=== PATIENT | male | born 1965 | race Caucasian/White ===

== ENCOUNTER → 2020-03-29 09:23 | Outpatient (BNVA) | payer OTHER, SELFPAY | PROVIDERS: PCP Internal Medicine; Visit Provider Physician Assistant | DX: Z76.89 Persons encountering health services in other specified circumstances (principal) ==

== ENCOUNTER 2020-04-27 08:12 | Outpatient (REF) | payer OTHER, SELFPAY ==
--- NOTE | 2020-04-27 10:29 | XR_ITS ---
EXAMINATION: XR ANKLE, LEFT CLINICAL INFORMATION: Fracture COMPARISON: None TECHNIQUE: AP, lateral, and mortise views of the left ankle. FINDINGS: There is an oblique fracture of the distal shaft of the fibula. There is a 2 mm lateral displacement of the lateral malleolus with respect to the more proximal shaft. There is soft tissue calcification in the region of the interosseous membrane. No other fracture is seen. Ankle mortise is normal. XR/XR ankle LT min 3V IMPRESSION: Oblique minimally displaced fracture of the distal shaft of the left fibula.
== END 2020-04-27 08:13 | disposition home or self-care (01) ==
LOC: HO.HOSX 08:12
PROVIDERS: Visit Provider Physician Assistant
DX: S82.402D Unspecified fracture of shaft of left fibula, subsequent encounter for closed fracture with routine healing (principal)
CPT/HCPCS: 73610

== ENCOUNTER → 2020-08-26 13:16 | Outpatient (BNVA) | payer OTHER, SELFPAY | PROVIDERS: PCP Internal Medicine; Referring Provider Internal Medicine; Visit Provider Nurse Practitioner ==

== ENCOUNTER 2020-09-22 09:22 | Day surgery (SDC) | payer OTHER, SELFPAY ==
[2020-09-16 14:49] VITALS: BMI 34.4
--- NOTE | 2020-09-20 13:10 | P.CONAN_ITS ---
Documented by User: Maegan Batesney 09/20/20 13:11 HPI - Anesthesia Eval Consult details Narrative: 55yo M for Colonoscopy PMFSH Active Problems Active Problems: All Active Problems (Updated 08/26/20 @ 14:00 by SHYANNE Livingston) Colon cancer screening (Acute) Skin tag (Acute) Guaiac + stool (Acute) Annual physical exam (Acute) Obesity (BMI 30-39.9) (Acute) Mendez's esophagus (Acute) Hypercholesterolemia (Acute) HTN (hypertension) (Acute) Type 2 diabetes mellitus with hyperglycemia (Acute) Left fibular fracture (Acute) Somatic dysfunction of left sacroiliac joint (Acute) Past Medical History Medical History Mendez's esophagus Crohn's colitis HTN (hypertension) Hypercholesterolemia Obesity (BMI 30-39.9) Type 2 diabetes mellitus with hyperglycemia Vitamin D deficiency Family History Family History Father CVD (cardiovascular disease) Diabetes Hypertension Myocardial infarction Mother Myocardial infarction Hypertension CVD (cardiovascular disease) Maternal Grandmother Gastric cancer Paternal Grandmother Myocardial infarction Maternal Aunt Gastric cancer Breast cancer Sister In good health Surgical History Surgical History History of umbilical hernia repair Social History Social History Alcohol intake: never Patient Tobacco Use Status: Never used Tobacco Use of substances other than those prescribed or required for medical reasons: No Have you been hit, kicked, punched, or otherwise hurt by someone within the past year? If so, by whom?: No Are you DNR?: No Advance Directives: No Advance Directives Information Provided: Yes Nutrition Risks: No Nutritional Risk Current occupational status: employed Current occupation: [employer] Allergies Allergy/AdvReac Type Severity Reaction Status Date / Time Penicillins [PENICILLINS] Allergy Intermediate HIVES Verified 08/26/20 13:27 lisinopril [LISINOPRIL] Allergy Unknown COUGH Verified 08/26/20 13:27 penicillin V Allergy Unknown rash Verified 08/26/20 13:27 Home Medications Medication Instructions Recorded Confirmed Last Taken Type amlodipine 5 mg tablet 5 mg PO DAILY 02/22/20 06/17/20 09/22/20 06:00 History empagliflozin 25 mg tablet 25 mg PO QAM 02/22/20 06/17/20 Unknown History dulaglutide 0.75 mg/0.5 mL 1.5 mg SUBCUT QWEEK ml 06/17/20 06/17/20 Unknown History subcutaneous pen injector omeprazole 20 mg capsule,delayed 20 mg PO DAILY 06/17/20 06/17/20 09/22/20 06:00 History release Exam Exam Date and Time: September 20, 2020 1310 Height,Weight and Vital Signs: Height 5 ft 5 in Weight 93.894 kg Assessment and Plan Assessment Anesthesia Assessment: Chart Reviewed Documented by User: Seamus Malave MD 09/22/20 09:56 [facility] Past Medical History Medical History Mendez's esophagus Crohn's colitis HTN (hypertension) Hypercholesterolemia Obesity (BMI 30-39.9) Type 2 diabetes mellitus with hyperglycemia Vitamin D deficiency Family History Family History Father CVD (cardiovascular disease) Diabetes Hypertension Myocardial infarction Mother Myocardial infarction Hypertension CVD (cardiovascular disease) Maternal Grandmother Gastric cancer Paternal Grandmother Myocardial infarction Maternal Aunt Gastric cancer Breast cancer Sister In good health Surgical History Surgical History History of umbilical hernia repair Social History Social History Alcohol intake: never Patient Tobacco Use Status: Never used Tobacco Use of substances other than those prescribed or required for medical reasons: No Have you been hit, kicked, punched, or otherwise hurt by someone within the past year? If so, by whom?: No Are you DNR?: No Advance Directives: No Advance Directives Information Provided: Yes Nutrition Risks: No Nutritional Risk Current occupational status: employed Current occupation: [employer] Allergies Allergy/AdvReac Type Severity Reaction Status Date / Time Penicillins [PENICILLINS] Allergy Intermediate HIVES Verified 08/26/20 13:27 lisinopril [LISINOPRIL] Allergy Unknown COUGH Verified 08/26/20 13:27 penicillin V Allergy Unknown rash Verified 08/26/20 13:27 Home Medications Medication Instructions Recorded Confirmed Last Taken Type amlodipine 5 mg tablet 5 mg PO DAILY 02/22/20 06/17/20 09/22/20 06:00 History empagliflozin 25 mg tablet 25 mg PO QAM 02/22/20 06/17/20 Unknown History dulaglutide 0.75 mg/0.5 mL 1.5 mg SUBCUT QWEEK ml 06/17/20 06/17/20 Unknown History subcutaneous pen injector omeprazole 20 mg capsule,delayed 20 mg PO DAILY 06/17/20 06/17/20 09/22/20 06:00 History release Exam Airway Mallampati Class: II TM Dist: >3cm Neck ROM: Full Loose/Missing/Broken Teeth: No Heart: RRR, hypertensive. c/w baseline , worsened by anxiety Assessment and Plan Assessment Anesthesia Assessment: Anesthesia Plan Discussed and Chart Reviewed Final Anesthetic Review NPO: Yes ASA Class: III Final Preanesthetic Review: No Changes in Pt Med Stat, Meds/Allgs Chart Reviewed, Consent Obtained/Reviewed and Anes Risks/Benef Reviewed Patient Risk: Intermediate Procedure Risk: Low Anesthetic Plan Anesthetic Plan: MAC: Disposition: Standard PACU
[2020-09-22 09:35] VITALS: BP 182/100; PULSE 95; RESP 18; TEMP 36.9; O2SAT 98
[2020-09-22 09:37] LABS: Glucose, Whole Blood 234 mg/dL (60-115)
--- NOTE | 2020-09-22 09:39 | MHC.SHP ---
Pre-Procedural Eval Section B Chief Complaint: Screening Details of Present Illness: hx of barretts and carcinoid, crohns Relevant Family History (Specify if Yes): No Relevant Social History: None Present Medications: see Short Stay Collaborative assessment Medical History: Significant History (Mendez's esophagus Crohn's colitis HTN (hypertension) Hypercholesterolemia Obesity (BMI 30-39.9) Type 2 diabetes mellitus with hyperglycemia Vitamin D deficiency) History of Previous Operations: Relevant previous surgery/procedure and date(s) (umbilical hernia repair) Allergies: Allergies Allergy/AdvReac Type Severity Reaction Status Date / Time Penicillins [PENICILLINS] Allergy Intermediate HIVES Verified 08/26/20 13:27 lisinopril [LISINOPRIL] Allergy Unknown COUGH Verified 08/26/20 13:27 penicillin V Allergy Unknown rash Verified 08/26/20 13:27 Review of Systems Sugical H&P ROS: Negative: Constitution, Cardiovascular, Respiratory, Neurological, Psychiatric, Hem-Onc, Allergic/Immunologic, Gastrointestinal, Genitourinary, Musculoskeletal, Integumentary, Endocrine and Eyes/Ears/Nose/Throat Exam Surgical H&P Exam: Normal: HEENT, Normal: Heart, Normal: Lungs, Normal: Extremities, Normal: Abdomen, Normal: Skin and Normal: Neurological Plan Diagnosis/Plan: Unchanged I have reviewed the history and physical and performed a pertinent physical examination on my patient. No changes have occurred unless specified.
[2020-09-22] MEDS: Lactated Ringers 1,000 ML 100 ML IVCONT (09:46)
--- NOTE | 2020-09-22 09:51 | PC.NURSE ---
anesthesia aware of vitals b/p and bs
--- NOTE | 2020-09-22 09:55 | PM.OP ---
Brief Operative Note Date of Service: 09/22/20 Pre-op diagnosis: hx of barretts, crohns, carcinoid Post-op diagnosis: same Procedure: see op note Surgeon: Bryn Lizarraga MD Anesthesia: MAC Was an Crm Consultant used for this Procedure?: No Estimated blood loss (mL): 0 Condition: stable Disposition: PACU
--- NOTE | 2020-09-22 09:55 | W.PM.OPN ---
Operative Note Operative Note Date of Service: 09/22/20 Narrative: Operative Information Procedure Description: EGD, Colonoscopy FLEXIBLE TRANSORAL UPPER GASTROINTESTINAL ENDOSCOPY AND COLONOSCOPY PROCEDURE NOTE UPPER ENDOSCOPY Consent: Indications for the procedure and potential complications of bleeding, perforation, reaction to medications and missed diagnosis were discussed with the patient and informed consent was obtained. Instrument: Olympus GIF H 190 J mid size upper endoscope Monitoring: Vital signs and clinical assessment, continuous EKG monitoring, Pulse oximetry, Carbon Dioxide monitoring and blood pressure monitoring were done throughout the procedure. Procedure: The patient was placed in the left lateral decubitis position and pre-procedure medications were administered and a bite block was placed. The endoscope was inserted into the mouth and advanced under direct vision to the third part of duodenum. A careful inspection was made as the upper endoscope was withdrawn including a retroflexed examination of the proximal stomach; Findings and interventions are described below. Findings: Larynx:normal Esophagus: GE junction at 37 cm, diaphragm hiatus at 41 cm, consistent with 4 cm sliding hiatal hernia, long segment of salmon pink tissue consistent with barretts esophagus C5M8 by Rochelle criteria. Using high def light and blue light no focal nodularity noted. Biospies taken per Hendrix protocol at 37, 35, 33, 29 cm from incisors. WATS 3d brushings also taken. Stomach: Patchy erythema in stomach, prominent fold at pylorus. Biopsies were obtained. Grade 3 flap valve on retroflexed examination of the cardia, ie v lax LES Duodenum: bulbar duodenitis with swelling and erythema, bx taken, no ulcers seen Intervention: Biopsies as noted above, brushings for WATS3D COLONOSCOPY Instrument: Olympus variable stiffness pediatric scope 190L Colonoscopy Monitoring: Vital signs and clinical assessment, continuous EKG monitoring, Pulse oximetry, Carbon Dioxide monitoring and blood pressure monitoring were done throughout the procedure. Colon withdrawal time was 32 minutes. Procedure: The patient was placed in the left lateral decubitis position and pre-procedure medications were administered. After a digital rectal examination of the ano-rectum, the video colonoscope was inserted into the rectum and advanced through the colon to the cecum/TI. The colonoscope was slowly withdrawn in a retrograde panoramic fashion and the colon mucosa was carefully examined including a retroflexed view of the rectum. Findings and interventions are described below. Procedure Difficulty:easy Findings: colon bx taken from right, and left/transverse and rectum in separate jars Terminal Ileum-normal, bx taken Cecum:normal, bx taken Ascending Colon: normal, bx taken Transverse Colon -normal, bx taken Descending Colon:normal, bx taken Sigmoid Colon: moderate severe diverticulosis noted, bx taken Rectum: Retroflexion with moderate sized internal hemorrhoids, grade I proximal rectum 10 mm sessile polyp noted and removed with cold snare mid rectum, 8-10 mm sessile polyp removed with cold snare distal rectum x 2 sessile polyps 10 mm removed with cold snare On retroflexion x2 pedunculated polpyoid lesions which looked like papillomas were removed with cold snare. Anorectum - normal Colon preparation: [place] Bowel Preparation Scale Right colon; 3 Transverse colon: 3 Left colon; 2 (0 = Unprepared colon segment with mucosa not seen due to solid stool that cannot be cleared. 1 = Portion of mucosa of the colon segment seen, but other areas of the colon segment not well seen due to staining, residual stool and/or opaque liquid. 2 = Minor amount of residual staining, small fragments of stool and/or opaque liquid, but mucosa of colon segment seen well. 3 = Entire mucosa of colon segment seen well with no residual staining, small fragments of stool or opaque liquid) Impression and Post Procedure Diagnosis: Endoscopy Findings: barretts esophagus hiatal hernia gastritis duodenitis Colonoscopy Findings: polyps internal hemorrhoids diverticular disease possible papillomas Plan: Await Pathology results Repeat Colonoscopy in 3 years or earlier if clinically indicated Repeat EGD 1 yr or earlier if any dysplasia, confirm he is taking PPI High fiber diet leaflet avoid straining at stool, epsom salts and sitz bath, anusol supps or cream may need colorectal assessment and further testing if papillomas confirmed Above findings were reviewed with the patient and relevant handouts were provided if indicated.
[2020-09-22 11:15] VITALS: BP 102/63; PULSE 79; RESP 14; TEMP 36.2; O2SAT 97
[2020-09-22 11:30] VITALS: BP 125/78; PULSE 82; RESP 16; TEMP 36.2; O2SAT 98
== END 2020-09-22 12:04 | disposition home or self-care (01) ==
PROVIDERS: PCP Internal Medicine; Visit Provider Internal Medicine Gastroenterology
PROC: 0DJD8ZZ Inspection of Lower Intestinal Tract, Via Natural or Artificial Opening Endoscopic (ICD-10-PCS; CPT 45378; principal; 2020-09-22 11:20)
DX: Z12.11 Encounter for screening for malignant neoplasm of colon (principal); K63.5 Polyp of colon; K62.1 Rectal polyp; K57.30 Diverticulosis of large intestine without perforation or abscess without bleeding; K64.0 First degree hemorrhoids; K50.10 Crohn's disease of large intestine without complications; K22.70 Barrett's esophagus without dysplasia; K21.9 Gastro-esophageal reflux disease without esophagitis; K29.80 Duodenitis without bleeding; K44.9 Diaphragmatic hernia without obstruction or gangrene; I10 Essential (primary) hypertension; E11.65 Type 2 diabetes mellitus with hyperglycemia; E55.9 Vitamin D deficiency, unspecified; Z88.0 Allergy status to penicillin; Z88.8 Allergy status to other drugs, medicaments and biological substances; Z79.899 Other long term (current) drug therapy
CPT/HCPCS: 45385; 45380; 43239; 82947; 88305; 88341; 88342; 88360; J2250; J3010

== ENCOUNTER 2020-10-03 09:02 | Outpatient (REF) | payer OTHER, SELFPAY ==
[2020-10-03 09:38] LABS: MANUAL DIFF FLAG NO
[2020-10-03 09:41] LABS: Basophils Percent Auto 0.5 % (0-2); Eosinophils Absolute Auto 0.1 X10*3/uL (0.0-0.4); Eosinophils Percent Auto 1.6 % (0-4); Hematocrit 42.2 % (42-52); Hemoglobin 14.2 g/dl (14.0-18.0); Imm Gran Abs Auto 0.06 X10*3/uL (0.00-0.03); Imm Gran Pct Auto 0.8 % (0.0-0.4); Lymphocytes Absolute Auto 1.7 X10*3/uL (1.2-4.9); Lymphocytes Percent Auto 22.8 % (20-40); Mean Corpuscular HGB Conc 33.6 g/dl (31.0-36.0); Mean Corpuscular Hemoglobin 26.5 pg (27.0-33.0); Mean Corpuscular Volume 78.9 fL (80-98); Mean Platelet Volume 10.8 fL (9.4-12.4); Monocytes Absolute Auto 0.4 X10*3/uL (0.1-1.2); Monocytes Percent Auto 5.4 % (2-11); Neutrophils Absolute Auto 5.1 X10*3/uL (2.0-8.3); Neutrophils Percent Auto 68.9 % (45-73); Platelet Count 241 X10*3/uL (160-400); Red Blood Count 5.35 X10*6/uL (4.60-5.80); Red Cell Distribution Width 13.6 % (11.0-16.0); White Blood Count 7.5 X10*3/uL (4.8-10.8)
[2020-10-03 10:01] LABS: Creatinine Urine 31.61 mg/dL; Microalbum/Creatinine Ratio Ur 60.1 ug/mg cr
[2020-10-03 10:10] LABS: Alanine Aminotransferase 21 U/L (0-40); Albumin Level 4.5 g/dL (3.5-5.0); Alkaline Phosphatase 77 U/L (39-117); Anion Gap 12 (12-20); Aspartate Amino Transferase 10 U/L (5-37); Bilirubin Total 0.8 mg/dL (0.0-1.0); Blood Urea Nitrogen 15 mg/dL (9-16); Calcium 9.6 mg/dL (8.4-10.2); Carbon Dioxide 30 mmol/L (22-29); Chloride 97 mmol/L (96-108); Estimated Glomerular Filt Rate > 60; Glucose Random 296 mg/dL (60-115); Potassium 4.5 mmol/L (3.3-5.1); Sodium 134 mmol/L (135-145); Total Protein 7.4 g/dL (6.5-8.0)
[2020-10-03 10:22] LABS: Alanine Aminotransferase 20 U/L (0-40); Albumin Level 4.5 g/dL (3.5-5.0); Alkaline Phosphatase 77 U/L (39-117); Anion Gap 12 (12-20); Aspartate Amino Transferase 11 U/L (5-37); Bilirubin Total 0.8 mg/dL (0.0-1.0); Blood Urea Nitrogen 15 mg/dL (9-16); Calcium 9.6 mg/dL (8.4-10.2); Carbon Dioxide 30 mmol/L (22-29); Chloride 97 mmol/L (96-108); Cholesterol 288 mg/dL; Estimated Glomerular Filt Rate > 60; Glucose Random 299 mg/dL (60-115); HDL Cholesterol 32 mg/dL; Potassium 4.5 mmol/L (3.3-5.1); Sodium 134 mmol/L (135-145); Total Protein 7.5 g/dL (6.5-8.0)
[2020-10-03 10:27] LABS: Free T4 (Free Thyroxine) 0.87 ng/dL (0.71-1.85); Thyroid Stimulating Hormone 1.21 uIU/mL (0.32-4.0)
[2020-10-03 10:52] LABS: Folate 12.1 ng/mL (> or = 4.0); Vitamin B12 569 pg/mL (200-900)
[2020-10-03 11:15] LABS: Triglycerides 1307 mg/dL
[2020-10-03 12:33] LABS: Prostate Specific Antigen Scr 0.62 ng/mL (<0.05-4.0)
[2020-10-12 16:12] LABS: Chromogranin A 385 ng/mL (ADULTS: <311)
== END 2020-10-03 09:03 | disposition home or self-care (01) ==
LOC: HO.LAB 09:02
PROVIDERS: Internal Medicine Gastroenterology; PCP Internal Medicine; Visit Provider Internal Medicine
DX: Z12.5 Encounter for screening for malignant neoplasm of prostate (principal); D3A.00 Benign carcinoid tumor of unspecified site; K75.81 Nonalcoholic steatohepatitis (NASH); E78.00 Pure hypercholesterolemia, unspecified; I10 Essential (primary) hypertension; E11.65 Type 2 diabetes mellitus with hyperglycemia; K22.710 Barrett's esophagus with low grade dysplasia; Z79.4 Long term (current) use of insulin
CPT/HCPCS: 36415; 80053; 80061; 82043; 82607; 82746; 84153; 84439; 84443; 85025; 86316

== ENCOUNTER → 2020-10-06 09:24 | Outpatient (BNVA) | payer OTHER, SELFPAY | PROVIDERS: Visit Provider Nurse Practitioner ==

== ENCOUNTER → 2020-10-13 15:52 | Outpatient (BNVA) | payer OTHER, SELFPAY | PROVIDERS: PCP Internal Medicine; Referring Provider Internal Medicine; Visit Provider Surgery ==

== ENCOUNTER 2020-10-19 08:15 | Outpatient (REF) | payer OTHER, SELFPAY ==
--- NOTE | ~2020-10-19 | CT_ITS ---
EXAMINATION: CT CHEST WITH CONTRAST CLINICAL INFORMATION: Benign carcinoid tumor. COMPARISON: Chest radiograph dated 12/24/2013. TECHNIQUE: Multidetector volumetric CT imaging of the chest was obtained after the administration of 85 mL of Omnipaque 350 intravenous contrast without immediate adverse reactions. Axial MIP volume rendering provided. Sagittal and coronal reformatted images were obtained. This CT examination was performed using dose optimization techniques as appropriate, variously including the following: *Automated exposure control *Adjustment of mA and/or kV according to patient size (this includes techniques or standardized protocols for targeted exams where dose is matched to indication/reason for exam; i.e. extremities or head) *Use of iterative reconstruction technique DLP: 193.1 mGy-cm. FINDINGS: GOOD HUMOR VENDOR: Unremarkable. LUNGS: Anterior right upper lobe 0.2 cm noncalcified nodule (axial image 162/532). Subpleural nodule along the right major fissure measuring up to 0.7 cm, which may represent a subpleural lymph node. Right middle lobe 0.4 cm nodule (axial image 278/532). More anterior right middle lobe nodule measuring 0.3 cm (axial image 290/532). Left lower lobe 0.2 cm noncalcified nodule (axial image 232/532). Left lower lobe 0.7 cm noncalcified nodule (axial image 300/532). Multiple additional left-sided calcified and noncalcified nodules measuring up to 0.3 cm. No large pulmonary mass or confluent airspace consolidation. The central airways are patent. MEDIASTINUM: No cardiomegaly. No pericardial effusion. No thoracic aortic dilatation or dissection. No significant superior mediastinal or hilar lymphadenopathy. Unremarkable thyroid. PLEURA: There is no pleural effusion. No pleural mass or thickening. AXILLA: No lymphadenopathy. UPPER ABDOMEN: Cholelithiasis. Otherwise, the visualized upper abdominal structures are unremarkable. OSSEOUS STRUCTURES: Unremarkable. CT/CT chest w con IMPRESSION: 1. Multiple bilateral calcified and noncalcified pulmonary nodules. The largest noncalcified nodules measure up to 0.7 cm. Given the patient's history of carcinoid, continued attention on follow-up is recommended. 2. No large pulmonary mass or confluent airspace consolidation. 3. No lymphadenopathy.
--- NOTE | ~2020-10-19 | CT_ITS ---
EXAMINATION: CT ABDOMEN AND PELVIS WITH CONTRAST CLINICAL INFORMATION: Benign carcinoid tumor of unspecified site COMPARISON: None TECHNIQUE: Multidetector volumetric images were obtained from the superior aspect of the liver through the pubic symphysis following administration 85 mL of Omnipaque 350 intravenous contrast. Sagittal and coronal reformatted images were obtained on the technologist's workstation. Oral contrast: No This CT examination was performed using dose optimization techniques as appropriate, variously including the following: *Automated exposure control *Adjustment of mA and/or kV according to patient size (this includes techniques or standardized protocols for targeted exams where dose is matched to indication/reason for exam; i.e. extremities or head) *Use of iterative reconstruction technique DLP: 193.10 mGy-cm FINDINGS: LUNG BASES: The lung bases are clear. The heart size is normal. There is a 5 mm nodule left lung base image 3/3. LIVER, GALLBLADDER, AND BILIARY TREE: The liver is normal in size, shape, and attenuation. No focal hepatic lesion or biliary ductal dilatation is present. There is a 1.3 cm radiopaque gallstone dependent segment. No wall thickening or pericholecystic fluid collections. PANCREAS: Unremarkable. SPLEEN: Unremarkable. ADRENAL GLANDS: Unremarkable. KIDNEYS AND URETERS: The kidneys are normal in size, shape, and attenuation. No hydronephrosis, hydroureter, or calculi seen. No perinephric stranding. BLADDER: Unremarkable. GASTROINTESTINAL TRACT: There is scattered stool, diverticuli and gas seen in the colon without distention. Oral opacified small bowel loops are normal caliber. There is mild mural thickening involving a proximal jejunal loop likely secondary to peristalsis on axial image 33 through 42/3. Appendix is normal caliber. No visible soft tissue mass seen intraperitoneally. No free air or free fluid. There is diffuse sigmoid diverticulosis. ABDOMINAL WALL: No significant hernia is appreciated. LYMPH NODES: There are small shotty lymph nodes in the retroperitoneum none of which more than 5 mm. VASCULAR: Unremarkable. PELVIC VISCERA: Unremarkable. OSSEOUS STRUCTURES: No acute lytic or sclerotic process seen. There are degenerative disc changes with vacuum disc phenomena at L2-L3 disc level with mild ventral and posterior spondylosis. CT/CT abdomen pelvis w con IMPRESSION: Colonic diverticulosis most prominent in the sigmoid colon. No evidence of diverticulitis. No obstruction. There is no suspicious intraperitoneal lesion seen. There is mild mural thickening involving proximal jejunal loop likely related to peristalsis.
[2020-10-19] MEDS: Barium Sulfate Oral (Vanilla) 450 ML ORAL.SUSP 900 ML PO (11:00)
[2020-10-19] MEDS: iohexoL 350 MG/ML 100 ML INFUS..BTL 85 ML IV (11:00)
== END 2020-10-19 08:16 | disposition home or self-care (01) ==
LOC: HO.CT 08:15
PROVIDERS: Visit Provider Internal Medicine Gastroenterology
DX: D3A.00 Benign carcinoid tumor of unspecified site (principal)
CPT/HCPCS: 71260; 74177; Q9967

== ENCOUNTER 2020-11-10 07:13 | Day surgery (SDC) | payer OTHER, SELFPAY ==
[2020-11-04 11:34] VITALS: BMI 34.4
--- NOTE | 2020-11-09 08:47 | HO.ANESPROP2 ---
Documented by User: Maegan Batesney 11/09/20 08:48 HPI - Anesthesia Eval Consult details Narrative: 55yo M for Colonoscopy with Chromoendoscopy s/p colo with TIVA 09/[facility] Active Problems Active Problems: All Active Problems (Updated 11/04/20 @ 11:38 by Lis Marvin) Somatic dysfunction of left sacroiliac joint (Acute) Left fibular fracture (Acute) Annual physical exam (Acute) Guaiac + stool (Acute) Skin tag (Acute) Carcinoid tumor (Acute) Rectal carcinoid tumor (Acute) Obesity (BMI 30-39.9) (Acute) Mendez's esophagus (Acute) Hypercholesterolemia (Acute) HTN (hypertension) (Acute) Type 2 diabetes mellitus with hyperglycemia (Acute) Past Medical History Medical History 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 Crohn's colitis HTN (hypertension) Hypercholesterolemia Obesity (BMI 30-39.9) Rectal carcinoid tumor Type 2 diabetes mellitus with hyperglycemia Vitamin D deficiency Family History Family History Father Diabetes CVD (cardiovascular disease) Myocardial infarction Hypertension Mother CVD (cardiovascular disease) Myocardial infarction Hypertension Throat cancer Maternal Grandmother Gastric cancer Paternal Grandmother Myocardial infarction Maternal Aunt Gastric cancer Breast cancer Sister In good health Other Substance abuse Surgical History Surgical History H/O colonoscopy History of esophagogastroduodenoscopy (EGD) History of umbilical hernia repair Social History Social History Housing: House Alcohol intake: never Patient Tobacco Use Status: Never used Tobacco e-Cigarette/Vaping Use: Never Used Second Hand Smoke Exposure: Yes Advance Directives Information Provided: No service: Yes ([employer]) Current occupational status: employed Current occupation: [employer] Allergies Allergy/AdvReac Type Severity Reaction Status Date / Time lisinopril [LISINOPRIL] Allergy Intermediate COUGH Verified 11/04/20 11:30 Penicillins [PENICILLINS] Allergy Intermediate HIVES Verified 10/13/20 16:04 Home Medications Medication Instructions Recorded Confirmed Last Taken Type empagliflozin 25 mg tablet 25 mg PO QAM 02/22/20 11/04/20 Unknown History dulaglutide 0.75 mg/0.5 mL 1.5 mg SUBCUT QWEEK ml 06/17/20 11/04/20 Unknown History subcutaneous pen injector ([facility]) omeprazole 20 mg capsule,delayed 20 mg PO DAILY 06/17/20 11/04/20 09/22/20 06:00 History release peg-electrolyte solution 420 gram 4,000 ml PO DIRECTED 10/06/20 10/20/20 Unknown History oral solution Exam Exam Date and Time: November 09, 2020 0847 Height,Weight and Vital Signs: Height 5 ft 5 in Weight 93.894 kg Assessment and Plan Assessment Anesthesia Assessment: Chart Reviewed Documented by User: Christy Justice MD 11/10/20 08:11 [facility] Past Medical History Medical History 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 Crohn's colitis HTN (hypertension) Hypercholesterolemia Obesity (BMI 30-39.9) Rectal carcinoid tumor Type 2 diabetes mellitus with hyperglycemia Vitamin D deficiency Family History Family History Father Diabetes CVD (cardiovascular disease) Myocardial infarction Hypertension Mother CVD (cardiovascular disease) Myocardial infarction Hypertension Throat cancer Maternal Grandmother Gastric cancer Paternal Grandmother Myocardial infarction Maternal Aunt Gastric cancer Breast cancer Sister In good health Other Substance abuse Surgical History Surgical History H/O colonoscopy History of esophagogastroduodenoscopy (EGD) History of umbilical hernia repair History of Problems with Anesthesia: No Social History Social History Housing: House Alcohol intake: never Patient Tobacco Use Status: Never used Tobacco e-Cigarette/Vaping Use: Never Used Second Hand Smoke Exposure: Yes Advance Directives Information Provided: No service: Yes ([employer]) Current occupational status: employed Current occupation: [employer] Allergies Allergy/AdvReac Type Severity Reaction Status Date / Time lisinopril [LISINOPRIL] Allergy Intermediate COUGH Verified 11/04/20 11:30 Penicillins [PENICILLINS] Allergy Intermediate HIVES Verified 10/13/20 16:04 Home Medications Medication Instructions Recorded Confirmed Last Taken Type empagliflozin 25 mg tablet 25 mg PO QAM 02/22/20 11/04/20 Unknown History dulaglutide 0.75 mg/0.5 mL 1.5 mg SUBCUT QWEEK ml 06/17/20 11/04/20 Unknown History subcutaneous pen injector ([employer]) omeprazole 20 mg capsule,delayed 20 mg PO DAILY 06/17/20 11/04/20 09/22/20 06:00 History release peg-electrolyte solution 420 gram 4,000 ml PO DIRECTED 10/06/20 10/20/20 Unknown History oral solution Exam Airway Mallampati Class: II TM Dist: >3cm Neck ROM: Full Heart: RRR Lungs: CTA Assessment and Plan Assessment Anesthesia Assessment: Anesthesia Plan Discussed and Chart Reviewed Final Anesthetic Review History of Problems with Anesthesia: No NPO: Yes ASA Class: III Final Preanesthetic Review: Meds/Allgs Chart Reviewed, Consent Obtained/Reviewed and Anes Risks/Benef Reviewed Patient Risk: Intermediate Procedure Risk: Low Anesthetic Plan Anesthetic Plan: MAC: Disposition: Standard PACU
[2020-11-10 07:18] VITALS: BP 182/97; PULSE 73; RESP 16; TEMP 36.2; O2SAT 98
[2020-11-10 07:26] LABS: Glucose, Whole Blood 299 mg/dL (60-115)
[2020-11-10 07:29] VITALS: BP 176/89; PULSE 76
[2020-11-10] MEDS: Lactated Ringers 1,000 ML 100 ML IVCONT (07:35)
[2020-11-10] MEDS: Insulin Regular, Human 100 UNIT/ML 3 ML VIAL 10 UNIT IVPUSH (08:10)
--- NOTE | 2020-11-10 08:28 | P.HPSUR_ITS ---
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 Crohn's colitis HTN (hypertension) Hypercholesterolemia Obesity (BMI 30-39.9) Rectal carcinoid tumor Type 2 diabetes mellitus with hyperglycemia Vitamin D deficiency) History of Previous Operations: Relevant previous surgery/procedure and date(s) (H/O colonoscopy History of esophagogastroduodenoscopy (EGD) History of umbilical hernia repair) Allergies: Allergies Allergy/AdvReac Type Severity Reaction Status Date / Time lisinopril [LISINOPRIL] Allergy Intermediate COUGH Verified 11/04/20 11:30 Penicillins [PENICILLINS] Allergy Intermediate HIVES Verified 10/13/20 16:04 Review of Systems Sugical H&P ROS: Negative: Constitution, Cardiovascular, Respiratory, Neurological, Psychiatric, Hem-Onc, Allergic/Immunologic, Gastrointestinal, Genitourinary, Musculoskeletal, Integumentary, Endocrine and Eyes/Ears/Nos e/Throat Exam Surgical H&P Exam: Normal: HEENT, Normal: Heart, Normal: Lungs, Normal: Extremities, Normal: Abdomen, Normal: Skin and Normal: Neurological Plan Diagnosis/Plan: Unchanged I have reviewed the history and physical and performed a pertinent physical examination on my patient. No changes have occurred unless specified.
--- NOTE | 2020-11-10 08:30 | P.BOP_ITS ---
Brief Operative Note Date of Service: 11/10/20 Pre-op diagnosis: colon f/u for rectal carcinoid and low grade dysplasia of polyp Post-op diagnosis: same Procedure: see op note Surgeon: Bryn Lizarraga MD Anesthesia: MAC Was an Retail Service Specialist used for this Procedure?: No Estimated blood loss (mL): 0 Condition: stable Disposition: PACU
--- NOTE | 2020-11-10 08:39 | W.PM.OPN ---
Operative Note Operative Note Date of Service: 11/10/20 Narrative: Operative Information Procedure Description: Colonoscopy COLONOSCOPY Instrument: Olympus variable stiffness pediatric scope 190L Colonoscopy Monitoring: Vital signs and clinical assessment, continuous EKG monitoring, Pulse oximetry, Carbon Dioxide monitoring and blood pressure monitoring were done throughout the procedure. Colon withdrawal time was 20 minutes. Procedure: The patient was placed in the left lateral decubitis position and pre-procedure medications were administered. After a digital rectal examination of the ano-rectum, the video colonoscope was inserted into the rectum and advanced through the colon to the cecum/TI. The colonoscope was slowly withdrawn in a retrograde panoramic fashion and the colon mucosa was carefully examined including a retroflexed view of the rectum. Findings and interventions are described below. Procedure Difficulty: easy Findings: After colon was cleaned the colon was sprayed with methylene blue 1% in 240 cc of saline Terminal Ileum-normal Cecum:normal Ascending Colon: 10-12 mm sessile polyp removed with cold snare Transverse Colon -normal Descending Colon:normal Sigmoid Colon: moderate severe diverticulosis noted Rectum: Retroflexion with large internal hemorrhoids, grade II, x 1 sessile polyp 6-7 mm removed with forceps and 1 10 mm sessile polyp removed wtith cold snare Anorectum - normal Colon preparation: [place] Bowel Preparation Scale Right colon; 2 Transverse colon: 3 Left colon; 3 (0 = Unprepared colon segment with mucosa not seen due to solid stool that cannot be cleared. 1 = Portion of mucosa of the colon segment seen, but other areas of the colon segment not well seen due to staining, residual stool and/or opaque liquid. 2 = Minor amount of residual staining, small fragments of stool and/or opaque liquid, but mucosa of colon segment seen well. 3 = Entire mucosa of colon segment seen well with no residual staining, small fragments of stool or opaque liquid) Impression and Post Procedure Diagnosis: polyps internal hemorrhoids diverticular disease Plan: High fiber diet leaflet Avoid straining at stool, epsom salts and sitz bath, anusol supps or cream Repeat Colonoscopy in 1 year or earlier if clinically indicated Above findings were reviewed with the patient and relevant handouts were provided if indicated.
[2020-11-10 09:20] VITALS: BP 97/62; PULSE 66; RESP 18; TEMP 36.3; O2SAT 97
[2020-11-10 09:25] LABS: Glucose, Whole Blood 286 mg/dL (60-115)
[2020-11-10 09:35] VITALS: BP 126/75; PULSE 67; RESP 18; TEMP 36.3; O2SAT 96
== END 2020-11-10 10:17 | disposition home or self-care (01) ==
PROVIDERS: PCP Internal Medicine; Visit Provider Internal Medicine Gastroenterology
PROC: 0DJD8ZZ Inspection of Lower Intestinal Tract, Via Natural or Artificial Opening Endoscopic (ICD-10-PCS; CPT 45378; principal; 2020-11-10 08:30)
DX: D3A.026 Benign carcinoid tumor of the rectum (principal); D12.2 Benign neoplasm of ascending colon; K62.1 Rectal polyp; K57.30 Diverticulosis of large intestine without perforation or abscess without bleeding; K64.0 First degree hemorrhoids; K22.70 Barrett's esophagus without dysplasia; I10 Essential (primary) hypertension; E11.65 Type 2 diabetes mellitus with hyperglycemia; Z79.4 Long term (current) use of insulin; Z79.899 Other long term (current) drug therapy; Z88.0 Allergy status to penicillin; Z88.8 Allergy status to other drugs, medicaments and biological substances
CPT/HCPCS: 45385; 45380; 82947; 88305; Q9968

== ENCOUNTER → 2020-11-22 14:42 | Outpatient (BNVA) | payer OTHER, SELFPAY | PROVIDERS: Visit Provider Nurse Practitioner ==

== ENCOUNTER 2020-11-25 07:20 | Day surgery (SDC) | payer OTHER, SELFPAY ==
[2020-11-17 14:31] VITALS: BMI 32.5
--- NOTE | 2020-11-24 08:28 | P.CONAN_ITS ---
Documented by User: Maegan Hampton NP 11/24/20 08:28 HPI - Anesthesia Eval Consult details Narrative: 55yo M for Exam Under Anesthesia, Poss Transanal Excision of Rectal Polyp s/p colo with TIVA 11/10/20 [facility] Active Problems Active Problems: All Active Problems (Updated 11/22/20 @ 15:06 by SHYANNE Livingston) Sessile colonic polyp (Acute) Adenomatous polyp of ascending colon (Acute) Somatic dysfunction of left sacroiliac joint (Acute) Left fibular fracture (Acute) Annual physical exam (Acute) Guaiac + stool (Acute) Skin tag (Acute) Carcinoid tumor (Acute) Rectal carcinoid tumor (Acute) Obesity (BMI 30-39.9) (Acute) Mendez's esophagus (Acute) Hypercholesterolemia (Acute) HTN (hypertension) (Acute) Type 2 diabetes mellitus with hyperglycemia (Acute) Past Medical History Medical History 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 Crohn's colitis HTN (hypertension) Hypercholesterolemia Obesity (BMI 30-39.9) Rectal carcinoid tumor Type 2 diabetes mellitus with hyperglycemia Vitamin D deficiency Family History Family History Father Diabetes CVD (cardiovascular disease) Myocardial infarction Hypertension Mother CVD (cardiovascular disease) Myocardial infarction Hypertension Throat cancer Maternal Grandmother Gastric cancer Paternal Grandmother Myocardial infarction Maternal Aunt Gastric cancer Breast cancer Sister In good health Other Substance abuse Surgical History Surgical History H/O colonoscopy History of esophagogastroduodenoscopy (EGD) History of umbilical hernia repair History of Problems with Anesthesia: No Social History Social History Housing: House Are you a primary school child care attendant to a significant other at home: No Do you presently have visiting nurse or other home services: No Alcohol intake: never Patient Tobacco Use Status: Never used Tobacco e-Cigarette/Vaping Use: Never Used Second Hand Smoke Exposure: Yes Use of substances other than those prescribed or required for medical reasons: No Are you DNR?: No Advance Directives: No Advance Directives Information Provided: No Advance Directives on File: No service: Yes ([place]) Current occupational status: employed Current occupation: [employer] Allergies Allergy/AdvReac Type Severity Reaction Status Date / Time lisinopril [LISINOPRIL] Allergy Intermediate COUGH Verified 11/22/20 14:43 Penicillins [PENICILLINS] Allergy Intermediate HIVES Verified 11/22/20 14:43 Home Medications Medication Instructions Recorded Confirmed Last Taken Type empagliflozin 25 mg tablet 25 mg PO QAM 02/22/20 11/17/20 Unknown History dulaglutide 0.75 mg/0.5 mL 1.5 mg SUBCUT QWEEK ml 06/17/20 11/17/20 Unknown [facility] Exam Exam Date and Time: November 24, 2020 0828 Height,Weight and Vital Signs: Height 5 ft 6 in Weight 91.626 kg Assessment and Plan Assessment Anesthesia Assessment: Chart Reviewed Final Anesthetic Review History of Problems with Anesthesia: No Documented by User: Jackeline Chow MD 11/25/20 08:14 [facility] Past Medical History Medical History 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 Crohn's colitis HTN (hypertension) Hypercholesterolemia Obesity (BMI 30-39.9) Rectal carcinoid tumor Type 2 diabetes mellitus with hyperglycemia Vitamin D deficiency Family History Family History Father Diabetes CVD (cardiovascular disease) Myocardial infarction Hypertension Mother CVD (cardiovascular disease) Myocardial infarction Hypertension Throat cancer Maternal Grandmother Gastric cancer Paternal Grandmother Myocardial infarction Maternal Aunt Gastric cancer Breast cancer Sister In good health Other Substance abuse Family history of problems with anesthesia: No Surgical History Surgical History H/O colonoscopy History of esophagogastroduodenoscopy (EGD) History of umbilical hernia repair Social History Social History Housing: House Are you a primary school child care attendant to a significant other at home: No Do you presently have visiting nurse or other home services: No Alcohol intake: never Patient Tobacco Use Status: Never used Tobacco e-Cigarette/Vaping Use: Never Used Second Hand Smoke Exposure: Yes Use of substances other than those prescribed or required for medical reasons: No Are you DNR?: No Advance Directives: No Advance Directives Information Provided: No Advance Directives on File: No service: Yes ([employer]) Current occupational status: employed Current occupation: [employer] Allergies Allergy/AdvReac Type Severity Reaction Status Date / Time lisinopril [LISINOPRIL] Allergy Intermediate COUGH Verified 11/22/20 14:43 Penicillins [PENICILLINS] Allergy Intermediate HIVES Verified 11/22/20 14:43 Home Medications Medication Instructions Recorded Confirmed Last Taken Type empagliflozin 25 mg tablet 25 mg PO QAM 02/22/20 11/17/20 Unknown History dulaglutide 0.75 mg/0.5 mL 1.5 mg SUBCUT QWEEK ml 06/17/20 11/17/20 Unknown History subcutaneous pen injector ([employer]) Exam Airway Mallampati Class: III TM Dist: >3cm Neck ROM: Full Assessment and Plan Assessment Anesthesia Assessment: Anesthesia Plan Discussed Final Anesthetic Review Family History of Problems with Anesthesia: No NPO: Yes ASA Class: III Final Preanesthetic Review: No Changes in Pt Med Stat, Meds/Allgs Chart Reviewed, Consent Obtained/Reviewed and Anes Risks/Benef Reviewed Patient Risk: Intermediate Procedure Risk: Low Assessment/Block/Sedation in SS: Assess/Block/Sedation-SS Anesthetic Plan Anesthetic Plan: MAC: Disposition: Standard PACU
[2020-11-25 07:31] VITALS: BP 178/92; PULSE 78; RESP 18; TEMP 36.6; O2SAT 98
[2020-11-25 07:41] LABS: Glucose, Whole Blood 324 mg/dL (60-115)
--- NOTE | 2020-11-25 08:02 | PC.NURSE ---
bs 325 anesthesiaaware insulin given sq
[2020-11-25] MEDS: Insulin Lispro 100 UNIT/ML 3 ML VIAL SUBCUT (08:05)
[2020-11-25 08:06] VITALS: BP 163/87; PULSE 74; RESP 18; TEMP 36.6; O2SAT 97
[2020-11-25] MEDS: Lactated Ringers 1,000 ML 100 ML IVCONT (08:07)
--- NOTE | 2020-11-25 08:34 | P.HPSUR_ITS ---
Pre-Procedural Eval Section A Date of Service: 11/25/20 Section B Chief Complaint: carcinoid tumor of rectum Details of Present Illness: had a rectal polyp removed endoscopically - turned out to be welldifferentiated carcinoid; no GI complaints Relevant Family History (Specify if Yes): No Relevant Social History: None Present Medications: see Short Stay Collaborative assessment Medical History: Significant History (DM, obesity, hyperlipidemia, HTN) History of Previous Operations: No relevant previous surgery Allergies: Allergies Allergy/AdvReac Type Severity Reaction Status Date / Time lisinopril [LISINOPRIL] Allergy Intermediate COUGH Verified 11/22/20 14:43 Penicillins [PENICILLINS] Allergy Intermediate HIVES Verified 11/22/20 14:43 Review of Systems Sugical H&P ROS: Negative: Constitution, Cardiovascular, Respiratory, Ne urological, Psychiatric, Hem-Onc, Allergic/Immunologic, Gastrointestinal, Genitourinary, Musculoskeletal, Integumentary, Endocrine and Eyes/Ears/Nose/Throat Exam Surgical H&P Exam: Normal: HEENT, Normal: Heart, Normal: Lungs, Normal: Extremities, Normal: Abdomen, Normal: Skin and Normal: Neurological Plan Diagnosis/Plan: Unchanged I have reviewed the history and physical and performed a pertinent physical examination on my patient. No changes have occurred unless specified.
--- NOTE | 2020-11-25 09:20 | W.PM.OPN ---
Operative Note Operative Note Date of Service: 11/25/20 Narrative: Preop diagnosis: History of rectal carcinoid Postop diagnosis: History of rectal carcinoid, with note of a low rectal polyp/hemorrhoid? Procedure: Exam under anesthesia, excision of and a rectal polyp/hemorrhoid? Surgeon: Narendra Macedo MD The patient is a 55-year-old male who had undergone recent colonoscopy with Dr. Lizarraga and was noted to have a low rectal polyp which was removed endoscopically. This turned out to be a rectal carcinoid, well-differentiated. He was therefore referred to me. I explained to him that we had planned on doing an exam under anesthesia to check for any residual lesion. I explained him the technique of this procedure. I reviewed the risks, benefits, and alternatives. He had given consent He was brought to the operating room and placed in prone melo-knife position. He was placed under monitored anesthesia care.. White tape was placed on the buttocks toretract these laterally. Surgical time-out was done. The patient received Cefotan 2 g IV preoperatively. I infiltrated the perianal area with lidocaine 1% generously. I inserted the Adeline- Ardon retractor and examined the anal canal circumferentially. The patient did have external and internal hemorrhoidal columns. I carefully examined the distal rectum. There was note of what appeared to be a small soft polyp about 4 mm in diameter versus an internal hemorrhoid. I applied a [id number] chromic 3-0 stitch proximal to this. I then excise this small polyp with Metzenbaum scissors. I closed this incision with a running chromic 3-0 stitch. I added hemostatic [id number] sutures. Once hemostasis was confirmed, I withdrew the Adeline-Ardon retractor. I infiltrated the perianal area with Marcaine 0.5% for postop analgesia. The procedure was then completed The patient tolerated procedure well. There were no complication noted. Initial and final counts of sponges and instruments were correct. Estimated blood loss was about 5 cc The patient was then transferred to the recovery room with stable vital signs.
[2020-11-25 09:25] VITALS: BP 119/72; PULSE 73; RESP 16; TEMP 36.3; O2SAT 98
--- NOTE | 2020-11-25 09:26 | PM.OP ---
Brief Operative Note Date of Service: 11/25/20 Pre-op diagnosis: History of rectal carcinoid Post-op diagnosis: same Procedure: Exam under anesthesia, excision of rectal polyp Surgeon: Narendra Macedo MD Anesthesia: MAC Was an Radio Engineering Teacher used for this Procedure?: No Estimated blood loss (mL): 5 Pathology: other (Polyp versus internal hemorrhoid) Condition: stable Disposition: PACU
[2020-11-25 09:40] VITALS: BP 139/76; PULSE 73; RESP 16; O2SAT 95
[2020-11-25 09:55] VITALS: BP 131/73; PULSE 70; RESP 16; TEMP 36.3; O2SAT 96
== END 2020-11-25 10:16 | disposition home or self-care (01) ==
PROVIDERS: PCP Internal Medicine; Visit Provider Surgery
PROC: (CPT 45171; principal; 2020-11-25 09:00)
DX: D3A.026 Benign carcinoid tumor of the rectum (principal); Z85.040 Personal history of malignant carcinoid tumor of rectum; K64.8 Other hemorrhoids; K64.4 Residual hemorrhoidal skin tags; Z88.0 Allergy status to penicillin; Z88.8 Allergy status to other drugs, medicaments and biological substances
CPT/HCPCS: 45171; 82947; 88304; 88305; J2250; J3010

== ENCOUNTER → 2020-12-08 09:25 | Outpatient (BNVA) | payer OTHER, SELFPAY | PROVIDERS: PCP Internal Medicine; Referring Provider Internal Medicine; Visit Provider Surgery ==

== ENCOUNTER 2021-08-23 07:51 | Outpatient (REF) | payer OTHER, SELFPAY ==
[2021-08-23 08:13] LABS: MANUAL DIFF FLAG NO
[2021-08-23 08:29] LABS: Basophils Percent Auto 0.5 % (0-2); Eosinophils Absolute Auto 0.1 X10*3/uL (0.0-0.4); Eosinophils Percent Auto 1.7 % (0-4); Hematocrit 41.6 % (42.0-52.0); Hemoglobin 13.9 g/dl (14.0-18.0); Imm Gran Abs Auto 0.02 X10*3/uL (0.00-0.03); Imm Gran Pct Auto 0.3 % (0.0-0.4); Lymphocytes Absolute Auto 1.3 X10*3/uL (1.2-4.9); Lymphocytes Percent Auto 17.6 % (20-40); Mean Corpuscular HGB Conc 33.4 g/dl (31.0-36.0); Mean Corpuscular Hemoglobin 26.5 pg (27.0-33.0); Mean Corpuscular Volume 79.2 fL (80.0-98.0); Monocytes Absolute Auto 0.5 X10*3/uL (0.1-1.2); Monocytes Percent Auto 6.6 % (2-11); Neutrophils Absolute Auto 5.4 x10*3/uL (2.0-8.3); Neutrophils Percent Auto 73.3 % (45-73); Platelet Count 315 X10*3/uL (160-400); Red Blood Count 5.25 X10*6/uL (4.60-5.80); Red Cell Distribution Width 12.8 % (11.0-16.0); White Blood Count 7.4 X10*3/uL (4.8-10.8)
[2021-08-23 08:53] LABS: Alanine Aminotransferase 14 U/L (0-40); Albumin Level 4.5 g/dL (3.5-5.0); Alkaline Phosphatase 83 U/L (39-117); Anion Gap 13 (12-20); Aspartate Amino Transferase 9 U/L (5-37); Bilirubin Total 0.6 mg/dL (0.0-1.0); Blood Urea Nitrogen 20 mg/dL (9-16); Calcium 10.2 mg/dL (8.4-10.2); Carbon Dioxide 25 mmol/L (22-29); Chloride 101 mmol/L (96-108); Cholesterol 225 mg/dL; Estimated Glomerular Filt Rate > 60; Glucose Random 255 mg/dL (60-115); HDL Cholesterol 25 mg/dL; Potassium 4.6 mmol/L (3.3-5.1); Sodium 134 mmol/L (135-145); Total Protein 7.6 g/dL (6.5-8.0); Triglycerides 781 mg/dL
[2021-08-23 09:17] LABS: Free T4 (Free Thyroxine) 0.96 ng/dL (0.71-1.85); Thyroid Stimulating Hormone 1.33 uIU/mL (0.32-4.0)
[2021-08-23 09:22] LABS: Estimated Average Glucose 258 mg/dL; Hemoglobin A1c % 10.6 %
[2021-08-23 10:48] LABS: Creatinine Urine 41.86 mg/dL; Microalbum/Creatinine Ratio Ur 33.4 ug/mg cr
[2021-08-23 13:17] LABS: Folate 10.4 ng/mL (> or = 4.0); Vitamin B12 483 pg/mL (200-900)
== END 2021-08-23 07:52 | disposition home or self-care (01) ==
LOC: HO.LAB 07:51
PROVIDERS: PCP Internal Medicine; Visit Provider Internal Medicine
DX: E11.65 Type 2 diabetes mellitus with hyperglycemia (principal); I10 Essential (primary) hypertension; E78.00 Pure hypercholesterolemia, unspecified; Z79.4 Long term (current) use of insulin
CPT/HCPCS: 36415; 80053; 80061; 82043; 82607; 82746; 83036; 84439; 84443; 85025

== ENCOUNTER → 2021-09-11 07:15 | Outpatient (REF) | payer OTHER, SELFPAY ==
--- NOTE | 2021-09-11 07:18 | CA_ITS ---
Transthoracic Echocardiogram Patient (Last, First, Middle): Rehan Gramajo E Gender: Male Date of : 1965 Age: 56 Procedure Date: 09/11/2021 Procedure Type: Transthoracic Echocardiogram Location: OP Height: 160.02 cm Weight: 85.28 kg BSA: 1.88 m2 Heart Rate: bpm BP: 145 / 80 mmHg Monogram And Letter Paster: YR/TO Referring MD: Zrudo Mccormick MD Symptoms: I10 - Essential (primary) hypertension Study Quality: Fair ECG Rhythm: Sinus Conclusions: - The left ventricular systolic function is normal. The calculated ejection fraction is 56% by biplane method. - No obvious valvular pathology seen on this study. Findings Left Ventricle Normal left ventricular cavity size. There is mildly increased left ventricular wall thickness. The left ventricular systolic function is normal. The calculated ejection fraction is 56% by biplane method. There is no evidence of regional wall motion abnormalities. Diastolic function is normal for age. Right Ventricle Normal right ventricular cavity size and systolic function. Atria The left atrium is mildly dilated. The right atrium is normal in size. Aortic Valve There is a normal trileaflet aortic valve. There is mild calcification of the aortic valve. There is no aortic valve stenosis. Mitral Valve The mitral valve appears normal. There is trace mitral valve regurgitation. There is no mitral valve stenosis. Pulmonic Valve The pulmonic valve is likely normal. Tricuspid Valve Normal tricuspid valve structure. There is trace tricuspid valve regurgitation. The pulmonary artery systolic pressure is normal. Great Vessels The asc aorta and aortic arch are normal in size. Venous The inferior vena cava is normal in size and collapses greater than 50% with inspiration. Pericardium/Pleural There is no evidence of pericardial effusion. Prior Study Comparison No significant change compared to prior study dated: 09/26/2013. Recommendations, Care & Conclusions No obvious valvular pathology seen on this study. Measurements 2D Linear Measurements IVSd: 1.14 0.6-0.9/0.6-1.0 cm LVIDd: 4.48 3.9-5.3/4.2-5.9 cm LVIDd Index: 2.38 2.4-3.2/2.2-3.1 cm/m2 LVIDs: 3.28 2.0-3.6 cm LVPWd: 1.17 0.7-1.1 cm LA Diam: 4.10 2.7-3.8/3.0-4.0 cm LAIDs Index: 2.18 1.5-2.3 cm/m2 LV Mass: 232.06 67-162/88-224 g LV Mass Index: 123.43 43-95/49-115 g/m2 LVOT Diam: 2.30 3.0+(-)1.3 cm 2D Systolic Function EF 4C: 52.00 >55% EF 2C: 57.30 >55% EF BiP: 55.80 >55% Mitral Valve MV Pk E: 0.66 MV PK A: 0.90 MV Decel Time: 275.00 E/A: 0.70 E'Lateral: 8.38 E'Medial: 6.09 E/E' Med: 10.80 E/E' Lat: 7.80 PHT: 80.00 MVA PHT: 2.75 Decel [place]: 2.39 Aortic Valve AoV Pk Gunner: 1.52 AoV Mn Gunner: 1.06 AoV VTI: 0.30 AoV Pk Grad: 9.00 Aov Mn Grad: 5.00 RUBEN Cont.VTI: 2.94 LVOT LVOT Pk Gunner: 1.04 LVOT Mn Gunner: 0.68 LVOT VTI: 0.21 LVOT Pk Grad: 4.00 LVOT Mn Grad: 2.00 LVOT Diam: 2.30 LVOT Area: 4.15 Diastolic Function MV Pk E: 0.66 MV Pk A: 0.90 E/A: 0.70 E'Medial: 6.09 E/E' Med: 10.80 E' Laterial: 8.38 E/E' Lat: 7.80 Right Ventricle TAPSE (mm): 24.00 TVS' Gunner: 12.20 Tricuspid Valve TR Pk Gunner: 1.43 TR Pk Grad: 8.00 RA Press: 3.00 RVSP: 11.00 Great Vessels Aorta Sinus of Valsalva: 3.73 2.0-3.[address] [place]: 3.13 1.7-3.4 cm Ao Arch: 3.20 Updated in Other Vendor System with Status of Final Augustine Saenz MD electronically signed on 09/13/2021 4:26:45 PM with status of Final
== END ==
LOC: HO.CARD 07:15
PROVIDERS: Visit Provider Internal Medicine
DX: I10 Essential (primary) hypertension (principal)
CPT/HCPCS: 93306

== ENCOUNTER 2021-10-11 08:51 | Outpatient (REF) | payer OTHER, SELFPAY ==
--- NOTE | 2021-10-11 08:54 | EMG_ITS ---
HISTORY OF PRESENT ILLNESS: This is a 56-year-old man with a history of diabetes for 13 years and has a Charcot joint in the right foot with multiple fractures. PHYSICAL EXAMINATION: On examination, he has swelling and deformity of the right foot, atrophy of all the foot muscles with absent reflexes and loss of sensation below the mid tibial level. IMPRESSION: Advanced peripheral neuropathy from diabetes. 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 EMG of the right L4-S1 innervated muscles is consistent with chronic neuropathic changes in the L4-S1 innervated muscles. MD ERIC Amin/REMI / [id number]
== END 2021-10-11 08:52 | disposition home or self-care (01) ==
LOC: HO.NEURO 08:51
PROVIDERS: Visit Provider Internal Medicine
DX: R20.0 Anesthesia of skin (principal)
CPT/HCPCS: 95885; 95911

== ENCOUNTER 2021-11-23 08:07 | Outpatient (REF) | payer OTHER, SELFPAY ==
[2021-11-23 11:26] LABS: MANUAL DIFF FLAG NO
[2021-11-23 11:31] LABS: Basophils Absolute Auto 0.1 X10*3/uL (0.0-0.2); Basophils Percent Auto 0.7 % (0-2); Eosinophils Absolute Auto 0.2 X10*3/uL (0.0-0.4); Eosinophils Percent Auto 2.1 % (0-4); Hematocrit 44.8 % (42.0-52.0); Hemoglobin 15.3 g/dl (14.0-18.0); Imm Gran Abs Auto 0.03 X10*3/uL (0.00-0.03); Imm Gran Pct Auto 0.4 % (0.0-0.4); Immature Retic Fraction 7.7 % (2.3-13.4); Lymphocytes Absolute Auto 1.5 X10*3/uL (1.2-4.9); Lymphocytes Percent Auto 20.8 % (20-40); Mean Corpuscular HGB Conc 34.2 g/dl (31.0-36.0); Mean Corpuscular Hemoglobin 27.3 pg (27.0-33.0); Mean Platelet Volume 11.7 fL (9.4-12.4); Monocytes Absolute Auto 0.5 X10*3/uL (0.1-1.2); Monocytes Percent Auto 7.4 % (2-11); Neutrophils Percent Auto 68.6 % (45-73); Platelet Count 276 X10*3/uL (160-400); Red Cell Distribution Width 13.7 % (11.0-16.0); Retic HGB Equivalent 33.4 pg (30.0-35.0); Reticulocyte Percent 1.3 % (0.5-1.8); Reticulocytes Absolute 0.071 X10*6/uL (0.026-0.095); White Blood Count 7.3 X10*3/uL (4.8-10.8)
[2021-11-23 11:38] LABS: Estimated Average Glucose 174 mg/dL; Hemoglobin A1c % 7.7 %
[2021-11-23 12:04] LABS: Alanine Aminotransferase 16 U/L (0-40); Albumin Level 4.6 g/dL (3.5-5.0); Alkaline Phosphatase 56 U/L (39-117); Anion Gap 16 (12-20); Aspartate Amino Transferase 11 U/L (5-37); Bilirubin Total 0.5 mg/dL (0.0-1.0); Blood Urea Nitrogen 16 mg/dL (9-16); Calcium 9.5 mg/dL (8.4-10.2); Carbon Dioxide 25 mmol/L (22-29); Chloride 102 mmol/L (96-108); Cholesterol 216 mg/dL; Estimated Glomerular Filt Rate > 60; Ferritin 86 ng/mL (20-250); Free T4 (Free Thyroxine) 0.86 ng/dL (0.71-1.85); Glucose Random 212 mg/dL (60-115); HDL Cholesterol 30 mg/dL; Iron 79 mcg/dL (45-160); Percent Iron Saturation 19 % (15-50); Potassium 4.9 mmol/L (3.3-5.1); Prostate Specific Antigen Scr 0.74 ng/mL (<0.05-4.0); Sodium 138 mmol/L (135-145); Thyroid Stimulating Hormone 2.26 uIU/mL (0.32-4.0); Total Iron Binding Capacity 415 mcg/dL (228-428); Total Protein 7.5 g/dL (6.5-8.0); Triglycerides 496 mg/dL; Unsaturated Iron Binding 336 ug/dL
[2021-11-23 12:35] LABS: Creatinine Urine 40.74 mg/dL; Microalbum/Creatinine Ratio Ur 34.3 ug/mg cr
[2021-11-23 12:49] LABS: Folate 13.2 ng/mL (> or = 4.0); Vitamin B12 454 pg/mL (200-900)
== END 2021-11-23 08:08 | disposition home or self-care (01) ==
LOC: HO.HMGCLDS 08:07
PROVIDERS: PCP Internal Medicine; Visit Provider Internal Medicine
DX: Z12.5 Encounter for screening for malignant neoplasm of prostate (principal); E11.65 Type 2 diabetes mellitus with hyperglycemia; E78.00 Pure hypercholesterolemia, unspecified; Z79.4 Long term (current) use of insulin
CPT/HCPCS: 36415; 80053; 80061; 82043; 82607; 82728; 82746; 83036; 83540; 84153; 84439; 84443; 85025; 85045

== ENCOUNTER 2022-04-03 13:12 | Inpatient (IN) | payer OTHER, SELFPAY ==
[2022-04-03] VITALS (7 sets, daily range): BP systolic 139–186; BP diastolic 62–94; PULSE 78–110; RESP 16–18; TEMP 37–39.4; O2SAT 92–97; BMI 32.5
--- NOTE | 2022-04-03 | ECG_ITS ---
Test Reason : sepsis Blood Pressure : / mmHG Vent. Rate : 098 BPM Atrial Rate : 098 BPM P-R Int : 124 ms QRS Dur : 088 ms QT Int : 338 ms P-R-T Axes : 045 -40 102 degrees QTc Int : 431 ms Normal sinus rhythm Left axis deviation Inferior infarct , age undetermined T wave abnormality, consider lateral ischemia Abnormal ECG When compared with ECG of 23-AUG-2014 08:06, Inverted T waves have replaced nonspecific T wave abnormality in Lateral leads Referred By: Generic ED Physician Electronically Signed By:DAGMAR DANIELLE MD
--- NOTE | ~2022-04-03 | US_ITS ---
EXAMINATION: US RETROPERITONEAL LIMITED (RENAL ONLY) CLINICAL INFORMATION: Uncontrolled hypertension. COMPARISON: CT abdomen/pelvis 10/19/2020. TECHNIQUE: Real-time imaging of the kidneys. FINDINGS: RIGHT KIDNEY: 12.6 x 6 x 6.2 cm (SAG x AP x TRV). The kidney is normal in size, contour, and echogenicity. Renal cortical thickness is normal. No calculi or focal parenchymal lesions. No hydronephrosis. LEFT KIDNEY: 12.7 x 7 x 4.8 cm (SAG x AP x TRV). The kidney is normal in size, contour, and echogenicity. Renal cortical thickness is normal. No calculi or focal parenchymal lesions. No hydronephrosis. US/US renal BI IMPRESSION: No acute sonographic abnormalities.
--- NOTE | ~2022-04-03 | XR_ITS ---
EXAMINATION: XR FOOT, RIGHT CLINICAL INFORMATION: Right big toe wound COMPARISON: None TECHNIQUE: AP, lateral, and oblique views of the right foot. FINDINGS: There is soft tissue swelling of the great toe. There are abnormal air collections in the soft tissues of the great toe. There is focal osteopenia and bone loss of the distal tuft of the great toe questionable osteomyelitis. No soft tissue foreign body. Degenerative changes at the metatarsal tarsal joints and Lisfranc deformity with abnormal alignment of the navicular first cuneiform joint and metatarsal tarsal joints. XR/XR foot RT min 3V IMPRESSION: Soft tissue swelling and air in the great toe. Question osteomyelitis of the distal tuft of the great toe. Lisfranc deformity of the midfoot.
--- NOTE | ~2022-04-03 | XR_ITS ---
EXAMINATION: XR CHEST CLINICAL INFORMATION: Cough COMPARISON: Previous chest x-ray December [address] October 2020 TECHNIQUE: Frontal view of the chest was obtained. FINDINGS: No significant abnormality is noted involving the heart, lungs, mediastinum, bony thorax or soft tissues. There may be subsegmental atelectasis at the lung bases. No definite infiltrate. XR/XR chest 1V IMPRESSION: No evidence for acute disease in the chest.
--- NOTE | ~2022-04-03 | US_ITS ---
EXAMINATION: Noninvasive assessment of the bilateral lower extremities with ARTERIAL DUPLEX and ANKLE BRACHIAL INDICES (ABIs). CLINICAL INFORMATION: Peripheral vascular disease with ischemic ulceration TECHNIQUE: Duplex Doppler techniques with waveform analysis and measurement of velocities in the bilateral common femoral, profunda femoris, superficial femoral, popliteal and tibial arteries were performed. Additionally, ankle pulse volume recordings, ankle pressure measurements and ankle brachial indices were obtained of the lower extremity arterial system bilaterally. The study was performed only at rest. COMPARISON: None FINDINGS: DIRECT DUPLEX DOPPLER FINDINGS: RIGHT LEG: Common femoral artery: 139 cm/s, phasicity: Triphasic Profunda femoris artery: 63.3 cm/s, phasicity: Triphasic Superficial femoral artery (proximal): 86.2 cm/s, phasicity: Triphasic Superficial femoral artery (mid): 83.8 cm/s, phasicity: Triphasic Superficial femoral artery (distal): 68.6 cm/s, phasicity: Triphasic Popliteal artery: 105 cm/s, phasicity: Triphasic Posterior tibial artery: 368 cm/s, phasicity: Triphasic Peroneal artery: 57.4 cm/s, phasicity: Triphasic LEFT LEG: Common femoral artery: 143 cm/s, phasicity: Triphasic Profunda femoris artery: 80.3 cm/s, phasicity: Triphasic Superficial femoral artery (proximal): 86.2 cm/s, phasicity: Triphasic Superficial femoral artery (mid): 78.0 cm/s, phasicity: Triphasic Superficial femoral artery (distal): 72.1 cm/s, phasicity: Triphasic Popliteal artery: 66.8 cm/s, phasicity: Triphasic Posterior tibial artery: 76.2 cm/s, phasicity: Triphasic in the proximal segment. The distal segment is stable with monophasic waveforms Peroneal artery: 83.3 cm/s, phasicity: Triphasic ANKLE-BRACHIAL INDEX: Right: 0.93? Left: 0.86 ANKLE PRESSURES: Right: PT 105, DP 123 Left: PT?111, DP?114 ANKLE PVR WAVEFORMS: Right: Minimally dampened Left: Minimally dampened US/US arterial duplex LE BI IMPRESSION: Right leg: Low-normal ankle-brachial index. Patent arterial flow throughout the right lower extremity without significant arterial stenosis or occlusion. Given the patient's history, question if this is more related to venous stasis disease Left leg: Minimally decreased ankle brachial index. Patent arterial flow throughout the lower extremity. There are dampened waveforms in the distal posterior tibial artery which could represent distal occlusive disease in the foot. SWAPNA Reference: - >1.4 = calcified vessels - 0.9 - 1.4 = normal - no significant arterial disease - 0.7 - 0.89 = mild peripheral arterial disease - 0.51 - 0.69 = moderate peripheral arterial disease - ? 0.50 = severe peripheral arterial disease - < .30 = critical arterial disease
--- NOTE | 2022-04-03 14:36 | ED.GENADULT ---
HPI - General Adult General Chief complaint: Extremity Problem Stated complaint: Big toe on R foot is black per EMS Related Data Previous Rx's Medication Instructions Recorded omeprazole 40 mg capsule,delayed 40 mg PO BID 30 days #60 caps 11/22/20 release docusate sodium 100 mg capsule 100 mg PO BID #60 caps 11/25/20 (Colace) fenofibrate 160 mg tablet 160 mg PO DAILY 90 days #90 tabs 01/17/21 metformin 500 mg tablet 500 mg PO BID 90 days #180 tabs 01/17/21 metoprolol succinate 200 mg 200 mg PO DAILY 90 days #90 tabs 01/18/21 tablet,extended release 24 hr amlodipine 10 mg tablet 10 mg PO DAILY 90 days #90 tabs 09/18/21 losartan 100 mg tablet 100 mg PO DAILY 90 days #90 tabs 11/28/21 dulaglutide 1.5 mg/0.5 mL 1.5 mg (0.5 mL) subcut QWEEK 30 01/07/22 subcutaneous pen injector days #2.5 mL empagliflozin 25 mg tablet 25 mg PO QAM 90 days #90 tabs 01/08/22 Allergies Allergy/AdvReac Type Severity Reaction Status Date / Time lisinopril [LISINOPRIL] Allergy Intermediate COUGH Verified 11/28/21 12:23 Penicillins [PENICILLINS] Allergy Intermediate HIVES Verified 11/28/21 12:23 [facility] Past Medical History Medical History 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 Crohn's colitis HTN (hypertension) Hypercholesterolemia Obesity (BMI 30-39.9) Rectal carcinoid tumor Type 2 diabetes mellitus with hyperglycemia Vitamin D deficiency Surgical History H/O colonoscopy History of esophagogastroduodenoscopy (EGD) History of umbilical hernia repair Family History Family History Father Diabetes CVD (cardiovascular disease) Myocardial infarction Hypertension Mother CVD (cardiovascular disease) Myocardial infarction Hypertension Throat cancer Maternal Grandmother Gastric cancer Paternal Grandmother Myocardial infarction Maternal Aunt Gastric cancer Breast cancer Sister In good health Other Substance abuse Social History Social History Housing: House Are you a primary aged or disabled care worker to a significant other at home: No Do you presently have visiting nurse or other home services: No Alcohol intake: never Patient Tobacco Use Status: Never used Tobacco e-Cigarette/Vaping Use: Never Used Second Hand Smoke Exposure: Yes service: Yes ([place]) Current occupational status: employed Current occupation: [employer] Cognitive needs: No Hearing needs: No Vision needs: Yes Physical Exam ED Vital Signs: Vital Signs - 24 hr 04/03/22 14:12 Temperature 102.7 F H Pulse Rate 101 H Respiratory Rate 18 Blood Pressure 141/62 H Pulse Oximetry 95 Oxygen Delivery Method Room Air BMI result Body Mass Index 32.5 Course Course Course Narrative: 1425 57 year old male hx DM, htn, hld, neuropathy presents via ambulance w/ black right great toe pain X 6 days. Patient noted his toe was black , however he hasnt looked at it since then. Tells me he cant feel it. I just arrived to [facility] and noted this patients vitals in the [facility]. Called him back to be seen by this PA noted to be febrile, tachycardic. Exam: Necrotic right toe w/ errythema. Normal pulses. Decreased sensation to all right toes. Plan: Xray Concerns for sepsis and or osteo. Spoke to charge nurse to bring him back to an available bed. Discharge Plan Discharge Prescriptions: No Action metoprolol succinate 200 mg tablet extended release 24 hr 200 mg PO DAILY 90 Days Qty: 90 3RF amlodipine 10 mg tablet 10 mg PO DAILY 90 Days Qty: 90 2RF dulaglutide 1.5 mg/0.5 mL pen injector 1.5 mg subcut QWEEK 30 Days Qty: 2.5 3RF empagliflozin 25 mg tablet 25 mg PO QAM 90 Days Qty: 90 2RF docusate sodium [Colace] 100 mg capsule 100 mg PO BID Qty: 60 2RF fenofibrate 160 mg tablet 160 mg PO DAILY 90 Days Qty: 90 3RF metformin 500 mg tablet 500 mg PO BID 90 Days Qty: 180 1RF losartan 100 mg tablet 100 mg PO DAILY 90 Days Qty: 90 3RF omeprazole 40 mg capsule,delayed release(DR/EC) 40 mg PO BID 30 Days Qty: 60 6RF
[2022-04-03 14:39] LABS: MANUAL DIFF FLAG NO
[2022-04-03] MEDS: Acetaminophen 325 MG TABLET 975 MG PO (14:39)
[2022-04-03 14:40] LABS: Mean Platelet Volume 10.3 fL (9.4-12.4)
[2022-04-03 14:46] LABS: Basophils Percent Auto 0.2 % (0-2); Hematocrit 35.5 % (42.0-52.0); Imm Gran Pct Auto 0.9 % (0.0-0.4); Lymphocytes Absolute Auto 0.3 X10*3/uL (1.2-4.9); Lymphocytes Percent Auto 3.2 % (20-40); Mean Corpuscular HGB Conc 33.8 g/dl (31.0-36.0); Mean Corpuscular Hemoglobin 26.8 pg (27.0-33.0); Mean Corpuscular Volume 79.4 fL (80.0-98.0); Monocytes Absolute Auto 0.9 X10*3/uL (0.1-1.2); Monocytes Percent Auto 8.8 % (2-11); Neutrophils Absolute Auto 9.3 x10*3/uL (2.0-8.3); Neutrophils Percent Auto 86.9 % (45-73); Platelet Count 269 X10*3/uL (160-400); Red Blood Count 4.47 X10*6/uL (4.60-5.80); Red Cell Distribution Width 13.1 % (11.0-16.0); White Blood Count 10.7 X10*3/uL (4.8-10.8)
[2022-04-03 14:55] LABS: Anion Gap 17 (12-20); Bilirubin Total 0.5 mg/dL (0.0-1.0); Blood Urea Nitrogen 12 mg/dL (9-16); Calcium 8.6 mg/dL (8.4-10.2); Carbon Dioxide 24 mmol/L (22-29); Chloride 96 mmol/L (96-108); Creatinine Clr Calc Pharmacy 81.8; Estimated Glomerular Filt Rate > 60; Glucose Random 283 mg/dL (60-115); Potassium 3.7 mmol/L (3.3-5.1); Sodium 133 mmol/L (135-145)
[2022-04-03 14:57] LABS: Lactic Acid 3.6 mmol/L (0.5-2.0)
[2022-04-03 14:58] LABS: INTERNATIONAL NORM RATIO 1.3 (0.9-1.1)
[2022-04-03 15:00] LABS: Partial Thromboplastin Time 30.6 SEC (26.0-36.4)
[2022-04-03] MEDS: 0.9 % Sodium Chloride 2,585.49 ML 2585.49 ML IV (15:06)
[2022-04-03] MEDS: cefTRIAXone sodium 1 GM in 0.9 % Sodium Chloride 50 ML IV (15:07)
--- NOTE | 2022-04-03 15:19 | PC.NURSE ---
Pt reports upper resp sx and chills, stated noted right great toe was black, normal last . Skin pwd. Toe black in color, red and warm to dorsal foot. +pulses. Decreased sensation for pt, warm to touch. medicated as charted. remains febrile at this time.
--- NOTE | 2022-04-03 15:29 | ED_ITS ---
HPI - Extremity Problem General Chief complaint: Extremity Problem Stated complaint: Big toe on R foot is black per EMS Time Seen by Provider: 04/03/22 15:00 Source: patient and family ( Sister) Mode of arrival: ambulatory Limitations: no limitations History of Present Illness HPI Narrative: 57-year-old male with history of diabetes mellitus with diabetic neuropathy, Charcot joint disease, hypertension, hyperlipidemia carcinoid tumor who presents emergency department for evaluation not feeling well since , 03/29/2022 ( 6 days prior to evaluation). States that he has had chills but no fever. He has had a cough which is been nonproductive. He has been feeling tired, 15 and weak. he had 1 day of diarrhea which resolved. He denied frequency, urgency or dysuria. Patient states that he noted that his right great toe today turned black and his foot was red. tries vital signs revealed elevated heart rate of 101, fever of 102.7 degrees F, elevated BP of 141/62. O2 saturation on room air was normal 95%. Related Data Previous Rx's Medication Instructions Recorded omeprazole 40 mg capsule,delayed 40 mg PO BID 30 days #60 caps 11/22/20 release docusate sodium 100 mg capsule 100 mg PO BID #60 caps 11/25/20 (Colace) fenofibrate 160 mg tablet 160 mg PO DAILY 90 days #90 tabs 01/17/21 metformin 500 mg tablet 500 mg PO BID 90 days #180 tabs 01/17/21 metoprolol succinate 200 mg 200 mg PO DAILY 90 days #90 tabs 01/18/21 tablet,extended release 24 hr amlodipine 10 mg tablet 10 mg PO DAILY 90 days #90 tabs 09/18/21 losartan 100 mg tablet 100 mg PO DAILY 90 days #90 tabs 11/28/21 dulaglutide 1.5 mg/0.5 mL 1.5 mg (0.5 mL) subcut QWEEK 30 01/07/22 subcutaneous pen injector days #2.5 mL empagliflozin 25 mg tablet 25 mg PO QAM 90 days #90 tabs 01/08/22 Allergies Allergy/AdvReac Type Severity Reaction Status Date / Time lisinopril [LISINOPRIL] Allergy Intermediate COUGH Verified 11/28/21 12:23 Penicillins [PENICILLINS] Allergy Intermediate HIVES Verified 11/28/21 12:23 Review of Systems Review of Systems: Yes all other systems are reviewed and are negative [facility] Past Medical History [facility] Narrative: Social history: The patient denies tobacco, alcohol and Drug use. Medical History 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 Crohn's colitis HTN (hypertension) Hypercholesterolemia Obesity (BMI 30-39.9) Rectal carcinoid tumor Type 2 diabetes mellitus with hyperglycemia Vitamin D deficiency Surgical History H/O colonoscopy History of esophagogastroduodenoscopy (EGD) History of umbilical hernia repair Family History Family History Father Diabetes CVD (cardiovascular disease) Myocardial infarction Hypertension Mother CVD (cardiovascular disease) Myocardial infarction Hypertension Throat cancer Maternal Grandmother Gastric cancer Paternal Grandmother Myocardial infarction Maternal Aunt Gastric cancer Breast cancer Sister In good health Other Substance abuse Social History Social History Housing: House Are you a primary adult care provider to a significant other at home: No Do you presently have visiting nurse or other home services: No Alcohol intake: never Patient Tobacco Use Status: Never used Tobacco Smoked in Last 30 Days: No e-Cigarette/Vaping Use: Never Used Second Hand Smoke Exposure: Yes Use of substances other than those prescribed or required for medical reasons: No Advance Directives: No Advance Directives Information Provided: No service: Yes ([employer]) Current occupational status: employed Current occupation: [employer] Cognitive needs: No Hearing needs: No Vision needs: Yes Physical Exam Vital Signs: Vital Signs: Last Vital Signs Temp 101.7 F H 04/03/22 15:12 Pulse 90 04/03/22 15:12 Resp 18 04/03/22 15:12 BP 146/75 H 04/03/22 15:12 Pulse Ox 95 04/03/22 14:12 O2 Del Method 04/03/22 14:12 BMI result Body Mass Index 32.5 Const: General: cooperative and no acute distress Orientation/consciousness: oriented to person and oriented to place Limitations: no limitations HEENT: Head: Yes normal to inspection, Yes normocephalic and Yes atraumatic Ears: external ears normal General nose exam: Normal external nose present Face and sinus: Yes normal facial exam Mouth: Normal oral and palatal mucosa present Throat: Yes posterior oropharynx normal Eyes: General: appearance normal, both eyes and all related structures Pupils: Equal, round and reactive pupils present Neck: Neck: Yes normal visual inspection, Yes no lymphadenopathy, Yes trachea midline and Yes supple Chest: Chest palpation & inspection: normal inspection of the chest and normal palpation of entire chest wall Resp: Effort & Inspection: normal respiratory effort and able to speak in complete sentences Auscultation: clear to auscultation bilaterally Cardio: Rate: tachycardic Rhythm: regular rhythm Heart sounds: S1 normal heart sound present, S2 normal heart sound present and no murmurs GI: Inspection: Yes normal to inspection Palpation (GI): Soft to palpation, nontender and no guarding Auscultation: normal bowel sounds : General: Yes no CVA tenderness Back/Spine/Pelvis: Back: no CVA tenderness Skin: General skin exam: no rashes or lesions noted Neuro: General: oriented to person and oriented to place Cranial nerves: Yes CN's II-XII intact bilaterally and Yes Equal, round and reactive pupils present Cognition (Neuro): normal cognition Motor exam (neuro): 5/5 motor strength present throughout Extrem: Other: Patient's right great toe is necrotic appearing with a foul odor, there is erythema over the 1st metatarsal area extending to the 2nd 3rd and 4th metatarsal area with lymphangitis just beyond the ankle. The erythema is warm to the touch. Patient does have palpable peripheral pulses. General: Yes normal to inspection Psych: Appearance: grossly normal Speech and movement: Normal speech and movement present Affect: normal affect Attitude: cooperative Thought process: Normal thought process present Thought content: Normal thought content present Course Course Course Narrative: 57-year-old male with history of diabetes and diabetic neuropathy who is not been feeling well for approximately 6 days who presents emergency department for evaluation of a black right great toe with erythema and lymphangitis of the foot. Patient does have palpable peripheral pulses but his great toe is necrotic. 1539: Laboratory evaluation WBC was normal 10,700 left shift with 86% neutro phils. glucose elevated 283. INR elevated 1.3. Sodium low 133. Lactic acid elevated 3.6. CRP elevated 24.8. ESR pending. LFTs pending. Total bilirubin normal 0.5. Radiology studies: X-ray right foot Radiology interpretation as follows: IMPRESSION: Soft tissue swelling and air in the great toe. Question osteomyelitis of the distal tuft of the great toe. Lisfranc deformity of the midfoot. Dictated By:Christy Garciaigned By:<Electronically signed by Christy Garcia MD in [place]>04/03/22 1515 Patient was ordered to get normal saline IV x2 L, vancomycin 2 g IV and ceftriaxone 1 g IV. I did discuss the patient over tiger text with the covering surgeon, Dr. Mckeon and he will see the patient in the emergency department. I also discussed the patient over tiger text with the covering hospitalist, nurse practitioner Suyapa Eugene. Medications Administered Generic Name Dose Route Start Last Admin Trade Name Freq PRN Reason Stop Dose Admin Sodium Chloride 2,585.49 mls @ 2,585.49 mls/hr 04/03/22 14:40 04/03/22 15:06 Ns 30 ml/kg infuse over 1 hr (2585.49 ml) 04/03/22 15:39 2,585.49 mls/hr IV Administration .Q1H STA Discontinued Medications Generic Name Dose Route Start Last Admin Trade Name Freq PRN Reason Stop Dose Admin Acetaminophen 975 mg 04/03/22 14:36 04/03/22 14:39 Acetaminophen 325 Mg Tablet PO 04/03/22 14:37 975 mg ONCE ONE Administration Ceftriaxone Sodium 1 gm/ 50 mls @ 100 mls/hr 04/03/22 14:58 04/03/22 15:07 Sodium Chloride IV 04/03/22 15:27 100 mls/hr ONCE ONE Administration Medical Decision Making Lab Data Result Diagrams: 04/03/22 14:32 04/03/22 14:32 Labs: Lab Results 04/03/22 04/03/22 04/03/22 Range/Units 14:32 14:32 14:32 WBC 10.7 (4.8-10.8) X10*3/uL RBC 4.47 L D (4.60-5.80) X10*6/uL Hgb 12.0 L D (14.0-18.0) g/dl Hct 35.5 L D (42.0-52.0) % MCV 79.4 L (80.0-98.0) fL MCH 26.8 L (27.0-33.0) pg MCHC 33.8 (31.0-36.0) g/dl RDW 13.1 (11.0-16.0) % Plt Count 269 (160-400) X10*3/uL MPV 10.3 (9.4-12.4) fL Immature Gran % (Auto) 0.9 H (0.0-0.4) % Neut % (Auto) 86.9 H (45-73) % Lymph % (Auto) 3.2 L (20-40) % [facility] % (Auto) 8.8 (2-11) % Eos % (Auto) 0.0 (0-4) % Baso % (Auto) 0.2 (0-2) % Lymph # (Auto) 0.3 L (1.2-4.9) X10*3/uL [facility] # (Auto) 0.9 (0.1-1.2) X10*3/uL Eos # (Auto) 0.0 (0.0-0.4) X10*3/uL Baso # (Auto) 0.0 (0.0-0.2) X10*3/uL Abs Immat Gran (auto) 0.10 H (0.00-0.03) X10*3/uL Absolute Neuts (auto) 9.3 H (2.0-8.3) x10*3/uL Absolute Nucleated RBC 0.000 (0.0-0.012) X10*3/uL Nucleated RBC % (auto) 0.0 (0.0-0.2) /100WBC PT (10.0-13.1) SEC INR (0.9-1.1) APTT (26.0-36.4) SEC Sodium 133 L (135-145) mmol/L Potassium 3.7 D (3.3-5.1) mmol/L Chloride 96 (96-108) mmol/L Carbon Dioxide 24 (22-29) mmol/L Anion Gap 17 (12-20) BUN 12 (9-16) mg/dL Creatinine 1.01 (0.5-1.4) mg/dL Estim Creat Clear Calc 81.8 Estimated GFR > 60 Random Glucose 283 H (60-115) mg/dL Lactic Acid 3.6 H* (0.5-2.0) mmol/L Calcium 8.6 D (8.4-10.2) mg/dL Total Bilirubin 0.5 (0.0-1.0) mg/dL C-Reactive Protein 24.80 H (< or = 0.50) mg/dL 04/03/22 Range/Units 14:32 WBC (4.8-10.8) X10*3/uL RBC (4.60-5.80) X10*6/uL Hgb (14.0-18.0) g/dl Hct (42.0-52.0) % MCV (80.0-98.0) fL MCH (27.0-33.0) pg MCHC (31.0-36.0) g/dl RDW (11.0-16.0) % Plt Count (160-400) X10*3/uL MPV (9.4-12.4) fL Immature Gran % (Auto) (0.0-0.4) % Neut % (Auto) (45-73) % Lymph % (Auto) (20-40) % [facility] % (Auto) (2-11) % Eos % (Auto) (0-4) % Baso % (Auto) (0-2) % Lymph # (Auto) (1.2-4.9) X10*3/uL [facility] # (Auto) (0.1-1.2) X10*3/uL Eos # (Auto) (0.0-0.4) X10*3/uL Baso # (Auto) (0.0-0.2) X10*3/uL Abs Immat Gran (auto) (0.00-0.03) X10*3/uL Absolute Neuts (auto) (2.0-8.3) x10*3/uL Absolute Nucleated RBC (0.0-0.012) X10*3/uL Nucleated RBC % (auto) (0.0-0.2) /100WBC PT 15.0 H (10.0-13.1) SEC INR 1.3 H (0.9-1.1) APTT 30.6 (26.0-36.4) SEC Sodium (135-145) mmol/L Potassium (3.3-5.1) mmol/L Chloride (96-108) mmol/L Carbon Dioxide (22-29) mmol/L Anion Gap (12-20) BUN (9-16) mg/dL Creatinine (0.5-1.4) mg/dL Estim Creat Clear Calc Estimated GFR Random Glucose (60-115) mg/dL Lactic Acid (0.5-2.0) mmol/L Calcium (8.4-10.2) mg/dL Total Bilirubin (0.0-1.0) mg/dL C-Reactive Protein (< or = 0.50) mg/dL Discharge Plan Discharge Patient Disposition: Admitted As Inpatient Prescriptions: No Action metoprolol succinate 200 mg tablet extended release 24 hr 200 mg PO DAILY 90 Days Qty: 90 3RF amlodipine 10 mg tablet 10 mg PO DAILY 90 Days Qty: 90 2RF dulaglutide 1.5 mg/0.5 mL pen injector 1.5 mg subcut QWEEK 30 Days Qty: 2.5 3RF empagliflozin 25 mg tablet 25 mg PO QAM 90 Days Qty: 90 2RF docusate sodium [Colace] 100 mg capsule 100 mg PO BID Qty: 60 2RF fenofibrate 160 mg tablet 160 mg PO DAILY 90 Days Qty: 90 3RF metformin 500 mg tablet 500 mg PO BID 90 Days Qty: 180 1RF losartan 100 mg tablet 100 mg PO DAILY 90 Days Qty: 90 3RF omeprazole 40 mg capsule,delayed release(DR/EC) 40 mg PO BID 30 Days Qty: 60 6RF
--- NOTE | 2022-04-03 15:34 | PC.NURSE ---
Second IV access obtained. Site/redness marked
[2022-04-03 15:41] LABS: Alanine Aminotransferase 16 U/L (0-40); Albumin Level 3.8 g/dL (3.5-5.0); Alkaline Phosphatase 73 U/L (39-117); Aspartate Amino Transferase 13 U/L (5-37); Bilirubin Direct 0.2 mg/dL (0.0-0.5); Total Protein 6.7 g/dL (6.5-8.0)
[2022-04-03 15:58] LABS: Erythrocyte Sedimentation Rate 71 MM/HR (0-15)
--- NOTE | 2022-04-03 16:00 | PM.CNGS ---
History of Present Illness Consult details Consult date: 04/03/22 Narrative: 57-year-old male patient with history of right Charcot foot being followed by Dr. Salgado now presenting with necrotic changes of the right great toe. Patient has a history of type 2 diabetes and diabetic neuropathy but denies a previous history of foot ulcers. He reports that the toe was normal on , but after the weekend was noted to have the black changes in the great toe with redness extending up the foot towards the ankle. He denies fever, chills, or other associated systemic symptoms. He presented to the emergency department for further evaluation. Laboratories revealed WBC of 10.7, INR 1.3, and lactic acid of 3.6. C-reactive protein was also elevated at 24.00. Foot x-rays reveal soft tissue swelling and air in the great toe right side with focal osteopenia and bone loss in the distal phalanx. Findings may be associated with osteomyelitis. He is being admitted to the hospitalist service for further management of sepsis and surgical consultation requested for management of the great toe wound. Review of Systems Review of Systems: Yes all other systems are reviewed and are negative Constitutional: Constitutional: Denies chills, Denies fever(s), Denies headache(s), Denies poor appetite and Denies weakness ENT: Denies headache(s) Cardiovascular: Cardiovascular: Denies chest pain, Denies irregular heart rhythm, Denies palpitations and Denies dyspnea Respiratory: Respiratory: Denies cough, Denies excessive phlegm production and Denies dyspnea Gastrointestinal: Gastrointestinal: Denies abdominal pain, Denies bloating, Denies change in bowel habits, Denies constipation, Denies heartburn, Denies diarrhea, Denies nausea and Denies vomiting Genitourinary: Genitourinary: Denies difficulty urinating and Denies urinary frequency Musculoskeletal: Musculoskeletal: Reports as per HPI, Denies back pain, Denies muscle weakness and Reports numbness Integumentary/Breasts: Skin/Breast: Denies changing lesions and Denies unusual bruising Neurologic: Denies headache(s), Reports numbness, Denies paresthesias and Denies weakness Psychiatric: Psychiatric: Denies anxiety and Denies depression Endocrine: Endocrine: Denies palpitations Hematologic/Lymphatic: Hematologic/Lymphatic: Denies lymphadenopathy PMFSH Past Medical History Medical History 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 Crohn's colitis HTN (hypertension) Hypercholesterolemia Obesity (BMI 30-39.9) Rectal carcinoid tumor Type 2 diabetes mellitus with hyperglycemia Vitamin D deficiency Family History Family History Father Diabetes CVD (cardiovascular disease) Myocardial infarction Hypertension Mother CVD (cardiovascular disease) Myocardial infarction Hypertension Throat cancer Maternal Grandmother Gastric cancer Paternal Grandmother Myocardial infarction Maternal Aunt Gastric cancer Breast cancer Sister In good health Other Substance abuse Surgical History Surgical History H/O colonoscopy History of esophagogastroduodenoscopy (EGD) History of umbilical hernia repair Social History Social History Housing: House Are you a primary career consultant to a significant other at home: No Do you presently have visiting nurse or other home services: No Alcohol intake: never Patient Tobacco Use Status: Never used Tobacco Smoked in Last 30 Days: No e-Cigarette/Vaping Use: Never Used Second Hand Smoke Exposure: Yes Use of substances other than those prescribed or required for medical reasons: No Advance Directives: No Advance Directives Information Provided: No service: Yes ([employer]) Current occupational status: employed Current occupation: [employer] Cognitive needs: No Hearing needs: No Vision needs: Yes Meds Allergies Allergy/AdvReac Type Severity Reaction Status Date / Time lisinopril [LISINOPRIL] Allergy Intermediate COUGH Verified 11/28/21 12:23 Penicillins [PENICILLINS] Allergy Intermediate HIVES Verified 11/28/21 12:23 Active Medications: Current Medications Vancomycin HCl (Vancomycin/Ns) 2,000 mg in 520 mls @ 260 mls/hr IV ONCE ONE Stop: 04/03/22 16:39 Last Admin: 04/03/22 15:52 Dose: 260 mls/hr Pharmacy Consult (Consult Rx Perform Med Rec) 1 each MISCELLANE ONCE PRN PRN Reason: Consult order Physical Exam Vital Signs: Vital Signs: Last Vital Signs Temp 101.7 F H 04/03/22 15:12 Pulse 90 04/03/22 15:12 Resp 18 04/03/22 15:12 BP 146/75 H 04/03/22 15:12 Pulse Ox 95 04/03/22 14:12 O2 Del Method 04/03/22 14:12 BMI result Body Mass Index 32.5 Const: General: cooperative and no acute distress Nutritional Appearance: well nourished Orientation/consciousness: patient oriented x3 Limitations: no limitations HEENT: Head: Yes normocephalic and Yes atraumatic Ears: hearing grossly normal bilaterally Resp: Effort & Inspection: normal respiratory effort, no audible wheezes, no cough and no respiratory distress Cardio: Jugular venous distension: no JVD GI: Inspection: Yes normal to inspection Skin: Other: Warm, dry, no rash Neuro: General: patient oriented x3 Extrem: General: Yes no clubbing, cyanosis or edema Ankle/foot/toe images: 1. Necrotic skin changes noted at the right great toe with anterior and posterior surfaces. No open wound identified. 2. 3. Erythema noted to extend over the dorsum of the right foot medially. No fluctuance appreciated. Results Labs Result diagrams: 04/03/22 14:32 04/03/22 14:32 Labs: Abnormal lab results 04/03/22 04/03/22 04/03/22 Range/Units 14:32 14:32 14:32 RBC 4.47 L D (4.60-5.80) X10*6/uL Hgb 12.0 L D (14.0-18.0) g/dl Hct 35.5 L D (42.0-52.0) % MCV 79.4 L (80.0-98.0) fL MCH 26.8 L (27.0-33.0) pg Immature Gran % (Auto) 0.9 H (0.0-0.4) % Neut % (Auto) 86.9 H (45-73) % Lymph % (Auto) 3.2 L (20-40) % Lymph # (Auto) 0.3 L (1.2-4.9) X10*3/uL Abs Immat Gran (auto) 0.10 H (0.00-0.03) X10*3/uL Absolute Neuts (auto) 9.3 H (2.0-8.3) x10*3/uL ESR (0-15) MM/HR PT (10.0-13.1) SEC INR (0.9-1.1) Sodium 133 L (135-145) mmol/L Random Glucose 283 H (60-115) mg/dL Lactic Acid 3.6 H* (0.5-2.0) mmol/L C-Reactive Protein 24.80 H (< or = 0.50) mg/dL 04/03/22 04/03/22 Range/Units 14:32 14:32 RBC (4.60-5.80) X10*6/uL Hgb (14.0-18.0) g/dl Hct (42.0-52.0) % MCV (80.0-98.0) fL MCH (27.0-33.0) pg Immature Gran % (Auto) (0.0-0.4) % Neut % (Auto) (45-73) % Lymph % (Auto) (20-40) % Lymph # (Auto) (1.2-4.9) X10*3/uL Abs Immat Gran (auto) (0.00-0.03) X10*3/uL Absolute Neuts (auto) (2.0-8.3) x10*3/uL ESR 71 H (0-15) MM/HR PT 15.0 H (10.0-13.1) SEC INR 1.3 H (0.9-1.1) Sodium (135-145) mmol/L Random Glucose (60-115) mg/dL Lactic Acid (0.5-2.0) mmol/L C-Reactive Protein (< or = 0.50) mg/dL Short CBC 04/03/22 Range/Units 14:32 WBC 10.7 (4.8-10.8) X10*3/uL Hgb 12.0 L D (14.0-18.0) g/dl Hct 35.5 L D (42.0-52.0) % Plt Count 269 (160-400) X10*3/uL BMP 04/03/22 14:32 Sodium 133 L Potassium 3.7 D Chloride 96 Carbon Dioxide 24 BUN 12 Creatinine 1.01 Calcium 8.6 D Liver Function 04/03/22 Range/Units 14:32 Total Bilirubin 0.5 (0.0-1.0) mg/dL Direct Bilirubin 0.2 (0.0-0.5) mg/dL AST 13 (5-37) U/L ALT 16 (0-40) U/L Alkaline Phosphatase 73 (39-117) U/L Albumin 3.8 (3.5-5.0) g/dL All other labs normal. Imaging Additional studies: Right foot x-rays reviewed as noted above Assessment and Plan (1) Cellulitis of great toe, right: Status: Acute (2) Cellulitis of foot, right: Status: Acute (3) Charcot's joint of right foot: Status: Acute Plan Patient with new onset gangrenous changes involving the right great toe with evidence of possible osteomyelitis and cellulitis extending up the dorsum of the right foot. Agree with admission for IV antibiotics to reduce the cellulitis. Patient should also undergo noninvasive vascular studies and if abnormal consult vascular surgery. Patient will probably require a great toe amputation but will monitor changes with IV antibiotics. Time Spent With Patient Time: Total time managing care of this patient today __45__ minutes. Procedures Date of Service Date of Service: 04/03/22
[2022-04-03 16:38] LABS: Reflex Lactate? Lactic Acid Added
--- NOTE | 2022-04-03 17:03 | PM.IMHP ---
History of Present Illness Date of Service: 04/03/22 Attending physician on admission: Mal Leon Chief Complaint: foot osteo vs gangrene 57-year-old male with history of? diabetes mellitus with? diabetic? neuropathy, Charcot joint disease, hypertension, hyperlipidemia?-patient says that he was having some cough nonproductive from few days and was trying to stay at home, last time he checked his foot was 6 day ago he has history of the diabetic neuropathy/Charcot joint disease-so he checks is foot once twice a week-he says that last as foot was totally fine but this morning when he looked at his foot big toe was blackish color and also had some erythema around it, he also felt subjective fever. Otherwise he denies any trauma or any skin breaking to the foot. Denies any new complaint of chest pain or shortness of breath or abdominal pain or fever or chills or nausea or vomiting Denies any cough Denies any weakness or numbness. he follows up with the Dr. Lopez photograph developer out patiently Lab imaging reviewed: Has WBC count of 10.7, lactic acid of 3.6 LFTs within normal limit, glucose is from true 210-280. esr:71,crp:24.8 XR/XR foot RT min 3V IMPRESSION: Soft tissue swelling and air in the great toe. Question osteomyelitis of the distal tuft of the great toe. Lisfranc deformity of the midfoot. In ED patient received vancomycin and ceftriaxone and admission was called for osteomyelitis , also surgery was called because of possible big toe gangrene. Review of Systems Review of Systems: As above. [facility] Medical History 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 Crohn's colitis HTN (hypertension) Hypercholesterolemia Obesity (BMI 30-39.9) Rectal carcinoid tumor Type 2 diabetes mellitus with hyperglycemia Vitamin D deficiency Family History Father Diabetes CVD (cardiovascular disease) Myocardial infarction Hypertension Mother CVD (cardiovascular disease) Myocardial infarction Hypertension Throat cancer Maternal Grandmother Gastric cancer Paternal Grandmother Myocardial infarction Maternal Aunt Gastric cancer Breast cancer Sister In good health Other Substance abuse Surgical History H/O colonoscopy History of esophagogastroduodenoscopy (EGD) History of umbilical hernia repair Social History Housing: House Are you a primary care services manager to a significant other at home: No Do you presently have visiting nurse or other home services: No Alcohol intake: never Patient Tobacco Use Status: Never used Tobacco Smoked in Last 30 Days: No e-Cigarette/Vaping Use: Never Used Second Hand Smoke Exposure: Yes Use of substances other than those prescribed or required for medical reasons: No Advance Directives: No Advance Directives Information Provided: No service: Yes (vBrand) Current occupational status: employed Current occupation: [employer] Cognitive needs: No Hearing needs: No Vision needs: Yes Meds Allergies Allergy/AdvReac Type Severity Reaction Status Date / Time lisinopril [LISINOPRIL] Allergy Intermediate COUGH Verified 11/28/21 12:23 Penicillins [PENICILLINS] Allergy Intermediate HIVES Verified 11/28/21 12:23 Active Medications: Current Medications Dextrose (Dextrose 50 % 25 Gm/50 Ml Syringe) 25 gm IVPUSH Q15M PRN; Protocol PRN Reason: per Hypoglycemia Standing Ord. Enoxaparin Sodium (Enoxaparin Sodium 40 Mg/0.4 Ml Syringe) 40 mg SUBCUT Q24H [facility] Glucose (Glucose Gel 15 Gm Gel..Gram.) 15 gm PO Q15M PRN; Protocol PRN Reason: per Hypoglycemia Standing Ord. Lactated Ringer's (Lr) 1,000 mls @ 80 mls/hr IVCONT .[id number] [facility] Cefepime HCl 2 gm/ Sodium (Chloride) 50 mls @ 100 mls/hr IV Q8H [facility] Insulin Human Lispro (Insulin Lispro 100 Unit/Ml 3 Ml Vial) 0 unit SUBCUT QIDACHS [facility]; Protocol Pharmacy Consult (Consult Rx Perform Med Rec) 1 each MISCELLANE ONCE PRN PRN Reason: Consult order Pharmacy Consult (Consult Rx Vancomycin Dosing) 1 each MISCELLANE DAILY PRN PRN Reason: Consult order Sodium Chloride (0.9 % Sodium Chloride Flush 3 Ml Syringe) 3 ml IVFLUSH QSHIFT [facility] Home Medications Medication Instructions Recorded Confirmed Last Taken Type dulaglutide 1.5 mg/0.5 mL 1.5 mg subcut MO 04/03/22 04/03/2204/03/22 History subcutaneous pen injector omeprazole 40 mg capsule,delayed 40 mg PO DAILY PRN Acid Reflux 04/03/22 04/03/22 04/03/22 History release Physical Exam Vital Signs and Narrative: Vital Signs: Last Vital Signs Temp 101.7 F H 04/03/22 15:12 Pulse 90 04/03/22 15:12 Resp 18 04/03/22 15:12 BP 146/75 H 04/03/22 15:12 Pulse Ox 95 04/03/22 14:12 O2 Del Method 04/03/22 14:12 BMI result Body Mass Index 32.5 Appearance: Alert.? Oriented X3.? not in distress.? Eyes: Pupils equal, round and reactive to light.? Sclera nonicteric.? ENT: Pharynx normal.? Moist mucous membranes. cvs: rrr, [id number] , no murmur res: clear to auscultation ,no rhonchii or wheezing abd: no rebound or guarding ,nt, bs present. ext pulses present ,right big toe blackish ,erythema of foot-see ed note pics. neuro: axo3 , nonfocal. Results Labs CBC and Chem 7: 04/03/22 14:32 04/03/22 14:32 Labs: Laboratory Results - last 24 hr 04/03/22 04/03/22 04/03/22 14:32 14:32 14:32 MCV 79.4 L MCH 26.8 L MCHC 33.8 RDW 13.1 Plt Count 269 MPV 10.3 Immature Gran % (Auto) 0.9 H Neut % (Auto) 86.9 H Lymph % (Auto) 3.2 L [place] % (Auto) 8.8 Eos % (Auto) 0.0 Baso % (Auto) 0.2 Lymph # (Auto) 0.3 L [place] # (Auto) 0.9 Eos # (Auto) 0.0 Baso # (Auto) 0.0 Abs Immat Gran (auto) 0.10 H Absolute Neuts (auto) 9.3 H Absolute Nucleated RBC 0.000 Nucleated RBC % (auto) 0.0 ESR PT INR APTT Anion Gap 17 Estim Creat Clear Calc 81.8 Estimated GFR > 60 Random Glucose 283 H Lactic Acid 3.6 H* Calcium 8.6 D Total Bilirubin 0.5 Direct Bilirubin 0.2 AST 13 ALT 16 Alkaline Phosphatase 73 C-Reactive Protein 24.80 H Total Protein 6.7 Albumin 3.8 04/03/22 04/03/22 14:32 14:32 MCV MCH MCHC RDW Plt Count MPV Immature Gran % (Auto) Neut % (Auto) Lymph % (Auto) [place] % (Auto) Eos % (Auto) Baso % (Auto) Lymph # (Auto) [place] # (Auto) Eos # (Auto) Baso # (Auto) Abs Immat Gran (auto) Absolute Neuts (auto) Absolute Nucleated RBC Nucleated RBC % (auto) ESR 71 H PT 15.0 H INR 1.3 H APTT 30.6 Anion Gap Estim Creat Clear Calc Estimated GFR Random Glucose Lactic Acid Calcium Total Bilirubin Direct Bilirubin AST ALT Alkaline Phosphatase C-Reactive Protein Total Protein Albumin Imaging Radiologist's Impressions: Impressions Foot X-Ray 04/03/22 14:56 IMPRESSION: Soft tissue swelling and air in the great toe. Question osteomyelitis of the distal tuft of the great toe. Lisfranc deformity of the midfoot. Assessment and Plan (1) Cellulitis of foot, right: Status: Acute (2) Osteomyelitis: Status: Acute (3) Diabetes: Status: Acute (4) Hyperglycemia: Status: Acute Plan 57-year-old male with history of? diabetes mellitus with? diabetic? neuropathy, Charcot joint disease, hypertension, hyperlipidemia carcinoid tumor removal in 2020: came with possible foot oseto/gangrene. 1. sepsis sec to possible foot osteo/gangrene: tachycardia,fever 102 Blood cultures sent, lactic acid 3.6 Started on vancomycin and cefepime ID and surgery evaluation COVID and chest x-ray also pending since patient complained of cough also Gentle hydration 2.htn: Medical reconciliation is pending 3.dm:with hyperglycemia fs with slidin scale add HBa1c levels 4. HLP: continue statin 5. acute lactic acidosis :possible combination on sepsis/metformin. continue hydration,moniter lactic acid . dvt prophylax:s/c lovenox. Considering sepsis and foot osteo/gangrene-need of possible surgery IV antibiotics, renal function monitoring and electrolytes patient may benefit from at least 2 midnight stays. Above management discussed with the patient and staff in detail length. Time spent appox. 70 minutes Time Spent With Patient Time: Total time managing care of this patient today ____ minutes. Quality Stroke Does the patient have a stroke diagnosis?: No VTE Prior VTE?: No VTE Risk Level:: Medical - moderate - high VTE Device Contraindication: N/A - Device Ordered VTE Drug Contraindication: N/A - Med Ordered
--- NOTE | 2022-04-03 17:23 | PHA.MEDREC ---
Pharmacy Consult ? Medication Reconciliation Pharmacy has completed the medication reconciliation.
[2022-04-03 17:46] LABS: ~Lactic Acid-LAB USE ONLY 1.8 mmol/L (0.5-2.0)
[2022-04-03] MEDS: Lactated Ringers 1,000 ML 80 ML IVCONT (17:49)
[2022-04-03] MEDS: Enoxaparin Sodium 40 MG/0.4 ML SYRINGE SUBCUT (17:55)
[2022-04-03] MEDS: cefEPime HCl 2 GM in 0.9 % Sodium Chloride 50 ML IV (17:55)
--- NOTE | 2022-04-03 18:03 | PC.NURSE ---
pt. alert and oriented. resting comfortably. antibiotic and LR running. gave him a warm blanket
--- NOTE | 2022-04-03 18:11 | PHA.PROG ---
Admission Date/Time: April 03, 2022 16:57 Indication: OTHER Weight in k.183 kg Serum Creatinine - Last 168 Hours 04/03/22 14:32 Creatinine 1.01 Estimated CrCl and GFR - Last 168 Hours 04/03/22 14:32 Estim Creat Clear Calc 81.8 Estimated GFR > 60 Vancomycin Loading Dose: 2000 Current Vancomycin Dosing Regimen: 1000 Q 12 Vancomycin Monitoring using AUC goal of 400 - 600 range with trough as surrogate marker: 505 Date and Time for next Vancomycin Level to be drawn: 04/04 @ 1800 Pharmacist Comments on Vancomycin Plan: Vancomycin dosing will take advantage of [employer] as a clinical decision support tool that uses Bayesian modeling to calculate individual patient's pharmacokinetic parameters and forecast the patient's drug concentration time course with the target goal AUC 24 range of 400 - 600 mg/L/hr.
[2022-04-03 18:28] LABS: Influenza A PCR NEGATIVE (Negative); Influenza B PCR NEGATIVE (Negative); Resp Syncy Virus RNA Qual PCR NEGATIVE (Negative); SARS COV2 PCR INHOUSE NEGATIVE (Negative)
--- NOTE | 2022-04-03 19:43 | PC.NURSE ---
RN to RN report given to HEMAL Mao. Pt being transferre to room 458 and aware of plan of care.
[2022-04-03 20:17] LABS: Glucose, Whole Blood 285 mg/dL (60-115)
[2022-04-03] MEDS: Insulin Lispro 100 UNIT/ML 3 ML VIAL SUBCUT (20:33)
[2022-04-04] MEDS: Acetaminophen 325 MG TABLET 650 MG PO ×3 (00:09→21:40)
[2022-04-04 04:00] VITALS: BP 146/77; PULSE 82; RESP 15; TEMP 36.6; O2SAT 96
[2022-04-04] MEDS: cefEPime HCl 2 GM in 0.9 % Sodium Chloride 50 ML IV ×3 (04:06→17:19)
[2022-04-04] MEDS: Lactated Ringers 1,000 ML 80 ML IVCONT (04:07)
--- NOTE | 2022-04-04 05:40 | PC.NURSE ---
at approx 0530 today. Pt experienced a witnessed fall attempting to disconnect his IV pump from the wall. Pt tripped himself over his feet and fell onto his bottom and back, no head or neck strike witnessed. Pt denies and pain, neuro eval WNL, vitals WNL, R great toe necrotic ulcer observed bleeding. Wound was cleansed with sterile saline, and dressed with zeroform gauze, fluff gauze and roller gauze. Pt bed alarm applied, dressed with red fall risk socks, instructed to use the call button when needing the toilet or other needs. notified.
[2022-04-04 07:57] LABS: Glucose, Whole Blood 112 mg/dL (60-115)
[2022-04-04 08:00] VITALS: BP 145/72; PULSE 85; RESP 17; TEMP 36.6; O2SAT 98
--- NOTE | 2022-04-04 08:34 | P.CDIC_ITS ---
CDI Concurrent Query Documentation Clarification: PHYSICIAN'S DOCUMENTATION REQUEST Date of Query: 04/04/22 0834 Patient Name: Rehan Gramajo Admit Date: 04/03/22 Dear Doctor, A review of the medical record indicates additional documentation may be needed. Please review below and update the documentation accordingly. Clinical Indicators Risk Factors/Clinical Indicators/Treatments H&P 04/03 - Assessment/plan: Cellulitis of foot, right, acute Sepsis secondary to possible foot osteo/gangrene. Started vancomycin and cefepime. Patient noted his foot, big toe was blackish color and also had some erythema around it. Please clarify the relationship between these conditions: Cellulitis/DM- Cellulitis associated with/due to Diabetes mellitus with acute osteomyelitis right great toe Cellulitis associated with/due to Diabetes mellitus with acute on chronic osteomyelitis Cellulitis associated with/due to Diabetes mellitus with chronic osteomyelitis * Yes, [ ] is related to / associated with / due to [ ] * No, [ ] is not related to / associated with / due to [ ] * Other * Unable to determine Use of terms such as suspected, likely, concern for, or probable (associated with a specific diagnosis that is being evaluated, monitored, or treated as if it exists) are acceptable and can be coded in the inpatient setting, when documented at the time of discharge. Thank you, Elizabeth Kemp [facility], CDIS Extension: [phone] Please use your independent medical judgment in providing your response. THIS QUERY IS PART OF THE PERMANENT MEDICAL RECORD Provider Response: Other Other Diagnosis: dm foot infection
--- NOTE | 2022-04-04 08:35 | MHC.CM.PN ---
CM met with Patient at bedside. Patient lives in a house with his Sister, Nephew and Mother and he required no services nor DME MANAGER LINUX. Home/self care is the goal and CM has initiated ad will follow for dc planning. Patient has received Covid/Pfizer vax x4 and his PCP is Dr. Renner po.
--- NOTE | 2022-04-04 08:43 | MHC.CM.PN ---
Patient is here with ? of Foot Osteo and may require new VNA And/or Home Infusion; CM will follow.
[2022-04-04 08:44] LABS: Estimated Glomerular Filt Rate > 60
[2022-04-04] MEDS: Metoprolol Succinate ER 100 MG TAB.ER.24H 200 MG PO (09:54)
[2022-04-04] MEDS: Losartan Potassium 50 MG TABLET 100 MG PO (09:54)
[2022-04-04] MEDS: Omeprazole 40 MG CAPSULE.DR PO (09:54)
[2022-04-04] MEDS: 0.9 % Sodium Chloride Flush 3 ML SYRINGE IVFLUSH ×3 (09:55→21:27)
[2022-04-04] MEDS: amLODIPine Besylate 10 MG TABLET PO (09:56)
[2022-04-04] MEDS: Fenofibrate 160 MG TABLET PO (10:13)
[2022-04-04] MEDS: Empagliflozin 25 MG TABLET PO (10:14)
--- NOTE | 2022-04-04 10:22 | PM.PNGS ---
Subjective Subjective Date of Service: 04/04/22 Interval history: overall patient felt improved today but then he fell and struck his right great toe. He developed bleeding from the wound. Physical Exam Vital Signs: Vital Signs: Last Vital Signs Temp 97.8 F 04/04/22 08:00 Pulse 85 04/04/22 08:00 Resp 17 04/04/22 08:00 BP 145/72 H 04/04/22 08:00 Pulse Ox 98 04/04/22 08:00 O2 Del Method 04/04/22 08:00 BMI result Body Mass Index 32.5 Const: General: no acute distress Nutritional Appearance: well nourished Orientation/consciousness: patient oriented x3 Limitations: no limitations Resp: Effort & Inspection: normal respiratory effort, no audible wheezes, no cough and no respiratory distress Skin: Other: Warm, dry, no rash Neuro: General: patient oriented x3 Extrem: Other: gangrenous right great toe, unchanged, some bloody discharge after fall. Erythema on the dorsum of the right foot is improved Objective Data Active Medications Acetaminophen (Acetaminophen 325 Mg Tablet) 650 mg PO Q8H PRN PRN Reason: fever Last Admin: 04/04/22 10:13 Dose: 650 mg Documented By: RAMOS Amlodipine Besylate (Amlodipine Besylate 10 Mg Tablet) 10 mg PO DAILY [facility]; Protocol Last Admin: 04/04/22 09:56 Dose: 10 mg Documented By: RAMOS Dextrose (Dextrose 50 % 25 Gm/50 Ml Syringe) 25 gm IVPUSH Q15M PRN; Protocol PRN Reason: per Hypoglycemia Standing Ord. Empagliflozin (Empagliflozin 25 Mg Tablet) 25 mg PO DAILY [facility] Last Admin: 04/04/22 10:14 Dose: 25 mg Documented By: RAMOS Enoxaparin Sodium (Enoxaparin Sodium 40 Mg/0.4 Ml Syringe) 40 mg SUBCUT Q24H [facility] Last Admin: 04/03/22 17:55 Dose: 40 mg Documented By: DIRK Fenofibrate (Fenofibrate 160 Mg Tablet) 160 mg PO DAILY [facility] Last Admin: 04/04/22 10:13 Dose: 160 mg Documented By: RAMOS Glucose (Glucose Gel 15 Gm Gel..Gram.) 15 gm PO Q15M PRN; Protocol PRN Reason: per Hypoglycemia Standing Ord. Cefepime HCl 2 gm/ Sodium (Chloride) 50 mls @ 100 mls/hr IV Q8H [facility] Last Admin: 04/04/22 10:14 Dose: 100 mls/hr Documented By: RAMOS Vancomycin HCl 1,000 mg/ (Sodium Chloride) 270 mls @ 270 mls/hr IV Q12H [facility] Insulin Human Lispro (Insulin Lispro 100 Unit/Ml 3 Ml Vial) 0 unit SUBCUT QIDACHS [facility]; Protocol Last Admin: 04/04/22 08:56 Dose: Not Given Documented By: RAMOS Non-Admin Reason: No Insulin Coverage Losartan Potassium (Losartan Potassium 50 Mg Tablet) 100 mg PO DAILY [facility]; Protocol Last Admin: 04/04/22 09:54 Dose: 100 mg Documented By: RAMOS Metoprolol Succinate (Metoprolol Succinate Er 100 Mg Tab.Er.24h) 200 mg PO DAILY [facility]; Protocol Last Admin: 04/04/22 09:54 Dose: 200 mg Documented By: RAMOS Non-Formulary Medication (Dulaglutide) 1.5 mg SUBCUT MO [facility] Omeprazole (Omeprazole 40 Mg Capsule.Dr) 40 mg PO DAILY@0630 [facility] Last Admin: 04/04/22 09:54 Dose: 40 mg Documented By: RAMOS Pharmacy Consult (Consult Rx Perform Med Rec) 1 each MISCELLANE ONCE PRN PRN Reason: Consult order Pharmacy Consult (Consult Rx Vancomycin Dosing) 1 each MISCELLANE DAILY PRN PRN Reason: Consult order Sodium Chloride (0.9 % Sodium Chloride Flush 3 Ml Syringe) 3 ml IVFLUSH QSHIFT [facility] Last Admin: 04/04/22 09:55 Dose: 3 ml Documented By: RAMOS Labs CBC & Chem 7: 04/03/22 14:32 04/04/22 08:10 Labs: Laboratory Results - last 24 hr 04/03/22 04/03/22 04/03/22 14:32 14:32 14:32 MCV 79.4 L MCH 26.8 L MCHC 33.8 RDW 13.1 Plt Count 269 MPV 10.3 Immature Gran % (Auto) 0.9 H Neut % (Auto) 86.9 H Lymph % (Auto) 3.2 L Hinds % (Auto) 8.8 Eos % (Auto) 0.0 Baso % (Auto) 0.2 Lymph # (Auto) 0.3 L Hinds # (Auto) 0.9 Eos # (Auto) 0.0 Baso # (Auto) 0.0 Abs Immat Gran (auto) 0.10 H Absolute Neuts (auto) 9.3 H Absolute Nucleated RBC 0.000 Nucleated RBC % (auto) 0.0 ESR PT INR APTT Anion Gap 17 Estim Creat Clear Calc 81.8 Estimated GFR > 60 POC Glucose Random Glucose 283 H Lactic Acid 3.6 H* Lactic Acid F/U @ 2Hr Calcium 8.6 D Total Bilirubin 0.5 Direct Bilirubin 0.2 AST 13 ALT 16 Alkaline Phosphatase 73 C-Reactive Protein 24.80 H Total Protein 6.7 Albumin 3.8 Influenza Type A (PCR) Influenza Type B (PCR) RSV RNA Qual (PCR) SARS-CoV-2 RNA (RT-PCR) 04/03/22 04/03/22 04/03/22 14:32 14:32 17:22 MCV MCH MCHC RDW Plt Count MPV Immature Gran % (Auto) Neut % (Auto) Lymph % (Auto) Hinds % (Auto) Eos % (Auto) Baso % (Auto) Lymph # (Auto) Hinds # (Auto) Eos # (Auto) Baso # (Auto) Abs Immat Gran (auto) Absolute Neuts (auto) Absolute Nucleated RBC Nucleated RBC % (auto) ESR 71 H PT 15.0 H INR 1.3 H APTT 30.6 Anion Gap Estim Creat Clear Calc Estimated GFR POC Glucose Random Glucose Lactic Acid Lactic Acid F/U @ 2Hr Calcium Total Bilirubin Direct Bilirubin AST ALT Alkaline Phosphatase C-Reactive Protein Total Protein Albumin Influenza Type A (PCR) NEGATIVE Influenza Type B (PCR) NEGATIVE RSV RNA Qual (PCR) NEGATIVE SARS-CoV-2 RNA (RT-PCR) NEGATIVE 04/03/22 04/03/22 04/04/22 17:22 20:10 00:25 MCV MCH MCHC RDW Plt Count MPV Immature Gran % (Auto) Neut % (Auto) Lymph % (Auto) Hinds % (Auto) Eos % (Auto) Baso % (Auto) Lymph # (Auto) Hinds # (Auto) Eos # (Auto) Baso # (Auto) Abs Immat Gran (auto) Absolute Neuts (auto) Absolute Nucleated RBC Nucleated RBC % (auto) ESR PT INR APTT Anion Gap Estim Creat Clear Calc Estimated GFR POC Glucose 285 H Random Glucose Lactic Acid 1.0 Lactic Acid F/U @ 2Hr 1.8 Calcium Total Bilirubin Direct Bilirubin AST ALT Alkaline Phosphatase C-Reactive Protein Total Protein Albumin Influenza Type A (PCR) Influenza Type B (PCR) RSV RNA Qual (PCR) SARS-CoV-2 RNA (RT-PCR) 04/04/22 04/04/22 07:45 08:10 MCV MCH MCHC RDW Plt Count MPV Immature Gran % (Auto) Neut % (Auto) Lymph % (Auto) Hinds % (Auto) Eos % (Auto) Baso % (Auto) Lymph # (Auto) Hinds # (Auto) Eos # (Auto) Baso # (Auto) Abs Immat Gran (auto) Absolute Neuts (auto) Absolute Nucleated RBC Nucleated RBC % (auto) ESR PT INR APTT Anion Gap Estim Creat Clear Calc 102.0 Estimated GFR > 60 POC Glucose 112 Random Glucose Lactic Acid Lactic Acid F/U @ 2Hr Calcium Total Bilirubin Direct Bilirubin AST ALT Alkaline Phosphatase C-Reactive Protein Total Protein Albumin Influenza Type A (PCR) Influenza Type B (PCR) RSV RNA Qual (PCR) SARS-CoV-2 RNA (RT-PCR) Microbiology Microbiology Results: Microbiology 04/03/22 14:32 Blood Culture - Preliminary Blood - Venous Prelim: GPC Gram Stain only 04/03/22 14:32 Blood Culture - Preliminary Blood - Venous Prelim: GPC Gram Stain only Procedures Date of Service Date of Service: 04/04/22 Progress Note: A&P Assessment and plan (1) Charcot's joint of right foot: Status: Acute (2) Osteomyelitis: Status: Acute (3) Cellulitis of foot, right: Status: Acute Plan 57-year-old male patient with diabetes, Charcot foot, diabetic neuropathy and new onset gangrene of right great toe, probable arterial vascular disease. Cellulitis appears improved this morning after antibiotics. An arterial Doppler study has been ordered for the right leg and vascular surgery consultation requested. Time Spent With Patient Time: Total time managing care of this patient today ____ minutes. Quality Stroke Does the patient have a stroke diagnosis?: No VTE Prior VTE?: No VTE Risk Level:: Medical - moderate - high VTE Device Contraindication: N/A - Device Ordered VTE Drug Contraindication: N/A - Med Ordered
--- NOTE | 2022-04-04 11:17 | P.CDIC_ITS ---
CDI Concurrent Query Documentation Clarification: PHYSICIAN'S DOCUMENTATION REQUEST Date of Query: 04/04/22 1117 Patient Name: Rehan Gramajo Admit Date: 04/03/22 Dear Doctor, A review of the medical record indicates additional documentation may be needed. Please review below and update the documentation accordingly. Clinical Indicators: Risk Factors/Clinical Indicators/Treatments PN: Diabetes mellitus with diabetic neuropathy. Please clarify the following regarding Diabetes Mellitus (DM): Specifics of the neuropathy: Diabetes mellitus with neuropathy Mononeuropathy Peripheral Polyneuropathy Autonomic * Other complication ? please specify * Unable to determine Use of terms such as suspected, likely, concern for, or probable (associated with a specific diagnosis that is being evaluated, monitored, or treated as if it exists) are acceptable and can be coded in the inpatient setting, when documented at the time of discharge. Thank you, Elizabeth Kemp [facility], CDIS Extension: [phone] Please use your independent medical judgment in providing your response. THIS QUERY IS PART OF THE PERMANENT MEDICAL RECORD Provider Response: Other Other Diagnosis: Peripheral neuropathy.
[2022-04-04 11:19] LABS: Glucose, Whole Blood 129 mg/dL (60-115)
--- NOTE | 2022-04-04 11:24 | MHC.CM.PN ---
[facility] is following.
[2022-04-04 11:32] VITALS: TEMP 37.7
[2022-04-04] MEDS: guaiFENesin 100 MG/5 ML LIQUID 10 ML PO (15:03)
[2022-04-04 15:55] VITALS: BP 140/70; PULSE 87; RESP 18; TEMP 36.7; O2SAT 98
[2022-04-04 16:16] LABS: Glucose, Whole Blood 169 mg/dL (60-115)
--- NOTE | 2022-04-04 17:00 | HO.PM.IMPN ---
Subjective Subjective Date of Service: 04/04/22 Interval History: follow up sepsis sec to possible foot osteo/gangrene: Review of Systems Big toe seems similar to yesterday, erythema and swelling on the foot is seems to be improving. Denies any chest pain or shortness of breath or fever or chills Physical Exam Vital Signs: Vital Signs: Last Vital Signs Temp 98.0 F 04/04/22 15:55 Pulse 87 04/04/22 15:55 Resp 18 04/04/22 15:55 BP 140/70 H 04/04/22 15:55 Pulse Ox 98 04/04/22 15:55 O2 Del Method 04/04/22 15:55 BMI result Body Mass Index 32.5 Appearance: Alert.? Oriented X3.? not in distress.? cvs: rrr, [id number] , no murmur res: clear to auscultation ,no rhonchii or wheezing abd: no rebound or guarding ,nt, bs present. ext pulses present ,right big toe blackish ,erythema of foot seems improving-see ed note pics. neuro: axo3 , nonfocal. Objective Data Active Medications Acetaminophen (Acetaminophen 325 Mg Tablet) 650 mg PO Q8H PRN PRN Reason: fever Last Admin: 04/04/22 10:13 Dose: 650 mg Documented By: RAMOS Amlodipine Besylate (Amlodipine Besylate 10 Mg Tablet) 10 mg PO DAILY [facility]; Protocol Last Admin: 04/04/22 09:56 Dose: 10 mg Documented By: RAMOS Dextrose (Dextrose 50 % 25 Gm/50 Ml Syringe) 25 gm IVPUSH Q15M PRN; Protocol PRN Reason: per Hypoglycemia Standing Ord. Empagliflozin (Empagliflozin 25 Mg Tablet) 25 mg PO DAILY [facility] Last Admin: 04/04/22 10:14 Dose: 25 mg Documented By: RAMOS Enoxaparin Sodium (Enoxaparin Sodium 40 Mg/0.4 Ml Syringe) 40 mg SUBCUT Q24H [facility] Last Admin: 04/03/22 17:55 Dose: 40 mg Documented By: DIRK Fenofibrate (Fenofibrate 160 Mg Tablet) 160 mg PO DAILY [facility] Last Admin: 04/04/22 10:13 Dose: 160 mg Documented By: RAMOS Glucose (Glucose Gel 15 Gm Gel..Gram.) 15 gm PO Q15M PRN; Protocol PRN Reason: per Hypoglycemia Standing Ord. Guaifenesin (Guaifenesin 100 Mg/5 Ml Liquid) 10 ml PO Q4H PRN PRN Reason: Cough Last Admin: 04/04/22 15:03 Dose: 10 ml Documented By: RAMOS Cefepime HCl 2 gm/ Sodium (Chloride) 50 mls @ 100 mls/hr IV Q8H [facility] Last Infusion: 04/04/22 10:48 Dose: 100 mls/hr Documented By: RAMOS Vancomycin HCl 1,000 mg/ (Sodium Chloride) 270 mls @ 270 mls/hr IV Q12H [facility] Insulin Human Lispro (Insulin Lispro 100 Unit/Ml 3 Ml Vial) 0 unit SUBCUT QIDACHS [facility]; Protocol Last Admin: 04/04/22 12:55 Dose: Not Given Documented By: RAMOS Non-Admin Reason: No Insulin Coverage Losartan Potassium (Losartan Potassium 50 Mg Tablet) 100 mg PO DAILY [facility]; Protocol Last Admin: 04/04/22 09:54 Dose: 100 mg Documented By: RAMOS Metoprolol Succinate (Metoprolol Succinate Er 100 Mg Tab.Er.24h) 200 mg PO DAILY [facility]; Protocol Last Admin: 04/04/22 09:54 Dose: 200 mg Documented By: RAMOS Non-Formulary Medication (Dulaglutide) 1.5 mg SUBCUT MO [facility] Omeprazole (Omeprazole 40 Mg Capsule.Dr) 40 mg PO DAILY@0630 [facility] Last Admin: 04/04/22 09:54 Dose: 40 mg Documented By: RAMOS Pharmacy Consult (Consult Rx Perform Med Rec) 1 each MISCELLANE ONCE PRN PRN Reason: Consult order Pharmacy Consult (Consult Rx Vancomycin Dosing) 1 each MISCELLANE DAILY PRN PRN Reason: Consult order Sodium Chloride (0.9 % Sodium Chloride Flush 3 Ml Syringe) 3 ml IVFLUSH QSHIFT [facility] Last Admin: 04/04/22 15:04 Dose: 3 ml Documented By: RAMOS Labs CBC & Chem 7: 04/03/22 14:32 04/04/22 08:10 Labs: Laboratory Results - last 24 hr 04/03/22 04/03/22 04/03/22 17:22 17:22 20:10 Estim Creat Clear Calc Estimated GFR POC Glucose 285 H Lactic Acid Lactic Acid F/U @ 2Hr 1.8 Influenza Type A (PCR) NEGATIVE Influenza Type B (PCR) NEGATIVE RSV RNA Qual (PCR) NEGATIVE SARS-CoV-2 RNA (RT-PCR) NEGATIVE 04/04/22 04/04/22 04/04/22 00:25 07:45 08:10 Estim Creat Clear Calc 102.0 Estimated GFR > 60 POC Glucose 112 Lactic Acid 1.0 Lactic Acid F/U @ 2Hr Influenza Type A (PCR) Influenza Type B (PCR) RSV RNA Qual (PCR) SARS-CoV-2 RNA (RT-PCR) 04/04/22 04/04/22 11:14 15:50 Estim Creat Clear Calc Estimated GFR POC Glucose 129 H 169 H Lactic Acid Lactic Acid F/U @ 2Hr Influenza Type A (PCR) Influenza Type B (PCR) RSV RNA Qual (PCR) SARS-CoV-2 RNA (RT-PCR) Microbiology Microbiology Results: Microbiology 04/03/22 14:32 Blood Culture - Preliminary Blood - Venous Prelim: GPC Gram Stain only 04/03/22 14:32 Blood Culture - Preliminary Blood - Venous Prelim: GPC Gram Stain only Assessment and Plan (1) Lactic acid acidosis: Status: Acute (2) Sepsis: Status: Acute (3) Hyperglycemia: Status: Acute (4) Diabetes: Status: Acute (5) Osteomyelitis: Status: Acute (6) Peripheral neuropathy: Status: Acute (7) Diabetic foot infection: Status: Acute Plan 57-year-old male with history of? diabetes mellitus with? diabetic? neuropathy, Charcot joint disease, hypertension, hyperlipidemia carcinoid tumor removal in 2020: came with possible foot oseto/gangrene. 1. sepsis sec to possible foot osteo/gangrene, dm foot infection in setting of peripheral neuropathy: tachycardia,fever -seems improvin Blood cultures -gram possitive cocci, lactic acidosis resolved foot xray: Soft tissue swelling and air in the great toe. Question osteomyelitis of the distal tuft of the great toe. Lisfranc deformity of the midfoot. elevated esr,crp Started on vancomycin and cefepime ID and surgery evaluation noted -vascular dupplex added 2.htn: continue home meds 3.dm:with hyperglycemia fs with slidin scale add HBa1c levels 4. HLP: continue statin 5. acute lactic acidosis :possible combination on sepsis/metformin. improved with hydrattion dvt prophylax:s/c lovenox. Considering sepsis and foot osteo/gangrene-need of possible surgery IV antibiotics, renal function monitoring and electrolytes patient may benefit from at least 2 midnight stays. Time Spent With Patient Time: Total time managing care of this patient today ____ minutes. Quality Stroke Does the patient have a stroke diagnosis?: No VTE Prior VTE?: No VTE Risk Level:: Medical - moderate - high VTE Device Contraindication: N/A - Device Ordered VTE Drug Contraindication: N/A - Med Ordered
[2022-04-04] MEDS: Enoxaparin Sodium 40 MG/0.4 ML SYRINGE SUBCUT (17:19)
[2022-04-04] MEDS: Insulin Lispro 100 UNIT/ML 3 ML VIAL SUBCUT ×2 (17:19→21:27)
[2022-04-04 18:35] LABS: Vancomycin Random 2.3 mcg/mL (15-20)
--- NOTE | 2022-04-04 18:53 | HE.PHANOTE ---
RE [facility] PATIENT TROUGH RETURNED AT 2.3. ORDER WAS ENTERED TO START 04/05 INSTEAD OF 04/04. IN SETTING OF IMPROVED RENAL FUNCTION AND LOW TROUGH, WE WILL RELOAD PATIENT WITH 2000MG AND THEN GO TO 1500MG Q12. THEN WE WILL DETERMINE A NEW REGIMEN AFTER THE TROUGH DUE 04/06 @ 0500 [facility]
[2022-04-04 19:40] VITALS: BP 175/82; PULSE 101; RESP 20; TEMP 37.7; O2SAT 92
[2022-04-04 20:17] LABS: Glucose, Whole Blood 249 mg/dL (60-115)
[2022-04-04 23:55] VITALS: BP 141/72; PULSE 90; RESP 19; TEMP 36.8; O2SAT 93
[2022-04-05] MEDS: cefEPime HCl 2 GM in 0.9 % Sodium Chloride 50 ML IV ×3 (02:06→17:42)
[2022-04-05 04:00] VITALS: BP 144/73; PULSE 100; RESP 19; TEMP 36.5; O2SAT 93
[2022-04-05] MEDS: Omeprazole 40 MG CAPSULE.DR PO (05:53)
[2022-04-05 06:37] LABS: Creatinine Clr Calc Pharmacy 89.8; Estimated Glomerular Filt Rate > 60
[2022-04-05 07:34] LABS: Glucose, Whole Blood 142 mg/dL (60-115)
[2022-04-05 07:59] LABS: Estimated Average Glucose 194 mg/dL; Hemoglobin A1c % 8.4 %
[2022-04-05 08:00] VITALS: BP 178/85; PULSE 104; RESP 12; TEMP 36.8; O2SAT 92
[2022-04-05] MEDS: Metoprolol Succinate ER 100 MG TAB.ER.24H 200 MG PO (08:57)
[2022-04-05] MEDS: Empagliflozin 25 MG TABLET PO (08:57)
[2022-04-05] MEDS: amLODIPine Besylate 10 MG TABLET PO (08:57)
[2022-04-05] MEDS: Losartan Potassium 50 MG TABLET 100 MG PO (08:57)
[2022-04-05] MEDS: Acetaminophen 325 MG TABLET 650 MG PO (08:58)
[2022-04-05] MEDS: Fenofibrate 160 MG TABLET PO (08:58)
[2022-04-05] MEDS: 0.9 % Sodium Chloride Flush 3 ML SYRINGE IVFLUSH ×3 (08:58→20:01)
[2022-04-05] MEDS: vancomycin HCL 1,500 MG in 0.9 % Sodium Chloride 500 ML 333.33 MG IV ×2 (09:02→20:00)
[2022-04-05 11:33] LABS: Glucose, Whole Blood 135 mg/dL (60-115)
[2022-04-05 11:47] VITALS: BP 139/75; PULSE 78; RESP 14; TEMP 36.5; O2SAT 92
--- NOTE | 2022-04-05 13:11 | P.CONGS_ITS ---
History of Present Illness Consult details Consult date: 04/05/22 Reason for consult: wound care Narrative: Diabetic 57-year-old gentleman presented to the hospital approximately day or 2 prior with a nonhealing right great toe ulcer. He had associated cellulitis. He was subsequently admitted. Of note he has a known history of a Charcot foot. Has been seen and treated by Podiatry. Was actually initially seen by General surgery. Vascular surgery consultation was requested. Noninvasive arterial testing has been obtained. Review of Systems Review of Systems: Yes all other systems are reviewed and are negative Constitutional: Constitutional: Reports no additional constitutional complaints ENT: Reports Normal hearing present Cardiovascular: Cardiovascular: Denies chest pain, Denies chest pain at rest, Denies chest pain with activity and Denies pedal edema Respiratory: Respiratory: Denies cough Gastrointestinal: Gastrointestinal: Denies abdominal pain Musculoskeletal: Musculoskeletal: Denies abnormal gait, Denies muscle cramps and Denies radiating pain into limb Integumentary/Breasts: Skin/Breast: Denies skin ulcer and Denies wounds Neurologic: Reports Normal hearing present and Denies abnormal gait Psychiatric: Psychiatric: Reports no additional psychiatric complaints [facility] Past Medical History Medical History 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 Crohn's colitis HTN (hypertension) Hypercholesterolemia Obesity (BMI 30-39.9) Rectal carcinoid tumor Type 2 diabetes mellitus with hyperglycemia Vitamin D deficiency Family History Family History Father Diabetes CVD (cardiovascular disease) Myocardial infarction Hypertension Mother CVD (cardiovascular disease) Myocardial infarction Hypertension Throat cancer Maternal Grandmother Gastric cancer Paternal Grandmother Myocardial infarction Maternal Aunt Gastric cancer Breast cancer Sister In good health Other Substance abuse Surgical History Surgical History H/O colonoscopy History of esophagogastroduodenoscopy (EGD) History of umbilical hernia repair Social History Social History Household Members: Family Housing: House Are you a primary resident care director to a significant other at home: No Do you presently have visiting nurse or other home services: No Alcohol intake: never Patient Tobacco Use Status: Never used Tobacco e-Cigarette/Vaping Use: Never Used Second Hand Smoke Exposure: Yes service: Yes ([employer]) Current occupational status: employed Current occupation: [employer] Cognitive needs: No Hearing needs: No Vision needs: Yes Meds Allergies Allergy/AdvReac Type Severity Reaction Status Date / Time lisinopril [LISINOPRIL] Allergy Intermediate COUGH Verified 11/28/21 12:23 Penicillins [PENICILLINS] Allergy Intermediate HIVES Verified 11/28/21 12:23 Active Medications: Current Medications Acetaminophen (Acetaminophen 325 Mg Tablet) 650 mg PO Q8H PRN PRN Reason: fever Last Admin: 04/05/22 08:58 Dose: 650 mg Amlodipine Besylate (Amlodipine Besylate 10 Mg Tablet) 10 mg PO DAILY [facility]; Protocol Last Admin: 04/05/22 08:57 Dose: 10 mg Dextrose (Dextrose 50 % 25 Gm/50 Ml Syringe) 25 gm IVPUSH Q15M PRN; Protocol PRN Reason: per Hypoglycemia Standing Ord. Empagliflozin (Empagliflozin 25 Mg Tablet) 25 mg PO DAILY [facility] Last Admin: 04/05/22 08:57 Dose: 25 mg Enoxaparin Sodium (Enoxaparin Sodium 40 Mg/0.4 Ml Syringe) 40 mg SUBCUT Q24H [facility] Last Admin: 04/04/22 17:19 Dose: 40 mg Fenofibrate (Fenofibrate 160 Mg Tablet) 160 mg PO DAILY [facility] Last Admin: 04/05/22 08:58 Dose: 160 mg Glucose (Glucose Gel 15 Gm Gel..Gram.) 15 gm PO Q15M PRN; Protocol PRN Reason: per Hypoglycemia Standing Ord. Guaifenesin (Guaifenesin 100 Mg/5 Ml Liquid) 10 ml PO Q4H PRN PRN Reason: Cough Last Admin: 04/04/22 15:03 Dose: 10 ml Cefepime HCl 2 gm/ Sodium (Chloride) 50 mls @ 100 mls/hr IV Q8H [facility] Last Infusion: 04/05/22 11:33 Dose: Infused Vancomycin HCl 1,500 mg/ (Sodium Chloride) 500 mls @ 333.333 mls/hr IV Q12H [facility] Last Infusion: 04/05/22 11:14 Dose: Infused Insulin Human Lispro (Insulin Lispro 100 Unit/Ml 3 Ml Vial) 0 unit SUBCUT QIDACHS [facility]; Protocol Last Admin: 04/05/22 11:33 Dose: Not Given Losartan Potassium (Losartan Potassium 50 Mg Tablet) 100 mg PO DAILY [facility]; Protocol Last Admin: 04/05/22 08:57 Dose: 100 mg Metoprolol Succinate (Metoprolol Succinate Er 100 Mg Tab.Er.24h) 200 mg PO DAILY [facility]; Protocol Last Admin: 04/05/22 08:57 Dose: 200 mg Non-Formulary Medication (Dulaglutide) 1.5 mg SUBCUT MO [facility] Omeprazole (Omeprazole 40 Mg Capsule.Dr) 40 mg PO DAILY@0630 [facility] Last Admin: 04/05/22 05:53 Dose: 40 mg Pharmacy Consult (Consult Rx Perform Med Rec) 1 each MISCELLANE ONCE PRN PRN Reason: Consult order Pharmacy Consult (Consult Rx Vancomycin Dosing) 1 each MISCELLANE DAILY PRN PRN Reason: Consult order Sodium Chloride (0.9 % Sodium Chloride Flush 3 Ml Syringe) 3 ml IVFLUSH QSHIFT [facility] Last Admin: 04/05/22 08:58 Dose: 3 ml Home Medications Medication Instructions Recorded Confirmed Last Taken Type dulaglutide 1.5 mg/0.5 mL 1.5 mg subcut MO 04/03/22 04/03/22 04/03/22 History subcutaneous pen injector omeprazole 40 mg capsule,delayed 40 mg PO DAILY PRN Acid Reflux 04/03/22 04/03/22 04/03/22 History release Physical Exam Vital Signs: Vital Signs: Last Vital Signs Temp 97.7 F 04/05/22 11:47 Pulse 78 04/05/22 11:47 Resp 14 04/05/22 11:47 BP 139/75 04/05/22 11:47 Pulse Ox 92 04/05/22 11:47 O2 Del Method 04/05/22 11:47 BMI result Body Mass Index 32.5 Const: General: cooperative, healthy appearing and comfortable Orientation/consciousness: oriented to person, oriented to place and oriented to time HEENT: Head: Yes normal to inspection Neck: Neck: Yes normal visual inspection Carotids: no bruits Chest: Chest palpation & inspection: normal inspection of the chest Resp: Effort & Inspection: normal respiratory effort and able to speak in complete sentences Auscultation: clear to auscultation bilaterally, no crackles, no rales, no rhonchi and no wheezes Cardio: Other: Right leg palpable PT pulse Rate: regular rate Rhythm: regular rhythm Heart sounds: S1 normal heart sound present and S2 normal heart sound present Bruits: no carotid bruits Peripheral pulses: Peripheral pulses 2+ throughout GI: Inspection: Yes normal to inspection Skin: Other: Right great toe gangrene on the proximal part of the toe associated cellulitis which appears to be improving Wounds: no wounds Hair: normal Neuro: General: oriented to person, oriented to place and oriented to time Cranial nerves: Yes CN's II-XII intact bilaterally and Yes Normal hearing present Cognition (Neuro): normal cognition Motor exam (neuro): 5/5 motor strength present throughout Extrem: Other: venous exam: No significant superficial varicosities or spider telangiectasias, minimal edema General: No clubbing, No cyanosis and No edema Psych: Appearance: grossly normal Mental Status: mental status grossly normal Speech and movement: Normal speech and movement present Results Labs Result diagrams: 04/03/22 14:32 04/05/22 05:51 Labs: Abnormal lab results 04/04/22 04/04/22 04/04/22 Range/Units 15:50 18:04 19:41 POC Glucose 169 H 249 H (60-115) mg/dL Random Vancomycin 2.3 L (15-20) mcg/mL 04/05/22 04/05/22 Range/Units 07:23 11:21 POC Glucose 142 H 135 H (60-115) mg/dL Random Vancomycin (15-20) mcg/mL [facility] 04/05/22 05:51 Creatinine 0.92 All other labs normal. Assessment and Plan (1) Diabetic ulcer of right foot: Status: Acute Plan In short patient has a nonhealing diabetic great toe ulcer. It appears to be gangrene. There is associated cellulitis with this as well. In terms of his arterial status it is within normal limits. Arterial ultrasound written report and images were reviewed in appears to be within normal limits. Would like to cellulitis to resolve and the toe 2 demarcate as to determine the exact level of toe amputation. I did discuss the fact that there will be an amputation with the family as sister and mother were present at bedside at time of examination. Would continue with IV antibiotics. We suspect will perform amputation early next week. Thank you for allowing us to assist in his care. If there are any questions or concerns please do not hesitate to contact us. Time Spent With Patient Time: Total time managing care of this patient today ____ minutes. Procedures Date of Service Date of Service: 04/05/22
--- NOTE | 2022-04-05 14:14 | P.PNIM_ITS ---
Subjective Subjective Date of Service: 04/05/22 Interval History: patient has cellulitis/possible osteo associated with dm. Review of Systems Big toe seems similar to yesterday, erythema and swelling on the foot is seems to be improving. Denies any chest pain or shortness of breath or fever or chills Physical Exam Vital Signs: Vital Signs: Last Vital Signs Temp 97.7 F 04/05/22 11:47 Pulse 78 04/05/22 11:47 Resp 14 04/05/22 11:47 BP 139/75 04/05/22 11:47 Pulse Ox 92 04/05/22 11:47 O2 Del Method 04/05/22 11:47 BMI result Body Mass Index 32.5 Appearance: Alert.? Oriented X3.? not in distress.? cvs: rrr, [id number] , no murmur res: clear to auscultation ,no rhonchii or wheezing abd: no rebound or guarding ,nt, bs present. ext pulses present ,right big toe blackish ,erythema of foot seems improving-see ed note pics. neuro: axo3 , nonfocal. Objective Data Active Medications Acetaminophen (Acetaminophen 325 Mg Tablet) 650 mg PO Q8H PRN PRN Reason: fever Last Admin: 04/05/22 08:58 Dose: 650 mg Documented By: SHELLEY Amlodipine Besylate (Amlodipine Besylate 10 Mg Tablet) 10 mg PO DAILY [facility]; Protocol Last Admin: 04/05/22 08:57 Dose: 10 mg Documented By: SHELLEY Dextrose (Dextrose 50 % 25 Gm/50 Ml Syringe) 25 gm IVPUSH Q15M PRN; Protocol PRN Reason: per Hypoglycemia Standing Ord. Empagliflozin (Empagliflozin 25 Mg Tablet) 25 mg PO DAILY [facility] Last Admin: 04/05/22 08:57 Dose: 25 mg Documented By: SHELLEY Enoxaparin Sodium (Enoxaparin Sodium 40 Mg/0.4 Ml Syringe) 40 mg SUBCUT Q24H [facility] Last Admin: 04/04/22 17:19 Dose: 40 mg Documented By: RAMOS Fenofibrate (Fenofibrate 160 Mg Tablet) 160 mg PO DAILY [facility] Last Admin: 04/05/22 08:58 Dose: 160 mg Documented By: SHELLEY Glucose (Glucose Gel 15 Gm Gel..Gram.) 15 gm PO Q15M PRN; Protocol PRN Reason: per Hypoglycemia Standing Ord. Guaifenesin (Guaifenesin 100 Mg/5 Ml Liquid) 10 ml PO Q4H PRN PRN Reason: Cough Last Admin: 04/04/22 15:03 Dose: 10 ml Documented By: RAMOS Cefepime HCl 2 gm/ Sodium (Chloride) 50 mls @ 100 mls/hr IV Q8H [facility] Last Infusion: 04/05/22 11:33 Dose: 0 mls/hr Documented By: SHELLEY Vancomycin HCl 1,500 mg/ (Sodium Chloride) 500 mls @ 333.333 mls/hr IV Q12H [facility] Last Infusion: 04/05/22 11:14 Dose: 0 mls/hr Documented By: SHELLEY Insulin Human Lispro (Insulin Lispro 100 Unit/Ml 3 Ml Vial) 0 unit SUBCUT QIDACHS [facility]; Protocol Last Admin: 04/05/22 11:33 Dose: Not Given Documented By: SHELLEY Non-Admin Reason: No Insulin Coverage Losartan Potassium (Losartan Potassium 50 Mg Tablet) 100 mg PO DAILY [facility]; Protocol Last Admin: 04/05/22 08:57 Dose: 100 mg Documented By: SHELLEY Metoprolol Succinate (Metoprolol Succinate Er 100 Mg Tab.Er.24h) 200 mg PO DAILY [facility]; Protocol Last Admin: 04/05/22 08:57 Dose: 200 mg Documented By: SHELLEY Non-Formulary Medication (Dulaglutide) 1.5 mg SUBCUT MO [facility] Omeprazole (Omeprazole 40 Mg Capsule.Dr) 40 mg PO DAILY@0630 [facility] Last Admin: 04/05/22 05:53 Dose: 40 mg Documented By: ANGEL Pharmacy Consult (Consult Rx Perform Med Rec) 1 each MISCELLANE ONCE PRN PRN Reason: Consult order Pharmacy Consult (Consult Rx Vancomycin Dosing) 1 each MISCELLANE DAILY PRN PRN Reason: Consult order Sodium Chloride (0.9 % Sodium Chloride Flush 3 Ml Syringe) 3 ml IVFLUSH QSHIFT [facility] Last Admin: 04/05/22 08:58 Dose: 3 ml Documented By: SHELLEY Labs CBC & Chem 7: 04/03/22 14:32 04/05/22 05:51 Labs: Laboratory Results - last 24 hr 04/04/22 04/04/22 04/04/22 15:50 18:04 19:41 Estim Creat Clear Calc Estimated GFR POC Glucose 169 H 249 H Estimat Average Glucose Hemoglobin A1c % Random Vancomycin 2.3 L 04/05/22 04/05/22 04/05/22 05:51 05:51 07:23 Estim Creat Clear Calc 89.8 Estimated GFR > 60 POC Glucose 142 H Estimat Average Glucose 194 Hemoglobin A1c % 8.4 Random Vancomycin 04/05/22 11:21 Estim Creat Clear Calc Estimated GFR POC Glucose 135 H Estimat Average Glucose Hemoglobin A1c % Random Vancomycin Microbiology Microbiology Results: Microbiology 04/03/22 14:32 Blood Culture - Preliminary Blood - Venous Staphylococcus species 04/03/22 14:32 Blood Culture - Preliminary Blood - Venous Staphylococcus species Assessment and Plan (1) Lactic acid acidosis: Status: Acute (2) Sepsis: Status: Acute (3) Hyperglycemia: Status: Acute (4) Diabetes: Status: Acute (5) Osteomyelitis: Status: Acute (6) Peripheral neuropathy: Status: Acute (7) Diabetic foot infection: Status: Acute Plan 57-year-old male with history of? diabetes mellitus with? diabetic? neuropathy, Charcot joint disease, hypertension, hyperlipidemia carcinoid tumor removal in 2020: came with possible foot oseto/gangrene. 1. sepsis sec to possible foot osteo/gangrene, in setting of peripheral neur opathy associated with dm : tachycardia,fever -seems improvin Blood cultures -gram possitive cocci, lactic acidosis resolved foot xray: Soft tissue swelling and air in the great toe. Question osteomyelitis of the distal tuft of the great toe. Lisfranc deformity of the midfoot. elevated esr,crp Started on vancomycin and cefepime ID and surgery,vascualr evaluation noted -vascular dupplex added 2.htn: continue home meds 3.dm:with hyperglycemia fs with slidin scale add HBa1c levels 4. HLP: continue statin 5. acute lactic acidosis :possible combination on sepsis/metformin. improved with hydrattion dvt prophylax:s/c lovenox. ongonin need: sepsis and foot osteo/gangrene-need of possible surgery IV antibiotics, renal function monitoring and electrolytes . Time Spent With Patient Time: Total time managing care of this patient today ____ minutes. Quality Stroke Does the patient have a stroke diagnosis?: No VTE Prior VTE?: No VTE Risk Level:: Medical - moderate - high VTE Device Contraindication: N/A - Device Ordered VTE Drug Contraindication: N/A - Med Ordered
[2022-04-05] MEDS: polyethylene glycoL 3350 17 GM POWD.PACK PO (15:07)
[2022-04-05 15:26] VITALS: BP 138/67; PULSE 88; RESP 17; TEMP 36.9; O2SAT 89
[2022-04-05 15:41] LABS: Glucose, Whole Blood 152 mg/dL (60-115)
[2022-04-05] MEDS: Insulin Lispro 100 UNIT/ML 3 ML VIAL SUBCUT (17:40)
[2022-04-05] MEDS: Enoxaparin Sodium 40 MG/0.4 ML SYRINGE SUBCUT (17:40)
[2022-04-05] MEDS: Docusate Sodium 100 MG CAPSULE PO (18:06)
[2022-04-05 19:21] VITALS: BP 145/67; PULSE 79; RESP 18; TEMP 36.3; O2SAT 90
[2022-04-05 19:28] LABS: Glucose, Whole Blood 120 mg/dL (60-115)
[2022-04-06] VITALS (7 sets, daily range): BP systolic 133–169; BP diastolic 65–82; PULSE 82–95; RESP 16–20; TEMP 36.7–37.3; O2SAT 90–93
[2022-04-06] MEDS: cefEPime HCl 2 GM in 0.9 % Sodium Chloride 50 ML IV ×3 (03:15→18:01)
[2022-04-06 05:07] LABS: Vancomycin Random 11.4 mcg/mL (15-20)
[2022-04-06 05:11] LABS: Creatinine Clr Calc Pharmacy 94.9; Estimated Glomerular Filt Rate > 60
[2022-04-06] MEDS: Omeprazole 40 MG CAPSULE.DR PO (06:31)
[2022-04-06] MEDS: vancomycin HCL 1,500 MG in 0.9 % Sodium Chloride 500 ML 333.33 MG IV (06:32)
--- NOTE | 2022-04-06 07:17 | HE.PHANOTE ---
RE: vanco Pt's trough on 04/06 came back at 11.4mg/L. Increased dose to 1250mg Q8H with predicted AUC of 563mg/L. 04/06 am dose was being infused before consult was complete, so pt will get 1500mg x 1 and two 1250mg doses before next level to be drawn 04/07 @0500
[2022-04-06 07:39] LABS: Glucose, Whole Blood 117 mg/dL (60-115)
[2022-04-06] MEDS: 0.9 % Sodium Chloride Flush 3 ML SYRINGE IVFLUSH ×3 (08:45→22:56)
[2022-04-06] MEDS: amLODIPine Besylate 10 MG TABLET PO (08:51)
[2022-04-06] MEDS: Empagliflozin 25 MG TABLET PO (08:51)
[2022-04-06] MEDS: polyethylene glycoL 3350 17 GM POWD.PACK PO (08:51)
[2022-04-06] MEDS: Fenofibrate 160 MG TABLET PO (08:51)
[2022-04-06] MEDS: Metoprolol Succinate ER 100 MG TAB.ER.24H 200 MG PO (08:51)
[2022-04-06] MEDS: Losartan Potassium 50 MG TABLET 100 MG PO (08:51)
--- NOTE | 2022-04-06 11:13 | P.PNVS_ITS ---
Subjective Subjective Date of Service: 04/06/22 Patient reports: no new complaints Interval history: Very pleasant 57-year-old gentleman presents for follow-up regarding nonhealing right great toe ulcer. He has been admitted and been on IV antibiotics. Notes that the erythema has decreased. Appears to be doing relatively better. Family as at bedside during time of discussion Physical Exam Vital Signs: Vital Signs: Last Vital Signs Temp 99.1 F 04/06/22 07:35 Pulse 95 04/06/22 07:35 Resp 20 04/06/22 07:35 BP 154/71 H 04/06/22 07:35 Pulse Ox 92 04/06/22 07:35 O2 Del Method 04/06/22 07:35 BMI result Body Mass Index 32.5 Const: General: cooperative, healthy appearing and no acute distress Orientation/consciousness: oriented to person, oriented to place and oriented to time HEENT: Head: Yes normal to inspection Neck: Carotids: no bruits Chest: Chest palpation & inspection: normal inspection of the chest Resp: Effort & Inspection: normal respiratory effort and able to speak in complete sentences Auscultation: clear to auscultation bilaterally Cardio: Rate: regular rate Heart sounds: S1 normal heart sound present and S2 normal heart sound present GI: Inspection: Yes normal to inspection Skin: Other: Gangrene right great toe General skin exam: no rashes or lesions noted Wounds: wounds noted Neuro: General: oriented to person, oriented to place, oriented to time and CN's II-XI intact bilaterally Extrem: General: Yes normal to inspection, Yes full ROM and Yes no clubbing, cyanosis or edema Psych: Appearance: grossly normal and well kempt Speech and movement: Nor mal speech and movement present Affect: normal affect Progress Note: A&P Assessment and plan (1) Diabetic ulcer of right foot: Status: Acute Assessment and Plan: In short patient has a gangrenous right great toe. This will require right great toe amputation. I did discuss risks benefits complications of this with the patient and family. They are in agreement and would like to move forward. I would like the antibiotics to try to decrease the erythema over the weekend. Will schedule for next week. Thank you for allowing us to assist in his care. If there are any questions or concerns please do not hesitate to contact us. Time Spent With Patient Time: Total time managing care of this patient today ____ minutes. Procedures Date of Service Date of Service: 04/06/22 Quality Stroke Does the patient have a stroke diagnosis?: No VTE Prior VTE?: No VTE Risk Level:: Medical - moderate - high VTE Device Contraindication: N/A - Device Ordered VTE Drug Contraindication: N/A - Med Ordered
[2022-04-06 11:35] LABS: Glucose, Whole Blood 162 mg/dL (60-115)
[2022-04-06] MEDS: Insulin Lispro 100 UNIT/ML 3 ML VIAL SUBCUT ×2 (11:36→16:40)
--- NOTE | 2022-04-06 12:10 | P.PNIM_ITS ---
Subjective Subjective Date of Service: 04/06/22 Interval History: patient has cellulitis/possible osteo associated with dm. Review of Systems Big toe discolration unchanged , erythema and swelling on the foot is seems to be improving. Denies any chest pain or shortness of breath or fever or chills Physical Exam Vital Signs: Vital Signs: Last Vital Signs Temp 98.0 F 04/06/22 11:29 Pulse 83 04/06/22 11:29 Resp 16 04/06/22 11:29 BP 155/74 H 04/06/22 11:29 Pulse Ox 93 04/06/22 11:29 O2 Del Method 04/06/22 11:29 BMI result Body Mass Index 32.5 Appearance: Alert.? Oriented X3.? not in distress.? cvs: [id number], [id number] , no murmur res: clear to auscultation ,no rhonchii or wheezing abd: no rebound or guarding ,nt, bs present. ext pulses present ,right big toe blackish ,erythema of foot seems improving. neuro: axo3 , nonfocal. Objective Data Active Medications Acetaminophen (Acetaminophen 325 Mg Tablet) 650 mg PO Q8H PRN PRN Reason: fever Last Admin: 04/05/22 08:58 Dose: 650 mg Documented By: SHELLEY Amlodipine Besylate (Amlodipine Besylate 10 Mg Tablet) 10 mg PO DAILY [facility]; Protocol Last Admin: 04/06/22 08:51 Dose: 10 mg Documented By: MARQUIS Dextrose (Dextrose 50 % 25 Gm/50 Ml Syringe) 25 gm IVPUSH Q15M PRN; Protocol PRN Reason: per Hypoglycemia Standing Ord. Docusate Sodium (Docusate Sodium 100 Mg Capsule) 100 mg PO BEDTIME PRN PRN Reason: Constipation Last Admin: 04/05/22 18:06 Dose: 100 mg Documented By: SHELLEY Empagliflozin (Empagliflozin 25 Mg Tablet) 25 mg PO DAILY [facility] Last Admin: 04/06/22 08:51 Dose: 25 mg Documented By: MARQUIS Enoxaparin Sodium (Enoxaparin Sodium 40 Mg/0.4 Ml Syringe) 40 mg SUBCUT Q24H [facility] Last Admin: 04/05/22 17:40 Dose: 40 mg Documented By: SHELLEY Fenofibrate (Fenofibrate 160 Mg Tablet) 160 mg PO DAILY [facility] Last Admin: 04/06/22 08:51 Dose: 160 mg Documented By: MARQUIS Glucose (Glucose Gel 15 Gm Gel..Gram.) 15 gm PO Q15M PRN; Protocol PRN Reason: per Hypoglycemia Standing Ord. Guaifenesin (Guaifenesin 100 Mg/5 Ml Liquid) 10 ml PO Q4H PRN PRN Reason: Cough Last Admin: 04/04/22 15:03 Dose: 10 ml Documented By: RAMOS Cefepime HCl 2 gm/ Sodium (Chloride) 50 mls @ 100 mls/hr IV Q8H [facility] Last Admin: 04/06/22 11:37 Dose: 100 mls/hr Documented By: MARQUIS Vancomycin HCl 1,250 mg/ (Sodium Chloride) 250 mls @ 166.667 mls/hr IV Q8H [facility] Insulin Human Lispro (Insulin Lispro 100 Unit/Ml 3 Ml Vial) 0 unit SUBCUT QI DACHS [facility]; Protocol Last Admin: 04/06/22 11:36 Dose: 2 unit Documented By: MARQUIS Losartan Potassium (Losartan Potassium 50 Mg Tablet) 100 mg PO DAILY [facility]; Protocol Last Admin: 04/06/22 08:51 Dose: 100 mg Documented By: MARQUIS Metoprolol Succinate (Metoprolol Succinate Er 100 Mg Tab.Er.24h) 200 mg PO DAILY [facility]; Protocol Last Admin: 04/06/22 08:51 Dose: 200 mg Documented By: MARQUIS Non-Formulary Medication (Dulaglutide) 1.5 mg SUBCUT MO [facility] Omeprazole (Omeprazole 40 Mg Capsule.) 40 mg PO DAILY@0630 [facility] Last Admin: 04/06/22 06:31 Dose: 40 mg Documented By: ROBE Pharmacy Consult (Consult Rx Perform Med Rec) 1 each MISCELLANE ONCE PRN PRN Reason: Consult order Pharmacy Consult (Consult Rx Vancomycin Dosing) 1 each MISCELLANE DAILY PRN PRN Reason: Consult order Polyethylene Glycol (Polyethylene Glycol 3350 17 Gm Powd.Pack) 17 gm PO DAILY [facility] Last Admin: 04/06/22 08:51 Dose: 17 gm Documented By: MARQUIS Sodium Chloride (0.9 % Sodium Chloride Flush 3 Ml Syringe) 3 ml IVFLUSH QSHIFT [facility] Last Admin: 04/06/22 08:45 Dose: 3 ml Documented By: MARQUIS Labs CBC & Chem 7: 04/03/22 14:32 04/06/22 04:43 Labs: Laboratory Results - last 24 hr 04/05/22 04/05/22 04/06/22 15:28 19:24 04:43 Estim Creat Clear Calc 94.9 Estimated GFR > 60 POC Glucose 152 H 120 H Random Vancomycin 04/06/22 04/06/22 04/06/22 04:43 07:35 11:29 Estim Creat Clear Calc Estimated GFR POC Glucose 117 H 162 H Random Vancomycin 11.4 L Microbiology Microbiology Results: Microbiology 04/03/22 14:32 Blood Culture - Final Blood - Venous Staphylococcus aureus 04/03/22 14:32 Blood Culture - Final Blood - Venous Staphylococcus aureus Assessment and Plan (1) Lactic acid acidosis: Status: Acute (2) Sepsis: Status: Acute (3) Diabetes: Status: Acute (4) Osteomyelitis: Status: Acute (5) Peripheral neuropathy: Status: Acute (6) Diabetic foot infection: Status: Acute Plan 57-year-old male with history of? diabetes mellitus with? diabetic? neuropathy, Charcot joint disease, hypertension, hyperlipidemia carcinoid tumor removal in 2020: came with possible foot oseto/gangrene. 1. sepsis sec to possible foot osteo/gangrene, in setting of peripheral neuropathy associated with dm : tachycardia,fever -seems improvin Blood cultures -gram possitive cocci, lactic acidosis resolved foot xray: Soft tissue swelling and air in the great toe. Question osteomyelitis of the distal tuft of the great toe. Lisfranc deformity of the midfoot. elevated esr,crp Started on vancomycin and cefepime ID and surgery,vascular evaluation noted -vascular dupplex appreciated . plan for foot surgery next week. 2.htn: continue home meds 3.dm:fs improvin fs with slidin scale add HBa1c levels 4. HLP: continue statin 5. acute lactic acidosis :possible combination on sepsis/metformin. improved with hydrattion dvt prophylax:s/c lovenox. ongonin need: sepsis and foot osteo/gangrene-need of possible surgery IV an tibiotics, renal function monitoring and electrolytes . Time Spent With Patient Time: Total time managing care of this patient today ____ minutes. Quality Stroke Does the patient have a stroke diagnosis?: No VTE Prior VTE?: No VTE Risk Level:: Medical - moderate - high VTE Device Contraindication: N/A - Device Ordered VTE Drug Contraindication: N/A - Med Ordered
[2022-04-06] MEDS: vancomycin HCL 1,250 MG in 0.9 % Sodium Chloride 250 ML 166.67 MG IV ×2 (14:57→22:56)
--- NOTE | 2022-04-06 15:18 | MHC.CM.PN ---
per rounds pt to have amputationhas gangrene of foot pt to return home when dcd with a vna
[2022-04-06 16:14] LABS: Glucose, Whole Blood 163 mg/dL (60-115)
[2022-04-06] MEDS: Enoxaparin Sodium 40 MG/0.4 ML SYRINGE SUBCUT (16:40)
[2022-04-06 19:42] LABS: Glucose, Whole Blood 146 mg/dL (60-115)
[2022-04-07 03:01] VITALS: BP 183/88; PULSE 90; RESP 18; TEMP 36.9; O2SAT 90
[2022-04-07] MEDS: cefEPime HCl 2 GM in 0.9 % Sodium Chloride 50 ML IV ×3 (03:02→17:46)
[2022-04-07] MEDS: Omeprazole 40 MG CAPSULE.DR PO (06:38)
[2022-04-07 06:52] LABS: Estimated Glomerular Filt Rate > 60
[2022-04-07 06:55] LABS: Vancomycin Trough 13.6 mcg/mL (10.0-20.0)
--- NOTE | 2022-04-07 07:07 | HE.PHANOTE ---
domingo khoury continue current dose, next level 02/06 @0500 Zaheer
[2022-04-07] MEDS: vancomycin HCL 1,250 MG in 0.9 % Sodium Chloride 250 ML 166.67 MG IV ×3 (07:38→21:51)
[2022-04-07] MEDS: 0.9 % Sodium Chloride Flush 3 ML SYRINGE IVFLUSH ×3 (07:40→21:57)
[2022-04-07 08:00] VITALS: BP 168/60; PULSE 98; RESP 20; TEMP 36.4; O2SAT 94
[2022-04-07 08:15] LABS: Glucose, Whole Blood 125 mg/dL (60-115)
[2022-04-07] MEDS: amLODIPine Besylate 10 MG TABLET PO (09:28)
[2022-04-07] MEDS: Fenofibrate 160 MG TABLET PO (09:28)
[2022-04-07] MEDS: Losartan Potassium 50 MG TABLET 100 MG PO (09:28)
[2022-04-07] MEDS: Empagliflozin 25 MG TABLET PO (09:28)
[2022-04-07] MEDS: Metoprolol Succinate ER 100 MG TAB.ER.24H 200 MG PO (09:28)
[2022-04-07] MEDS: hydrALAZINE HCl 10 MG TABLET PO ×3 (09:28→21:51)
[2022-04-07] MEDS: polyethylene glycoL 3350 17 GM POWD.PACK PO (09:28)
[2022-04-07 11:53] LABS: Glucose, Whole Blood 150 mg/dL (60-115)
[2022-04-07 12:00] VITALS: BP 158/66; PULSE 91; RESP 20; TEMP 36.9; O2SAT 94
--- NOTE | 2022-04-07 13:55 | P.PNIM_ITS ---
Subjective Subjective Date of Service: 04/07/22 Interval History: Follow-up for foot infection, uncontrolled hypertension. Review of Systems Patient denies any chest pain or shortness of breath or abdominal pain or fever or chills or cough or phlegm. Foot soreness also improving. Physical Exam Vital Signs: Vital Signs: Last Vital Signs Temp 98.4 F 04/07/22 12:00 Pulse 91 04/07/22 12:00 Resp 20 04/07/22 12:00 BP 158/66 H 04/07/22 12:00 Pulse Ox 94 04/07/22 12:00 O2 Del Method 04/07/22 12:00 BMI result Body Mass Index 32.5 ?Appearance: Alert.? Oriented X3.? not in distress.? cvs: [id number], [id number] , no murmur res: clear to auscultation ,no rhonchii or wheezing abd: no rebound or guarding ,nt, bs present. ext pulses present ,right big toe blackish ,erythema of foot seems improving. neuro: axo3 , nonfocal. Objective Data Active Medications Acetaminophen (Acetaminophen 325 Mg Tablet) 650 mg PO Q8H PRN PRN Reason: fever Last Admin: 04/05/22 08:58 Dose: 650 mg Documented By: SHELLEY Amlodipine Besylate (Amlodipine Besylate 10 Mg Tablet) 10 mg PO DAILY [facility]; Protocol Last Admin: 04/07/22 09:28 Dose: 10 mg Documented By: MARQUIS Dextrose (Dextrose 50 % 25 Gm/50 Ml Syringe) 25 gm IVPUSH Q15M PRN; Protocol PRN Reason: per Hypoglycemia Standing Ord. Docusate Sodium (Docusate Sodium 100 Mg Capsule) 100 mg PO BEDTIME PRN PRN Reason: Constipation Last Admin: 04/05/22 18:06 Dose: 100 mg Documented By: SHELLEY Empagliflozin (Empagliflozin 25 Mg Tablet) 25 mg PO DAILY [facility] Last Admin: 04/07/22 09:28 Dose: 25 mg Documented By: MARQUIS Enoxaparin Sodium (Enoxaparin Sodium 40 Mg/0.4 Ml Syringe) 40 mg SUBCUT Q24H [facility] Last Admin: 04/06/22 16:40 Dose: 40 mg Documented By: MARQUIS Fenofibrate (Fenofibrate 160 Mg Tablet) 160 mg PO DAILY [facility] Last Admin: 04/07/22 09:28 Dose: 160 mg Documented By: MARQUIS Glucose (Glucose Gel 15 Gm Gel..Gram.) 15 gm PO Q15M PRN; Protocol PRN Reason: per Hypoglycemia Standing Ord. Guaifenesin (Guaifenesin 100 Mg/5 Ml Liquid) 10 ml PO Q4H PRN PRN Reason: Cough Last Admin: 04/04/22 15:03 Dose: 10 ml Documented By: RAMOS Hydralazine HCl (Hydralazine Hcl 10 Mg Tablet) 10 mg PO TID [facility]; Protocol Last Admin: 04/07/22 09:28 Dose: 10 mg Documented By: MARQUIS Cefepime HCl 2 gm/ Sodium (Chloride) 50 mls @ 100 mls/hr IV Q8H [facility] Last Infusion: 04/07/22 10:47 Dose: 0 mls/hr Documented By: MARQUIS Vancomycin HCl 1,250 mg/ (Sodium Chloride) 250 mls @ 166.667 mls/hr IV Q8H [facility] Last Infusion: 04/07/22 09:33 Dose: 0 mls/hr Documented By: MARQUIS Insulin Human Lispro (Insulin Lispro 100 Unit/Ml 3 Ml Vial) 0 unit SUBCUT QIDACHS [facility]; Protocol Last Admin: 04/07/22 12:03 Dose: Not Given Documented By: MARQUIS Non-Admin Reason: No Insulin Coverage Losartan Potassium (Losartan Potassium 50 Mg Tablet) 100 mg PO DAILY [facility]; Protocol Last Admin: 04/07/22 09:28 Dose: 100 mg Documented By: MARQUIS Metoprolol Succinate (Metoprolol Succinate Er 100 Mg Tab.Er.24h) 200 mg PO DAILY [facility]; Protocol Last Admin: 04/07/22 09:28 Dose: 200 mg Documented By: MARQUIS Non-Formulary Medication (Dulaglutide) 1.5 mg SUBCUT MO [facility] Omeprazole (Omeprazole 40 Mg Capsule.) 40 mg PO DAILY@0630 [facility] Last Admin: 04/07/22 06:38 Dose: 40 mg Documented By: МАРИНА Pharmacy Consult (Consult Rx Perform Med Rec) 1 each MISCELLANE ONCE PRN PRN Reason: Consult order Pharmacy Consult (Consult Rx Vancomycin Dosing) 1 each MISCELLANE DAILY PRN PRN Reason: Consult order Polyethylene Glycol (Polyethylene Glycol 3350 17 Gm Powd.Pack) 17 gm PO DAILY [facility] Last Admin: 04/07/22 09:28 Dose: 17 gm Documented By: MARQUIS Sodium Chloride (0.9 % Sodium Chloride Flush 3 Ml Syringe) 3 ml IVFLUSH QSHIFT [facility] Last Admin: 04/07/22 07:40 Dose: 3 ml Documented By: MARQUIS Labs CBC & Chem 7: 04/03/22 14:32 04/07/22 05:52 Labs: Laboratory Results - last 24 hr 04/06/22 04/06/22 04/07/22 16:11 19:32 05:52 Estim Creat Clear Calc 102.0 Estimated GFR > 60 POC Glucose 163 H 146 H Vancomycin Trough 04/07/22 04/07/22 04/07/22 05:52 08:11 11:50 Estim Creat Clear Calc Estimated GFR POC Glucose 125 H 150 H Vancomycin Trough 13.6 Microbiology Microbiology Results: Microbiology 04/03/22 14:32 Blood Culture - Final Blood - Venous Staphylococcus aureus 04/03/22 14:32 Blood Culture - Final Blood - Venous Staphylococcus aureus Assessment and Plan (1) Lactic acid acidosis: Status: Acute (2) Sepsis: Status: Acute (3) Diabetes: Status: Acute (4) Osteomyelitis: Status: Acute (5) Peripheral neuropathy: Status: Acute (6) Diabetic foot infection: Status: Acute Plan 57-year-old male with history of? diabetes mellitus with? diabetic? neuropathy, Charcot joint disease, hypertension, hyperlipidemia carcinoid tumor removal in 2020: came with possible foot oseto/gangrene. 1. sepsis sec to possible foot osteo/gangrene, in setting of peripheral neuropathy associated with dm : tachycardia,fever -seems improved. Blood cultures -seems mssa, lactic acidosis resolved foot xray: Soft tissue swelling and air in the great toe. Question osteomyelitis of the distal tuft of the great toe. Lisfranc deformity of the midfoot. elevated esr,crp added echo Started on vancomycin and cefepime ID and surgery,vascular evaluation noted -vascular dupplex appreciated . plan for foot surgery next week. 2.htn: continue home meds 3.dm:fs improvin fs with slidin scale add HBa1c levels 4. HLP: continue statin 5. acute lactic acidosis :possible combination on sepsis/metformin. improved with hydrattion dvt prophylax:s/c lovenox. ongonin need: sepsis and foot osteo/gangrene-need of possible surgery IV antibiotics, renal function monitoring and electrolytes . Time Spent With Patient Time: Total time managing care of this patient today ____ minutes. Quality Stroke Does the patient have a stroke diagnosis?: No VTE Prior VTE?: No VTE Risk Level:: Medical - moderate - high VTE Device Contraindication: N/A - Device Ordered VTE Drug Contraindication: N/A - Med Ordered
[2022-04-07 15:38] VITALS: BP 170/84; PULSE 93; RESP 19; TEMP 36.9; O2SAT 90
[2022-04-07 16:03] LABS: Glucose, Whole Blood 154 mg/dL (60-115)
[2022-04-07] MEDS: Insulin Lispro 100 UNIT/ML 3 ML VIAL SUBCUT ×2 (16:45→21:51)
[2022-04-07] MEDS: Enoxaparin Sodium 40 MG/0.4 ML SYRINGE SUBCUT (16:45)
[2022-04-07 19:49] VITALS: BP 157/73; PULSE 92; RESP 19; TEMP 36.4; O2SAT 90
[2022-04-07 20:13] LABS: Glucose, Whole Blood 169 mg/dL (60-115)
--- NOTE | 2022-04-07 23:46 | W.PM.IDCN ---
History of Present Illness Data of Consult Service Date: 04/07/22 Requesting physician: Mal Leon Primary Care Provider: Zurdo Mccormick MD HPI Reason for consult: sepsis,foot infection He presents with chills and weakness for two days. He has right foot with blue great toe and redness spreading up foot. He sees Dr Cabello in past. Blood culture MSSA. Review of Systems Review of Systems: Yes all other systems are reviewed and are negative PMFSH Past Medical History Medical History 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 Crohn's colitis HTN (hypertension) Hypercholesterolemia Obesity (BMI 30-39.9) Rectal carcinoid tumor Type 2 diabetes mellitus with hyperglycemia Vitamin D deficiency Family History Family History Father Diabetes CVD (cardiovascular disease) Myocardial infarction Hypertension Mother CVD (cardiovascular disease) Myocardial infarction Hypertension Throat cancer Maternal Grandmother Gastric cancer Paternal Grandmother Myocardial infarction Maternal Aunt Gastric cancer Breast cancer Sister In good health Other Substance abuse Family history: reviewed and not pertinent Surgical History Surgical History H/O colonoscopy History of esophagogastroduodenoscopy (EGD) History of umbilical hernia repair Social History Social History Household Members: Family Housing: House Are you a primary director medicare sales to a significant other at home: No Do you presently have visiting nurse or other home services: No Alcohol intake: never Patient Tobacco Use Status: Never used Tobacco e-Cigarette/Vaping Use: Never Used Second Hand Smoke Exposure: Yes service: Yes ([employer]) Current occupational status: employed Current occupation: [employer] Cognitive needs: No Hearing needs: No Vision needs: Yes Meds Allergies Allergy/AdvReac Type Severity Reaction Status Date / Time lisinopril [LISINOPRIL] Allergy Intermediate COUGH Verified 11/28/21 12:23 Penicillins [PENICILLINS] Allergy Intermediate HIVES Verified 11/28/21 12:23 Active Medications: Current Medications Acetaminophen (Acetaminophen 325 Mg Tablet) 650 mg PO Q8H PRN PRN Reason: fever Last Admin: 04/05/22 08:58 Dose: 650 mg Amlodipine Besylate (Amlodipine Besylate 10 Mg Tablet) 10 mg PO DAILY [facility]; Protocol Last Admin: 04/07/22 09:28 Dose: 10 mg Dextrose (Dextrose 50 % 25 Gm/50 Ml Syringe) 25 gm IVPUSH Q15M PRN; Protocol PRN Reason: per Hypoglycemia Standing Ord. Docusate Sodium (Docusate Sodium 100 Mg Capsule) 100 mg PO BEDTIME PRN PRN Reason: Constipation Last Admin: 04/05/22 18:06 Dose: 100 mg Empagliflozin (Empagliflozin 25 Mg Tablet) 25 mg PO DAILY [facility] Last Admin: 04/07/22 09:28 Dose: 25 mg Enoxaparin Sodium (Enoxaparin Sodium 40 Mg/0.4 Ml Syringe) 40 mg SUBCUT Q24H [facility] Last Admin: 04/07/22 16:45 Dose: 40 mg Fenofibrate (Fenofibrate 160 Mg Tablet) 160 mg PO DAILY [facility] Last Admin: 04/07/22 09:28 Dose: 160 mg Glucose (Glucose Gel 15 Gm Gel..Gram.) 15 gm PO Q15M PRN; Protocol PRN Reason: per Hypoglycemia Standing Ord. Guaifenesin (Guaifenesin 100 Mg/5 Ml Liquid) 10 ml PO Q4H PRN PRN Reason: Cough Last Admin: 04/04/22 15:03 Dose: 10 ml Hydralazine HCl (Hydralazine Hcl 10 Mg Tablet) 10 mg PO TID [facility]; Protocol Last Admin: 04/07/22 21:51 Dose: 10 mg Cefepime HCl 2 gm/ Sodium (Chloride) 50 mls @ 100 mls/hr IV Q8H [facility] Last Infusion: 04/07/22 18:54 Dose: Infused Vancomycin HCl 1,250 mg/ (Sodium Chloride) 250 mls @ 166.667 mls/hr IV Q8H [facility] Last Admin: 04/07/22 21:51 Dose: 166.67 mls/hr Insulin Human Lispro (Insulin Lispro 100 Unit/Ml 3 Ml Vial) 0 unit SUBCUT QIDACHS [facility]; Protocol Last Admin: 04/07/22 21:51 Dose: 2 unit Losartan Potassium (Losartan Potassium 50 Mg Tablet) 100 mg PO DAILY [facility]; Protocol Last Admin: 04/07/22 09:28 Dose: 100 mg Metoprolol Succinate (Metoprolol Succinate Er 100 Mg Tab.Er.24h) 200 mg PO DAILY [facility]; Protocol Last Admin: 04/07/22 09:28 Dose: 200 mg Non-Formulary Medication (Dulaglutide) 1.5 mg SUBCUT MO [facility] Omeprazole (Omeprazole 40 Mg Capsule.Dr) 40 mg PO DAILY@0630 [facility] Last Admin: 04/07/22 06:38 Dose: 40 mg Pharmacy Consult (Consult Rx Perform Med Rec) 1 each MISCELLANE ONCE PRN PRN Reason: Consult order Pharmacy Consult (Consult Rx Vancomycin Dosing) 1 each MISCELLANE DAILY PRN PRN Reason: Consult order Polyethylene Glycol (Polyethylene Glycol 3350 17 Gm Powd.Pack) 17 gm PO DAILY [facility] Last Admin: 04/07/22 09:28 Dose: 17 gm Sodium Chloride (0.9 % Sodium Chloride Flush 3 Ml Syringe) 3 ml IVFLUSH QSHIFT [facility] Last Admin: 04/07/22 21:57 Dose: 3 ml Home Medications Medication Instructions Recorded Confirmed Last Taken Type dulaglutide 1.5 mg/0.5 mL 1.5 mg subcut MO 04/03/22 04/03/22 04/03/22 History subcutaneous pen injector omeprazole 40 mg capsule,delayed 40 mg PO DAILY PRN Acid Reflux 04/03/22 04/03/22 04/03/22 History release Physical Exam Vital Signs: Vital Signs: Last Vital Signs Temp 97.5 F 04/07/22 19:49 Pulse 92 04/07/22 19:49 Resp 19 04/07/22 19:49 BP 157/73 H 04/07/22 19:49 Pulse Ox 90 L 04/07/22 19:49 O2 Del Method 04/07/22 19:49 BMI result Body Mass Index 32.5 Const: General: cooperative HEENT: Head: Yes normal to inspection Face and sinus: Yes normal facial exam Mouth: Normal oral and palatal mucosa present Teeth and gingiva: dentition normal Eyes: General: appearance normal, both eyes and all related structures Pupils: Equal, round and reactive pupils present Resp: Effort & Inspection: normal respiratory effort Cardio: Rate: regular rate Rhythm: regular rhythm GI: Palpation (GI): Soft to palpation and nontender : General: Yes no CVA tenderness Back/Spine/Pelvis: Back: no CVA tenderness Skin: General skin exam: no rashes or lesions noted Neuro: General: moves all extremities Cranial nerves: Yes Equal, round and reactive pupils present Extrem: Other: dark black right great toe,ischemia redness towards ankle mild diminishment pulses Psych: Appearance: grossly normal Results Labs CBC & Chem 7: 04/03/22 14:32 04/07/22 05:52 Labs: BMP 04/07/22 05:52 Creatinine 0.81 Microbiology Microbiology Results: Microbiology 04/03/22 14:32 Blood - Venous Blood Culture - Final Staphylococcus aureus 04/03/22 14:32 Blood - Venous Blood Culture - Final Staphylococcus aureus Assessment and Plan (1) Diabetic ulcer of right foot: Status: Acute (2) Diabetic foot infection: Status: Acute There is MSSA sepsis There is probable ischemia/infection foot source. (3) Sepsis: Status: Acute Plan Kefzol for bacteremia. USP IV four weeks likely. Echo evaluate endocarditis. Time Spent With Patient Time: Total time managing care of this patient today ____ minutes.
[2022-04-08] VITALS (7 sets, daily range): BP systolic 159–179; BP diastolic 73–88; PULSE 71–104; RESP 16–20; TEMP 36.4–37.2; O2SAT 90–94
[2022-04-08] MEDS: Omeprazole 40 MG CAPSULE.DR PO (06:38)
[2022-04-08 06:40] LABS: Vancomycin Trough 14.4 mcg/mL (10.0-20.0)
[2022-04-08 06:42] LABS: Creatinine Clr Calc Pharmacy 107.3; Estimated Glomerular Filt Rate > 60
[2022-04-08 07:15] LABS: Glucose, Whole Blood 125 mg/dL (60-115)
--- NOTE | 2022-04-08 07:23 | HE.PHANOTE ---
VANCO DOSING ADJUSTMENT BASED ON SCR AND TROUGH DOSE CONTINUED AT 1250 Q 8. NEXT TROUGH 04/09 @ 0500
[2022-04-08] MEDS: Losartan Potassium 50 MG TABLET 100 MG PO (08:14)
[2022-04-08] MEDS: Metoprolol Succinate ER 100 MG TAB.ER.24H 200 MG PO (08:14)
[2022-04-08] MEDS: Fenofibrate 160 MG TABLET PO (08:15)
[2022-04-08] MEDS: hydrALAZINE HCl 10 MG TABLET PO (08:15)
[2022-04-08] MEDS: amLODIPine Besylate 10 MG TABLET PO (08:15)
[2022-04-08] MEDS: 0.9 % Sodium Chloride Flush 3 ML SYRINGE IVFLUSH ×3 (08:15→20:07)
[2022-04-08] MEDS: Empagliflozin 25 MG TABLET PO (08:15)
[2022-04-08] MEDS: vancomycin HCL 1,250 MG in 0.9 % Sodium Chloride 250 ML 166.67 MG IV (08:17)
[2022-04-08 11:02] LABS: Glucose, Whole Blood 186 mg/dL (60-115)
[2022-04-08] MEDS: Insulin Lispro 100 UNIT/ML 3 ML VIAL SUBCUT ×2 (11:35→21:04)
--- NOTE | 2022-04-08 14:50 | P.PNIM_ITS ---
Subjective Subjective Date of Service: 04/08/22 Interval History: Follow-up for foot infection,mssa bacteremia, uncontrolled hypertension Review of Systems Patient denies any chest pain or shortness of breath or abdominal pain or fever or chills or cough or phlegm. Foot soreness also improving. Physical Exam Vital Signs: Vital Signs: Last Vital Signs Temp 97.9 F 04/08/22 11:03 Pulse 83 04/08/22 11:03 Resp 20 04/08/22 11:03 BP 179/86 H 04/08/22 11:03 Pulse Ox 94 04/08/22 11:03 O2 Del Method 04/08/22 11:03 BMI result Body Mass Index 32.5 Appearance: Alert.? Oriented X3.? not in distress.? cvs: rrr, [id number] , no murmur res: clear to auscultation ,no rhonchii or wheezing abd: no rebound or guarding ,nt, bs present. ext pulses present ,right big toe blackish ,erythema of foot seems improving. neuro: axo3 , nonfocal. Objective Data Active Medications Acetaminophen (Acetaminophen 325 Mg Tablet) 650 mg PO Q8H PRN PRN Reason: fever Last Admin: 04/05/22 08:58 Dose: 650 mg Documented By: SHELLEY Amlodipine Besylate (Amlodipine Besylate 10 Mg Tablet) 10 mg PO DAILY [facility]; Protocol Last Admin: 04/08/22 08:15 Dose: 10 mg Documented By: SAMPSON Dextrose (Dextrose 50 % 25 Gm/50 Ml Syringe) 25 gm IVPUSH Q15M PRN; Protocol PRN Reason: per Hypoglycemia Standing Ord. Docusate Sodium (Docusate Sodium 100 Mg Capsule) 100 mg PO BEDTIME PRN PRN Reason: Constipation Last Admin: 04/05/22 18:06 Dose: 100 mg Documented By: SHELLEY Empagliflozin (Empagliflozin 25 Mg Tablet) 25 mg PO DAILY [facility] Last Admin: 04/08/22 08:15 Dose: 25 mg Documented By: SAMPSON Enoxaparin Sodium (Enoxaparin Sodium 40 Mg/0.4 Ml Syringe) 40 mg SUBCUT Q24H [facility] Last Admin: 04/07/22 16:45 Dose: 40 mg Documented By: MARQUIS Fenofibrate (Fenofibrate 160 Mg Tablet) 160 mg PO DAILY [facility] Last Admin: 04/08/22 08:15 Dose: 160 mg Documented By: SAMPSON Glucose (Glucose Gel 15 Gm Gel..Gram.) 15 gm PO Q15M PRN; Protocol PRN Reason: per Hypoglycemia Standing Ord. Guaifenesin (Guaifenesin 100 Mg/5 Ml Liquid) 10 ml PO Q4H PRN PRN Reason: Cough Last Admin: 04/04/22 15:03 Dose: 10 ml Documented By: RAMOS Hydralazine HCl (Hydralazine Hcl 25 Mg Tablet) 25 mg PO TID [facility]; Protocol Cefazolin Sodium/Dextrose (Ancef) 2 gm in 50 mls @ 100 mls/hr IV Q8H [facility] Insulin Human Lispro (Insulin Lispro 100 Unit/Ml 3 Ml Vial) 0 unit SUBCUT QIDACHS [facility]; Protocol Last Admin: 04/08/22 11:35 Dose: 2 unit Documented By: SAMPSON Losartan Potassium (Losartan Potassium 50 Mg Tablet) 100 mg PO DAILY [facility]; Protocol Last Admin: 04/08/22 08:14 Dose: 100 mg Documented By: SAMPSON Metoprolol Succinate (Metoprolol Succinate Er 100 Mg Tab.Er.24h) 200 mg PO DAILY [facility]; Protocol Last Admin: 04/08/22 08:14 Dose: 200 mg Documented By: SAMPSON Non-Formulary Medication (Dulaglutide) 1.5 mg SUBCUT MO [facility] Omeprazole (Omeprazole 40 Mg Capsule.Dr) 40 mg PO DAILY@0630 [facility] Last Admin: 04/08/22 06:38 Dose: 40 mg Documented By: МАРИНА Pharmacy Consult (Consult Rx Perform Med Rec) 1 each MISCELLANE ONCE PRN PRN Reason: Consult order Polyethylene Glycol (Polyethylene Glycol 3350 17 Gm Powd.Pack) 17 gm PO DAILY [facility] Last Admin: 04/08/22 08:14 Dose: Not Given Documented By: SAMPSON Non-Admin Reason: Patient Refused Sodium Chloride (0.9 % Sodium Chloride Flush 3 Ml Syringe) 3 ml IVFLUSH QSHIFT [facility] Last Admin: 04/08/22 08:15 Dose: 3 ml Documented By: SAMPSON Labs CBC & Chem 7: 04/03/22 14:32 04/08/22 05:58 Labs: Laboratory Results - last 24 hr 1204/07/22 04/08/22 15:59 20:07 05:58 Estim Creat Clear Calc 107.3 Estimated GFR > 60 POC Glucose 154 H 169 H Vancomycin Trough 04/08/22 04/08/22 04/08/22 05:58 07:10 10:56 Estim Creat Clear Calc Estimated GFR POC Glucose 125 H 186 H Vancomycin Trough 14.4 Assessment and Plan (1) Lactic acid acidosis: Status: Acute (2) Sepsis: Status: Acute (3) Diabetes: Status: Acute (4) Osteomyelitis: Status: Acute (5) Peripheral neuropathy: Status: Acute (6) Diabetic foot infection: Status: Acute Plan 57-year-old male with history of? diabetes mellitus with? diabetic? neuropathy, Charcot joint disease, hypertension, hyperlipidemia carcinoid tumor removal in 2020: came with possible foot oseto/gangrene. 1. sepsis sec to possible foot osteo/gangrene, in setting of peripheral neuropathy associated with dm : tachycardia,fever,sepsis -seems improved. Blood cultures -seems mssa, lactic acidosis resolved foot xray: Soft tissue swelling and air in the great toe. Question osteomyelitis of the distal tuft of the great toe. Lisfranc deformity of the midfoot. elevated esr,crp added echo Started kefzol due to mssa bactermia ID and surgery,vascular evaluation noted -vascular dupplex appreciated . plan for foot surgery next week. 2.htn: continue home meds 3.dm:fs improvin 140-150 fs with slidin scale HBa1c levels: 8.4 4. HLP: continue statin. 5. acute lactic acidosis :possible combination on sepsis/metformin. improved with hydration dvt prophylax:s/c lovenox. ongonin need: sepsis and foot osteo/gangrene-need of possible surgery IV antibiotics, renal function monitoring and electrolytes . Time Spent With Patient Time: Total time managing care of this patient today ____ minutes. Quality Stroke Does the patient have a stroke diagnosis?: No VTE Prior VTE?: No VTE Risk Level:: Medical - moderate - high VTE Device Contraindication: N/A - Device Ordered VTE Drug Contraindication: N/A - Med Ordered
[2022-04-08] MEDS: ALPRAZolam 0.5 MG TABLET PO (15:18)
[2022-04-08] MEDS: hydrALAZINE HCl 25 MG TABLET PO ×2 (15:18→20:07)
[2022-04-08 16:25] LABS: Glucose, Whole Blood 130 mg/dL (60-115)
[2022-04-08] MEDS: Enoxaparin Sodium 40 MG/0.4 ML SYRINGE SUBCUT (17:18)
[2022-04-08 20:18] LABS: Glucose, Whole Blood 181 mg/dL (60-115)
[2022-04-09 03:25] VITALS: BP 165/79; PULSE 73; RESP 16; TEMP 36.1; O2SAT 94
[2022-04-09] MEDS: ceFAZolin Sodium/Dextrose,Iso 2 GM/50 ML PIGGYBACK IV ×3 (05:46→20:23)
[2022-04-09] MEDS: Omeprazole 40 MG CAPSULE.DR PO (05:46)
[2022-04-09 06:19] LABS: Vancomycin Trough 3.4 mcg/mL (10.0-20.0)
[2022-04-09 06:37] LABS: Creatinine Clr Calc Pharmacy 119.7; Estimated Glomerular Filt Rate > 60
[2022-04-09 07:17] VITALS: BP 155/78; PULSE 80; RESP 20; TEMP 36.3; O2SAT 95
[2022-04-09 07:34] LABS: Glucose, Whole Blood 129 mg/dL (60-115)
--- NOTE | 2022-04-09 08:00 | CA_ITS ---
Transthoracic Echocardiogram Patient (Last, First, Middle): Rehan Gramajo E Gender: Male Date of : 1965 Age: 57 Procedure Date: 04/09/2022 Procedure Type: [place]ansthoracic [place] [facility] [place]: 162.56 cm Weight: 86.18 kg BSA: 1.91 m2 Heart Rate: 70 bpm BP: 155 / 78 mmHg Rate Supervisor: PERRY Referring MD: Mal Leon MD Lawn And Garden Technician: Sourav Singh MD Symptoms: bacteremia Study Quality: Adequate ECG Rhythm: Sinus Conclusions: - 1. No obvious vegetation seen on this study 2. Normal LV systolic function with impaired relaxation filling pattern 3. Mild fibrocalcific aortic and mitral valve changes with normal cardiac valvular Doppler 4. No gross pericardial effusion Findings Left Ventricle Normal left ventricular size, thickness, and systolic function. The visually estimated ejection fraction is between 60-65%. Spectral Doppler is indicative of an impaired relaxation filling pattern. Right Ventricle Normal right ventricular cavity size and systolic function. Atria The left atrium is likely dilated. Interatrial shunt cannot be excluded. The right atrium is normal in size. Aortic Valve There is mild calcification of the aortic valve. There is no aortic valve stenosis. There is no aortic valve regurgitation. Mitral Valve There is mild anterior and posterior mitral leaflet thickening. There is mild mitral annular calcification. There is trace mitral valve regurgitation. There is no mitral valve stenosis. Pulmonic Valve The pulmonic valve is likely normal. Tricuspid Valve Likely normal tricuspid valve structure and function. Tricuspid regurgitation envelope is inadequate for calculation of right ventricular systolic pressure. Normal right atrial pressure. Great Vessels All visible segments of the aorta are normal in size. The pulmonary artery was not well visualized. Venous The inferior vena cava is normal in size and collapses greater than 50% with inspiration. Pericardium/Pleural There is no evidence of pericardial effusion. Prior Study Comparison No significant change compared to prior study dated: 09/11/2021. Recommendations, Care & Conclusions Consider a KIMMIE if clinically appropriate. Measurements 2D Linear Measurements IVSd: 1.15 0.6-0.9/0.6-1.0 cm LVIDd: 5.19 3.9-5.3/4.2-5.9 cm LVIDd Index: 2.72 2.4-3.2/2.2-3.1 cm/m2 LVIDs: 3.74 2.0-3.6 cm LVPWd: 1.00 0.7-1.1 cm LA Diam: 4.50 2.7-3.8/3.0-4.0 cm LAIDs Index: 2.36 1.5-2.3 cm/m2 LV Mass: 265.20 67-162/88-224 g LV Mass Index: 138.85 43-95/49-115 g/m2 LVOT Diam: 2.10 3.0+(-)1.3 cm 2D Systolic Function EF 4C: 59.00 >55% EF 2C: 62.90 >55% EF BiP: 61.60 >55% Mitral Valve MV Pk E: 0.87 MV PK A: 0.92 MV Decel Time: 156.00 E/A: 0.90 E'Lateral: 8.16 E'Medial: 8.05 E/E' Med: 10.70 E/E' Lat: 10.60 PHT: 46.00 MVA PHT: 4.78 Decel [place]: 5.53 Aortic Valve AoV Pk Gunner: 1.96 AoV Mn Gunner: 1.43 AoV VTI: 0.42 AoV Pk Grad: 15.00 Aov Mn Grad: 10.00 RUBEN Cont.VTI: 1.88 LVOT LVOT Pk Gunner: 1.31 LVOT Mn Gunner: 0.79 LVOT VTI: 0.23 LVOT Pk Grad: 7.00 LVOT Mn Grad: 3.00 LVOT Diam: 2.10 LVOT Area: 3.46 Diastolic Function MV Pk E: 0.87 MV Pk A: 0.92 E/A: 0.90 E'Medial: 8.05 E/E' Med: 10.70 E' Laterial: 8.16 E/E' Lat: 10.60 Right Ventricle TAPSE (mm): 20.30 TVS' Gunner: 13.30 Tricuspid Valve RA Press: 3.00 Great Vessels Aorta Sinus of Valsalva: 3.50 2.0-3.5 cm Ao Asc: 3.60 2.1-3.4 cm Pulmonary Veins Pulm Vein S/D 1.30 Pulmonary Valve PV Pk Gunner: 1.62 Peak PV Grad: 10.00 Updated in Other Vendor System with Status of Final Sourav Singh MD electronically signed on 04/09/2022 1:33:49 PM with status of Final
[2022-04-09] MEDS: Metoprolol Succinate ER 100 MG TAB.ER.24H 200 MG PO (08:11)
[2022-04-09] MEDS: Losartan Potassium 50 MG TABLET 100 MG PO (08:11)
[2022-04-09] MEDS: amLODIPine Besylate 10 MG TABLET PO (08:12)
[2022-04-09] MEDS: ALPRAZolam 0.5 MG TABLET PO (08:12)
[2022-04-09] MEDS: hydrALAZINE HCl 50 MG TABLET PO ×2 (08:12→17:39)
[2022-04-09] MEDS: 0.9 % Sodium Chloride Flush 3 ML SYRINGE IVFLUSH ×2 (08:12→20:27)
[2022-04-09] MEDS: Fenofibrate 160 MG TABLET PO (08:12)
[2022-04-09] MEDS: Empagliflozin 25 MG TABLET PO (08:12)
--- NOTE | 2022-04-09 08:17 | P.PNVS_ITS ---
Subjective Subjective Date of Service: 04/09/22 Patient reports: no new complaints and feels better Interval history: Patient seen and examined. No significant events overnight. Appears to be doing relatively well over the weekend. Pain appears to be well controlled. In general appears to be in good spirits. Physical Exam Vital Signs: Vital Signs: Last Vital Signs Temp 97.3 F 04/09/22 07:17 Pulse 80 04/09/22 07:17 Resp 20 04/09/22 07:17 BP 155/78 H 04/09/22 07:17 Pulse Ox 95 04/09/22 07:17 O2 Del Method 04/09/22 07:17 BMI result Body Mass Index 32.5 Const: General: cooperative, healthy appearing and no acute distress Orientation/consciousness: oriented to person, oriented to place and oriented to time HEENT: Head: Yes normal to inspection Neck: Carotids: no bruits Chest: Chest palpation & inspection: normal inspection of the chest Resp: Effort & Inspection: normal respiratory effort and able to speak in complete sentences Auscultation: clear to auscultation bilaterally Cardio: Rate: regular rate Heart sounds: S1 normal heart sound present and S2 normal heart sound present GI: Inspection: Yes normal to inspection Skin: Other: Right great toe demarcated - gangrene General skin exam: no rashes or lesions noted Wounds: no wounds Neuro: General: oriented to person, oriented to place, oriented to time and CN's II-XI intact bilaterally Extrem: General: Yes normal to inspection, Yes full ROM and Yes no clubbing, cyanosis or edema Psych: Appearance: grossly normal and well kempt Speech and movement: Normal speech and movement present Affect: normal affect Progress Note: A&P Assessment and plan (1) Diabetic ulcer of right foot: Status: Acute Plan In short patient will require right great toe amputation. Risks benefits complications of the procedure were discussed in detail with the patient inc luding bleeding infection nonhealing and further amputation. He was in agreement and would like to move forward. We will schedule him for tomorrow. Thank you for allowing us to assist in his care. Time Spent With Patient Time: Total time managing care of this patient today ____ minutes. Procedures Date of Service Date of Service: 04/09/22 Quality Stroke Does the patient have a stroke diagnosis?: No VTE Prior VTE?: No VTE Risk Level:: Medical - moderate - high VTE Device Contraindication: N/A - Device Ordered VTE Drug Contraindication: N/A - Med Ordered
--- NOTE | 2022-04-09 09:56 | HO.PM.IMPN ---
Subjective Subjective Date of Service: 04/09/22 Interval History: Follow-up for foot infection,mssa bacteremia, uncontrolled hypertension Review of Systems still has foot soarness ,no discharge ,erythema seems to be improved, blood pressure also improving Physical Exam Vital Signs: Vital Signs: Last Vital Signs Temp 97.3 F 04/09/22 07:17 Pulse 80 04/09/22 07:17 Resp 20 04/09/22 07:17 BP 155/78 H 04/09/22 07:17 Pulse Ox 95 04/09/22 07:17 O2 Del Method 04/09/22 07:17 BMI result Body Mass Index 32.5 Appearance: Alert.? Oriented X3.? not in distress.? cvs: rrr, [id number] , no murmur res: clear to auscultation ,no rhonchii or wheezing abd: no rebound or guarding ,nt, bs present. ext pulses present ,right big toe blackish ,erythema of foot seems improving. neuro: axo3 , nonfocal. Objective Data Active Medications Acetaminophen (Acetaminophen 325 Mg Tablet) 650 mg PO Q8H PRN PRN Reason: fever Last Admin: 04/05/22 08:58 Dose: 650 mg Documented By: SHELLEY Amlodipine Besylate (Amlodipine Besylate 10 Mg Tablet) 10 mg PO DAILY [facility]; Protocol Last Admin: 04/09/22 08:12 Dose: 10 mg Documented By: OCTAVIO Dextrose (Dextrose 50 % 25 Gm/50 Ml Syringe) 25 gm IVPUSH Q15M PRN; Protocol PRN Reason: per Hypoglycemia Standing Ord. Docusate Sodium (Docusate Sodium 100 Mg Capsule) 100 mg PO BEDTIME PRN PRN Reason: Constipation Last Admin: 04/05/22 18:06 Dose: 100 mg Documented By: SHELLEY Empagliflozin (Empagliflozin 25 Mg Tablet) 25 mg PO DAILY [facility] Last Admin: 04/09/22 08:12 Dose: 25 mg Documented By: OCTAVIO Enoxaparin Sodium (Enoxaparin Sodium 40 Mg/0.4 Ml Syringe) 40 mg SUBCUT Q24H [facility] Last Admin: 04/08/22 17:18 Dose: 40 mg Documented By: SAMPSON Fenofibrate (Fenofibrate 160 Mg Tablet) 160 mg PO DAILY [facility] Last Admin: 04/09/22 08:12 Dose: 160 mg Documented By: OCTAVIO Glucose (Glucose Gel 15 Gm Gel..Gram.) 15 gm PO Q15M PRN; Protocol PRN Reason: per Hypoglycemia Standing Ord. Guaifenesin (Guaifenesin 100 Mg/5 Ml Liquid) 10 ml PO Q4H PRN PRN Reason: Cough Last Admin: 04/04/22 15:03 Dose: 10 ml Documented By: FOSTEKLaila Hydralazine HCl (Hydralazine Hcl 50 Mg Tablet) 50 mg PO BID [facility]; Protocol Last Admin: 04/09/22 08:12 Dose: 50 mg Documented By: OCTAVIO Cefazolin Sodium/Dextrose (Ancef) 2 gm in 50 mls @ 100 mls/hr IV Q8H [facility] Last Infusion: 04/09/22 08:14 Dose: 0 mls/hr Documented By: OCTAVIO Insulin Human Lispro (Insulin Lispro 100 Unit/Ml 3 Ml Vial) 0 unit SUBCUT QIDACHS [facility]; Protocol Last Admin: 04/09/22 07:39 Dose: Not Given Documented By: OCTAVIO Non-Admin Reason: No Insulin Coverage Losartan Potassium (Losartan Potassium 50 Mg Tablet) 100 mg PO DAILY [facility]; Protocol Last Admin: 04/09/22 08:11 Dose: 100 mg Documented By: OCTAVIO Metoprolol Succinate (Metoprolol Succinate Er 100 Mg Tab.Er.24h) 200 mg PO DAILY [facility]; Protocol Last Admin: 04/09/22 08:11 Dose: 200 mg Documented By: OCTAVIO Non-Formulary Medication (Dulaglutide) 1.5 mg SUBCUT MO [facility] Omeprazole (Omeprazole 40 Mg Capsule.Dr) 40 mg PO DAILY@0630 [facility] Last Admin: 04/09/22 05:46 Dose: 40 mg Documented By: LILA Pharmacy Consult (Consult Rx Perform Med Rec) 1 each MISCELLANE ONCE PRN PRN Reason: Consult order Polyethylene Glycol (Polyethylene Glycol 3350 17 Gm Powd.Pack) 17 gm PO DAILY [facility] Last Admin: 04/09/22 08:13 Dose: Not Given Documented By: OCTAVIO Non-Admin Reason: Patient Refused Sodium Chloride (0.9 % Sodium Chloride Flush 3 Ml Syringe) 3 ml IVFLUSH QSHIFT [facility] Last Admin: 04/09/22 08:12 Dose: 3 ml Documented By: OCTAVIO Labs CBC & Chem 7: 04/03/22 14:32 04/09/22 05:45 Labs: Laboratory Results - last 24 hr 04/08/22 04/08/22 04/08/22 10:56 16:22 20:12 Estim Creat Clear Calc Estimated GFR POC Glucose 186 H 130 H 181 H Vancomycin Trough 04/09/22 04/09/22 04/09/22 05:45 05:45 07:20 Estim Creat Clear Calc 119.7 Estimated GFR > 60 POC Glucose 129 H Vancomycin Trough 3.4 L Assessment and Plan (1) Lactic acid acidosis: Status: Acute (2) Sepsis: Status: Acute (3) Diabetes: Status: Acute (4) Osteomyelitis: Status: Acute (5) Peripheral neuropathy: Status: Acute (6) Diabetic foot infection: Status: Acute (7) HTN (hypertension): Status: Acute Plan 57-year-old male with history of? diabetes mellitus with? diabetic? neuropathy, Charcot joint disease, hypertension, hyperlipidemia carcinoid tumor removal in 2020: came with possible foot oseto/gangrene. 1. sepsis sec to possible foot osteo/gangrene, in setting of peripheral neuropathy associated with dm : tachycardia,fever,sepsis -seems improved. Blood cultures -seems mssa, lactic acidosis resolved foot xray: Soft tissue swelling and air in the great toe. Question osteomyelitis of the distal tuft of the great toe. Lisfranc deformity of the midfoot. elevated esr,crp added echo Started kefzol due to mssa bactermia ID and surgery,vascular evaluation noted -vascular dupplex appreciated . plan for foot surgery next week. 2.htn uncontrolled continue home meds, adde hydralazine. 3.dm:fs improvin 140-150 fs with slidin scale HBa1c levels: 8.4 4. HLP: continue statin. 5. acute lactic acidosis :possible combination on sepsis/metformin. improved with hydration dvt prophylax:s/c lovenox. ongonin need: sepsis and foot osteo/gangrene-need of possible surgery IV antibiotics, renal function monitoring and electrolytes . Time Spent With Patient Time: Total time managing care of this patient today ____ minutes. Quality Stroke Does the patient have a stroke diagnosis?: No VTE Prior VTE?: No VTE Risk Level:: Medical - moderate - high VTE Device Contraindication: N/A - Device Ordered VTE Drug Contraindication: N/A - Med Ordered
[2022-04-09 10:58] VITALS: BP 171/85; PULSE 87; RESP 20; TEMP 36.8; O2SAT 95
[2022-04-09 11:13] LABS: Glucose, Whole Blood 137 mg/dL (60-115)
[2022-04-09 15:14] VITALS: BP 187/86; PULSE 66; RESP 20; TEMP 36.4; O2SAT 95
[2022-04-09 16:02] LABS: Glucose, Whole Blood 110 mg/dL (60-115)
--- NOTE | 2022-04-09 17:40 | PC.NURSE ---
Patient BP elevated - 187/86 - per dr. Leon's telephone order Hydralazine 50mg given early - patient assessed, asymptomatic stating he is nervous before tomorrow's surgery.
[2022-04-09 19:05] VITALS: BP 173/82; PULSE 80; RESP 20; TEMP 36.2; O2SAT 93
[2022-04-09 19:32] LABS: Glucose, Whole Blood 197 mg/dL (60-115)
[2022-04-09] MEDS: Insulin Lispro 100 UNIT/ML 3 ML VIAL SUBCUT (20:26)
[2022-04-09 23:03] VITALS: BP 161/76; PULSE 68; RESP 16; TEMP 36.1; O2SAT 96
[2022-04-10] VITALS (11 sets, daily range): BP systolic 118–173; BP diastolic 65–90; PULSE 66–96; RESP 16–20; TEMP 36.4–36.8; O2SAT 94–98
[2022-04-10] MEDS: ceFAZolin Sodium/Dextrose,Iso 2 GM/50 ML PIGGYBACK IV ×3 (05:35→21:18)
[2022-04-10 06:37] LABS: Hematocrit 35.4 % (42.0-52.0); Hemoglobin 11.9 g/dl (14.0-18.0); Mean Corpuscular HGB Conc 33.6 g/dl (31.0-36.0); Mean Corpuscular Hemoglobin 26.9 pg (27.0-33.0); Mean Corpuscular Volume 80.1 fL (80.0-98.0); Mean Platelet Volume 9.6 fL (9.4-12.4); Platelet Count 364 X10*3/uL (160-400); Red Blood Count 4.42 X10*6/uL (4.60-5.80); White Blood Count 10.5 X10*3/uL (4.8-10.8)
[2022-04-10 06:58] LABS: Estimated Glomerular Filt Rate > 60
[2022-04-10 07:22] LABS: Glucose, Whole Blood 140 mg/dL (60-115)
[2022-04-10] MEDS: Empagliflozin 25 MG TABLET PO (08:49)
[2022-04-10] MEDS: Fenofibrate 160 MG TABLET PO (08:49)
[2022-04-10] MEDS: amLODIPine Besylate 10 MG TABLET PO (08:49)
[2022-04-10] MEDS: 0.9 % Sodium Chloride Flush 3 ML SYRINGE IVFLUSH ×2 (08:49→21:24)
[2022-04-10] MEDS: hydrALAZINE HCl 50 MG TABLET PO ×3 (08:50→21:26)
[2022-04-10] MEDS: Metoprolol Succinate ER 100 MG TAB.ER.24H 200 MG PO (08:50)
[2022-04-10] MEDS: Losartan Potassium 50 MG TABLET 100 MG PO (08:50)
[2022-04-10 11:19] LABS: Glucose, Whole Blood 131 mg/dL (60-115)
[2022-04-10 14:19] LABS: Glucose, Whole Blood 116 mg/dL (60-115)
--- NOTE | 2022-04-10 14:23 | PC.NURSE ---
IV to left forearm was infiltrated upon arrival to [facility] from patient's room. Redness noted to area approx. size half dollar of redness. Patient denies pain. This IV removed and new IV 20 gauge to left hand inserted and patent by duarte diaz RN.
--- NOTE | 2022-04-10 14:30 | P.PNIM_ITS ---
Subjective Subjective Date of Service: 04/10/22 Interval History: Seen in follow-up for diabetic foot infection with MSSA bacteremia Interval history: Patient has no complaints. He has been NPO. Will undergo amputation today Review of Systems General: No fevers, malaise, unintentional weight loss Cardiovascular: No chest pain, palpitations, or leg edema Respiratory: No shortness of breath, wheezing, cough GI: No abdominal pain, nausea, vomiting, diarrhea, constipation, melena, hematochezia MSK: No myalgia, back pain Neuro: No headaches, weakness, paresthesias Skin: No rashes or lesions Physical Exam Vital Signs: Vital Signs: Last Vital Signs Temp 98.1 F 04/10/22 14:18 Pulse 88 04/10/22 14:18 Resp 18 04/10/22 14:18 BP 167/82 H 04/10/22 14:18 Pulse Ox 97 04/10/22 14:18 O2 Del Method 04/10/22 14:18 BMI result Body Mass Index 32.5 Constitutional - Awake and Alert, No apparent distress Eyes - PERRLA, EOMI Cardiovascular - S1S2, RRR, No edema Respiratory - Normal lung expansion, Normal respiratory effort, No respiratory distress, CTA bilaterally Gastrointestinal - NT / ND; +BS; No rebound or guarding Extremities - no calf tenderness bilaterally, non-pitting edema BLE Skin - Warm/Dry Neurological - Alert & oriented x3 Psychological - Appropriate affect Objective Data Active Medications Acetaminophen (Acetaminophen 325 Mg Tablet) 650 mg PO Q8H PRN PRN Reason: fever Last Admin: 04/05/22 08:58 Dose: 650 mg Documented By: SHELLEY Amlodipine Besylate (Amlodipine Besylate 10 Mg Tablet) 10 mg PO DAILY [facility]; Protocol Last Admin: 04/10/22 08:49 Dose: 10 mg Documented By: MARQUIS Dextrose (Dextrose 50 % 25 Gm/50 Ml Syringe) 25 gm IVPUSH Q15M PRN; Protocol PRN Reason: per Hypoglycemia Standing Ord. Docusate Sodium (Docusate Sodium 100 Mg Capsule) 100 mg PO BEDTIME PRN PRN Reason: Constipation Last Admin: 04/05/22 18:06 Dose: 100 mg Documented By: SHELLEY Empagliflozin (Empagliflozin 25 Mg Tablet) 25 mg PO DAILY [facility] Last Admin: 04/10/22 08:49 Dose: 25 mg Documented By: MARQUIS Enoxaparin Sodium (Enoxaparin Sodium 40 Mg/0.4 Ml Syringe) 40 mg SUBCUT Q24H [facility] Last Admin: 04/09/22 17:13 Dose: Not Given Documented By: OCTAVIO Non-Admin Reason: Physician Held Med Fenofibrate (Fenofibrate 160 Mg Tablet) 160 mg PO DAILY [facility] Last Admin: 04/10/22 08:49 Dose: 160 mg Documented By: MARQUIS Glucose (Glucose Gel 15 Gm Gel..Gram.) 15 gm PO Q15M PRN; Protocol PRN Reason: per Hypoglycemia Standing Ord. Guaifenesin (Guaifenesin 100 Mg/5 Ml Liquid) 10 ml PO Q4H PRN PRN Reason: Cough Last Admin: 04/04/22 15:03 Dose: 10 ml Documented By: RAMOS Hydralazine HCl (Hydralazine Hcl 50 Mg Tablet) 50 mg PO BID [facility]; Protocol Last Admin: 04/10/22 08:50 Dose: 50 mg Documented By: MARQUIS Cefazolin Sodium/Dextrose (Ancef) 2 gm in 50 mls @ 100 mls/hr IV Q8H [facility] Last Admin: 04/10/22 13:52 Dose: 100 mls/hr Documented By: MARQUIS Insulin Human Lispro (Insulin Lispro 100 Unit/Ml 3 Ml Vial) 0 unit SUBCUT QIDACHS [facility]; Protocol Last Admin: 04/10/22 11:31 Dose: Not Given Documented By: MARQUIS Non-Admin Reason: No Insulin Coverage Losartan Potassium (Losartan Potassium 50 Mg Tablet) 100 mg PO DAILY [facility]; Protocol Last Admin: 04/10/22 08:50 Dose: 100 mg Documented By: MARQUIS Metoprolol Succinate (Metoprolol Succinate Er 100 Mg Tab.Er.24h) 200 mg PO DAILY [facility]; Protocol Last Admin: 04/10/22 08:50 Dose: 200 mg Documented By: MARQUIS Non-Formulary Medication (Dulaglutide) 1.5 mg SUBCUT MO [facility] Omeprazole (Omeprazole 40 Mg Capsule.Dr) 40 mg PO DAILY@0630 [facility] Last Admin: 04/10/22 05:42 Dose: Not Given Documented By: LILA Non-Admin Reason: NPO Pharmacy Consult (Consult Rx Perform Med Rec) 1 each MISCELLANE ONCE PRN PRN Reason: Consult order Polyethylene Glycol (Polyethylene Glycol 3350 17 Gm Powd.Pack) 17 gm PO DAILY [facility] Last Admin: 04/10/22 08:50 Dose: Not Given Documented By: MARQUIS Non-Admin Reason: Patient Refused Sodium Chloride (0.9 % Sodium Chloride Flush 3 Ml Syringe) 3 ml IVFLUSH QSHIFT [facility] Last Admin: 04/10/22 08:49 Dose: 3 ml Documented By: MARQUIS Labs CBC & Chem 7: 04/10/22 06:10 04/10/22 06:10 Labs: Laboratory Results - last 24 hr 04/09/22 04/09/22 04/10/22 15:58 19:27 06:10 MCV MCH MCHC RDW Plt Count MPV Absolute Nucleated RBC Nucleated RBC % (auto) Estim Creat Clear Calc 118.0 Estimated GFR > 60 POC Glucose 110 197 H 04/10/22 04/10/22 04/10/22 06:10 07:01 11:13 MCV 80.1 MCH 26.9 L MCHC 33.6 RDW 14.0 Plt Count 364 D MPV 9.6 Absolute Nucleated RBC 0.000 Nucleated RBC % (auto) 0.0 Estim Creat Clear Calc Estimated GFR POC Glucose 140 H 131 H 04/10/22 14:09 MCV MCH MCHC RDW Plt Count MPV Absolute Nucleated RBC Nucleated RBC % (auto) Estim Creat Clear Calc Estimated GFR POC Glucose 116 H Microbiology Microbiology Results: Microbiology 04/09/22 10:55 Blood Culture - Preliminary Blood - Venous No growth after 24 hours. 04/09/22 10:50 Blood Culture - Preliminary Blood - Venous No growth after 24 hours. Assessment and Plan (1) Lactic acid acidosis: Status: Acute (2) Sepsis: Status: Acute (3) Diabetes: Status: Acute (4) Osteomyelitis: Status: Acute (5) Peripheral neuropathy: Status: Acute (6) Diabetic foot infection: Status: Acute (7) HTN (hypertension): Status: Acute Plan 57-year-old male with history of? diabetes mellitus with? diabetic? neuropathy, Charcot joint disease, hypertension, hyperlipidemia carcinoid tumor removal in 2020: came with possible foot oseto/gangrene. # sepsis sec to possible foot osteo/gangrene, in setting of peripheral neuropathy associated with dm : -Sepsis resolved -Continue antibiotics as below # right foot osteomyelitis/gangrene in the setting of peripheral neuropathy associated with diabetes -foot xray:Soft tissue swelling and air in the great toe. Question osteomyelitis of the distal tuft of the great toe. Lisfranc deformity of the midfoot. -elevated esr,crp -added echo -Started kefzol due to mssa bactermia -ID and surgery,vascular evaluation noted -Right great toe amp today with Dr. Cabello #MSSA bacteremia 2/2 to right foot infection as above -Continue kefzol per ID -Echo added -Follow repeat cultures 2.htn uncontrolled continue home meds, increase hydralazine to 50mg TID 3.dm:fs improvin 140-150 fs with slidin scale HBa1c levels: 8.4 4. HLP: continue statin. 5. acute lactic acidosis :possible combination on sepsis/metformin. improved with hydration dvt prophylax:s/c lovenox. ongonin need: sepsis and foot osteo/gangrene-need of surgery IV antibiotics, renal function monitoring and electrolytes . Time Spent With Patient Time: Total time managing care of this patient today ____ minutes. Quality Stroke Does the patient have a stroke diagnosis?: No VTE Prior VTE?: No VTE Risk Level:: Medical - moderate - high VTE Device Contraindication: N/A - Device Ordered VTE Drug Contraindication: N/A - Med Ordered
--- NOTE | 2022-04-10 14:30 | PC.NURSE ---
Induration noted at IV removal site. warm compress placed. Tamika Hartley notified as well as floor RN.
--- NOTE | 2022-04-10 15:36 | MHC.SHP ---
Pre-Procedural Eval Section A Date of Service: 04/10/22 The patient is an INPATIENT: Yes Changes since office visit: Yes Patient answered all questions The History & Physical has been completed within 30 days and I have reviewed it.: Yes Section B Chief Complaint: Cellulitis vs osteo vs gangrene big toe foot Allergies: Allergies Allergy/AdvReac Type Severity Reaction Status Date / Time lisinopril [LISINOPRIL] Allergy Intermediate COUGH Verified 11/28/21 12:23 Penicillins [PENICILLINS] Allergy Intermediate HIVES Verified 11/28/21 12:23 Plan I have reviewed the history and physical and performed a pertinent physical examination on my patient. No changes have occurred unless specified. Time Spent With Patient Time: Total time managing care of this patient today ____ minutes.
--- NOTE | 2022-04-10 16:14 | P.CONAN_ITS ---
HPI - Anesthesia Eval Consult details Narrative: 57 M for R big toe amp PMFSH Active Problems Active Problems: All Active Problems (Updated 04/05/22 @ 13:14 by Carlos Cabello MD) Diabetic ulcer of right foot (Acute) Diabetic foot infection (Acute) Peripheral neuropathy (Acute) Lactic acid acidosis (Acute) Sepsis (Acute) Hyperglycemia (Acute) Diabetes (Acute) Osteomyelitis (Acute) Charcot's joint of right foot (Acute) Cellulitis of foot, right (Acute) Cellulitis of great toe, right (Acute) Diabetic neuropathy (Acute) Numbness of right foot (Acute) SOB (shortness of breath) on exertion (Acute) Plantar fasciitis of right foot (Acute) Sessile colonic polyp (Acute) Adenomatous polyp of ascending colon (Acute) Somatic dysfunction of left sacroiliac joint (Acute) Left fibular fracture (Acute) Annual physical exam (Acute) Guaiac + stool (Acute) Skin tag (Acute) Carcinoid tumor (Acute) Rectal carcinoid tumor (Acute) Obesity (BMI 30-39.9) (Acute) Mendez's esophagus (Acute) Hypercholesterolemia (Acute) HTN (hypertension) (Acute) Type 2 diabetes mellitus with hyperglycemia (Acute) Past Medical History Medical History 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 Crohn's colitis HTN (hypertension) Hypercholesterolemia Obesity (BMI 30-39.9) Rectal carcinoid tumor Type 2 diabetes mellitus with hyperglycemia Vitamin D deficiency Family History Family History Father Diabetes CVD (cardiovascular disease) Myocardial infarction Hypertension Mother CVD (cardiovascular disease) Myocardial infarction Hypertension Throat cancer Maternal Grandmother Gastric cancer Paternal Grandmother Myocardial infarction Maternal Aunt Gastric cancer Breast cancer Sister In good health Other Substance abuse Family history of problems with anesthesia: No Surgical History Surgical History H/O colonoscopy History of esophagogastroduodenoscopy (EGD) History of umbilical hernia repair History of Problems with Anesthesia: No Social History Social History Household Members: Family Housing: House Are you a primary direct care provider to a significant other at home: No Do you presently have visiting nurse or other home services: No Alcohol intake: never Patient Tobacco Use Status: Never used Tobacco e-Cigarette/Vaping Use: Never Used Second Hand Smoke Exposure: Yes service: Yes ([employer]) Current occupational status: employed Current occupation: [employer] Cognitive needs: No Hearing needs: No Vision needs: Yes Meds Allergies Allergy/AdvReac Type Severity Reaction Status Date / Time lisinopril [LISINOPRIL] Allergy Intermediate COUGH Verified 11/28/21 12:23 Penicillins [PENICILLINS] Allergy Intermediate HIVES Verified 11/28/21 12:23 Active Medications: Current Medications Acetaminophen (Acetaminophen 325 Mg Tablet) 650 mg PO Q8H PRN PRN Reason: fever Last Admin: 04/05/22 08:58 Dose: 650 mg Amlodipine Besylate (Amlodipine Besylate 10 Mg Tablet) 10 mg PO DAILY [facility]; Protocol Last Admin: 04/10/22 08:49 Dose: 10 mg Dextrose (Dextrose 50 % 25 Gm/50 Ml Syringe) 25 gm IVPUSH Q15M PRN; Protocol PRN Reason: per Hypoglycemia Standing Ord. Docusate Sodium (Docusate Sodium 100 Mg Capsule) 100 mg PO BEDTIME PRN PRN Reason: Constipation Last Admin: 04/05/22 18:06 Dose: 100 mg Empagliflozin (Empagliflozin 25 Mg Tablet) 25 mg PO DAILY [facility] Last Admin: 04/10/22 08:49 Dose: 25 mg Enoxaparin Sodium (Enoxaparin Sodium 40 Mg/0.4 Ml Syringe) 40 mg SUBCUT Q24H [facility] Last Admin: 04/09/22 17:13 Dose: Not Given Fenofibrate (Fenofibrate 160 Mg Tablet) 160 mg PO DAILY [facility] Last Admin: 04/10/22 08:49 Dose: 160 mg Glucose (Glucose Gel 15 Gm Gel..Gram.) 15 gm PO Q15M PRN; Protocol PRN Reason: per Hypoglycemia Standing Ord. Guaifenesin (Guaifenesin 100 Mg/5 Ml Liquid) 10 ml PO Q4H PRN PRN Reason: Cough Last Admin: 04/04/22 15:03 Dose: 10 ml Hydralazine HCl (Hydralazine Hcl 50 Mg Tablet) 50 mg PO TID [facility]; Protocol Cefazolin Sodium/Dextrose (Ancef) 2 gm in 50 mls @ 100 mls/hr IV Q8H [facility] Last Admin: 04/10/22 13:52 Dose: 100 mls/hr Insulin Human Lispro (Insulin Lispro 100 Unit/Ml 3 Ml Vial) 0 unit SUBCUT QIDACHS [facility]; Protocol Last Admin: 04/10/22 11:31 Dose: Not Given Losartan Potassium (Losartan Potassium 50 Mg Tablet) 100 mg PO DAILY [facility]; Protocol Last Admin: 04/10/22 08:50 Dose: 100 mg Metoprolol Succinate (Metoprolol Succinate Er 100 Mg Tab.Er.24h) 200 mg PO DAILY [facility]; Protocol Last Admin: 04/10/22 08:50 Dose: 200 mg Non-Formulary Medication (Dulaglutide) 1.5 mg SUBCUT MO [facility] Omeprazole (Omeprazole 40 Mg Capsule.Dr) 40 mg PO DAILY@0630 [facility] Last Admin: 04/10/22 05:42 Dose: Not Given Pharmacy Consult (Consult Rx Perform Med Rec) 1 each MISCELLANE ONCE PRN PRN Reason: Consult order Polyethylene Glycol (Polyethylene Glycol 3350 17 Gm Powd.Pack) 17 gm PO DAILY [facility] Last Admin: 04/10/22 08:50 Dose: Not Given Sodium Chloride (0.9 % Sodium Chloride Flush 3 Ml Syringe) 3 ml IVFLUSH QSHIFT [facility] Last Admin: 04/10/22 08:49 Dose: 3 ml Home Medications Medication Instructions Recorded Confirmed Last Taken Type dulaglutide 1.5 mg/0.5 mL 1.5 mg subcut MO 04/03/22 04/03/22 04/03/22 History subcutaneous pen injector omeprazole 40 mg capsule,delayed 40 mg PO DAILY PRN Acid Reflux 04/03/22 04/03/22 04/03/22 History release Exam Exam Date and Time: April 10, 2022 1614 Height,Weight and Vital Signs: Height 5 ft 4 in Weight 190 lb Last Vital Signs Temp 98.1 F 04/10/22 14:18 Pulse 88 04/10/22 14:18 Resp 18 04/10/22 14:18 BP 167/82 H 04/10/22 14:18 Pulse Ox 97 04/10/22 14:18 O2 Del Method 04/10/22 14:18 Pertinent Lab Results Pertinent Lab Results: Laboratory Tests 04/03/22 04/03/22 04/03/22 14:32 14:32 14:32 WBC 10.7 RBC 4.47 L D Hgb 12.0 L D Hct 35.5 L D MCV 79.4 L MCH 26.8 L MCHC 33.8 RDW 13.1 Plt Count 269 MPV 10.3 Immature Gran % (Auto) 0.9 H Neut % (Auto) 86.9 H Lymph % (Auto) 3.2 L [place] % (Auto) 8.8 Eos % (Auto) 0.0 Baso % (Auto) 0.2 Lymph # (Auto) 0.3 L [place] # (Auto) 0.9 Eos # (Auto) 0.0 Baso # (Auto) 0.0 Abs Immat Gran (auto) 0.10 H Absolute Neuts (auto) 9.3 H Absolute Nucleated RBC 0.000 Nucleated RBC % (auto) 0.0 ESR PT INR APTT Sodium 133 L Potassium 3.7 D Chloride 96 Carbon Dioxide 24 Anion Gap 17 BUN 12 Creatinine 1.01 Estim Creat Clear Calc 81.8 Estimated GFR > 60 POC Glucose Random Glucose 283 H Estimat Average Glucose Hemoglobin A1c % Lactic Acid 3.6 H* Lactic Acid F/U @ 2Hr Calcium 8.6 D Total Bilirubin 0.5 Direct Bilirubin 0.2 AST 13 ALT 16 Alkaline Phosphatase 73 C-Reactive Protein 24.80 H Total Protein 6.7 Albumin 3.8 Vancomycin Trough Random Vancomycin Influenza Type A (PCR) Influenza Type B (PCR) RSV RNA Qual (PCR) SARS-CoV-2 RNA (RT-PCR) 04/03/22 04/03/22 04/03/22 14:32 14:32 17:22 WBC RBC Hgb Hct MCV MCH MCHC RDW Plt Count MPV Immature Gran % (Auto) Neut % (Auto) Lymph % (Auto) [place] % (Auto) Eos % (Auto) Baso % (Auto) Lymph # (Auto) [place] # (Auto) Eos # (Auto) Baso # (Auto) Abs Immat Gran (auto) Absolute Neuts (auto) Absolute Nucleated RBC Nucleated RBC % (auto) ESR 71 H PT 15.0 H INR 1.3 H APTT 30.6 Sodium Potassium Chloride Carbon Dioxide Anion Gap BUN Creatinine Estim Creat Clear Calc Estimated GFR POC Glucose Random Glucose Estimat Average Glucose Hemoglobin A1c % Lactic Acid Lactic Acid F/U @ 2Hr Calcium Total Bilirubin Direct Bilirubin AST ALT Alkaline Phosphatase C-Reactive Protein Total Protein Albumin Vancomycin Trough Random Vancomycin Influenza Type A (PCR) NEGATIVE Influenza Type B (PCR) NEGATIVE RSV RNA Qual (PCR) NEGATIVE SARS-CoV-2 RNA (RT-PCR) NEGATIVE 04/03/22 04/03/22 04/04/22 17:22 20:10 00:25 WBC RBC Hgb Hct MCV MCH MCHC RDW Plt Count MPV Immature Gran % (Auto) Neut % (Auto) Lymph % (Auto) [place] % (Auto) Eos % (Auto) Baso % (Auto) Lymph # (Auto) [place] # (Auto) Eos # (Auto) Baso # (Auto) Abs Immat Gran (auto) Absolute Neuts (auto) Absolute Nucleated RBC Nucleated RBC % (auto) ESR PT INR APTT Sodium Potassium Chloride Carbon Dioxide Anion Gap BUN Creatinine Estim Creat Clear Calc Estimated GFR POC Glucose 285 H Random Glucose Estimat Average Glucose Hemoglobin A1c % Lactic Acid 1.0 Lactic Acid F/U @ 2Hr 1.8 Calcium Total Bilirubin Direct Bilirubin AST ALT Alkaline Phosphatase C-Reactive Protein Total Protein Albumin Vancomycin Trough Random Vancomycin Influenza Type A (PCR) Influenza Type B (PCR) RSV RNA Qual (PCR) SARS-CoV-2 RNA (RT-PCR) 04/04/22 04/04/22 04/04/22 07:45 08:10 11:14 WBC RBC Hgb Hct MCV MCH MCHC RDW Plt Count MPV Immature Gran % (Auto) Neut % (Auto) Lymph % (Auto) [place] % (Auto) Eos % (Auto) Baso % (Auto) Lymph # (Auto) [place] # (Auto) Eos # (Auto) Baso # (Auto) Abs Immat Gran (auto) Absolute Neuts (auto) Absolute Nucleated RBC Nucleated RBC % (auto) ESR PT INR APTT Sodium Potassium Chloride Carbon Dioxide Anion Gap BUN Creatinine 0.81 Estim Creat Clear Calc 102.0 Estimated GFR > 60 POC Glucose 112 129 H Random Glucose Estimat Average Glucose Hemoglobin A1c % Lactic Acid Lactic Acid F/U @ 2Hr Calcium Total Bilirubin Direct Bilirubin AST ALT Alkaline Phosphatase C-Reactive Protein Total Protein Albumin Vancomycin Trough Random Vancomycin Influenza Type A (PCR) Influenza Type B (PCR) RSV RNA Qual (PCR) SARS-CoV-2 RNA (RT-PCR) 04/04/22 04/04/22 04/04/22 15:50 18:04 19:41 WBC RBC Hgb Hct MCV MCH MCHC RDW Plt Count MPV Immature Gran % (Auto) Neut % (Auto) Lymph % (Auto) [place] % (Auto) Eos % (Auto) Baso % (Auto) Lymph # (Auto) [place] # (Auto) Eos # (Auto) Baso # (Auto) Abs Immat Gran (auto) Absolute Neuts (auto) Absolute Nucleated RBC Nucleated RBC % (auto) ESR PT INR APTT Sodium Potassium Chloride Carbon Dioxide Anion Gap BUN Creatinine Estim Creat Clear Calc Estimated GFR POC Glucose 169 H 249 H Random Glucose Estimat Average Glucose Hemoglobin A1c % Lactic Acid Lactic Acid F/U @ 2Hr Calcium Total Bilirubin Direct Bilirubin AST ALT Alkaline Phosphatase C-Reactive Protein Total Protein Albumin Vancomycin Trough Random Vancomycin 2.3 L Influenza Type A (PCR) Influenza Type B (PCR) RSV RNA Qual (PCR) SARS-CoV-2 RNA (RT-PCR) 04/05/22 04/05/22 04/05/22 05:51 05:51 07:23 WBC RBC Hgb Hct MCV MCH MCHC RDW Plt Count MPV Immature Gran % (Auto) Neut % (Auto) Lymph % (Auto) [place] % (Auto) Eos % (Auto) Baso % (Auto) Lymph # (Auto) [place] # (Auto) Eos # (Auto) Baso # (Auto) Abs Immat Gran (auto) Absolute Neuts (auto) Absolute Nucleated RBC Nucleated RBC % (auto) ESR PT INR APTT Sodium Potassium Chloride Carbon Dioxide Anion Gap BUN Creatinine 0.92 Estim Creat Clear Calc 89.8 Estimated GFR > 60 POC Glucose 142 H Random Glucose Estimat Average Glucose 194 Hemoglobin A1c % 8.4 Lactic Acid Lactic Acid F/U @ 2Hr Calcium Total Bilirubin Direct Bilirubin AST ALT Alkaline Phosphatase C-Reactive Protein Total Protein Albumin Vancomycin Trough Random Vancomycin Influenza Type A (PCR) Influenza Type B (PCR) RSV RNA Qual (PCR) SARS-CoV-2 RNA (RT-PCR) 04/05/22 04/05/22 04/05/22 11:21 15:28 19:24 WBC RBC Hgb Hct MCV MCH MCHC RDW Plt Count MPV Immature Gran % (Auto) Neut % (Auto) Lymph % (Auto) [place] % (Auto) Eos % (Auto) Baso % (Auto) Lymph # (Auto) [place] # (Auto) Eos # (Auto) Baso # (Auto) Abs Immat Gran (auto) Absolute Neuts (auto) Absolute Nucleated RBC Nucleated RBC % (auto) ESR PT INR APTT Sodium Potassium Chloride Carbon Dioxide Anion Gap BUN Creatinine Estim Creat Clear Calc Estimated GFR POC Glucose 135 H 152 H 120 H Random Glucose Estimat Average Glucose Hemoglobin A1c % Lactic Acid Lactic Acid F/U @ 2Hr Calcium Total Bilirubin Direct Bilirubin AST ALT Alkaline Phosphatase C-Reactive Protein Total Protein Albumin Vancomycin Trough Random Vancomycin Influenza Type A (PCR) Influenza Type B (PCR) RSV RNA Qual (PCR) SARS-CoV-2 RNA (RT-PCR) 04/06/22 04/06/22 04/06/22 04:43 04:43 07:35 WBC RBC Hgb Hct MCV MCH MCHC RDW Plt Count MPV Immature Gran % (Auto) Neut % (Auto) Lymph % (Auto) [place] % (Auto) Eos % (Auto) Baso % (Auto) Lymph # (Auto) [place] # (Auto) Eos # (Auto) Baso # (Auto) Abs Immat Gran (auto) Absolute Neuts (auto) Absolute Nucleated RBC Nucleated RBC % (auto) ESR PT INR APTT Sodium Potassium Chloride Carbon Dioxide Anion Gap BUN Creatinine 0.87 Estim Creat Clear Calc 94.9 Estimated GFR > 60 POC Glucose 117 H Random Glucose Estimat Average Glucose Hemoglobin A1c % Lactic Acid Lactic Acid F/U @ 2Hr Calcium Total Bilirubin Direct Bilirubin AST ALT Alkaline Phosphatase C-Reactive Protein Total Protein Albumin Vancomycin Trough Random Vancomycin 11.4 L Influenza Type A (PCR) Influenza Type B (PCR) RSV RNA Qual (PCR) SARS-CoV-2 RNA (RT-PCR) 04/06/22 04/06/22 04/06/22 11:29 16:11 19:32 WBC RBC Hgb Hct MCV MCH MCHC RDW Plt Count MPV Immature Gran % (Auto) Neut % (Auto) Lymph % (Auto) [place] % (Auto) Eos % (Auto) Baso % (Auto) Lymph # (Auto) [place] # (Auto) Eos # (Auto) Baso # (Auto) Abs Immat Gran (auto) Absolute Neuts (auto) Absolute Nucleated RBC Nucleated RBC % (auto) ESR PT INR APTT Sodium Potassium Chloride Carbon Dioxide Anion Gap BUN Creatinine Estim Creat Clear Calc Estimated GFR POC Glucose 162 H 163 H 146 H Random Glucose Estimat Average Glucose Hemoglobin A1c % Lactic Acid Lactic Acid F/U @ 2Hr Calcium Total Bilirubin Direct Bilirubin AST ALT Alkaline Phosphatase C-Reactive Protein Total Protein Albumin Vancomycin Trough Random Vancomycin Influenza Type A (PCR) Influenza Type B (PCR) RSV RNA Qual (PCR) SARS-CoV-2 RNA (RT-PCR) 04/07/22 04/07/22 04/07/22 05:52 05:52 08:11 WBC RBC Hgb Hct MCV MCH MCHC RDW Plt Count MPV Immature Gran % (Auto) Neut % (Auto) Lymph % (Auto) [place] % (Auto) Eos % (Auto) Baso % (Auto) Lymph # (Auto) [place] # (Auto) Eos # (Auto) Baso # (Auto) Abs Immat Gran (auto) Absolute Neuts (auto) Absolute Nucleated RBC Nucleated RBC % (auto) ESR PT INR APTT Sodium Potassium Chloride Carbon Dioxide Anion Gap BUN Creatinine 0.81 Estim Creat Clear Calc 102.0 Estimated GFR > 60 POC Glucose 125 H Random Glucose Estimat Average Glucose Hemoglobin A1c % Lactic Acid Lactic Acid F/U @ 2Hr Calcium Total Bilirubin Direct Bilirubin AST ALT Alkaline Phosphatase C-Reactive Protein Total Protein Albumin Vancomycin Trough 13.6 Random Vancomycin Influenza Type A (PCR) Influenza Type B (PCR) RSV RNA Qual (PCR) SARS-CoV-2 RNA (RT-PCR) 04/07/22 04/07/22 04/07/22 11:50 15:59 20:07 WBC RBC Hgb Hct MCV MCH MCHC RDW Plt Count MPV Immature Gran % (Auto) Neut % (Auto) Lymph % (Auto) [place] % (Auto) Eos % (Auto) Baso % (Auto) Lymph # (Auto) [place] # (Auto) Eos # (Auto) Baso # (Auto) Abs Immat Gran (auto) Absolute Neuts (auto) Absolute Nucleated RBC Nucleated RBC % (auto) ESR PT INR APTT Sodium Potassium Chloride Carbon Dioxide Anion Gap BUN Creatinine Estim Creat Clear Calc Estimated GFR POC Glucose 150 H 154 H 169 H Random Glucose Estimat Average Glucose Hemoglobin A1c % Lactic Acid Lactic Acid F/U @ 2Hr Calcium Total Bilirubin Direct Bilirubin AST ALT Alkaline Phosphatase C-Reactive Protein Total Protein Albumin Vancomycin Trough Random Vancomycin Influenza Type A (PCR) Influenza Type B (PCR) RSV RNA Qual (PCR) SARS-CoV-2 RNA (RT-PCR) 04/08/22 04/08/22 04/08/22 05:58 05:58 07:10 WBC RBC Hgb Hct MCV MCH MCHC RDW Plt Count MPV Immature Gran % (Auto) Neut % (Auto) Lymph % (Auto) [place] % (Auto) Eos % (Auto) Baso % (Auto) Lymph # (Auto) [place] # (Auto) Eos # (Auto) Baso # (Auto) Abs Immat Gran (auto) Absolute Neuts (auto) Absolute Nucleated RBC Nucleated RBC % (auto) ESR PT INR APTT Sodium Potassium Chloride Carbon Dioxide Anion Gap BUN Creatinine 0.77 Estim Creat Clear Calc 107.3 Estimated GFR > 60 POC Glucose 125 H Random Glucose Estimat Average Glucose Hemoglobin A1c % Lactic Acid Lactic Acid F/U @ 2Hr Calcium Total Bilirubin Direct Bilirubin AST ALT Alkaline Phosphatase C-Reactive Protein Total Protein Albumin Vancomycin Trough 14.4 Random Vancomycin Influenza Type A (PCR) Influenza Type B (PCR) RSV RNA Qual (PCR) SARS-CoV-2 RNA (RT-PCR) 04/08/22 04/08/22 04/08/22 10:56 16:22 20:12 WBC RBC Hgb Hct MCV MCH MCHC RDW Plt Count MPV Immature Gran % (Auto) Neut % (Auto) Lymph % (Auto) [place] % (Auto) Eos % (Auto) Baso % (Auto) Lymph # (Auto) [place] # (Auto) Eos # (Auto) Baso # (Auto) Abs Immat Gran (auto) Absolute Neuts (auto) Absolute Nucleated RBC Nucleated RBC % (auto) ESR PT INR APTT Sodium Potassium Chloride Carbon Dioxide Anion Gap BUN Creatinine Estim Creat Clear Calc Estimated GFR POC Glucose 186 H 130 H 181 H Random Glucose Estimat Average Glucose Hemoglobin A1c % Lactic Acid Lactic Acid F/U @ 2Hr Calcium Total Bilirubin Direct Bilirubin AST ALT Alkaline Phosphatase C-Reactive Protein Total Protein Albumin Vancomycin Trough Random Vancomycin Influenza Type A (PCR) Influenza Type B (PCR) RSV RNA Qual (PCR) SARS-CoV-2 RNA (RT-PCR) 04/09/22 04/09/22 04/09/22 05:45 05:45 07:20 WBC RBC Hgb Hct MCV MCH MCHC RDW Plt Count MPV Immature Gran % (Auto) Neut % (Auto) Lymph % (Auto) [place] % (Auto) Eos % (Auto) Baso % (Auto) Lymph # (Auto) [place] # (Auto) Eos # (Auto) Baso # (Auto) Abs Immat Gran (auto) Absolute Neuts (auto) Absolute Nucleated RBC Nucleated RBC % (auto) ESR PT INR APTT Sodium Potassium Chloride Carbon Dioxide Anion Gap BUN Creatinine 0.69 Estim Creat Clear Calc 119.7 Estimated GFR > 60 POC Glucose 129 H Random Glucose Estimat Average Glucose Hemoglobin A1c % Lactic Acid Lactic Acid F/U @ 2Hr Calcium Total Bilirubin Direct Bilirubin AST ALT Alkaline Phosphatase C-Reactive Protein Total Protein Albumin Vancomycin Trough 3.4 L Random Vancomycin Influenza Type A (PCR) Influenza Type B (PCR) RSV RNA Qual (PCR) SARS-CoV-2 RNA (RT-PCR) 04/09/22 04/09/22 04/09/22 11:05 15:58 19:27 WBC RBC Hgb Hct MCV MCH MCHC RDW Plt Count MPV Immature Gran % (Auto) Neut % (Auto) Lymph % (Auto) [place] % (Auto) Eos % (Auto) Baso % (Auto) Lymph # (Auto) [place] # (Auto) Eos # (Auto) Baso # (Auto) Abs Immat Gran (auto) Absolute Neuts (auto) Absolute Nucleated RBC Nucleated RBC % (auto) ESR PT INR APTT Sodium Potassium Chloride Carbon Dioxide Anion Gap BUN Creatinine Estim Creat Clear Calc Estimated GFR POC Glucose 137 H 110 197 H Random Glucose Estimat Average Glucose Hemoglobin A1c % Lactic Acid Lactic Acid F/U @ 2Hr Calcium Total Bilirubin Direct Bilirubin AST ALT Alkaline Phosphatase C-Reactive Protein Total Protein Albumin Vancomycin Trough Random Vancomycin Influenza Type A (PCR) Influenza Type B (PCR) RSV RNA Qual (PCR) SARS-CoV-2 RNA (RT-PCR) 04/10/22 04/10/22 04/10/22 06:10 06:10 07:01 WBC 10.5 RBC 4.42 L Hgb 11.9 L Hct 35.4 L MCV 80.1 MCH 26.9 L MCHC 33.6 RDW 14.0 Plt Count 364 D MPV 9.6 Immature Gran % (Auto) Neut % (Auto) Lymph % (Auto) [place] % (Auto) Eos % (Auto) Baso % (Auto) Lymph # (Auto) [place] # (Auto) Eos # (Auto) Baso # (Auto) Abs Immat Gran (auto) Absolute Neuts (auto) Absolute Nucleated RBC 0.000 Nucleated RBC % (auto) 0.0 ESR PT INR APTT Sodium Potassium Chloride Carbon Dioxide Anion Gap BUN Creatinine 0.70 Estim Creat Clear Calc 118.0 Estimated GFR > 60 POC Glucose 140 H Random Glucose Estimat Average Glucose Hemoglobin A1c % Lactic Acid Lactic Acid F/U @ 2Hr Calcium Total Bilirubin Direct Bilirubin AST ALT Alkaline Phosphatase C-Reactive Protein Total Protein Albumin Vancomycin Trough Random Vancomycin Influenza Type A (PCR) Influenza Type B (PCR) RSV RNA Qual (PCR) SARS-CoV-2 RNA (RT-PCR) 04/10/22 04/10/22 11:13 14:09 WBC RBC Hgb Hct MCV MCH MCHC RDW Plt Count MPV Immature Gran % (Auto) Neut % (Auto) Lymph % (Auto) [place] % (Auto) Eos % (Auto) Baso % (Auto) Lymph # (Auto) [place] # (Auto) Eos # (Auto) Baso # (Auto) Abs Immat Gran (auto) Absolute Neuts (auto) Absolute Nucleated RBC Nucleated RBC % (auto) ESR PT INR APTT Sodium Potassium Chloride Carbon Dioxide Anion Gap BUN Creatinine Estim Creat Clear Calc Estimated GFR POC Glucose 131 H 116 H Random Glucose Estimat Average Glucose Hemoglobin A1c % Lactic Acid Lactic Acid F/U @ 2Hr Calcium Total Bilirubin Direct Bilirubin AST ALT Alkaline Phosphatase C-Reactive Protein Total Protein Albumin Vancomycin Trough Random Vancomycin Influenza Type A (PCR) Influenza Type B (PCR) RSV RNA Qual (PCR) SARS-CoV-2 RNA (RT-PCR) Airway Mallampati Class: II TM Dist: >3cm Loose/Missing/Broken Teeth: Yes Assessment and Plan Final Anesthetic Review Family History of Problems with Anesthesia: No History of Problems with Anesthesia: No NPO: Yes ASA Class: III Final Preanesthetic Review: No Changes in Pt Med Stat, Meds/Allgs Chart Reviewed, Consent Obtained/Reviewed and Anes Risks/Benef Reviewed Patient Risk: Intermediate Procedure Risk: Low Anesthetic Plan Anesthetic Plan: GA Disposition: Standard PACU
--- NOTE | 2022-04-10 16:30 | P.OP_ITS ---
Operative Note Operative Note Date of Service: 04/10/22 Narrative: Operative note by [facility] Preoperative diagnosis:1. Right great toe gangrene 2. Diabetic foot ulcer Postoperative diagnosis: Same Procedure: Right great toe ray amputation Surgeon:Carlos Cabello M.D. Tear Down Worker: Adalberto Anesthesia: General Specimens: 1 Drains: None Estimated blood loss: Minimal Indications: Very pleasant 57-year-old gentleman with a prior history of diabetes and nonhealing right great toe. Knee presented to the hospital with gangrene of the toe in significant cellulitis. His had several days of IV antibiotics and cellulitis has significantly improved. He now presents for right great toe amputation. The patient has signed the informed consent after reviewing risks, complications, benefits, and alternatives previously discussed with the patient. The patient was given the opportunity to ask any additional questions or voice any concerns. All questions were answered to the patient's satisfaction. Procedure in detail: Patient was taken to the operating room prior to which a time-out was called for patient identification site verification. Right leg was prepped and draped in standard surgical fashion. Curvilinear fishmouth incision was made over the right great toe. Once this was accomplished we got down through the skin subcu fascia down into the soft tissue. We went just beyond the metatarsal head in used a power saw to cut across that metatarsal head. The metatarsal was removed along with the great toe in its entirety. Once this was done it was filed down to a smooth edge. The wound was thoroughly irrigated. Deep layer was reapproximated using 2 0 Polysorb superficial layer with 3-0 poly Sorb finally skin with a 3-0 nylon in a mattress fashion along with skin clips. Xeroform and a sterile dressing were applied. At the end the case sponge instrument counts were correct. Patient tolerated the procedure well returned to recovery with stable vitals. This note is constructed using voice recognition software. While every effort has been made to ensure accuracy, ophthalmic lens inspector errors may have been included. Thank you for allowing me to participate in the care of your patient. Yours sincerely, Carlos Cabello MD, FACS, R.P.V.I.
[2022-04-10] MEDS: Enoxaparin Sodium 40 MG/0.4 ML SYRINGE SUBCUT (17:58)
[2022-04-10 19:16] LABS: Glucose, Whole Blood 94 mg/dL (60-115)
[2022-04-10 19:44] LABS: Glucose, Whole Blood 141 mg/dL (60-115)
[2022-04-10] MEDS: oxyCODONE HCl Immed Release 5 MG TABLET PO (21:26)
[2022-04-11] VITALS (7 sets, daily range): BP systolic 146–176; BP diastolic 72–85; PULSE 66–78; RESP 12–20; TEMP 36–36.4; O2SAT 1–98
[2022-04-11] MEDS: Omeprazole 40 MG CAPSULE.DR PO (05:25)
[2022-04-11] MEDS: ceFAZolin Sodium/Dextrose,Iso 2 GM/50 ML PIGGYBACK IV ×3 (05:25→21:32)
[2022-04-11] MEDS: Acetaminophen 325 MG TABLET 650 MG PO (05:32)
[2022-04-11 06:03] LABS: MANUAL DIFF FLAG NO
[2022-04-11 06:06] LABS: Basophils Percent Auto 0.3 % (0-2); Eosinophils Absolute Auto 0.1 X10*3/uL (0.0-0.4); Eosinophils Percent Auto 0.5 % (0-4); Hemoglobin 11.8 g/dl (14.0-18.0); Imm Gran Abs Auto 0.42 X10*3/uL (0.00-0.03); Imm Gran Pct Auto 3.1 % (0.0-0.4); Lymphocytes Absolute Auto 1.6 X10*3/uL (1.2-4.9); Lymphocytes Percent Auto 11.3 % (20-40); Mean Corpuscular HGB Conc 32.8 g/dl (31.0-36.0); Mean Corpuscular Hemoglobin 27.2 pg (27.0-33.0); Mean Corpuscular Volume 82.9 fL (80.0-98.0); Mean Platelet Volume 9.3 fL (9.4-12.4); Monocytes Absolute Auto 0.8 X10*3/uL (0.1-1.2); Monocytes Percent Auto 5.5 % (2-11); Neutrophils Absolute Auto 10.9 x10*3/uL (2.0-8.3); Neutrophils Percent Auto 79.3 % (45-73); Platelet Count 367 X10*3/uL (160-400); Red Blood Count 4.34 X10*6/uL (4.60-5.80); Red Cell Distribution Width 14.3 % (11.0-16.0); White Blood Count 13.7 X10*3/uL (4.8-10.8)
[2022-04-11 06:18] LABS: Anion Gap 17 (12-20); Blood Urea Nitrogen 13 mg/dL (9-16); Calcium 8.7 mg/dL (8.4-10.2); Carbon Dioxide 28 mmol/L (22-29); Chloride 96 mmol/L (96-108); Creatinine Clr Calc Pharmacy 108.7; Estimated Glomerular Filt Rate > 60; Glucose Random 108 mg/dL (60-115); Potassium 4.8 mmol/L (3.3-5.1); Sodium 136 mmol/L (135-145)
[2022-04-11 07:32] LABS: Glucose, Whole Blood 113 mg/dL (60-115)
[2022-04-11] MEDS: hydrALAZINE HCl 50 MG TABLET PO ×3 (08:45→21:32)
[2022-04-11] MEDS: Empagliflozin 25 MG TABLET PO (08:45)
[2022-04-11] MEDS: Metoprolol Succinate ER 100 MG TAB.ER.24H 200 MG PO (08:45)
[2022-04-11] MEDS: Losartan Potassium 50 MG TABLET 100 MG PO (08:46)
[2022-04-11] MEDS: amLODIPine Besylate 10 MG TABLET PO (08:48)
[2022-04-11] MEDS: 0.9 % Sodium Chloride Flush 3 ML SYRINGE IVFLUSH ×2 (08:48→16:58)
[2022-04-11] MEDS: Fenofibrate 160 MG TABLET PO (08:48)
--- NOTE | 2022-04-11 09:22 | HO.VASCPN ---
Subjective Subjective Date of Service: 04/11/22 Patient reports: no new complaints and feels better Interval history: Patient seen and examined. Postop day 1 status post toe amp. Tolerating breakfast this morning. Pain extremely well controlled. No issues. Physical Exam Vital Signs: Vital Signs: Last Vital Signs Temp 96.8 F 04/11/22 07:20 Pulse 70 04/11/22 07:20 Resp 12 04/11/22 07:20 BP 176/85 H 04/11/22 07:20 Pulse Ox 1 L 04/11/22 07:20 O2 Del Method 04/11/22 07:20 O2 Flow Rate 1 04/11/22 04:00 BMI result Body Mass Index 32.5 Const: General: cooperative, healthy appearing and no acute distress Orientation/consciousness: oriented to person, oriented to place and oriented to time HEENT: Head: Yes normal to inspection Neck: Carotids: no bruits Chest: Chest palpation & inspection: normal inspection of the chest Resp: Effort & Inspection: normal respiratory effort and able to speak in complete sentences Auscultation: clear to auscultation bilaterally Cardio: Rate: regular rate Heart sounds: S1 normal heart sound present and S2 normal heart sound present GI: Inspection: Yes normal to inspection Skin: Other: Status post right great toe amp dressing clean dry intact General skin exam: no rashes or lesions noted Wounds: amputation site Neuro: General: oriented to person, oriented to place, oriented to time and CN's II-XI intact bilaterally Extrem: General: Yes normal to inspection, Yes full ROM and Yes no clubbing, cyanosis or edema Psych: Appearance: grossly normal and well kempt Speech and movement: Normal speech and movement present Affect: normal affect Progress Note: A&P Assessment and plan (1) Amputation of right great toe: Status: Acute Assessment and Plan: in short patient is status post right great toe amputation. Doing relatively well. Pain well controlled. Will plan for dressing change tomorrow. Would continue with IV antibiotics as the skin did have some cellulitis associated with it. Would like that to resolve. Thank you for allowing us to assist in his care. If there are any questions or concerns please do not hesitate to contact us. Time Spent With Patient Time: Total time managing care of this patient today ____ minutes. Procedures Date of Service Date of Service: 04/11/22 Quality Stroke Does the patient have a stroke diagnosis?: No VTE Prior VTE?: No VTE Risk Level:: Medical - moderate - high VTE Device Contraindication: N/A - Device Ordered VTE Drug Contraindication: N/A - Med Ordered
--- NOTE | 2022-04-11 10:16 | HO.POSTANES ---
Post Anesthesia Evaluation Post Anesthesia Evaluation Vital Signs: Vital Signs Temp Pulse Resp BP Pulse Ox O2 Del Method O2 Flow Rate 04/11/22 07:20 96.8 F 70 12 176/85 H 1 L Nasal Cannula 04/11/22 04:00 96.8 F 68 18 162/77 H 98 Nasal Cannula 1 04/11/22 00:00 97.1 F 69 20 170/84 H 97 Nasal Cannula 1 Anesthesia: General Mental Status: Awake Pain Control: Satisfactory Nausea/Vomiting: None Hydration: Adequate Anesthesia-Related Issues: No Anes. Related Issues
[2022-04-11 11:33] LABS: Glucose, Whole Blood 178 mg/dL (60-115)
[2022-04-11] MEDS: Insulin Lispro 100 UNIT/ML 3 ML VIAL SUBCUT ×3 (12:02→21:32)
--- NOTE | 2022-04-11 13:48 | P.PNIM_ITS ---
Subjective Subjective Date of Service: 04/11/22 Interval History: Seen and examined this morning Follow-up bacteremia, gangrene status post right great toe amputation No documented overnight events Feeling well this morning. No nausea vomiting, fever, chills Review of Systems Review of Systems: Yes all other systems are reviewed and are negative Constitutional Constitutional: Denies chills and Denies fever(s) Cardiovascular Cardiovascular: Denies chest pain, Denies palpitations and Denies dyspnea Respiratory Respiratory: Denies cough and Denies dyspnea Gastrointestinal Gastrointestinal: Denies abdominal pain Endocrine Endocrine: Denies palpitations Physical Exam Vital Signs: Vital Signs: Last Vital Signs Temp 96.8 F 04/11/22 11:06 Pulse 78 04/11/22 11:06 Resp 12 04/11/22 11:06 BP 173/80 H 04/11/22 11:06 Pulse Ox 96 04/11/22 11:06 O2 Del Method 04/11/22 11:06 O2 Flow Rate 1 04/11/22 04:00 BMI result Body Mass Index 32.5 Const: General: cooperative, comfortable, alert and awake Nutritional Appearance: average body habitus Resp: Effort & Inspection: normal respiratory effort and able to speak in co mplete sentences Auscultation: clear to auscultation bilaterally Cardio: Rate: regular rate Heart sounds: S1 normal heart sound present and S2 normal heart sound present GI: Inspection: No distended Palpation (GI): Soft to palpation and nontender Extrem: Other: right foot wrapped in c/d/i dressing Objective Data Active Medications Acetaminophen (Acetaminophen 325 Mg Tablet) 650 mg PO Q8H PRN PRN Reason: fever Last Admin: 04/11/22 05:32 Dose: 650 mg Documented By: LILA Amlodipine Besylate (Amlodipine Besylate 10 Mg Tablet) 10 mg PO DAILY [facility]; Protocol Last Admin: 04/11/22 08:48 Dose: 10 mg Documented By: MARQUIS Dextrose (Dextrose 50 % 25 Gm/50 Ml Syringe) 25 gm IVPUSH Q15M PRN; Protocol PRN Reason: per Hypoglycemia Standing Ord. Docusate Sodium (Docusate Sodium 100 Mg Capsule) 100 mg PO BEDTIME PRN PRN Reason: Constipation Last Admin: 04/05/22 18:06 Dose: 100 mg Documented By: SHELLEY Empagliflozin (Empagliflozin 25 Mg Tablet) 25 mg PO DAILY [facility] Last Admin: 04/11/22 08:45 Dose: 25 mg Documented By: MARQUIS Enoxaparin Sodium (Enoxaparin Sodium 40 Mg/0.4 Ml Syringe) 40 mg SUBCUT Q24H [facility] Last Admin: 04/10/22 17:58 Dose: 40 mg Documented By: MARQUIS Fenofibrate (Fenofibrate 160 Mg Tablet) 160 mg PO DAILY [facility] Last Admin: 04/11/22 08:48 Dose: 160 mg Documented By: MARQUIS Glucose (Glucose Gel 15 Gm Gel..Gram.) 15 gm PO Q15M PRN; Protocol PRN Reason: per Hypoglycemia Standing Ord. Guaifenesin (Guaifenesin 100 Mg/5 Ml Liquid) 10 ml PO Q4H PRN PRN Reason: Cough Last Admin: 04/04/22 15:03 Dose: 10 ml Documented By: RAMOS Hydralazine HCl (Hydralazine Hcl 50 Mg Tablet) 50 mg PO TID [facility]; Protocol Last Admin: 04/11/22 08:45 Dose: 50 mg Documented By: MARQUIS Cefazolin Sodium/Dextrose (Ancef) 2 gm in 50 mls @ 100 mls/hr IV Q8H [facility] Last Infusion: 04/11/22 05:55 Dose: 0 mls/hr Documented By: LILA Insulin Human Lispro (Insulin Lispro 100 Unit/Ml 3 Ml Vial) 0 unit SUBCUT QIDACHS [facility]; Protocol Last Admin: 04/11/22 12:02 Dose: 2 unit Documented By: MARQUIS Losartan Potassium (Losartan Potassium 50 Mg Tablet) 100 mg PO DAILY [facility]; Protocol Last Admin: 04/11/22 08:46 Dose: 100 mg Documented By: MARQUIS Metoprolol Succinate (Metoprolol Succinate Er 100 Mg Tab.Er.24h) 200 mg PO DAILY [facility]; Protocol Last Admin: 04/11/22 08:45 Dose: 200 mg Documented By: MARQUIS Morphine Sulfate (Morphine Sulfate 2 Mg/Ml Cartridge) 2 mg IVPUSH Q4H PRN; Protocol PRN Reason: Pain, Severe (Pain Scale 7-10) Non-Formulary Medication (Dulaglutide) 1.5 mg SUBCUT MO [facility] Omeprazole (Omeprazole 40 Mg Capsule.Dr) 40 mg PO DAILY@0630 [facility] Last Admin: 04/11/22 05:25 Dose: 40 mg Documented By: LILA Oxycodone HCl (Oxycodone Hcl Immed Release 5 Mg Tablet) 5 mg PO Q6H PRN PRN Reason: Pain, Moderate (Pain Scale 4-6 Pharmacy Consult (Consult Rx Perform Med Rec) 1 each MISCELLANE ONCE PRN PRN Reason: Consult order Polyethylene Glycol (Polyethylene Glycol 3350 17 Gm Powd.Pack) 17 gm PO DAILY [facility] Last Admin: 04/11/22 08:49 Dose: Not Given Documented By: MARQUIS Non-Admin Reason: Patient Refused Sodium Chloride (0.9 % Sodium Chloride Flush 3 Ml Syringe) 3 ml IVFLUSH QSHIFT [facility] Last Admin: 04/11/22 08:48 Dose: 3 ml Documented By: MARQUIS Labs CBC & Chem 7: 04/11/22 05:49 04/11/22 05:49 Labs: Laboratory Results - last 24 hr 04/10/22 04/10/22 04/10/22 14:09 17:32 19:38 MCV MCH MCHC RDW Plt Count MPV Immature Gran % (Auto) Neut % (Auto) Lymph % (Auto) [place] % (Auto) Eos % (Auto) Baso % (Auto) Lymph # (Auto) [place] # (Auto) Eos # (Auto) Baso # (Auto) Abs Immat Gran (auto) Absolute Neuts (auto) Absolute Nucleated RBC Nucleated RBC % (auto) Anion Gap Estim Creat Clear Calc Estimated GFR POC Glucose 116 H 94 141 H Random Glucose Calcium 04/11/22 04/11/22 04/11/22 05:49 05:49 07:17 MCV 82.9 MCH 27.2 MCHC 32.8 RDW 14.3 Plt Count 367 MPV 9.3 L Immature Gran % (Auto) 3.1 H Neut % (Auto) 79.3 H Lymph % (Auto) 11.3 L [place] % (Auto) 5.5 Eos % (Auto) 0.5 Baso % (Auto) 0.3 Lymph # (Auto) 1.6 [place] # (Auto) 0.8 Eos # (Auto) 0.1 Baso # (Auto) 0.0 Abs Immat Gran (auto) 0.42 H Absolute Neuts (auto) 10.9 H Absolute Nucleated RBC 0.000 Nucleated RBC % (auto) 0.0 Anion Gap 17 Estim Creat Clear Calc 108.7 Estimated GFR > 60 POC Glucose 113 Random Glucose 108 Calcium 8.7 04/11/22 11:03 MCV MCH MCHC RDW Plt Count MPV Immature Gran % (Auto) Neut % (Auto) Lymph % (Auto) [place] % (Auto) Eos % (Auto) Baso % (Auto) Lymph # (Auto) [place] # (Auto) Eos # (Auto) Baso # (Auto) Abs Immat Gran (auto) Absolute Neuts (auto) Absolute Nucleated RBC Nucleated RBC % (auto) Anion Gap Estim Creat Clear Calc Estimated GFR POC Glucose 178 H Random Glucose Calcium Microbiology Microbiology Results: Microbiology 04/09/22 10:55 Blood Culture - Preliminary Blood - Venous No growth after 48 hours. 04/09/22 10:50 Blood Culture - Preliminary Blood - Venous No growth after 48 hours. Assessment and Plan (1) Amputation of right great toe: Status: Acute (2) Diabetic foot infection: Status: Acute Plan 57-year-old male with history of? diabetes mellitus with? diabetic? neuropathy, Charcot joint disease, hypertension, hyperlipidemia carcinoid tumor removal in 2020: came with possible foot oseto/gangrene. sepsis secondary to possible right great toe osteo/gangrene, related to peripheral neuropathy and diabetes Sepsis resolved (leukocytosis 1/4 reactive from surgery) Continue antibiotics as below right foot osteomyelitis/gangrene in the setting of peripheral neuropathy associated with diabetes foot xray:Soft tissue swelling and air in the great toe. Question osteomyelitis of the distal tuft of the great toe. Lisfranc deformity of the midfoot. elevated esr,crp ID and surgery, vascular evaluation noted s/p Right great toe amp 1/[address] Cabello MSSA bacteremia 2/2 to right foot infection as above echo negative for vegetation repeat blood cultures negative. -Continue kefzol per ID - will need 4 weeks of IV kefzol htn uncontrolled continue home meds, increase hydralazine to 50mg TID adequate pain control renal US negative dm:fs improvin 140-150 fs with slidin scale HBa1c levels: 8.4 HLP: continue statin. acute lactic acidosis :possible combination on sepsis/metformin. improved with hydration dvt prophylax:s/c lovenox. attendin - dr. raiza john need: sepsis and foot osteo/gangrene-need of surgery IV antibiotics, renal function monitoring and electrolytes . Time Spent With Patient Time: Total time managing care of this patient today ____ minutes. Quality Stroke Does the patient have a stroke diagnosis?: No VTE Prior VTE?: No VTE Risk Level:: Medical - moderate - high VTE Device Contraindication: N/A - Device Ordered VTE Drug Contraindication: N/A - Med Ordered
--- NOTE | 2022-04-11 14:53 | MHC.CM.PN ---
per rounds pt maybe be going home on iv kefzoil pt will need picc line
[2022-04-11 15:59] LABS: Glucose, Whole Blood 159 mg/dL (60-115)
[2022-04-11] MEDS: oxyCODONE HCl Immed Release 5 MG TABLET PO ×2 (16:58→22:51)
[2022-04-11] MEDS: Enoxaparin Sodium 40 MG/0.4 ML SYRINGE SUBCUT (16:58)
[2022-04-11 19:38] LABS: Glucose, Whole Blood 219 mg/dL (60-115)
[2022-04-12] VITALS (7 sets, daily range): BP systolic 128–174; BP diastolic 64–82; PULSE 68–81; RESP 14–20; TEMP 36.1–36.8; O2SAT 95–98
[2022-04-12] MEDS: Omeprazole 40 MG CAPSULE.DR PO (05:19)
[2022-04-12] MEDS: ceFAZolin Sodium/Dextrose,Iso 2 GM/50 ML PIGGYBACK IV ×3 (05:20→20:51)
[2022-04-12 07:07] LABS: Creatinine Clr Calc Pharmacy 110.1; Estimated Glomerular Filt Rate > 60
[2022-04-12 07:14] LABS: Glucose, Whole Blood 153 mg/dL (60-115)
[2022-04-12] MEDS: Losartan Potassium 50 MG TABLET 100 MG PO (07:41)
[2022-04-12] MEDS: Metoprolol Succinate ER 100 MG TAB.ER.24H 200 MG PO (07:41)
[2022-04-12] MEDS: amLODIPine Besylate 10 MG TABLET PO (07:41)
[2022-04-12] MEDS: Insulin Lispro 100 UNIT/ML 3 ML VIAL SUBCUT ×3 (07:41→20:51)
[2022-04-12] MEDS: 0.9 % Sodium Chloride Flush 3 ML SYRINGE IVFLUSH ×3 (07:42→20:52)
[2022-04-12] MEDS: Fenofibrate 160 MG TABLET PO (07:42)
[2022-04-12] MEDS: hydrALAZINE HCl 50 MG TABLET PO ×3 (07:42→20:51)
[2022-04-12] MEDS: Empagliflozin 25 MG TABLET PO (07:42)
--- NOTE | 2022-04-12 10:58 | P.PNVS_ITS ---
Subjective Subjective Date of Service: 04/12/22 Patient reports: no new complaints and feels better Interval history: Very pleasant 57-year-old gentleman presents for follow-up status post great toe amputation the right. He reports he is doing fairly well. Pain well controlled. No interval issues. Physical Exam Vital Signs: Vital Signs: Last Vital Signs Temp 97.1 F 04/12/22 07:07 Pulse 79 04/12/22 07:07 Resp 20 04/12/22 07:07 BP 132/82 04/12/22 07:07 Pulse Ox 95 04/12/22 07:07 O2 Del Method 04/12/22 07:07 O2 Flow Rate 1 04/11/22 04:00 BMI result Body Mass Index 32.5 Const: General: cooperative, healthy appearing and no acute distress Or ientation/consciousness: oriented to person, oriented to place and oriented to time HEENT: Head: Yes normal to inspection Neck: Carotids: no bruits Chest: Chest palpation & inspection: normal inspection of the chest Resp: Effort & Inspection: normal respiratory effort and able to speak in complete sentences Auscultation: clear to auscultation bilaterally Cardio: Rate: regular rate Heart sounds: S1 normal heart sound present and S2 normal heart sound present GI: Inspection: Yes normal to inspection Skin: Other: Right great toe amp - dressing changed healing well. Mild erythema General skin exam: no rashes or lesions noted Wounds: amputation site Neuro: General: oriented to person, oriented to place, oriented to time and CN's II-XI intact bilaterally Extrem: General: Yes normal to inspection, Yes full ROM and Yes no clubbing, cyanosis or edema Psych: Appearance: grossly normal and well kempt Speech and movement: Normal speech and movement present Affect: normal affect Progress Note: A&P Assessment and plan (1) Amputation of right great toe: Status: Acute Assessment and Plan: In short patient is doing extremely well status post right great toe amputation. Had extensive discussion with the patient and his family regarding strict diabetes control. Will continue with local wound care. I did discuss this case with the hospitalist team as well. Due to his positive blood cultures in the past he will require IV antibiotics. Once this is coordinated he is stable from my perspective for discharge. He can follow up with me in approximately 2 weeks time for suture and staple removal. Thank you for allowing us to assist in his care. Time Spent With Patient Time: Total time managing care of this patient today ____ minutes. Procedures Date of Service Date of Service: 04/12/22 Quality Stroke Does the patient have a stroke diagnosis?: No VTE Prior VTE?: No VTE Risk Level:: Medical - moderate - high VTE Device Contraindication: N/A - Device Ordered VTE Drug Contraindication: N/A - Med Ordered
[2022-04-12 11:04] LABS: Glucose, Whole Blood 202 mg/dL (60-115)
--- NOTE | 2022-04-12 13:25 | HO.PM.IMPN ---
Subjective Subjective Date of Service: 04/12/22 Interval History: seen and examined this morning follow up for MSSA bacteremia, gangrene/osteo s/p right great toe amp no overnight events pain well controlled Review of Systems Review of Systems: Yes all other systems are reviewed and are negative Constitutional Constitutional: Denies chills and Denies fever(s) Cardiovascular Cardiovascular: Denies chest pain, Denies palpitations and Denies dyspnea Respiratory Respiratory: Denies cough and Denies dyspnea Gastrointestinal Gastrointestinal: Denies abdominal pain Endocrine Endocrine: Denies palpitations Physical Exam Vital Signs: Vital Signs: Last Vital Signs Temp 98.3 F 04/12/22 10:58 Pulse 68 04/12/22 10:58 Resp 20 04/12/22 10:58 BP 128/64 04/12/22 10:58 Pulse Ox 96 04/12/22 10:58 O2 Del Method 04/12/22 10:58 O2 Flow Rate 1 04/11/22 04:00 BMI result Body Mass Index 32.5 Const: General: cooperative, comfortable, alert and awake Nutritional Appearance: average body habitus Resp: Effort & Inspection: normal respiratory effort and able to speak in complete sentences Auscultation: clear to auscultation bilaterally Cardio: Rate: regular rate Heart sounds: S1 normal heart sound present and S2 normal heart sound present GI: Inspection: No distended Palpation (GI): Soft to palpation and nontender Extrem: Other: right foot wrapped in c/d/i dressing Objective Data Active Medications Acetaminophen (Acetaminophen 325 Mg Tablet) 650 mg PO Q8H PRN PRN Reason: fever Last Admin: 04/11/22 05:32 Dose: 650 mg Documented By: LILA Amlodipine Besylate (Amlodipine Besylate 10 Mg Tablet) 10 mg PO DAILY [facility]; Protocol Last Admin: 04/12/22 07:41 Dose: 10 mg Documented By: MARQUIS Dextrose (Dextrose 50 % 25 Gm/50 Ml Syringe) 25 gm IVPUSH Q15M PRN; Protocol PRN Reason: per Hypoglycemia Standing Ord. Docusate Sodium (Docusate Sodium 100 Mg Capsule) 100 mg PO BEDTIME PRN PRN Reason: Constipation Last Admin: 04/05/22 18:06 Dose: 100 mg Documented By: SHELLEY Empagliflozin (Empagliflozin 25 Mg Tablet) 25 mg PO DAILY [facility] Last Admin: 04/12/22 07:42 Dose: 25 mg Documented By: MARQUIS Enoxaparin Sodium (Enoxaparin Sodium 40 Mg/0.4 Ml Syringe) 40 mg SUBCUT Q24H [facility] Last Admin: 04/11/22 16:58 Dose: 40 mg Documented By: MARQUIS Fenofibrate (Fenofibrate 160 Mg Tablet) 160 mg PO DAILY [facility] Last Admin: 04/12/22 07:42 Dose: 160 mg Documented By: MARQUIS Glucose (Glucose Gel 15 Gm Gel..Gram.) 15 gm PO Q15M PRN; Protocol PRN Reason: per Hypoglycemia Standing Ord. Guaifenesin (Guaifenesin 100 Mg/5 Ml Liquid) 10 ml PO Q4H PRN PRN Reason: Cough Last Admin: 04/04/22 15:03 Dose: 10 ml Documented By: RAMOS Hydralazine HCl (Hydralazine Hcl 50 Mg Tablet) 50 mg PO TID [facility]; Protocol Last Admin: 04/12/22 07:42 Dose: 50 mg Documented By: MARQUIS Cefazolin Sodium/Dextrose (Ancef) 2 gm in 50 mls @ 100 mls/hr IV Q8H [facility] Last Infusion: 04/12/22 06:41 Dose: 0 mls/hr Documented By: ROBE Insulin Human Lispro (Insulin Lispro 100 Unit/Ml 3 Ml Vial) 0 unit SUBCUT QIDACHS [facility]; Protocol Last Admin: 04/12/22 11:47 Dose: Not Given Documented By: MARQUIS Non-Admin Reason: No Insulin Coverage Losartan Potassium (Losartan Potassium 50 Mg Tablet) 100 mg PO DAILY [facility]; Protocol Last Admin: 04/12/22 07:41 Dose: 100 mg Documented By: MARQUIS Metoprolol Succinate (Metoprolol Succinate Er 100 Mg Tab.Er.24h) 200 mg PO DAILY [facility]; Protocol Last Admin: 04/12/22 07:41 Dose: 200 mg Documented By: MARQUIS Morphine Sulfate (Morphine Sulfate 2 Mg/Ml Cartridge) 2 mg IVPUSH Q4H PRN; Protocol PRN Reason: Pain, Severe (Pain Scale 7-10) Non-Formulary Medication (Dulaglutide) 1.5 mg SUBCUT MO [facility] Omeprazole (Omeprazole 40 Mg Capsule.Dr) 40 mg PO DAILY@0630 [facility] Last Admin: 04/12/22 05:19 Dose: 40 mg Documented By: ROBE Oxycodone HCl (Oxycodone Hcl Immed Release 5 Mg Tablet) 5 mg PO Q6H PRN PRN Reason: Pain, Moderate (Pain Scale 4-6 Last Admin: 04/11/22 22:51 Dose: 5 mg Documented By: ROBE Pharmacy Consult (Consult Rx Perform Med Rec) 1 each MISCELLANE ONCE PRN PRN Reason: Consult order Polyethylene Glycol (Polyethylene Glycol 3350 17 Gm Powd.Pack) 17 gm PO DAILY [facility] Last Admin: 04/12/22 07:42 Dose: Not Given Documented By: MARQUIS Non-Admin Reason: Patient Refused Sodium Chloride (0.9 % Sodium Chloride Flush 3 Ml Syringe) 3 ml IVFLUSH QSHIFT [facility] Last Admin: 04/12/22 07:42 Dose: 3 ml Documented By: MARQUIS Labs CBC & Chem 7: 04/11/22 05:49 04/12/22 06:48 Labs: Laboratory Results - last 24 hr 04/11/22 04/11/22 04/12/22 15:56 19:35 06:48 Estim Creat Clear Calc 110.1 Estimated GFR > 60 POC Glucose 159 H 219 H 04/12/22 04/12/22 07:11 11:01 Estim Creat Clear Calc Estimated GFR POC Glucose 153 H 202 H Microbiology Microbiology Results: Microbiology 04/09/22 10:55 Blood Culture - Preliminary Blood - Venous No growth after 48 hours. 04/09/22 10:50 Blood Culture - Preliminary Blood - Venous No growth after 48 hours. Assessment and Plan (1) Amputation of right great toe: Status: Acute (2) Bacteremia: Status: Acute Plan 57-year-old male with history of? diabetes mellitus with? diabetic? neuropathy, Charcot joint disease, hypertension, hyperlipidemia carcinoid tumor removal in 2020: came with possible foot oseto/gangrene. sepsis secondary to possible right great toe acute osteo/gangrene, related to peripheral neuropathy and diabetes Sepsis resolved (leukocytosis 1/4 reactive from surgery) Continue antibiotics as below right foot acute osteomyelitis/gangrene in the setting of peripheral neuropathy associated with diabetes foot xray:Soft tissue swelling and air in the great toe. Question osteomyelitis of the distal tuft of the great toe. Lisfranc deformity of the midfoot. elevated esr,crp ID and surgery, vascular evaluation noted s/p Right great toe amp 1/[address] Cabello MSSA bacteremia 2/2 to right foot infection as above echo negative for vegetation repeat blood cultures negative. Continue kefzol per ID - will need 4 weeks of IV kefzol midline ordered htn bp under better control continue home meds, increased hydralazine to 50mg TID adequate pain control renal US negative dm: fs with sliding scale HBa1c levels: 8.4 HLP: continue statin. acute lactic acidosis :possible combination on sepsis/metformin. improved with hydration dvt prophylax:s/c lovenox. attendin - dr. raiza john need: sepsis and foot osteo/gangrene-need of surgery IV antibiotics, renal function monitoring and electrolytes . Time Spent With Patient Time: Total time managing care of this patient today ____ minutes. Quality Stroke Does the patient have a stroke diagnosis?: No VTE Prior VTE?: No VTE Risk Level:: Medical - moderate - high VTE Device Contraindication: N/A - Device Ordered VTE Drug Contraindication: N/A - Med Ordered
--- NOTE | 2022-04-12 13:46 | HO.MIDLINE_ITS ---
Midline Insertion MIDLINE INSERTION Diagnosis: [right great toe infection/amputation] Indication: long term care phlebotomist antibiotics needed Pertinent Labs: reviewed Technique: Using sterile technique including cap and mask, glove and drape, the right arm was prepped and draped in the usual sterile fashion of full barrier technique with CHG. Using ultrasound guidance, right basilic vein access was obtained twice by Lakshmi Steele RN, but unable to advance guidewire. Right basilic vein was accessed by Chacha Manzo RN on first attempt. A 20G x 10CM non- PASV Midline was positioned. The procedure was performed in Room 272. Ultrasound was used to document vein patency and for needle entry. A formal ultrasound picture was recorded. V[facility] Animal Care [employer]aker has released the line for use and it is currently dressed with a StatLock, Tegaderm, and CHG disc. Verification has been performed for blood return and line patency. Arm Circumference: 27 CM Equipment: BARD PowerGlide ST Midline Catheter Type: 20G X 10CM NON-PASV Midline Lot #: [id number]
[2022-04-12 15:55] LABS: Glucose, Whole Blood 184 mg/dL (60-115)
--- NOTE | 2022-04-12 16:04 | MHC.CM.PN ---
CM MET WITH PT AND FAMILY. PLAN TO DC HOME WITH NEW [facility] ([facility] HAS OFFERED)04/13 AND [facility] FOR 4 WEEKS IV KEFZOL. [facility] LIAISON WILL COME IN AM TO DO TEACH WITH SISTER WHO WILL BE MANAGING THE IV EVERY 8. PER LIAISON, WILL BE IV PUSH. ORDERS AND MIDLINE REPORT SENT TO [facility]. REQUEST TO [facility] TO HAVE DOSE GIVEN AT 6 AM 04/13 SO [facility] CAN ADMINISTER AFTERNOON DOSE/TIME FOR MED/SUPPLIES TO BE DELIVERED. CM WILL CONTINUE TO FOLLOW
[2022-04-12] MEDS: Heparin Sodium,Porcine Flush 50 UNITS, 0.9 % Sodium Chloride Flush 5 ML IVFLUSH ×2 (16:16→20:51)
[2022-04-12] MEDS: Enoxaparin Sodium 40 MG/0.4 ML SYRINGE SUBCUT (16:17)
[2022-04-12 19:30] LABS: Glucose, Whole Blood 165 mg/dL (60-115)
[2022-04-13 03:22] VITALS: BP 174/82; PULSE 70; RESP 20; TEMP 36.1; O2SAT 95
[2022-04-13] MEDS: Omeprazole 40 MG CAPSULE.DR PO (06:02)
[2022-04-13] MEDS: ceFAZolin Sodium/Dextrose,Iso 2 GM/50 ML PIGGYBACK IV ×2 (06:02→12:24)
[2022-04-13 07:15] LABS: Glucose, Whole Blood 160 mg/dL (60-115)
[2022-04-13 07:23] LABS: Creatinine Clr Calc Pharmacy 93.8; Estimated Glomerular Filt Rate > 60
[2022-04-13 07:53] VITALS: BP 152/76; PULSE 85; RESP 20; TEMP 36.7; O2SAT 99
[2022-04-13] MEDS: 0.9 % Sodium Chloride Flush 3 ML SYRINGE IVFLUSH (08:03)
[2022-04-13] MEDS: Insulin Lispro 100 UNIT/ML 3 ML VIAL SUBCUT ×2 (08:03→11:44)
[2022-04-13] MEDS: Empagliflozin 25 MG TABLET PO (08:04)
[2022-04-13] MEDS: hydrALAZINE HCl 50 MG TABLET PO (08:04)
[2022-04-13] MEDS: Metoprolol Succinate ER 100 MG TAB.ER.24H 200 MG PO (08:04)
[2022-04-13] MEDS: amLODIPine Besylate 10 MG TABLET PO (08:04)
[2022-04-13] MEDS: Losartan Potassium 50 MG TABLET 100 MG PO (08:04)
[2022-04-13] MEDS: Fenofibrate 160 MG TABLET PO (08:05)
[2022-04-13] MEDS: Heparin Sodium,Porcine Flush 50 UNITS, 0.9 % Sodium Chloride Flush 5 ML IVFLUSH (08:08)
[2022-04-13 11:13] LABS: Glucose, Whole Blood 192 mg/dL (60-115)
--- NOTE | 2022-04-13 11:37 | PM.DS ---
DS: Providers Provider Date of Service: 04/13/22 Date of admission: 04/03/22 16:57 Date of discharge: 04/13/22 Primary care physician: Zurdo Mccormick MD Consults: 04/04/22 10:20 Consult to Vascular Surgery Routine Consulting Provider: Carlos Cabello Reason for consultation: Gangrene right toe, diabetic, Charcot foot Has provider been notified: No 04/07/22 13:57 Consult to Infectious Diseases Routine Consulting Provider: Laura Arora Reason for consultation: foot infection/mssa bacteremia/dm patient. Has provider been notified: No Attending physician on discharge: Adalberto Cheatham Discharging clinician: Odessa Mancilla DS: Diagnosis Discharge Diagnosis (1) Amputation of right great toe: Status: Acute (2) Bacteremia: Status: Acute DS: Summary Hospital Course Hospital Course: From H&P on day of admission 57-year-old male with history of? diabetes mellitus with? diabetic? neuropathy, Charcot joint disease, hypertension, hyperlipidemia?-patient says that he was having some cough nonproductive from few days and was trying to stay at home, last time he checked his foot was 6 day ago he has history of the diabetic neuropathy/Charcot joint disease-so he checks is foot once twice a week-he says that last as foot was totally fine but this morning when he looked at his foot big toe was blackish color and also had some erythema around it, he also felt subjective fever. Otherwise he denies any trauma or any skin breaking to the foot. Denies any new complaint of chest pain or shortness of breath or abdominal pain or fever or chills or nausea or vomiting Denies any cough Denies any weakness or numbness. 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 esr:71,crp:24.8 XR/XR foot RT min 3V IMPRESSION: Soft tissue swelling and air in the great toe. Question osteomyelitis of the distal tuft of the great toe. Lisfranc deformity of the midfoot. In ED patient received vancomycin and ceftriaxone and admission was called for osteomyelitis , also surgery was called because of possible big toe gangrene hospital course by problem: sepsis secondary to possible right great toe acute osteo/gangrene, related to peripheral neuropathy and diabetes. Sepsis resolved (leukocytosis 1/4 reactive from surgery) right foot acute osteomyelitis/gangrene in the setting of peripheral neuropathy associated with diabetes foot xray:Soft tissue swelling and air in the great toe. Question osteomyelitis of the distal tuft of the great toe. Lisfranc deformity of the midfoot. elevated esr,crp. Seen by ID and vascular surgery. underwent Right great toe amp 04/[address] Cabello. he should follow up with Dr. Cabello in the office in 2 weeks for staple removal. He will be discharged home with visiting nurses for assistance with dressing changes and antibiotic administration. MSSA bacteremia related to right foot infection as above. echo negative for vegetation. repeat blood cultures negative.. Continue kefzol per ID - will need 4 weeks of IV kefzol. midline placed 04/12/22 htn. Blood pressure elevated. Patient was continued on home dose of Norvasc, losartan, metoprolol. He was started on hydralazine to 50mg TID for better pain control. renal US negative Time Spent with Patient Time attestation: Total time managing care of this patient today ____ minutes. Discharge coordination time: Greater than 30 minutes Quality: Safe Use of Opioids Does Pt have an Active Cancer Diagnosis on the Problem List?: No Quality: Stroke Does the patient have a stroke diagnosis?: No Physical Exam Vital Signs: Vital Signs: Last Vital Signs Temp 98.0 F 04/13/22 07:53 Pulse 85 04/13/22 07:53 Resp 20 04/13/22 07:53 BP 152/76 H 04/13/22 07:53 Pulse Ox 99 04/13/22 07:53 O2 Del Method 04/13/22 07:53 O2 Flow Rate 1 04/11/22 04:00 BMI result Body Mass Index 32.5 Const: General: cooperative, comfortable, alert and awake Nutritional Appearance: average body habitus Resp: Effort & Inspection: normal respiratory effort and able to speak in complete sentences Auscultation: clear to auscultation bilaterally Cardio: Rate: regular rate Heart sounds: S1 normal heart sound present and S2 normal heart sound present GI: Inspection: No distended Palpation (GI): Soft to palpation and nontender Extrem: Other: right foot wrapped in c/d/i dressing DS: Data Data Completed and Pending Pending studies at discharge: Pending at discharge 04/10/22 16:05 Surgical [PTH] Routine Labs on day of discharge: Laboratory Results - last 24 hr 04/12/22 04/12/22 04/13/22 15:51 19:27 06:39 Creatinine 0.88 Estim Creat Clear Calc 93.8 Estimated GFR > 60 POC Glucose 184 H 165 H 04/13/22 04/13/22 07:09 11:10 Creatinine Estim Creat Clear Calc Estimated GFR POC Glucose 160 H 192 H Preliminary micro results at discharge 04/09/22 10:55 Blood Culture - Preliminary Blood - Venous No growth after 48 hours. 04/09/22 10:50 Blood Culture - Preliminary Blood - Venous No growth after 48 hours. Discharge Plan Discharge Anticipated Discharge Date/Time: 04/13/22 13:00 Patient Disposition: Home Health Service Discharge Diagnosis: sepsis right great toe osteomyelitis/gangrene MSSA bacteremia Referrals: Carlos Cabello MD [Physician] - 2 Weeks Po,Zurdo Putnam MD [Primary Care Provider] - 1 Week Discharge Medications: New hydralazine 50 mg Tablet 50 mg PO TID 30 Days Qty: 90 0RF Protocol: Hold for SBP< HOLD for SBP < : 90 oxycodone 5 mg Tablet 5 mg PO Q6H PRN (Reason: Pain, Moderate (Pain Scale 4-6) Qty: 20 0RF Rx Instructions: Partial Fill upon patient request. Continued metoprolol succinate 200 mg tablet extended release 24 hr 200 mg PO DAILY 90 Days Qty: 90 3RF amlodipine 10 mg tablet 10 mg PO DAILY 90 Days Qty: 90 2RF empagliflozin 25 mg tablet 25 mg PO QAM 90 Days Qty: 90 2RF omeprazole 40 mg capsule,delayed release(DR/EC) 40 mg PO DAILY PRN (Reason: Acid Reflux) dulaglutide 1.5 mg/0.5 mL pen injector 1.5 mg subcut MO fenofibrate 160 mg tablet 160 mg PO DAILY 90 Days Qty: 90 3RF metformin 500 mg tablet 500 mg PO BID 90 Days Qty: 180 1RF losartan 100 mg tablet 100 mg PO DAILY 90 Days Qty: 90 3RF Discharge Orders: Discharge Order (Routine); Ordered 04/13/22 Ordered By: Odessa Mancilla Activity on Discharge: As tolerated Stand Alone Forms: Patient Portal Discharge page Activity Restrictions/Additional Instructions: Wound care upon discharge: xeroform, 4x4 and Kerlix wrap to be changed daily. Please call Dr. Cabello at [phone] for 2 week follow up for suture and staple removal Care Plan Goals: see below Health Concerns: MSSA bacteremia, will need IV cefazolin 2 gm every 8 hours for a total of 4 weeks. antibiotic started April 09, end date May 07. Wound care instructions above, call to schedule follow-up appointment with Dr. Cabello elevated blood pressure. hydralazine has been added for better blood pressure control. Please take as prescribed call to schedule follow-up with PCP Plan of Treatment: see above Assessment: see discharge summary Discharge Date/Time: 04/13/22 13:56
--- NOTE | 2022-04-13 11:43 | W.MHC.F2F ---
Service Date Service Date: 04/13/22 Encounter Date of encounter: 04/13/22 Reasons for Services Signs and symptoms assessed: needs fci for dressing changes, antibiotic administration Reason for fci: wound care (xeroform, 4x4 and Kerlix wrap to be changed daily) and administration of IV, SQ, or IM injection MD Overseeing Care: Zurdo Mccormick Homebound: Leaving the home is medically contraindicated at this time without the asist of a device and/or another person due th the listed conditions above and below. Reason homebound: unsteady gait / fall risk Certification: Based on the above findings, I certify that this patient is confined to the home and needs intermittent fci care, physical therapy and/or speech therapy, or continues to need occupational therapy. The patient is under my care, and I have initiated the establishment of the plan of care. The patient will be followed by a physician who will periodically review the plan of care. Time Spent With Patient Time: Total time managing care of this patient today ____ minutes.
[2022-04-13 11:46] VITALS: BP 158/75; PULSE 76; RESP 20; TEMP 36.4; O2SAT 96
--- NOTE | 2022-04-13 14:00 | MHC.CM.PN ---
Patient discharged to home today with IV ABX. [facility] will provide home infusion services. [facility] with provide home care services. Patients family provided transportation home.
== END 2022-04-13 13:56 | disposition home health service (06) | DRG 710 ==
LOC: HO.ED 15:55 → HO.EDOVER 17:06 → HO.IMC 19:00
PROVIDERS: Internal Medicine; Physician Assistant; Surgery Vascular Surgery; Admitting Provider Internal Medicine; Emergency Provider Emergency Medicine Emergency Medical Services; PCP Internal Medicine; Visit Provider Physician Assistant Medical
PROC: 0Y6P0Z1 Detachment at Right 1st Toe, High, Open Approach (ICD-10-PCS; principal; 2022-04-10 15:30)
DX: A41.01 Sepsis due to Methicillin susceptible Staphylococcus aureus (principal); E87.21 Acute metabolic acidosis; E11.52 Type 2 diabetes mellitus with diabetic peripheral angiopathy with gangrene; E11.42 Type 2 diabetes mellitus with diabetic polyneuropathy; E11.610 Type 2 diabetes mellitus with diabetic neuropathic arthropathy; L97.519 Non-pressure chronic ulcer of other part of right foot with unspecified severity; L03.031 Cellulitis of right toe; M86.9 Osteomyelitis, unspecified; E11.621 Type 2 diabetes mellitus with foot ulcer; E11.65 Type 2 diabetes mellitus with hyperglycemia; E11.69 Type 2 diabetes mellitus with other specified complication; T38.3X5A Adverse effect of insulin and oral hypoglycemic [antidiabetic] drugs, initial encounter; E78.00 Pure hypercholesterolemia, unspecified; I10 Essential (primary) hypertension; Z20.822 Contact with and (suspected) exposure to COVID-19; Z88.0 Allergy status to penicillin; Z88.8 Allergy status to other drugs, medicaments and biological substances; Z79.84 Long term (current) use of oral hypoglycemic drugs; Z79.899 Other long term (current) drug therapy
CPT/HCPCS: 0241U; 36410; 36415; 71045; 73630; 76775; 80048; 80076; 80202; 82247; 82565; 82947; 83036; 83605; 85025; 85027; 85610; 85652; 85730; 86140; 87040; 87077; 87186; 87205; 88305; 88311; 93005; 93306; 93923; 93925; 96361; 96365; 96367; 97161; 99285; C1751; J0690; J0692; J0696; J1642; J1650; J2250; J2405; J2795; J3010; J3370; Q9957

== ENCOUNTER → 2022-04-24 09:53 | Outpatient (BNVA) | payer OTHER, SELFPAY | PROVIDERS: PCP Internal Medicine; Visit Provider Surgery Vascular Surgery | DX: S98.111A Complete traumatic amputation of right great toe, initial encounter (principal) ==

== ENCOUNTER → 2022-05-15 11:07 | Outpatient (BNVA) | payer OTHER, SELFPAY | PROVIDERS: PCP Internal Medicine; Visit Provider Surgery Vascular Surgery | DX: Z13.89 Encounter for screening for other disorder (principal) ==

== ENCOUNTER 2022-05-23 12:01 | Outpatient (REF) | payer OTHER, SELFPAY ==
[2022-05-23 14:05] LABS: MANUAL DIFF FLAG NO
[2022-05-23 14:13] LABS: Basophils Absolute Auto 0.1 X10*3/uL (0.0-0.2); Basophils Percent Auto 0.6 % (0-2); Eosinophils Absolute Auto 0.2 X10*3/uL (0.0-0.4); Eosinophils Percent Auto 2.8 % (0-4); Hematocrit 41.6 % (42.0-52.0); Hemoglobin 13.8 g/dl (14.0-18.0); Imm Gran Abs Auto 0.03 X10*3/uL (0.00-0.03); Imm Gran Pct Auto 0.4 % (0.0-0.4); Lymphocytes Absolute Auto 1.9 X10*3/uL (1.2-4.9); Lymphocytes Percent Auto 23.7 % (20-40); Mean Corpuscular HGB Conc 33.2 g/dl (31.0-36.0); Mean Corpuscular Hemoglobin 26.8 pg (27.0-33.0); Mean Corpuscular Volume 80.9 fL (80.0-98.0); Mean Platelet Volume 11.4 fL (9.4-12.4); Monocytes Absolute Auto 0.6 X10*3/uL (0.1-1.2); Monocytes Percent Auto 7.7 % (2-11); Neutrophils Percent Auto 64.8 % (45-73); Platelet Count 263 X10*3/uL (160-400); Red Blood Count 5.14 X10*6/uL (4.60-5.80); White Blood Count 7.8 X10*3/uL (4.8-10.8)
[2022-05-23 14:37] LABS: Alanine Aminotransferase 18 U/L (0-40); Albumin Level 4.5 g/dL (3.5-5.0); Alkaline Phosphatase 52 U/L (39-117); Anion Gap 15 (12-20); Aspartate Amino Transferase 13 U/L (5-37); Bilirubin Total 0.5 mg/dL (0.0-1.0); Blood Urea Nitrogen 17 mg/dL (9-16); Calcium 9.8 mg/dL (8.4-10.2); Carbon Dioxide 29 mmol/L (22-29); Chloride 99 mmol/L (96-108); Estimated Glomerular Filt Rate > 60; Glucose Random 136 mg/dL (60-115); Potassium 4.9 mmol/L (3.3-5.1); Sodium 138 mmol/L (135-145); Total Protein 7.3 g/dL (6.5-8.0)
[2022-05-23 14:47] LABS: Estimated Average Glucose 163 mg/dL; Hemoglobin A1c % 7.3 %
== END 2022-05-23 12:02 | disposition home or self-care (01) ==
LOC: HO.HMGCLDS 12:01
PROVIDERS: Visit Provider Nurse Practitioner Acute Care
DX: E11.621 Type 2 diabetes mellitus with foot ulcer (principal); L97.519 Non-pressure chronic ulcer of other part of right foot with unspecified severity; E11.65 Type 2 diabetes mellitus with hyperglycemia; R78.81 Bacteremia
CPT/HCPCS: 36415; 80053; 83036; 85025

== ENCOUNTER → 2022-05-31 11:12 | Outpatient (BNVA) | payer OTHER, SELFPAY | PROVIDERS: PCP Internal Medicine; Visit Provider Surgery Vascular Surgery | DX: Z13.89 Encounter for screening for other disorder (principal) ==

== ENCOUNTER 2022-06-07 08:00 | Outpatient (RCR) | payer OTHER, SELFPAY | END 2022-09-05 16:18 | disposition home or self-care (01) | LOC: HO.WCC 08:00 | PROVIDERS: PCP Internal Medicine; Visit Provider Surgery | DX: E11.621 Type 2 diabetes mellitus with foot ulcer (principal); L97.512 Non-pressure chronic ulcer of other part of right foot with fat layer exposed; T87.89 Other complications of amputation stump; Z89.411 Acquired absence of right great toe; Z79.899 Other long term (current) drug therapy; Z79.891 Long term (current) use of opiate analgesic | CPT/HCPCS: 11042; 11043; 15275; 99212; Q4186 ==

== ENCOUNTER 2022-06-21 10:16 | Outpatient (REF) | payer OTHER, SELFPAY ==
--- NOTE | ~2022-06-21 | XR_ITS ---
EXAMINATION: XR FOOT, RIGHT CLINICAL INFORMATION: Right foot wound, first metatarsal head COMPARISON: 04/03/2022 TECHNIQUE: AP, lateral, and oblique views of the right foot. FINDINGS: Status post amputation through the distal shaft of the first metatarsal. Overlying soft tissue swelling is noted along with suspected postoperative change. Redemonstrated degenerative changes of the tarsometatarsal articulations with malalignment/Lisfranc deformity which appears unchanged from prior. Malalignment of the navicular with the medial cuneiform is also again noted. No new acute fracture is seen. Redemonstrated posterior and plantar calcaneal spurring. XR/XR foot RT min 3V IMPRESSION: Status post amputation through the distal shaft of the first metatarsal with overlying soft tissue swelling. If there is clinical concern for osteomyelitis of the remaining first metatarsal, this would be better assessed with MRI. Otherwise, chronic appearing changes as described above, similar to 04/03/2022.
[2022-06-21 11:06] LABS: MANUAL DIFF FLAG NO
[2022-06-21 11:21] LABS: Basophils Absolute Auto 0.1 X10*3/uL (0.0-0.2); Basophils Percent Auto 0.7 % (0-2); Eosinophils Absolute Auto 0.2 X10*3/uL (0.0-0.4); Eosinophils Percent Auto 2.5 % (0-4); Hematocrit 45.8 % (42.0-52.0); Hemoglobin 15.6 g/dl (14.0-18.0); Imm Gran Abs Auto 0.03 X10*3/uL (0.00-0.03); Imm Gran Pct Auto 0.3 % (0.0-0.4); Lymphocytes Absolute Auto 1.9 X10*3/uL (1.2-4.9); Lymphocytes Percent Auto 20.8 % (20-40); Mean Corpuscular HGB Conc 34.1 g/dl (31.0-36.0); Mean Corpuscular Volume 79.2 fL (80.0-98.0); Mean Platelet Volume 11.1 fL (9.4-12.4); Monocytes Absolute Auto 0.5 X10*3/uL (0.1-1.2); Neutrophils Absolute Auto 6.3 x10*3/uL (2.0-8.3); Neutrophils Percent Auto 69.7 % (45-73); Platelet Count 295 X10*3/uL (160-400); Red Blood Count 5.78 X10*6/uL (4.60-5.80); Red Cell Distribution Width 13.2 % (11.0-16.0); White Blood Count 9.1 X10*3/uL (4.8-10.8)
[2022-06-21 11:31] LABS: Estimated Average Glucose 163 mg/dL; Hemoglobin A1c % 7.3 %
[2022-06-21 12:06] LABS: Erythrocyte Sedimentation Rate 4 MM/HR (0-15)
[2022-06-21 12:12] LABS: Anion Gap 18 (12-20); Blood Urea Nitrogen 15 mg/dL (9-16); C Reactive Protein 0.34 mg/dL (< or = 0.50); Calcium 9.9 mg/dL (8.4-10.2); Carbon Dioxide 25 mmol/L (22-29); Chloride 101 mmol/L (96-108); Estimated Glomerular Filt Rate > 60; Glucose Random 164 mg/dL (60-115); Potassium 5.1 mmol/L (3.3-5.1); Sodium 139 mmol/L (135-145)
== END 2022-06-21 10:17 | disposition home or self-care (01) ==
LOC: HO.HMGCX 10:16
PROVIDERS: PCP Internal Medicine; Visit Provider Surgery
DX: S91.101D Unspecified open wound of right great toe without damage to nail, subsequent encounter (principal)
CPT/HCPCS: 36415; 73630; 80048; 83036; 84134; 85025; 85652; 86140

== ENCOUNTER → 2022-07-03 09:37 | Outpatient (BNVA) | payer OTHER, SELFPAY | PROVIDERS: PCP Internal Medicine; Visit Provider Surgery Vascular Surgery | DX: Z13.89 Encounter for screening for other disorder (principal) ==

== ENCOUNTER → 2022-08-07 09:08 | Outpatient (BNVA) | payer OTHER, SELFPAY | PROVIDERS: PCP Internal Medicine; Visit Provider Surgery Vascular Surgery | DX: Z13.89 Encounter for screening for other disorder (principal) ==

== ENCOUNTER 2022-10-08 08:51 | Outpatient (REF) | payer OTHER, SELFPAY ==
[2022-10-08 12:44] LABS: Estimated Average Glucose 160 mg/dL; Hemoglobin A1c % 7.2 %
== END 2022-10-08 08:52 | disposition home or self-care (01) ==
LOC: HO.HMGCLDS 08:51
PROVIDERS: PCP Internal Medicine; Visit Provider Internal Medicine
DX: Z12.5 Encounter for screening for malignant neoplasm of prostate (principal); E11.65 Type 2 diabetes mellitus with hyperglycemia; E78.00 Pure hypercholesterolemia, unspecified; Z79.4 Long term (current) use of insulin
CPT/HCPCS: 36415; 80053; 80061; 82043; 82607; 82746; 83036; 84153; 84439; 84443; 85025

== ENCOUNTER 2022-12-04 13:15 | Outpatient (REF) | payer OTHER, SELFPAY ==
--- NOTE | ~2022-12-04 | US_ITS ---
EXAMINATION: Noninvasive assessment of the bilateral lower extremities with ARTERIAL DUPLEX and ANKLE BRACHIAL INDICES (ABIs). CLINICAL INFORMATION: Peripheral vascular disease TECHNIQUE: Duplex Doppler techniques with waveform analysis and measurement of velocities in the bilateral common femoral, profunda femoris, superficial femoral, popliteal and tibial arteries were performed. Additionally, ankle pulse volume recordings, ankle pressure measurements and ankle brachial indices were obtained of the lower extremity arterial system bilaterally. The study was performed only at rest. COMPARISON: 04/04/2022 FINDINGS: DIRECT DUPLEX DOPPLER FINDINGS: RIGHT LEG: Common femoral artery: 105 cm/s, phasicity: Biphasic Profunda femoris artery: 90 cm/s, phasicity: Biphasic Superficial femoral artery (proximal): 95 cm/s, phasicity: Triphasic Superficial femoral artery (mid): 91 cm/s, phasicity: Triphasic Superficial femoral artery (distal): 80 cm/s, phasicity: Triphasic Popliteal artery: 93 cm/s, phasicity: Triphasic Posterior tibial artery: 545 cm/s, phasicity: Triphasic Peroneal artery: 47 cm/s, phasicity: Monophasic Anterior tibial artery: 36 cm/s, phasicity: Monophasic Dorsalis pedis artery: 31 cm/s, phasicity:Monophasic LEFT LEG: Common femoral artery: 144 cm/s, phasicity: Triphasic Profunda femoris artery: 71 cm/s, phasicity: Biphasic Superficial femoral artery (proximal): 103 cm/s, phasicity: Triphasic Superficial femoral artery (mid): 81 cm/s, phasicity: Triphasic Superficial femoral artery (distal): 79 cm/s, phasicity: Triphasic Popliteal artery: 72 cm/s, phasicity: Triphasic Posterior tibial artery: 76 cm/s, phasicity: Triphasic Peroneal artery: 60 cm/s, phasicity: Triphasic Anterior tibial artery: 37 cm/s, phasicity: Triphasic Dorsalis pedis artery: 8 cm/s, phasicity: Monophasic ANKLE-BRACHIAL INDEX: Right: 0.86?, previously 0.93 Left: 0.74, previously 0.86 ANKLE PRESSURES: Right: PT 140, DP 139 Left: PT?120, DP?91 ANKLE PVR WAVEFORMS: Right: Normal Left: Normal US/US arterial duplex LE BI IMPRESSION: Right leg: Minimally decreased ankle-brachial index. Severely elevated velocity in the proximal posterior tibial artery consistent with severe stenosis. Monophasic waveforms seen in the liver. Below-knee runoff vessels consistent with small vessel disease. No significant change compared to the prior exam. Left leg: Mildly decreased ankle brachial index. Pulse volume waveform and arterial duplex ultrasound are normal with no evidence of significant arterial stenosis or occlusion SWAPNA Reference: - >1.4 = calcified vessels - 0.9 - 1.4 = normal - no significant arterial disease - 0.7 - 0.89 = mild peripheral arterial disease - 0.51 - 0.69 = moderate peripheral arterial disease - ? 0.50 = severe peripheral arterial disease - < .30 = critical arterial disease
== END 2022-12-04 13:16 | disposition home or self-care (01) ==
LOC: HO.US 13:15
PROVIDERS: PCP Internal Medicine; Visit Provider Surgery Vascular Surgery
DX: I73.9 Peripheral vascular disease, unspecified (principal)
CPT/HCPCS: 93923; 93925

== ENCOUNTER 2022-12-25 08:49 | Outpatient (AMB) | payer OTHER, SELFPAY ==
--- NOTE | 2022-12-25 08:56 | MHC.OFFVIS ---
Intake Vital Signs 12/25/22 08:57 Height 5 ft 6 in Weight 188 lb BMI 30.3 Intake Visit Reasons: follow up arterial US 12/05/22 Intake Note: follow up s/p arterial US 12/04/22 w/ Hx of Right great toe amp 04/10/22. Pt states that toe healed last August 2022. Pt states bilateral LE feel good. Pt is back to work 4 hours a day Accompanied by: Sister Allergies lisinopril [LISINOPRIL] Allergy (Intermediate, Verified 12/25/22 09:01) COUGH Penicillins [PENICILLINS] Allergy (Intermediate, Verified 12/25/22 09:01) HIVES HPI follow up arterial US 12/05/22 HPI Details Very pleasant 57-year-old gentleman presents for follow-up status post right great toe amp. It appears to have gone on to heal. In general appears to be doing extremely well. [facility] He now presents for routine surveillance follow-up with noninvasive arterial testing. [facility] Medical History Peripheral neuropathy Diabetes Charcot's joint of right foot COVID-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 Rectal carcinoid tumor Crohn's colitis Vitamin D deficiency Obesity (BMI 30-39.9) Mendez's esophagus Hypercholesterolemia Type 2 diabetes mellitus with hyperglycemia HTN (hypertension) Surgical History Amputation of right great toe (04/10/22) History of esophagogastroduodenoscopy (EGD) H/O colonoscopy History of umbilical hernia repair Family History Father Diabetes CVD (cardiovascular disease) Myocardial infarction Hypertension Mother CVD (cardiovascular disease) Myocardial infarction Hypertension Throat cancer Maternal Grandmother Gastric cancer Paternal Grandmother Myocardial infarction Maternal Aunt Gastric cancer Breast cancer Sister In good health Other Substance abuse Social History Household Members: Family Housing: House Are you a primary sub acute care nurse to a significant other at home: No Do you presently have visiting nurse or other home services: No Alcohol intake: never Patient Tobacco Use Status: Never used Tobacco e-Cigarette/Vaping Use: Never Used Second Hand Smoke Exposure: Yes service: Yes (Vascular Imaging) Current occupational status: employed Current occupation: [employer] Cognitive needs: No Hearing needs: No Vision needs: Yes Review of Systems Const All systems reviewed & are unremarkable except as noted in HPI and below Reports no additional complaints ENT Reports Normal hearing present Card Denies chest pain, Denies chest pain at rest, Denies chest pain with activity and Denies pedal edema Resp Denies cough GI Denies abdominal pain Musc Denies abnormal gait, Denies muscle cramps and Denies radiating pain into limb Skin/Breast Denies skin ulcer and Denies wounds Neuro Reports Normal hearing present and Denies abnormal gait Psych Reports no additional complaints Physical Exam Vital Signs: BMI result Body Mass Index 30.3 Const General: cooperative, healthy appearing and comfortable Orientation/consciousness: oriented to person, oriented to place and oriented to time HEENT Head: Yes normal to inspection Neck Neck: Yes normal visual inspection Carotids: no bruits Chest Chest palpation & inspection: normal inspection of the chest Resp Effort & Inspection: normal respiratory effort and able to speak in complete sentences Auscultation: clear to auscultation bilaterally, no crackles, no rales, no rhonchi and no wheezes Cardio Rate: regular rate Rhythm: regular rhythm Heart sounds: S1 normal heart sound present and S2 normal heart sound present Bruits: no carotid bruits Peripheral pulses: Peripheral pulses 2+ throughout GI Inspection: Yes normal to inspection Skin Other: Right great toe amp site well-healed. Wounds: no wounds Hair: normal Neuro General: oriented to person, oriented to place and oriented to time Cranial nerves: Yes CN's II-XII intact bilaterally and Yes Normal hearing present Cognition (Neuro): normal cognition Motor exam (neuro): 5/5 motor strength present throughout Extrem Other: venous exam: No significant superficial varicosities or spider telangiectasias, minimal edema General: No clubbing, No cyanosis and No edema Psych Appearance: grossly normal Mental Status: mental status grossly normal Speech and movement: Normal speech and movement present Results Reviewed Results Reviewed: Noninvasive arterial testing dated 12/04/2022 demonstrates SWAPNA on the right of 0.86 and on the left of 0.74. Written report and images were reviewed. Assessment & Plan Assessment & Plan (1) PAD (peripheral artery disease): Code(s): I73.9 - Peripheral vascular disease, unspecified Plan: In short patient is stable from a arterial standpoint. Wounds remain healed. He appears to be doing relatively well. We did discuss routine risk factor modification. He will follow up with us in 1 year's time with routine arterial surveillance. Thank you for allowing us to assist in his care. Orders: Orders US arterial duplex LE 364 Days I73.9 - Peripheral vascular disease, unspecified Coding Level of Care Code Est Pt Level 4 (58882) Diagnoses PAD (peripheral artery disease) I73.9
[2022-12-25 08:57] VITALS: BMI 30.3
== END 2022-12-25 09:27 | disposition home or self-care (01) ==
PROVIDERS: PCP Internal Medicine; Visit Provider Surgery Vascular Surgery
DX: I73.9 Peripheral vascular disease, unspecified (principal)
CPT/HCPCS: 99213

== ENCOUNTER → 2022-12-25 08:49 | Outpatient (BNVA) | payer OTHER, SELFPAY | PROVIDERS: PCP Internal Medicine; Visit Provider Surgery Vascular Surgery ==

== ENCOUNTER 2023-08-22 09:11 | Outpatient (REF) | payer OTHER, SELFPAY ==
[2023-08-22 10:15] LABS: MANUAL DIFF FLAG NO
[2023-08-22 10:21] LABS: Basophils Absolute Auto 0.1 X10*3/uL (0.0-0.2); Basophils Percent Auto 0.7 % (0-2); Eosinophils Absolute Auto 0.2 X10*3/uL (0.0-0.4); Eosinophils Percent Auto 2.1 % (0-4); Hematocrit 41.5 % (42.0-52.0); Hemoglobin 14.2 g/dl (14.0-18.0); Imm Gran Abs Auto 0.02 X10*3/uL (0.00-0.03); Imm Gran Pct Auto 0.3 % (0.0-0.4); Lymphocytes Absolute Auto 1.4 X10*3/uL (1.2-4.9); Mean Corpuscular HGB Conc 34.2 g/dl (31.0-36.0); Mean Corpuscular Hemoglobin 27.5 pg (27.0-33.0); Mean Corpuscular Volume 80.4 fL (80.0-98.0); Mean Platelet Volume 11.5 fL (9.4-12.4); Monocytes Absolute Auto 0.5 X10*3/uL (0.1-1.2); Monocytes Percent Auto 6.9 % (2-11); Neutrophils Absolute Auto 5.1 x10*3/uL (2.0-8.3); Platelet Count 239 X10*3/uL (160-400); Red Blood Count 5.16 X10*6/uL (4.60-5.80); Red Cell Distribution Width 13.4 % (11.0-16.0); White Blood Count 7.1 X10*3/uL (4.8-10.8)
[2023-08-22 10:48] LABS: Alanine Aminotransferase 23 U/L (0-40); Albumin Level 4.3 g/dL (3.5-5.0); Alkaline Phosphatase 64 U/L (39-117); Anion Gap 15 (12-20); Aspartate Amino Transferase 22 U/L (5-37); Bilirubin Total 0.3 mg/dL (0.0-1.0); Blood Urea Nitrogen 18 mg/dL (9-16); Calcium 9.8 mg/dL (8.4-10.2); Carbon Dioxide 25 mmol/L (22-29); Chloride 99 mmol/L (96-108); Cholesterol 234 mg/dL (<200); Estimated Glomerular Filt Rate > 60; Glucose Random 322 mg/dL (60-115); HDL Cholesterol 29 mg/dL (>40); Potassium 4.4 mmol/L (3.3-5.1); Sodium 135 mmol/L (135-145); Total Protein 7.5 g/dL (6.5-8.0); Triglycerides 1199 mg/dL (<150)
[2023-08-22 11:02] LABS: Estimated Average Glucose 263 mg/dL; Hemoglobin A1c % 10.8 % (<6.0)
[2023-08-22 11:12] LABS: Free T4 (Free Thyroxine) 0.86 ng/dL (0.71-1.85)
[2023-08-22 11:20] LABS: Creatinine Urine 26.17 mg/dL; Folate 8.7 ng/mL (> or = 4.0); Prostate Specific Antigen Scr 0.75 ng/mL (<0.05-4.0); Vitamin B12 561 pg/mL (200-900)
== END 2023-08-22 09:12 | disposition home or self-care (01) ==
LOC: HO.HMGCLDS 09:11
PROVIDERS: PCP Internal Medicine; Visit Provider Internal Medicine
DX: E11.65 Type 2 diabetes mellitus with hyperglycemia (principal); Z79.4 Long term (current) use of insulin; E78.00 Pure hypercholesterolemia, unspecified
CPT/HCPCS: 36415; 80053; 80061; 82043; 82570; 82607; 82746; 83036; 84153; 84439; 84443; 85025

== ENCOUNTER 2023-08-23 10:42 | Outpatient (AMB) | payer OTHER, SELFPAY ==
[2023-08-23 10:43] VITALS: BP 154/86; PULSE 74; O2SAT 96; BMI 32.3
--- NOTE | 2023-08-23 10:43 | MHC.PC.OV ---
Vital Signs 08/23/23 10:43 Height 5 ft 6 in Weight 200 lb 0.2 oz BMI 32.3 BP 154/86 H Blood Pressure Location Lt brachial Position Sitting Pulse 74 Pulse Source Pulse Oximeter Pulse Oximetry (%) 96 Oxygen Delivery Method Room Air Intake Visit Reasons: Annual Exam Intake Note: Patient is here today for a physical. 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 Allergies lisinopril [LISINOPRIL] Allergy (Intermediate, Verified 08/23/23 10:44) COUGH Penicillins [PENICILLINS] Allergy (Intermediate, Verified 08/23/23 10:44) HIVES Medication List - Last Reconciled 08/23/23 by Zurdo Mccormick MD amlodipine 10 mg PO DAILY 90 days dulaglutide 1.5 mg (0.5 mL) subcut QWEEK 30 days empagliflozin 25 mg PO QAM 90 days fenofibrate 160 mg PO DAILY 90 days hydralazine 50 mg See Protocol PO TID 30 days losartan 100 mg PO DAILY 90 days metformin 500 mg PO BID 90 days metoprolol succinate ER 200 mg PO DAILY 90 days omeprazole 40 mg PO DAILY PRN Tobacco use date assessed: 08/23/23 Dental Screening Dental Screen Date: 08/23/23 Did you have a dental visit in the last 12 months?: No Did you have a dental problem in the last 6 months where you did not have access to dental care?: No HPI Annual Exam HPI Details 58-year-old obese male with uncontrolled diabetes mellitus hypertension hypercholesterolemia Barretts esophagus last seen in 2021. Patient is due for colon test and EGD. Review of the notes has seen Endocrinology October 2022 patient has had amputation of the right great toe in April 2022 concern about an elevated blood sugar and blood pressure. Trulicity Jardiance and metformin advised increase in Trulicity 3 mg once a week Podiatry seen January 2023 patient also follows up with the vascular surgeon had an arterial ultrasound in November 2022 patient is here for physical exam [facility] Medical History (Updated 08/23/23 @ 11:45 by Zurdo Mccormick MD) Peripheral neuropathy Diabetes Charcot's joint of right foot COVID-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 Rectal carcinoid tumor Crohn's colitis Vitamin D deficiency Obesity (BMI 30-39.9) Mendez's esophagus Hypercholesterolemia Type 2 diabetes mellitus with hyperglycemia HTN (hypertension) Surgical History Amputation of right great toe (04/10/22) History of esophagogastroduodenoscopy (EGD) H/O colonoscopy History of umbilical hernia repair Family History (Updated 08/23/23 @ 11:36 by Zurdo Mccormick MD) Father Diabetes CVD (cardiovascular disease) Myocardial infarction Hypertension Mother CVD (cardiovascular disease) Myocardial infarction Hypertension Throat cancer Maternal Grandmother Gastric cancer Paternal Grandmother Myocardial infarction CVD (cardiovascular disease) Maternal Aunt Gastric cancer Breast cancer Sister In good health Maternal Grandfather CVD (cardiovascular disease) Paternal Grandfather CVD (cardiovascular disease) Other Substance abuse Social History Household Members: Family Housing: House Are you a primary hospice care transitions coordinator to a significant other at home: No Do you presently have visiting nurse or other home services: No Alcohol intake: never Comment: pt refuse bed alarm Patient Tobacco Use Status: Never used Tobacco e-Cigarette/Vaping Use: Never Used Second Hand Smoke Exposure: Yes service: Yes ([employer]) Current occupational status: employed Current occupation: [employer] Cognitive needs: No Hearing needs: No Vision needs: Yes Questionnaire PHQ-9 Over the last 2 weeks, how often have you been bothered by any of the following problems? 1. Little interest or pleasure in doing things: not at all 2. Feeling down, depressed, or hopeless: not at all 3. Trouble falling or staying asleep, or sleeping too much: not at all 4. Feeling tired or having little energy: not at all 5. Poor appetite or overeating: not at all 6. Feeling bad about yourself - or that you are a failure or have let yourself or your family down: not at all 7. Trouble concentrating on things, such as reading the newspaper or watching television: not at all 8. Moving or speaking so slowly that other people could have noticed. Or the opposite - being so fidgety or restless that you have been moving around a lot more than usual: not at all 9. Thoughts that you would be better off or of hurting yourself in some way: not at all Total score: 0 Depression Screening Interpretation: Negative Depression Screening Done: Yes 72170 - PHQ-9 Billing: Yes Source: Developed by Drs. Alexis Butt, Deandra López, Terrence Richard and colleagues, with an educational thor from [employer]. Thrive Questionnaire Date Thrive assessed: 08/23/23 I am a: Patient What is your living situation today?: I have a steady place to live Within the past 12 months, did the food you bought not last and you didn't have the money to get more?: Never true Within the past 12 months, did you worry whether your food would run out before you got money to buy more?: Never true Do you have trouble paying for medicines?: No Do you have trouble getting transportation to medical appointments?: No Do you have trouble paying your heating and electricity bill?: No Do you have trouble taking care of your child, family member or friend?: No Do you have trouble with day-to-day activities such as bathing, preparing meals, shopping, managing finances, etc.?: No Are you currently unemployed and looking for a job?: No Are you interested in more education?: No Please select the resources that you would like help with: None Currently or been in a relationship where the following occur: no concerns reported THRIVE Score: 0 AUDIT C Alcohol Use Questionnaire (AUDIT-C) 1. How often do you have a drink containing alcohol?: Never 3. How often do you have six or more drinks on one occasion?: Never Total Score: 0 ANNALISA-7 AMB Questionnaire ANNALISA-7 Date ANNALISA - 7 assessed: 08/23/23 Feeling nervous, anxious, or on edge: 0 = Not at all Not being able to stop or control worryin = Not at all Worrying too much about different things: 0 = Not at all Trouble relaxin = Not at all Being so restless that it is hard to sit still: 0 = Not at all Becoming easily annoyed or irritable: 0 = Not at all Feeling afraid as if something awful might happen: 0 = Not at all Total ANNALISA-7 score (0-4 normal; 5-9 mild; 10-14 moderate; 15-21 severe): 0 Source: Developed by Drs. Alexis Butt, Deandra López, Terrence Richard and colleagues, with an educational thor from [employer]. ANNALISA-7 Assessment Billing ANNALISA-7 Assessment Tool: ANNALISA-7 Assessment 06473 Review of Systems Const Denies poor appetite and Denies weakness Eyes Denies no additional complaints ENT Reports Normal hearing present, Denies dizziness, Denies nasal congestion, Denies tinnitus and Denies sore throat Card Denies chest pain, Denies syncope, Denies rapid heart rate and Denies dyspnea Resp Denies cough and Denies dyspnea GI Denies change in stool character, Reports constipation, Denies diarrhea, Denies nausea and Denies vomiting Denies dysuria and Denies urinary frequency Neuro Reports Normal hearing present, Denies confusion, Denies dizziness, Denies syncope and Denies weakness Psych Denies confusion Physical exam (Primary Care) Vital Signs: Last Vital Signs Pulse 74 08/23/23 10:43 BP 154/86 H 08/23/23 10:43 Pulse Ox 96 08/23/23 10:43 Oxygen Delivery Method Room Air 08/23/23 10:43 BMI result Body Mass Index 32.3 Tobacco/Smoking Status: Tobacco use Status Tobacco use date assessed 08/23/23 08/23/23 10:45 Patient Tobacco Use Status Never used Tobacco 08/23/23 10:45 e-Cigarette/Vaping Use Never Used 08/23/23 10:45 PHQ-9: PHQ-9 Score PHQ-9: Total score 0 08/23/23 11:30 Depression Screening Interpretation: Negative Thrive Assessment: Date of Thrive Assessment Date Thrive assessed 08/23/23 08/23/23 10:45 Currently or been in a relationship where the following occur: no concerns reported Const General: No confusion Orientation/consciousness: No confusion HENMT Head: Yes normocephalic Ears: external ears normal and TM's normal bilaterally Face and sinus: Yes normal facial exam Mouth: moist mucous membranes Throat: Yes tonsils normal Eyes Conjunctivae: conjunctivae normal Pupils: Equal, round and reactive pupils present and Pupil accommodation reflex normal Direct Ophthalmoscopy: normal light reflex Neck Neck: No lymphadenopathy Thyroid: Thyroid normal Chest Chest palpation & inspection: normal inspection of the chest Resp Effort & Inspection: normal respiratory effort and no audible wheezes Auscultation: clear to auscultation bilaterally, no crackles, no wheezes and lung sounds not diminished Cardio Rate: regular rate Rhythm: regular rhythm Peripheral pulses: radial pulses present and dorsalis pedis present GI Other: referral to colon testing done Palpation (GI): no masses Auscultation: normal bowel sounds and normoactive bowel sounds Rectal Exam - Male: Yes deferred Skin General skin exam: no rashes or lesions noted Rashes: no rashes Neuro General: No confusion Cranial nerves: Yes Equal, round and reactive pupils present and Yes Normal hearing present Cognition (Neuro): normal cognition Gait exam (Neuro): Normal gait present Motor exam (neuro): 5/5 motor strength present throughout Deep tendon reflexes (DTR's): Right brachioradialis reflex intensity grade: 2+, Left brachioradialis reflex intensity grade: 2+, Right patellar reflex intensity grade: 2+ and Left patellar reflex intensity grade: 2+ Extrem Other: pin prick cannot feel , has R amputation big toe, pulse weak equal, hematoma on the tip of L 2-3-4 toe 2ng toe 1 cm General: No edema Immunizations pneumoc 20-ora conj-dip cr(PF) 0.5 mL IM syringe Performing Provider: Zurdo Mccormick MD Performing Location: [facility] Administered by: ANNA Kohler on 08/23/23 11:58 Dose Route Admin Location Dispensed Lot Number Expiration Date NDC [employer] 0.5 mL IM Left Deltoid 0.5 mL [id number] 08/06/24 0045-2296-65 [employer] VIS Given Date VIS Provided VIS Publication Date 08/23/23 Single Vaccine 21 Eligibility Eligibility Date Funding Source Not [facility] Eligible 08/23/23 Private Assessment and Plan Assessment & Plan (1) Annual physical exam: Code(s): Z00.00 - Encounter for general adult medical examination without abnormal findings (2) Type 2 diabetes mellitus with hyperglycemia: Comment: IDDM, [facility], Dr. 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 Patient was seen by endocrinology 1 time last year on Trulicity was advised to increase it to 3 mg Jardiance 25 mg once a day and metformin 500 mg twice a day. (3) Hypercholesterolemia: Code(s): E78.00 - Pure hypercholesterolemia, unspecified Plan: Avoid fried foods, chicken skin, eggs, butter margarine, pastries and meat. Be it pork or beef they have a lot of cholesterol LDL goal of less than 7 and triglyceride of less than 150 presently on fenofibrate (4) Mendez's esophagus: Comment: Dr. Barraza January 2012, last EGD 2020 scope biopsy shows uncontrolled inflammation in the distal esophagus repeat in 1 year Code(s): K22.70 - Mendez's esophagus without dysplasia Qualifiers: Mendez's esophagus type: with low grade dysplasia Qualified Code(s): K22.710 - Mendez's esophagus with low grade dysplasia Plan: Avoid the foods that causes that usually spicy foods, tomato products, juices, coffee, soda and foods that your sensitive to. After eating do not lie down, allow 3-4 hours before in lie down. And keep the head of bed above 30 degrees to avoid the acid from going up. (5) Carcinoid tumor: Comment: September 2020 colonoscopy rectal biopsy, repeat scope in 1 year Code(s): D3A.00 - Benign carcinoid tumor of unspecified site Qualifiers: Carcinoid tumor large intestine location: rectum Plan: Reminded about repeat colonoscopy needed. (6) HTN (hypertension): Code(s): I10 - Essential (primary) hypertension Qualifiers: Hypertension type: primary hypertension Qualified Code(s): I10 - Essential (primary) hypertension Plan: Continue with blood pressure medication. Decrease salt intake and exercise amlodipine 10 mg once a day hydralazine 50 mg 3 times a day losartan 100 mg once a day metoprolol 200 mg once a day (7) Amputation of right great toe: Onset Date: 04/10/22 Code(s): S98.111A - Complete traumatic amputation of right great toe, initial encounter Plan: Patient follows up with the vascular surgeon (8) PAD (peripheral artery disease): Code(s): I73.9 - Peripheral vascular disease, unspecified Plan: Continue to follow-up with vascular surgeon (9) Diabetic neuropathy: Code(s): E11.40 - Type 2 diabetes mellitus with diabetic neuropathy, unspecified Orders: Orders Pneumococcal 20 Immunization Today Z23 - Encounter for immunization Referrals Gastroenterology Referral D3A.026 - Benign carcinoid tumor of the rectum Medications: New pneumoc 20-ora conj-dip cr(PF) 0.5 mL IM ONCE 0.5 mL 0RF Z23 - Encounter for immunization Changed From dulaglutide 1.5 mg (0.5 mL) subcut QWEEK 30 days 2.5 mL 3RF E11.65 - Type 2 diabetes mellitus with hyperglycemia, Z79.4 - retirement (current) use of insulin To dulaglutide 1.5 mg (0.25 mL) subcut QWEEK 1.25 mL 3RF 30 days E11.65 - Type 2 diabetes mellitus with hyperglycemia, Z79.4 - retirement (current) use of insulin Refilled hydralazine 50 mg See Protocol PO TID 90 tabs 3RF 30 days I10 - Essential (primary) hypertension Coding Level of Care Code Est Pt Prev Care 40-64y(35606) Diagnoses Annual physical exam Z00.00 Type 2 diabetes mellitus with hyperglycemia, with long-term current use of insulin E11.65; Z79.4 Diabetes mellitus skilled nursing insulin use: with marine oil terminal superintendent use Hypercholesterolemia E78.00 Mendez's esophagus with low grade dysplasia K22.710 Mendez's esophagus type: with low grade dysplasia Carcinoid tumor D3A.00 Carcinoid tumor large intestine location: rectum Primary hypertension I10 Hypertension type: primary hypertension Amputation of right great toe S98.111A PAD (peripheral artery disease) I73.9 Diabetic neuropathy E11.40 Additional Codes ANNALISA-7 Assessment Billing - ANNALISA-7 Assessment Tool: ANNALISA-7 Assessment [id number] ([id number])
== END 2023-08-23 11:58 | disposition home or self-care (01) ==
PROVIDERS: PCP Internal Medicine; Visit Provider Internal Medicine
DX: Z00.00 Encounter for general adult medical examination without abnormal findings (principal); E11.65 Type 2 diabetes mellitus with hyperglycemia; Z79.4 Long term (current) use of insulin; Z23 Encounter for immunization; D3A.00 Benign carcinoid tumor of unspecified site; E78.00 Pure hypercholesterolemia, unspecified; K22.710 Barrett's esophagus with low grade dysplasia; I10 Essential (primary) hypertension; S98.111A Complete traumatic amputation of right great toe, initial encounter; I73.9 Peripheral vascular disease, unspecified; E11.40 Type 2 diabetes mellitus with diabetic neuropathy, unspecified
CPT/HCPCS: 90471; 90677; 99396

== ENCOUNTER 2023-10-03 10:54 | Outpatient (AMB) | payer OTHER, SELFPAY ==
--- NOTE | 2023-10-03 10:56 | A.OFFVIS_ITS ---
Vital Signs 10/03/23 11:06 Height 5 ft 6 in Weight 200 lb 2.876 oz BMI 32.3 BP 168/73 H Blood Pressure Location Rt brachial Position Sitting Pulse 76 Intake Visit Reasons: Colonoscopy Screening Intake Note: Patient in office today to discuss colonoscopy and EGD. CC: Patient denies having any GI symptoms or concerns today. Certified Nurse Practitioner Required: No Accompanied by: Self / Same As Patient Allergies lisinopril [LISINOPRIL] Allergy (Intermediate, Verified 10/03/23 11:08) COUGH Penicillins [PENICILLINS] Allergy (Intermediate, Verified 10/03/23 11:08) HIVES HPI HPI Colonoscopy Screening: Details: Assessment & Plan (1) Carcinoid tumor: ?Comment: September 2020 colonoscopy rectal biopsy, repeat scope in 1 year ?Code(s): D3A.00 - Benign carcinoid tumor of unspecified site ?Qualifiers: ?Carcinoid tumor large intestine location:?rectum ?Plan: His family asks us to call his cell phone. Since biopsy shows active Mendez's with inflammation at the distal esophagus he probably needs an increase in his omeprazole in both dose in timing.? He is only on 20 mg once a day currently. The colonoscopy needs to be repeated in 1 year since he had many significant findings the 1st being edematous tissue in the ascending colon by biopsy, carcinoid tumor in the rectum, and a large 10-12 mm sessile tubular adenoma removed on the 2nd colonoscopy.? Since his Mendez's isn't well controlled we should consider repeating EGD at this time as well. He tells me he tolerated the procedures well.? He saw Oncology and they did a CT scan which was clear and will be seeing Dr. Macedo next week for surgery to make sure they clear any additional carcinoid materials from the colon. I educate him about the biopsy finding of the Mendez's and because I do not want this to turned to esophageal cancer I believe we should increase his omeprazole to 40 mg and twice a day dosing.? I explained it is best to take it 1st thing in the morning on empty stomach and just before supper, but if he is not home during suppertime he can take the 2nd dose later.? He is quite agreeable to this and I will send to the pharmacy. I have asked him that he does not get twice a day supply to call me as this likely may be insurance driven problem and I will know that it did not succeed in being prescribed for him unless he tells me since I do not hear from pharmacist much lately.? He agrees that he can call me if it does not come through as we agree.? He does have much subjective signs or symptoms of heartburn so this is a little bit concerning. He is agreeable to a follow-up with me in 9 months so that we can be sure we do not miss the 1 year colonoscopy follow-up and of course we can follow-up on his Mendez's esophagus as well. (2) Mendez's esophagus: ?Comment: Dr. Barraza January 2012, last EGD 2020 scope biopsy shows uncontrolled inflammation in the distal esophagus repeat in 1 year ?Code(s): K22.70 - Mendez's esophagus without dysplasia ?Qualifiers: ?Mendez's esophagus type:?with low grade dysplasia? Qualified Code(s):? K22.710 - Mendez's esophagus with low grade dysplasia (3) Adenomatous polyp of ascending colon: ?Comment: 2020 scope, repeat 1 year ?Code(s): D12.2 - Benign neoplasm of ascending colon (4) Sessile colonic polyp: ?Comment: 2020 scope, repeat 1 year ?Code(s): K63.5 - Polyp of colon (5) Obesity (BMI 30-39.9): ?Code(s): E66.9 - Obesity, unspecified ? ? ? Medications:?New omeprazole 40 mg PO BID 30 days 60 caps 6RF K22.710 - Mendez's esophagus with low grade dysplasia ? LABS: Laboratory Tests 08/22/23 09:20 WBC 7.1 Hgb 14.2 Hct 41.5 L MCV 80.4 MCH 27.5 Plt Count 239 Estimated GFR > 60 Hemoglobin A1c % 10.8 H Total Bilirubin 0.3 AST 22 ALT 23 Alkaline Phosphatase 64 TSH 1.40 Free T4 0.86 TODAY'S VISIT Patient has been lost to follow-up since 2020 The only new problem is that he has charcot foot right and toe amputation right foot. He is on omeprazole 40mg bid with good control of his GERD. He has some CIC but nothing concerning and no hard stool He had one episode when he had a hard time waking up (likely opioid and benzo combo) but not in subsequent procedures. He denies any cardiac or respiratory problems. No ID problems. He had a large sessile adenoma at his last colonoscopy. He also has Barretts esophagus. [facility] Medical History Peripheral neuropathy Diabetes Charcot's joint of right foot COVID-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 Rectal carcinoid tumor Crohn's colitis Vitamin D deficiency Obesity (BMI 30-39.9) Mendez's esophagus Hypercholesterolemia Type 2 diabetes mellitus with hyperglycemia HTN (hypertension) Surgical History Amputation of right great toe (04/10/22) History of esophagogastroduodenoscopy (EGD) H/O colonoscopy History of umbilical hernia repair Family History Father Diabetes CVD (cardiovascular disease) Myocardial infarction Hypertension Mother CVD (cardiovascular disease) Myocardial infarction Hypertension Throat cancer Maternal Grandmother Gastric cancer Paternal Grandmother Myocardial infarction CVD (cardiovascular disease) Maternal Aunt Gastric cancer Breast cancer Sister In good health Maternal Grandfather CVD (cardiovascular disease) Paternal Grandfather CVD (cardiovascular disease) Other Substance abuse Social History Household Members: Family Housing: House Are you a primary respiratory care specialist to a significant other at home: No Do you presently have visiting nurse or other home services: No Alcohol intake: never Comment: pt refuse bed alarm Patient Tobacco Use Status: Never used Tobacco e-Cigarette/Vaping Use: Never Used Second Hand Smoke Exposure: Yes service: Yes ([employer]) Current occupational status: employed Current occupation: cook Cognitive needs: No Hearing needs: No Vision needs: Yes Review of Systems Const Denies fatigue, Denies fever(s), Denies night sweats, Denies poor appetite and Denies weight loss ENT Reports Normal hearing present, Denies dysphagia, Denies odynophagia, Denies throat swelling and Denies tongue swelling Card Reports no additional complaints Resp Reports no additional complaints GI Details: Denies abdominal pain, Denies melena, Denies bloating, Denies hematochezia, Denies constipation, Denies GI cramping, Denies dysphagia, Denies excessive flatus, Denies early satiety, Reports heartburn, Denies diarrhea, Denies nausea, Denies odynophagia, Denies vomiting and Denies hematemesis Musc Reports abnormal gait and Reports deformity Skin/Breast Denies pruritus, Denies lesions, Denies rash and Denies jaundice Neuro Reports Normal hearing present, Denies Abnormal speech present and Reports abnormal gait Endo Denies fatigue Aller/Immun Denies throat swelling and Denies tongue swelling Physical Exam Vital Signs: Last Vital Signs Pulse 76 10/03/23 11:06 BP 168/73 H 10/03/23 11:06 BMI result Body Mass Index 32.3 Const General: cooperative, no acute distress, well developed and well groomed Nutritional Appearance: well nourished and obese Orientation/consciousness: oriented to person, oriented to place and oriented to time Limitations: No language barrier HEENT Head: Yes normocephalic and Yes atraumatic Eyes General: appearance normal, both eyes and all related structures Pupils: Equal, round and reactive pupils present Neck Neck: Yes normal visual inspection and Yes no lymphadenopathy Thyroid: Thyroid normal Resp Effort & Inspection: normal respiratory effort and able to speak in complete sentences Auscultation: clear to auscultation bilaterally Cardio Rate: regular rate Rhythm: regular rhythm Heart sounds: Murmur heart sound present systolic (very mild mitral) Peripheral pulses: radial pulses present and posterior tibial pulses present GI Inspection: No distended, No Abdominal panniculus present and Yes obesity Palpation (GI): Soft to palpation, nontender, no guarding, not rigid and No hepatosplenomegaly present Percussion: Yes normal to percussion Auscultation: normal bowel sounds Rectal Exam - Male: Yes deferred Skin General skin exam: no rashes or lesions noted, turgor normal, skin not dry, no jaundice, No spider nevi and no striae Rashes: no rashes Nails: normal Neuro General: oriented to person, oriented to place and oriented to time Cranial nerves: Yes Equal, round and reactive pupils present and Yes Normal hearing present Speech: No Abnormal speech present Extrem Other: orthotic for foot drop right foot General: Yes normal to inspection, No clubbing, No cyanosis, No edema and Yes Dysmorphic Psych Appearance: grossly normal and well kempt Mental Status: mental status grossly normal Speech and movement: Normal speech and movement present Affect: normal affect Attitude: cooperative Thought process: Normal thought process present and not confabulating Thought content: Normal thought content present Insight: Limited insight present (Psych) Judgement: Limited judgement present (Psych) Assessment & Plan Assessment & Plan (1) Mendez's esophagus: Comment: Dr. Barraza January 2012, last EGD 2020 scope biopsy shows uncontrolled inflammation in the distal esophagus repeat in 1 year Code(s): K22.70 - Mendez's esophagus without dysplasia Category: Medical Qualifiers: Mendez's esophagus type: with low grade dysplasia Qualified Code(s): K22.710 - Mendez's esophagus with low grade dysplasia (2) Sessile colonic polyp: Comment: 2020 scope, repeat 1 year Code(s): K63.5 - Polyp of colon Category: Medical Plan Patient has been lost to follow-up since 2020 The only new problem is that he has charcot foot right and toe amputation right foot. He is on omeprazole 40mg bid with good control of his GERD. He has some CIC but nothing concerning and no hard stool He had one episode when he had a hard time waking up (likely opioid and benzo combo) but not in subsequent procedures. He denies any cardiac or respiratory problems. No ID problems. He had a large sessile adenoma at his last colonoscopy. He also has Barretts esophagus. Orders: Orders EGD/Ball Ground Combo - GI Use Only Today K22.710 - Mendez's esophagus with low grade dysplasia, K63.5 - Polyp of colon Medications: New peg 3350-electrolytes 236-22.74-6.74 -5.86 gram (Golytely) until fecal effluent is clear; do not exceed a total volume of 2,000 mL 240 mL PO Q10M 4,000 mL 0RF 1 day Z12.11 - Encounter for screening for malignant neoplasm of colon bisacodyl (Dulcolax (bisacodyl)) 10 mg (2 x 5 mg) PO BEDTIME 4 tabs 0RF 2 days Coding Level of Care Code New Pt Level 3 (65262) Diagnoses Mendez's esophagus with low grade dysplasia K22.710 Mendez's esophagus type: with low grade dysplasia Sessile colonic polyp K63.5
[2023-10-03 11:06] VITALS: BP 168/73; PULSE 76; BMI 32.3
== END 2023-10-03 11:41 | disposition home or self-care (01) ==
PROVIDERS: PCP Internal Medicine; Visit Provider Nurse Practitioner
DX: K22.710 Barrett's esophagus with low grade dysplasia (principal); Z86.010 Personal history of colon polyps
CPT/HCPCS: 99213

== ENCOUNTER → 2023-10-03 10:54 | Outpatient (BNVA) | payer OTHER, SELFPAY | PROVIDERS: PCP Internal Medicine; Visit Provider Nurse Practitioner | DX: K22.710 Barrett's esophagus with low grade dysplasia (principal); K63.5 Polyp of colon; E66.9 Obesity, unspecified; Z68.32 Body mass index [BMI] 32.0-32.9, adult | CPT/HCPCS: 99212 ==

== ENCOUNTER 2023-12-11 08:31 | Outpatient (REF) | payer OTHER, SELFPAY ==
--- NOTE | ~2023-12-11 | US_ITS ---
EXAMINATION: COLOR-FLOW DUPLEX IMAGING OF THE BILATERAL LOWER EXTREMITY ARTERIAL SYSTEM, WITH VELOCITY MEASUREMENTS CLINICAL INFORMATION: This is a 58 year-old man with peripheral vascular disease status-post right toe amputation. Risk factors for peripheral vascular disease include hypertension, hyperlipidemia and diabetes. RIGHT FEMORAL RUNOFF VELOCITIES: The right common femoral artery peak systolic velocity is 89.4 cm/s. The waveform is biphasic. The right profunda femoral artery peak systolic velocity is 80.9 cm/s. The waveform is biphasic. The right proximal superficial femoral artery peak systolic velocity is 90.4 cm/s. The waveform is triphasic. The right mid superficial femoral artery peak systolic velocity is 78.1 cm/s. The waveform is triphasic. The right distal superficial femoral artery peak systolic velocity is 71.4 cm/s. The waveform is triphasic. The right popliteal artery peak systolic velocity is 53.3 cm/s. The waveform is triphasic. The right posterior tibial artery peak systolic velocity is 204.7 cm/s. The waveform is monophasic. LEFT FEMORAL RUNOFF VELOCITIES: The left common femoral artery peak systolic velocity is 124.9 cm/s. The waveform is triphasic. The left profunda femoral artery peak systolic velocity is 76.3 cm/s. The waveform is biphasic. The left proximal superficial femoral artery peak systolic velocity is 90.4 cm/s. The waveform is triphasic. The left mid superficial femoral artery peak systolic velocity is 106.8 cm/s. The waveform is triphasic. The left distal superficial femoral artery peak systolic velocity is 103.7 cm/s. The waveform is triphasic. The left popliteal artery peak systolic velocity is 65.3 cm/s. The waveform is triphasic. The left posterior tibial artery peak systolic velocity is 122.0 cm/s. The waveform is triphasic. US/US arterial duplex BI w/ SWAPNA IMPRESSION: 1. 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 2. There is mild to moderate stenosis of the left posterior tibial artery. Electronically signed by: Rehan Stanford MD 12/14/2023 12:36 AM EDT
== END 2023-12-11 08:32 | disposition home or self-care (01) ==
LOC: HO.US 08:31
PROVIDERS: PCP Internal Medicine; Visit Provider Surgery Vascular Surgery
DX: I73.9 Peripheral vascular disease, unspecified (principal)
CPT/HCPCS: 93922; 93925

== ENCOUNTER → 2023-12-12 14:33 | Outpatient (RCR) | payer OTHER, SELFPAY ==
[2020-10-04 08:16] VITALS: BP 207/99; PULSE 90; RESP 18; TEMP 36.8; O2SAT 97; BMI 32.9
--- NOTE | 2020-10-04 08:41 | P.CNHO_ITS ---
Subjective - Subjective Chief complaint: Rectal tumor Patient: new to practice Consult date: 10/04/20 Requesting Physician: Dr. Lizarraga Primary Care Provider: Zurdo Mccormick MD Medical Summary: diagnosis: Rectal carcinoid, recurrent HPI - Consult Narrative Reason for consult: rectal carcinoid tumor Narrative: Rehan Gramajo is a 55 year old male referred for management of recently diagnosed carcinoid of the rectum. He underwent screening EGD and colonoscopy. He has a history of Mendez's esophagus and in 2001 he had an incidentally found rectal carcinoid in polyp that was excised during Colonoscopy. He has no symptoms of change in bowel habits or hematochezia. He reports no abdominal discomfort. He gets occasional heartburn symptoms. No loss of appetite or weight loss. No symptoms of flushing or diarrhea. Review of Systems - Constitutional Reports as per HPI, Reports no additional constitutional complaints - Cardiovascular Reports no additional cardiovascular complaints - Respiratory Reports no additional respiratory complaints - Gastrointestinal Reports no additional gastrointestinal complaints Oncology Screenings - ECOG Performance Status ECOG Performance Status: 0 PMFSH Medical History: Medical History (Last Updated 09/27/20 @ 19:22 by Zurdo Mccormick MD) Mendez's esophagus Crohn's colitis HTN (hypertension) Hypercholesterolemia Obesity (BMI 30-39.9) Type 2 diabetes mellitus with hyperglycemia Vitamin D deficiency Family History: Family History (Last Updated 10/04/20 @ 08:22 by Mary Hollingsworth RN) Father Diabetes CVD (cardiovascular disease) Myocardial infarction Hypertension Mother CVD (cardiovascular disease) Myocardial infarction Hypertension Throat cancer Maternal Grandmother Gastric cancer Paternal Grandmother Myocardial infarction Maternal Aunt Gastric cancer Breast cancer Sister In good health Other Substance abuse Surgical History: Surgical History (Last Reviewed 09/26/20 @ 12:43 by Avis Lora CMA) History of umbilical hernia repair Social History: Social History (Last Reviewed 09/26/20 @ 12:44 by Avis Lora CMA) Living Situation History: Housing: House Alcohol History: Alcohol intake: never Tobacco History: Patient Tobacco Use Status: Never used Tobacco e-Cigarette/Vaping Use: Never Used Second Hand Smoke Exposure: Yes Occupation Assessmet: service: Yes service comment: Current occupational status: employed Current occupation: cook Home Medications and Allergies Home Medications Medication Instructions Recorded Confirmed Type empagliflozin 25 mg tablet 25 mg PO QAM 02/22/20 10/04/20 History dulaglutide 0.75 mg/0.5 mL 1.5 mg SUBCUT QWEEK ml 06/17/20 10/04/20 History subcutaneous pen injector omeprazole 20 mg capsule,delayed 20 mg PO DAILY 06/17/20 10/04/20 History release Allergies Allergy/AdvReac Type Severity Reaction Status Date / Time Penicillins [PENICILLINS] Allergy Intermediate HIVES Verified 09/26/20 12:42 lisinopril [LISINOPRIL] Allergy Unknown COUGH Verified 09/26/20 12:42 penicillin V Allergy Unknown rash Verified 09/26/20 12:42 Physical Exam Vital signs: Vital Signs Temp 98.2 F 10/04/20 08:16 Pulse 90 10/04/20 08:16 Resp 18 10/04/20 08:16 BP 207/99 H 10/04/20 08:16 Pulse Ox 97 10/04/20 08:16 Intake & Output 10/03/20 10/04/20 10/04/20 18:59 06:59 18:59 Other: Weight 92.6 kg Weight in Grams [id number] Weight 92.6 kg - Constitutional Present: no acute distress - Routine HEENT Exam Head: Present: normal inspection Eye: Present: EOMI - Routine Neck Exam Present: supple - Routine Respiratory Exam Absent: respiratory distress - Routine Cardiovascular Exam Cardiovascular: Present: S1, S2 - Routine Abdominal Exam Absent: distended - Routine Extremities Exam Absent: joint swelling, pedal edema - Routine Skin Exam Present: intact. Absent: cyanosis - Routine Neurological Exam Absent: sensory deficit, motor deficit Assessment and Plan (1) Carcinoid tumor Problem details: September 2020 colonoscopy rectal biopsy Status: Acute Qualifiers: Carcinoid tumor large intestine location: rectum 1. This is a 55-year-old man who has been diagnosed with rectal carcinoid tumor. Colonoscopy performed on 09/22/2020 revealed distal rectal polyp, pathology well-differentiated neuroendocrine tumor, carcinoid extending to cauterized base. Tumor size 3 mm, unifocal, well-differentiated, grade 1, mitotic rate 0, Ki 67 1%, deep margin positive. No LVI. TNM stage pT1a NX, AJCC stage I. ascending colon polypectomy revealed fragments of colonic mucosa with low- grade adenomatous dysplasia. Multiple other polyps which were hyperplastic were excised. EGD with multiple biopsies revealed Mendez's esophagus with background of moderate chronic inactive inflammation, no dysplasia seen. patient states that he is having another colonoscopy in November to re-evaluate a suspicious area and has colon. I have explained to patient that this incidentally found early stage well- differentiated carcinoid tumor has a very good prognosis. He had a similar lesion removed in 2001, negative margins were not achieved at that time. He has now a recurrence, probably in the same area of the rectum. I therefore am referring him to surgery, Dr. Macedo to see if a local excision can be performed in order to achieve negative margins. He does not have symptoms of carcinoid tumor. Therefore further blood work or staging scans are not necessary. I thank you very much for this consultation. Follow-up in 3 months.
--- NOTE | 2020-10-04 10:58 | MHC.HEMONC ---
pt here for Consultation for neuroendocrine tumor in rectum. He is accompanied by his sister. He denies any pain or bowel sx. It is early stage and Dr Maza will be sending him to f/u with Dr Macedo as margins are not clear. F/U here in 3 mos.
--- NOTE | 2020-10-04 12:50 | MHC.HEMONC ---
pt will be seeing Dr Macedo on 10/13/20 at 3:45. I informed his siter, Bernie who accompanies [facility] to [facility].
== END | disposition home or self-care (01) ==
LOC: HO.ONC 10-04 07:42
PROVIDERS: PCP Internal Medicine; Referring Provider Internal Medicine Gastroenterology; Visit Provider Internal Medicine
DX: D3A.026 Benign carcinoid tumor of the rectum (principal)
CPT/HCPCS: 99204

== ENCOUNTER 2023-12-14 10:20 | Inpatient (IN) | payer OTHER, SELFPAY ==
--- NOTE | ~2023-12-14 | MR_ITS ---
EXAMINATION: MR FOOT WITHOUT AND WITH CONTRAST, RIGHT CLINICAL INFORMATION: Right second toe diabetic ulcer. Evaluate for osteomyelitis. COMPARISON: Right foot radiographs dated 12/14/2023. TECHNIQUE: MRI of the right foot was performed before and after the intravenous administration of 10 mL Gadavist on a high-field scanner. FINDINGS: Soft tissue ulceration at the distal aspect of the second toe measuring up to 1.1 cm in clinical dimension with adjacent skin thickening, suggesting is edema, and postcontrast enhancement, consistent with acute cellulitis. No organized fluid collection or abscess formation. Attenuation/blunting at the tuft of the second distal phalanx with significant increased T2 and decreased T1 signal as well as postcontrast enhancement, consistent with acute osteomyelitis. Resection of the first metatarsal and first phalanx. No additional marrow edema. No metatarsal stress reaction or fracture. No concerning lytic or blastic osseous lesion. Diffuse atrophy and edema throughout the intrinsic muscles of the foot, which can be seen in diabetic patients. No transverse tendon tear or tendon retraction. Intact Lisfranc ligament. Prominent circumferential simultaneous edema without additional enhancement organizing fluid collection. MR/MR foot RT wo/w con IMPRESSION: 1. Soft tissue ulceration and cellulitis at the distal aspect of the second toe with associated osteomyelitis at the tuft of the second distal phalanx. 2. Resection of the first metatarsal and first phalanx. 3. Prominent circumferential subcutaneous edema without additional enhancement or organizing fluid collection. Electronically signed by: Jamar Kaur MD 12/17/2023 12:36 PM EDT
--- NOTE | ~2023-12-14 | XR_ITS ---
EXAMINATION: XR FOOT, RIGHT CLINICAL INFORMATION: Bruising 2nd toe after hitting telephone call. COMPARISON: X-rays of the right foot June 2022 TECHNIQUE: AP, lateral, and oblique views of the right foot. FINDINGS: Postsurgical changes related to amputation distal to the level of the distal 1st metatarsal. The sesamoids remain in place. Surrounding soft tissues are unremarkable. There is no fracture. There is extensive degenerative changes and malalignment in the midfoot consistent with persistent neuropathic arthropathy most notable at the tarsometatarsal joints. There is plantar subluxation of the navicular with related to the head of the talus There is a plantar calcaneal spur. Old ununited fracture versus type II accessory navicular unchanged. XR/XR foot RT min 3V IMPRESSION: 1. No acute abnormality. 2. Postsurgical changes related to amputation distal to the level of the distal 1st metatarsal. 3. 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 Electronically signed by: Hood Dixon MD 12/14/2023 11:01 AM EDT
[2023-12-14 10:31] VITALS: BP 172/81; PULSE 108; RESP 20; TEMP 37.4; O2SAT 96; BMI 33.4
[2023-12-14 10:49] LABS: MANUAL DIFF FLAG NO
[2023-12-14 11:02] LABS: COVID-19 Test Negative (Negative); IDNOW Serial# 08D9AD1C
[2023-12-14 11:06] LABS: Basophils Percent Auto 0.2 % (0-2); Eosinophils Percent Auto 0.1 % (0-4); Hemoglobin 13.3 g/dl (14.0-18.0); Imm Gran Abs Auto 0.03 X10*3/uL (0.00-0.03); Imm Gran Pct Auto 0.4 % (0.0-0.4); Lymphocytes Absolute Auto 0.4 X10*3/uL (1.2-4.9); Lymphocytes Percent Auto 4.4 % (20-40); Mean Corpuscular HGB Conc 34.1 g/dl (31.0-36.0); Mean Corpuscular Hemoglobin 27.4 pg (27.0-33.0); Mean Corpuscular Volume 80.2 fL (80.0-98.0); Mean Platelet Volume 11.4 fL (9.4-12.4); Monocytes Absolute Auto 0.7 X10*3/uL (0.1-1.2); Monocytes Percent Auto 7.9 % (2-11); Neutrophils Absolute Auto 7.1 x10*3/uL (2.0-8.3); Platelet Count 203 X10*3/uL (160-400); Red Blood Count 4.86 X10*6/uL (4.60-5.80); Red Cell Distribution Width 13.3 % (11.0-16.0); White Blood Count 8.2 X10*3/uL (4.8-10.8)
--- NOTE | 2023-12-14 11:20 | ED_ITS ---
HPI - General Adult General Chief complaint: Extremity Injury, Lower Stated complaint: tip and bottom of toe is black, diabetic Time Seen by Provider: 12/14/23 11:41 Source: patient, family, RN notes reviewed and old records reviewed Mode of arrival: ambulatory History of Present Illness ED Provider: Lizeth Mckinney PA-C HPI narrative: 58-year-old male with a past medical history of diabetes, diabetic neuropathy, Charcot joint disease, HTN, HLD, right great toe amputation, presenting to the ED complaining of right 2nd toe erythema, swelling, & black noted this morning. Admits to banging foot on car yesterday prior to sx starting. POC at home 306. Also reports dry cough. Admits to similar symptoms in the past prior to right great toe amputation. Denies fever/chills, CP/SOB Related Data Home Medications ?Medication ?Instructions ?Recorded ?Confirmed omeprazole 40 mg capsule,delayed 40 mg PO DAILY PRN Acid Reflux 04/03/22 12/14/23 release metformin 500 mg tablet,extended 1,000 mg PO BID 12/14/23 12/14/23 release 24 hr Previous Rx's ?Medication ?Instructions ?Recorded empagliflozin 25 mg tablet 25 mg PO QAM 90 days #90 tabs 06/18/22 hydralazine 50 mg tablet 50 mg PO TID 30 days #90 tabs 08/23/23 dulaglutide 1.5 mg/0.5 mL 1.5 mg (0.5 mL) subcut QWEEK 30 09/13/23 subcutaneous pen injector days #2.5 mL fenofibrate 160 mg tablet 160 mg PO DAILY 90 days #90 tabs 09/13/23 metoprolol succinate 200 mg 200 mg PO DAILY 90 days #90 tabs 09/13/23 tablet,extended release 24 hr bisacodyl 5 mg tablet,delayed 10 mg (2 x 5 mg) PO BEDTIME 2 days 10/03/23 release (Dulcolax (bisacodyl)) #4 tabs amlodipine 10 mg tablet 10 mg PO DAILY 90 days #90 tabs 11/16/23 losartan 100 mg tablet 100 mg PO DAILY 90 days #90 tabs 12/11/23 Allergies Allergy/AdvReac Type Severity Reaction Status Date / Time lisinopril [LISINOPRIL] Allergy Intermediate COUGH Verified 09/07/24 10:36 Penicillins [PENICILLINS] Allergy Intermediate HIVES Verified 12/14/23 10:36 Review of Systems 2 Review of Systems: Yes all other systems are reviewed and are negative Constitutional: Constitutional: Reports as per [facility] Past Medical History Attestation statement: The following information was validated with the patient. Source: old records reviewed Medical History Peripheral neuropathy Diabetes Charcot's joint of right foot COVID-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 Rectal carcinoid tumor Crohn's colitis Vitamin D deficiency Obesity (BMI 30-39.9) Mendez's esophagus Hypercholesterolemia Type 2 diabetes mellitus with hyperglycemia HTN (hypertension) Surgical History Amputation of right great toe (04/10/22) History of esophagogastroduodenoscopy (EGD) H/O colonoscopy History of umbilical hernia repair Family History Family History Father Diabetes CVD (cardiovascular disease) Myocardial infarction Hypertension Mother CVD (cardiovascular disease) Myocardial infarction Hypertension Throat cancer Maternal Grandmother Gastric cancer Paternal Grandmother Myocardial infarction CVD (cardiovascular disease) Maternal Aunt Gastric cancer Breast cancer Sister In good health Maternal Grandfather CVD (cardiovascular disease) Paternal Grandfather CVD (cardiovascular disease) Other Substance abuse Social History Social History Household Members: Family Housing: House Are you a primary care consultant to a significant other at home: No Do you presently have visiting nurse or other home services: No Alcohol intake: never Comment: pt refuse bed alarm Patient Tobacco Use Status: Never used Tobacco Smoked in Last 30 Days: No e-Cigarette/Vaping Use: Never Used Second Hand Smoke Exposure: Yes Use of substances other than those prescribed or required for medical reasons: No Advance Directives: No Advance Directives Information Provided: No service: Yes ([employer]) Current occupational status: employed Current occupation: cook Cognitive needs: No Hearing needs: No Vision needs: Yes Physical Exam ED Vital Signs: Vital Signs - 24 hr 12/14/23 10:31 Temperature 99.4 F Pulse Rate 108 H Respiratory Rate 20 Blood Pressure 172/81 H Pulse Oximetry 96 Oxygen Delivery Method Room Air BMI result Body Mass Index 33.4 Const General: cooperative, healthy appearing and no acute distress Orientation/consciousness: patient oriented x3 Limitations: no limitations HENMT Head: Yes normal to inspection and Yes atraumatic Ears: hearing grossly normal bilaterally General nose exam: Normal external nose present Face and sinus: Yes normal facial exam Eyes General: appearance normal, both eyes and all related structures EOM: EOMs intact bilaterally Neck Neck: Yes normal visual inspection and Yes no meningeal signs Resp Effort & Inspection: normal respiratory effort and no respiratory distress Auscultation: clear to auscultation bilaterally Cardio Rate: regular rate Heart sounds: S1 normal heart sound present and S2 normal heart sound present GI Inspection: Yes normal to inspection Palpation (GI): Soft to palpation, nontender, no guarding and not rigid General: Yes no CVA tenderness Back/Spine/Pelvis Back: no CVA tenderness Skin Rashes: no rashes Neuro General: patient oriented x3, tone normal and no meningeal signs Cranial nerves: Yes CN's II-XII intact bilaterally Gait exam (Neuro): Normal gait present Extrem Other: Please refer to images above. Right 2nd toe with swelling, erythema, and necrotic looking wound. Neurovascularly intact. No malodor or drainage Course Course Course Narrative: RME performed by Caroline Sher PA-C. Patient is a 58 year old assigned male at presenting to the emergency department with right 2nd toe issues. Patient states he banged his right 2nd toe in his car and it is black. Patient states that the last time this happened, he had to have his toe removed because of his diabetes. Detailed physical exam and review of systems are deferred to the impregnating tank operator. Labs and imaging ordered. Patient placed back in the waiting room pending room availability and results. -no leukocytosis. Sodium correction for hyperglycemia WNL XR foot RT min 3V IMPRESSION: 1. No acute abnormality. 2. Postsurgical changes related to amputation distal to the level of the distal 1st metatarsal. 3. 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 > case discussed with general surgery, Dr. Mckeon, plan to admit to surgical service for IV antibiotics Medications Administered Generic Name Dose Route Start Last Admin Trade Name Freq PRN Reason Stop Dose Admin Empagliflozin 25 mg 12/14/23 14:30 12/14/23 15:48 Empagliflozin 25 Mg Tablet PO 25 mg DAILY OBI Administration Enoxaparin Sodium 40 mg 12/14/23 13:30 12/14/23 15:51 Enoxaparin Sodium 40 Mg/0.4 Ml Syringe SUBCUT 40 mg Q24H OBI Administration Hydralazine HCl 50 mg 12/14/23 14:25 12/14/23 15:52 Hydralazine Hcl 50 Mg Tablet PO 50 mg TID OBI Administration Protocol Sodium Chloride 1,000 mls @ 100 mls/hr 12/14/23 13:30 12/14/23 15:44 Sodium Chloride 0.45 % IVCONT 100 mls/hr .Q10H OBI Administration Omeprazole 40 mg 12/14/23 14:20 12/14/23 15:52 Omeprazole 40 Mg Capsule.Dr PO 40 mg DAILY@0630 OBI Administration Sodium Chloride 3 ml 12/14/23 16:00 12/14/23 15:53 0.9 % Sodium Chloride Flush 3 Ml Syringe IVFLUSH 3 ml QSHIFT OBI Administration Discontinued Medications Generic Name Dose Route Start Last Admin Trade Name Freq PRN Reason Stop Dose Admin Ceftriaxone Sodium 1 gm/ 50 mls @ 100 mls/hr 12/14/23 12:02 12/14/23 13:20 Sodium Chloride IV 12/14/23 12:31 Infused ONCE ONE Infusion Vancomycin HCl 2,000 mg in 500 mls @ 250 mls/hr 12/14/23 12:02 12/14/23 15:40 Vancomycin/Ns IV 12/14/23 14:01 Infused ONCE ONE Infusion Ceftriaxone Sodium 1 gm/ 50 mls @ 100 mls/hr 12/14/23 13:30 12/14/23 15:55 Sodium Chloride IV Not Given Q12H [facility] Medical Decision Making Medical Decision Making MDM Narrative: 58-year-old male with a past medical history of diabetes, diabetic neuropathy, Charcot joint disease, HTN, HLD, right great toe amputation, presenting to the ED complaining of right 2nd toe erythema, swelling, & black noted this morning. On exam tachycardic, low-grade fever 99.4, NAD/nontoxic appearing, please refer to images above. Concern for necrotic toe vs osteomyelitis for cellulitis. Rule out fracture. Low suspicion for bacteremia at this time. Plan: Labs, lactic/blood cultures, x-ray, anticipated admission Please refer to course for remaining clinical decision making, interpretation of labs/imaging results, and discussions with consultants and/or family members. Differential Diagnosis Differential Diagnoses: The differential diagnosis associated with the presentation includes As above Admission/Observation Consideration of admission/observation: Escalation of care including admission/observation considered Consult Healthcare Provider Management of the patient was discussed with: Hospitalist and Computer Engineering Technologist (General surgery) Lab Data MDM Lab Attestation statement: I reviewed the patient's lab results. 12/14/23 10:45 12/14/23 10:45 Labs: Lab Results 12/14/23 12/14/23 Range/Units 10:45 12:36 WBC 8.2 (4.8-10.8) X10*3/uL RBC 4.86 (4.60-5.80) X10*6/uL Hgb 13.3 L (14.0-18.0) g/dl Hct 39.0 L (42.0-52.0) % MCV 80.2 (80.0-98.0) fL MCH 27.4 (27.0-33.0) pg MCHC 34.1 (31.0-36.0) g/dl RDW 13.3 (11.0-16.0) % Plt Count 203 (160-400) X10*3/uL MPV 11.4 (9.4-12.4) fL Immature Gran % (Auto) 0.4 (0.0-0.4) % Neut % (Auto) 87.0 H (45-73) % Lymph % (Auto) 4.4 L (20-40) % [place] % (Auto) 7.9 (2-11) % Eos % (Auto) 0.1 (0-4) % Baso % (Auto) 0.2 (0-2) % Lymph # (Auto) 0.4 L (1.2-4.9) X10*3/uL [place] # (Auto) 0.7 (0.1-1.2) X10*3/uL Eos # (Auto) 0.0 (0.0-0.4) X10*3/uL Baso # (Auto) 0.0 (0.0-0.2) X10*3/uL Abs Immat Gran (auto) 0.03 (0.00-0.03) X10*3/uL Absolute Neuts (auto) 7.1 (2.0-8.3) x10*3/uL Absolute Nucleated RBC 0.000 (0.0-0.012) X10*3/uL Nucleated RBC % (auto) 0.0 (0.0-0.2) /100WBC ESR 13 (0-15) MM/HR Sodium 132 L (135-145) mmol/L Potassium 4.9 (3.3-5.1) mmol/L Chloride 101 (96-108) mmol/L Carbon Dioxide 24 (22-29) mmol/L Anion Gap 12 (12-20) BUN 17 H (9-16) mg/dL Creatinine 1.10 (0.5-1.4) mg/dL Estim Creat Clear Calc 75.1 Estimated GFR > 60 Random Glucose 224 H (60-115) mg/dL Lactic Acid 0.8 (0.5-2.0) mmol/L Calcium 9.5 (8.4-10.2) mg/dL Magnesium 2.1 (1.6-2.6) mg/dL Total Bilirubin 0.6 (0.0-1.0) mg/dL AST 11 (5-37) U/L ALT 17 (0-40) U/L Alkaline Phosphatase 54 (39-117) U/L C-Reactive Protein 7.34 H (< or = 0.50) mg/dL Total Protein 7.3 (6.5-8.0) g/dL Albumin 4.2 (3.5-5.0) g/dL COVID-19 (ELBA) Negative (Negative) COVID-19 Clin Com See Note Independent Interpretation I performed an independent interpretation of an: Plain X-Ray Radiology Impression Discussion of test interpretation with radiology: I have reviewed the radiologist's reading. Independent Historian Clinical information obtained from an independent historian. History obtained from or confirmed by: Spouse External Record Review External record reviewed: Inpatient record, Office record, Outpatient record, Prior outpatient labs, Prior outpatient radiology, Primary care record and Outside ED record Tests considered The following testing was considered but not selected: As above Prescription Management I considered prescription management with: Pain Medication and Antibiotic Chronic Conditions Patient?s care impacted by: Diabetes Critical Care Time Critical Care Time Critical Care Time: Yes Total Critical Care Time: 45 Attestation: I have personally provided critical care time exclusive of time spent on separately billable procedures. Time includes review of lab data, radiology results, discussion with consultants, and monitoring for potential decompensation. Intervention performed as documented. Discharge Plan Discharge Clinical Impression: Open toe wound, Necrosis Cellulitis Qualifiers: Site of cellulitis: extremity Site of cellulitis of extremity: toe Laterality: right Qualified Code(s): L03.031 - Cellulitis of right toe Patient Disposition: Admitted As Inpatient
[2023-12-14 11:35] LABS: Alanine Aminotransferase 17 U/L (0-40); Albumin Level 4.2 g/dL (3.5-5.0); Alkaline Phosphatase 54 U/L (39-117); Anion Gap 12 (12-20); Aspartate Amino Transferase 11 U/L (5-37); Bilirubin Total 0.6 mg/dL (0.0-1.0); Blood Urea Nitrogen 17 mg/dL (9-16); Calcium 9.5 mg/dL (8.4-10.2); Carbon Dioxide 24 mmol/L (22-29); Chloride 101 mmol/L (96-108); Creatinine Clr Calc Pharmacy 75.1; Estimated Glomerular Filt Rate > 60; Glucose Random 224 mg/dL (60-115); Potassium 4.9 mmol/L (3.3-5.1); Sodium 132 mmol/L (135-145); Total Protein 7.3 g/dL (6.5-8.0)
--- NOTE | 2023-12-14 11:59 | ED.LOWEXIN ---
HPI - Extremity Injury (Lower) General Chief Complaint: Extremity Injury, Lower Stated Complaint: tip and bottom of toe is black, diabetic Time Seen by Provider: 12/14/23 11:41 History of Present Illness HPI Narrative: 58-year-old male with a past medical history of diabetes, diabetic neuropathy, Charcot joint disease, HTN, HLD, right great toe amputation, presenting to ED Related Data Home Medications ?Medication ?Instructions ?Recorded ?Confirmed omeprazole 40 mg capsule,delayed 40 mg PO DAILY PRN Acid Reflux 04/03/22 08/23/23 release Previous Rx's ?Medication ?Instructions ?Recorded metformin 500 mg tablet 500 mg PO BID 90 days #180 tabs 01/17/21 empagliflozin 25 mg tablet 25 mg PO QAM 90 days #90 tabs 06/18/22 hydralazine 50 mg tablet 50 mg PO TID 30 days #90 tabs 08/23/23 dulaglutide 1.5 mg/0.5 mL 1.5 mg (0.5 mL) subcut QWEEK 30 09/13/23 subcutaneous pen injector days #2.5 mL fenofibrate 160 mg tablet 160 mg PO DAILY 90 days #90 tabs 09/13/23 metoprolol succinate 200 mg 200 mg PO DAILY 90 days #90 tabs 09/13/23 tablet,extended release 24 hr bisacodyl 5 mg tablet,delayed 10 mg (2 x 5 mg) PO BEDTIME 2 days 10/03/23 release (Dulcolax (bisacodyl)) #4 tabs peg 3350-electrolytes 236 240 ml PO Q10M 1 day #4,000 mL 10/03/23 gram-22.74 gram-6.74 gram-5.86 gram solution (Golytely) amlodipine 10 mg tablet 10 mg PO DAILY 90 days #90 tabs 11/16/23 losartan 100 mg tablet 100 mg PO DAILY 90 days #90 tabs 12/11/23 Allergies Allergy/AdvReac Type Severity Reaction Status Date / Time lisinopril [LISINOPRIL] Allergy Intermediate COUGH Verified 12/14/23 10:36 Penicillins [PENICILLINS] Allergy Intermediate HIVES Verified 12/14/23 10:36 [facility] Past Medical History Medical History Peripheral neuropathy Diabetes Charcot's joint of right foot COVID-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 Rectal carcinoid tumor Crohn's colitis Vitamin D deficiency Obesity (BMI 30-39.9) Mendez's esophagus Hypercholesterolemia Type 2 diabetes mellitus with hyperglycemia HTN (hypertension) Surgical History Amputation of right great toe (04/10/22) History of esophagogastroduodenoscopy (EGD) H/O colonoscopy History of umbilical hernia repair Family History Family History Father Diabetes CVD (cardiovascular disease) Myocardial infarction Hypertension Mother CVD (cardiovascular disease) Myocardial infarction Hypertension Throat cancer Maternal Grandmother Gastric cancer Paternal Grandmother Myocardial infarction CVD (cardiovascular disease) Maternal Aunt Gastric cancer Breast cancer Sister In good health Maternal Grandfather CVD (cardiovascular disease) Paternal Grandfather CVD (cardiovascular disease) Other Substance abuse Social History Social History Household Members: Family Housing: House Are you a primary child care center administrator to a significant other at home: No Do you presently have visiting nurse or other home services: No Alcohol intake: never Comment: pt refuse bed alarm Patient Tobacco Use Status: Never used Tobacco e-Cigarette/Vaping Use: Never Used Second Hand Smoke Exposure: Yes service: Yes ([employer]) Current occupational status: employed Current occupation: cook Cognitive needs: No Hearing needs: No Vision needs: Yes Physical Exam Vital Signs: Vital Signs: Last Vital Signs Temp 99.4 F 12/14/23 10:31 Pulse 108 H 12/14/23 10:31 Resp 20 12/14/23 10:31 BP 172/81 H 12/14/23 10:31 Pulse Ox 96 12/14/23 10:31 O2 Del Method Room Air 12/14/23 10:31 BMI result Body Mass Index 33.4 Medical Decision Making Lab Data 12/14/23 10:45 12/14/23 10:45 Labs: Lab Results 12/14/23 Range/Units 10:45 WBC 8.2 (4.8-10.8) X10*3/uL RBC 4.86 (4.60-5.80) X10*6/uL Hgb 13.3 L (14.0-18.0) g/dl Hct 39.0 L (42.0-52.0) % MCV 80.2 (80.0-98.0) fL MCH 27.4 (27.0-33.0) pg MCHC 34.1 (31.0-36.0) g/dl RDW 13.3 (11.0-16.0) % Plt Count 203 (160-400) X10*3/uL MPV 11.4 (9.4-12.4) fL Immature Gran % (Auto) 0.4 (0.0-0.4) % Neut % (Auto) 87.0 H (45-73) % Lymph % (Auto) 4.4 L (20-40) % [place] % (Auto) 7.9 (2-11) % Eos % (Auto) 0.1 (0-4) % Baso % (Auto) 0.2 (0-2) % Lymph # (Auto) 0.4 L (1.2-4.9) X10*3/uL [place] # (Auto) 0.7 (0.1-1.2) X10*3/uL Eos # (Auto) 0.0 (0.0-0.4) X10*3/uL Baso # (Auto) 0.0 (0.0-0.2) X10*3/uL Abs Immat Gran (auto) 0.03 (0.00-0.03) X10*3/uL Absolute Neuts (auto) 7.1 (2.0-8.3) x10*3/uL Absolute Nucleated RBC 0.000 (0.0-0.012) X10*3/uL Nucleated RBC % (auto) 0.0 (0.0-0.2) /100WBC Sodium 132 L (135-145) mmol/L Potassium 4.9 (3.3-5.1) mmol/L Chloride 101 (96-108) mmol/L Carbon Dioxide 24 (22-29) mmol/L Anion Gap 12 (12-20) BUN 17 H (9-16) mg/dL Creatinine 1.10 (0.5-1.4) mg/dL Estim Creat Clear Calc 75.1 Estimated GFR > 60 Random Glucose 224 H (60-115) mg/dL Calcium 9.5 (8.4-10.2) mg/dL Total Bilirubin 0.6 (0.0-1.0) mg/dL AST 11 (5-37) U/L ALT 17 (0-40) U/L Alkaline Phosphatase 54 (39-117) U/L Total Protein 7.3 (6.5-8.0) g/dL Albumin 4.2 (3.5-5.0) g/dL COVID-19 (EL[facility]) Negative (Negative) COVID-19 Clin Com See Note Discharge Plan Discharge Prescriptions: No Action empagliflozin 25 mg tablet 25 mg PO QAM 90 Days Qty: 90 2RF metoprolol succinate 200 mg tablet extended release 24 hr 200 mg PO DAILY 90 Days Qty: 90 0RF fenofibrate 160 mg tablet 160 mg PO DAILY 90 Days Qty: 90 0RF dulaglutide 1.5 mg/0.5 mL pen injector 1.5 mg subcut QWEEK 30 Days Qty: 2.5 3RF amlodipine 10 mg tablet 10 mg PO DAILY 90 Days Qty: 90 0RF losartan 100 mg tablet 100 mg PO DAILY 90 Days Qty: 90 0RF omeprazole 40 mg capsule,delayed release(DR/EC) 40 mg PO DAILY PRN (Reason: Acid Reflux) metformin 500 mg tablet 500 mg PO BID 90 Days Qty: 180 1RF hydralazine 50 mg tablet 50 mg PO TID 30 Days Qty: 90 3RF Protocol: Hold for SBP< HOLD for SBP < : 90 peg 3350-electrolytes [Golytely] 236-22.74-6.74 -5.86 gram recon soln 240 ml PO Q10M 1 Days Qty: 4000 0RF Rx Instructions: until fecal effluent is clear; do not exceed a total volume of 2,000 mL bisacodyl [Dulcolax (bisacodyl)] 5 mg tablet,delayed release (DR/EC) 10 mg PO BEDTIME 2 Days Qty: 4 0RF Print Language: Slovenian
[2023-12-14 12:21] LABS: C Reactive Protein 7.34 mg/dL (< or = 0.50); Magnesium 2.1 mg/dL (1.6-2.6)
[2023-12-14] MEDS: cefTRIAXone sodium 1 GM in 0.9 % Sodium Chloride 50 ML IV ×2 (12:44→23:46)
[2023-12-14 12:53] LABS: Erythrocyte Sedimentation Rate 13 MM/HR (0-15)
[2023-12-14 12:54] LABS: Lactic Acid 0.8 mmol/L (0.5-2.0)
--- NOTE | 2023-12-14 13:29 | P.HPGS_ITS ---
History of Present Illness History of Present Illness Date of Service: 12/14/23 Chief complaint: Diabetic ulcer right 2nd toe Narrative: Rehan Gramajo is a 58 year old male presenting with a 1 day history of a red swollen 2nd toe right foot. The patient has a previous history of diabetes mellitus, non-insulin dependent, diabetic neuropathy, Charcot joint disease, hypertension, hyperlipidemia, and previous right great toe osteomyelitis. He subsequently underwent a right great toe amputation in 2021. This morning he was noted to have a cough and an elevated glucose level. His family then examined his foot and revealed a black change on the right 2nd toe. He apparently banged the toe yesterday (12/13/2023) when getting into the car. He denies a previous infection in this toe prior to yesterday. He subsequently presented to the emergency department for further evaluation. His WBC and lactate levels were normal however glucose level was 224 and C-reactive protein was elevated at 7.34. X-ray of the right foot revealed no acute abnormality with postoperative changes following the right great toe amputation. He is admitted to the surgical service for IV antibiotics and possible debridement of the right 2nd toe. Review of Systems Review of Systems: Yes all other systems are reviewed and are negative Constitutional: Constitutional: Denies chills, Denies fever(s), Denies headache(s), Denies poor appetite and Denies weakness ENT: Denies headache(s) Cardiovascular: Cardiovascular: Denies chest pain, Denies irregular heart rhythm, Denies palpitations and Denies dyspnea Respiratory: Respiratory: Denies cough, Denies excessive phlegm production and Denies dyspnea Gastrointestinal: Gastrointestinal: Denies abdominal pain, Denies bloating, De nies change in bowel habits, Denies constipation, Denies heartburn, Denies diarrhea, Denies nausea and Denies vomiting Genitourinary: Genitourinary: Denies difficulty urinating and Denies urinary frequency Musculoskeletal: Musculoskeletal: Reports as per HPI, Denies back pain, Denies muscle weakness and Reports numbness Integumentary/Breasts: Skin/Breast: Denies changing lesions and Denies unusual bruising Neurologic: Denies headache(s), Reports numbness, Denies paresthesias and Denies weakness Psychiatric: Psychiatric: Denies anxiety and Denies depression Endocrine: Endocrine: Denies palpitations Hematologic/Lymphatic: Hematologic/Lymphatic: Denies lymphadenopathy PMFSH Past Medical History Medical History Peripheral neuropathy Diabetes Charcot's joint of right foot COVID-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 Rectal carcinoid tumor Crohn's colitis Vitamin D deficiency Obesity (BMI 30-39.9) Mendez's esophagus Hypercholesterolemia Type 2 diabetes mellitus with hyperglycemia HTN (hypertension) Family History Family History Father Diabetes CVD (cardiovascular disease) Myocardial infarction Hypertension Mother CVD (cardiovascular disease) Myocardial infarction Hypertension Throat cancer Maternal Grandmother Gastric cancer Paternal Grandmother Myocardial infarction CVD (cardiovascular disease) Maternal Aunt Gastric cancer Breast cancer Sister In good health Maternal Grandfather CVD (cardiovascular disease) Paternal Grandfather CVD (cardiovascular disease) Other Substance abuse Surgical History Surgical History Amputation of right great toe (04/10/22) History of esophagogastroduodenoscopy (EGD) H/O colonoscopy History of umbilical hernia repair Social History Social History Household Members: Family Housing: House Are you a primary geriatric care manager to a significant other at home: No Do you presently have visiting nurse or other home services: No Alcohol intake: never Comment: pt refuse bed alarm Patient Tobacco Use Status: Never used Tobacco e-Cigarette/Vaping Use: Never Used Second Hand Smoke Exposure: Yes Advance Directives: No Advance Directives Information Provided: No service: Yes ([employer]) Current occupational status: employed Current occupation: [employer] Cognitive needs: No Hearing needs: No Vision needs: Yes Meds Allergies Allergy/AdvReac Type Severity Reaction Status Date / Time lisinopril [LISINOPRIL] Allergy Intermediate COUGH Verified 12/14/23 10:36 Penicillins [PENICILLINS] Allergy Intermediate HIVES Verified 12/14/23 10:36 Active Medications: Current Medications Acetaminophen (Acetaminophen 325 Mg Tablet) 650 mg PO Q6H PRN PRN Reason: Pain, Mild (Pain Scale 1-3), fever or headache Calcium Carbonate (Calcium Carbonate 750 Mg Tab.Chew) 750 mg PO Q4H PRN PRN Reason: Heartburn Enoxaparin Sodium (Enoxaparin Sodium 40 Mg/0.4 Ml Syringe) 40 mg SUBCUT Q24H OBI Glucose (Glucose Gel 15 Gm Gel..Gram.) 15 gm PO Q15M PRN; Protocol PRN Reason: per Hypoglycemia Standing Ord. Hydromorphone HCl (Hydromorphone Hcl 0.5 Mg/0.5 Ml Syringe) 0.5 mg IVPUSH Q3H PRN; Protocol PRN Reason: Pain, Severe (Pain Scale 7-10) Vancomycin HCl (Vancomycin/Ns) 2,000 mg in 500 mls @ 250 mls/hr IV ONCE ONE Stop: 12/14/23 14:01 Sodium Chloride (Sodium Chloride 0.45 %) 1,000 mls @ 100 mls/hr IVCONT .Q10H [facility] Dextrose (D10) 250 mls @ 750 mls/hr IV Q15M PRN; Protocol PRN Reason: per Hypoglycemia Standing Ord. Ceftriaxone Sodium 1 gm/ (Sodium Chloride) 50 mls @ 100 mls/hr IV Q12H [facility] Insulin Human Lispro (Insulin Lispro 100 Unit/Ml 3 Ml Vial) 0 unit SUBCUT QIDACHS [facility]; Protocol Melatonin (Melatonin 3 Mg Tablet) 6 mg PO BEDTIME PRN PRN Reason: Insomnia Ondansetron HCl (Ondansetron Hcl 4 Mg/2 Ml Vial) 4 mg IVPUSH Q8H PRN PRN Reason: Nausea and Vomiting Oxycodone HCl (Oxycodone Hcl Immed Release 5 Mg Tablet) 5 mg PO Q6H PRN PRN Reason: Pain, Moderate(Pain Scale 4-6) Pharmacy Consult (Consult Rx Vancomycin Dosing) 1 each MISCELLANE DAILY PRN PRN Reason: Consult order Polyethylene Glycol (Polyethylene Glycol 3350 17 Gm Powd.Pack) 17 gm PO DAILY PRN PRN Reason: Constipation Sodium Chloride (0.9 % Sodium Chloride Flush 3 Ml Syringe) [facility] Medications ?Medication ?Instructions ?Recorded ?Confirmed ?Last Taken ?Type omeprazole 40 mg capsule,delayed 40 mg PO DAILY PRN Acid Reflux 04/03/22 08/23/23 04/03/22 History release Physical Exam Vital Signs: Vital Signs: Last Vital Signs Temp 99.4 F 12/14/23 10:31 Pulse 108 H 12/14/23 10:31 Resp 20 12/14/23 10:31 BP 172/81 H 12/14/23 10:31 Pulse Ox 96 12/14/23 10:31 O2 Del Method Room Air 12/14/23 10:31 BMI result Body Mass Index 33.4 Const: General: cooperative and no acute distress Nutritional Appearance: well nourished Orientation/consciousness: patient oriented x3 Limitations: no limitations HEENT: Head: Yes normocephalic and Yes atraumatic Ears: hearing grossly normal bilaterally Resp: Effort & Inspection: normal respiratory effort, no audible wheezes, no cough and no respiratory distress Cardio: Jugular venous distension: no JVD GI: Inspection: Yes normal to inspection Skin: Other: Warm, dry, no rash Neuro: General: patient oriented x3 Extrem: Other: Status post amputation of the right great toe. Right 2nd toe with the distal phalanx revealing some medial erythema with a small eschar located just below the nail bed. No fluctuance is appreciated at this time. A small amount of discharge is noted below the eschar. Eschar measures approximately 1 cm in diameter. No erythema is noted in the forefoot or leg. The remaining toes are warm with brisk capillary refill. Right upper extremity: normal capillary refill Results Results Labs: Short CBC 12/14/23 Range/Units 10:45 WBC 8.2 (4.8-10.8) X10*3/uL Hgb 13.3 L (14.0-18.0) g/dl Hct 39.0 L (42.0-52.0) % Plt Count 203 (160-400) X10*3/uL BMP 12/14/23 10:45 Sodium 132 L Potassium 4.9 Chloride 101 Carbon Dioxide 24 BUN 17 H Creatinine 1.10 Calcium 9.5 Liver Function 12/14/23 Range/Units 10:45 Total Bilirubin 0.6 (0.0-1.0) mg/dL AST 11 (5-37) U/L ALT 17 (0-40) U/L Alkaline Phosphatase 54 (39-117) U/L Albumin 4.2 (3.5-5.0) g/dL Assessment and Plan (1) Diabetic ulcer of right foot: Qualifiers: Diabetic foot ulcer location: toe Diabetes mellitus type: type 2 Non- pressure ulcer stage: limited to breakdown of skin Qualified Code(s): E11.621 - Type 2 diabetes mellitus with foot ulcer; L97.511 - Non-pressure chronic ulcer of other part of right foot limited to breakdown of skin Status: Acute Plan Patient with a new onset right 2nd toe ulcer with surrounding cellulitis following trauma to the foot yesterday while getting into the car. Patient has an elevated glucose level as a result. Examination does reveal a small area of cellulitis involving the proximal phalanx. He will be admitted to the surgical service for IV antibiotics with hospitalist consultation for management of his diabetes. He may require bedside debridement of the callus during this hospitalization. X-ray appears negative for osteomyelitis. Patient expressed understanding and agrees with the plan. Quality Stroke Does the patient have a stroke diagnosis?: No VTE Prior VTE?: No VTE Risk Level:: Surgical - moderate VTE Device Contraindication: N/A - Device Ordered VTE Drug Contraindication: N/A - Med Ordered Procedures Date of Service Date of Service: 12/14/23
--- NOTE | 2023-12-14 13:35 | P.CONHOSP_ITS ---
History of Present Illness Data of Consult Service Date: 12/14/23 Primary Care Provider: Zurdo Mccormick MD [facility] Reason for consult: Medical management The patient is a 58 year male with a PMH significant for insulin-dependent type 2 diabetes with diabetic neuropathy, Charcot foot, hx of osteomyelitis s/p right great toe amputation, HTN, HLD, and GERD who presented to the ED complaining of right 2nd toe swelling, redness, and discoloration since this morning. Patient was admitted to the hospital under general surgery services for treatment of right 2nd toe cellulitis requiring IV antibiotics and possible surgical debridement. Hospitalist consult for medical management. Patient states that yesterday he injured his toe by hitting it as he was getting into the car. States toe looked normal last night prior to going to sleep. This morning, patient noticed significant changes. Denies any pain in toe or foot, though states has a little feeling in his feet secondary to peripheral neuropathy. Patient otherwise denies any acute medical complaints. No fever, chills, nausea, vomiting, abdominal pain. No chest pain/pressure, palpitations. Denies shortness or breath or difficulty breathing. Reports no significant alcohol, tobacco, or illicit substance use. States he is compliant with his home medications, though does not measure his BP at home. Review of Systems 2 Review of Systems: Swelling, redness, discoloration of right 2nd toe Patient otherwise denies any acute medical complaints [facility] Medical History Peripheral neuropathy Diabetes Charcot's joint of right foot COVID-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 Rectal carcinoid tumor Crohn's colitis Vitamin D deficiency Obesity (BMI 30-39.9) Mendez's esophagus Hypercholesterolemia Type 2 diabetes mellitus with hyperglycemia HTN (hypertension) Family History Father Diabetes CVD (cardiovascular disease) Myocardial infarction Hypertension Mother CVD (cardiovascular disease) Myocardial infarction Hypertension Throat cancer Maternal Grandmother Gastric cancer Paternal Grandmother Myocardial infarction CVD (cardiovascular disease) Maternal Aunt Gastric cancer Breast cancer Sister In good health Maternal Grandfather CVD (cardiovascular disease) Paternal Grandfather CVD (cardiovascular disease) Other Substance abuse Surgical History Amputation of right great toe (04/10/22) History of esophagogastroduodenoscopy (EGD) H/O colonoscopy History of umbilical hernia repair Social History Household Members: Family Housing: House Are you a primary care administrative tech to a significant other at home: No Do you presently have visiting nurse or other home services: No Alcohol intake: never Comment: pt refuse bed alarm Patient Tobacco Use Status: Never used Tobacco e-Cigarette/Vaping Use: Never Used Second Hand Smoke Exposure: Yes Advance Directives: No Advance Directives Information Provided: No service: Yes ([employer]) Current occupational status: employed Current occupation: [employer] Cognitive needs: No Hearing needs: No Vision needs: Yes Meds Allergies Allergy/AdvReac Type Severity Reaction Status Date / Time lisinopril [LISINOPRIL] Allergy Intermediate COUGH Verified 12/14/23 10:36 Penicillins [PENICILLINS] Allergy Intermediate HIVES Verified 12/14/23 10:36 Active Medications: Current Medications Acetaminophen (Acetaminophen 325 Mg Tablet) 650 mg PO Q6H PRN PRN Reason: Pain, Mild (Pain Scale 1-3), fever or headache Calcium Carbonate (Calcium Carbonate 750 Mg Tab.Chew) 750 mg PO Q4H PRN PRN Reason: Heartburn Enoxaparin Sodium (Enoxaparin Sodium 40 Mg/0.4 Ml Syringe) 40 mg SUBCUT Q24H OBI Glucose (Glucose Gel 15 Gm Gel..Gram.) 15 gm PO Q15M PRN; Protocol PRN Reason: per Hypoglycemia Standing Ord. Hydromorphone HCl (Hydromorphone Hcl 0.5 Mg/0.5 Ml Syringe) 0.5 mg IVPUSH Q3H PRN; Protocol PRN Reason: Pain, Severe (Pain Scale 7-10) Vancomycin HCl (Vancomycin/Ns) 2,000 mg in 500 mls @ 250 mls/hr IV ONCE ONE Stop: 12/14/23 14:01 Sodium Chloride (Sodium Chloride 0.45 %) 1,000 mls @ 100 mls/hr IVCONT .Q10H OBI Dextrose (D10) 250 mls @ 750 mls/hr IV Q15M PRN; Protocol PRN Reason: per Hypoglycemia Standing Ord. Ceftriaxone Sodium 1 gm/ (Sodium Chloride) 50 mls @ 100 mls/hr IV Q12H OBI Insulin Human Lispro (Insulin Lispro 100 Unit/Ml 3 Ml Vial) 0 unit SUBCUT QIDACHS [facility]; Protocol Melatonin (Melatonin 3 Mg Tablet) 6 mg PO BEDTIME PRN PRN Reason: Insomnia Ondansetron HCl (Ondansetron Hcl 4 Mg/2 Ml Vial) 4 mg IVPUSH Q8H PRN PRN Reason: Nausea and Vomiting Oxycodone HCl (Oxycodone Hcl Immed Release 5 Mg Tablet) 5 mg PO Q6H PRN PRN Reason: Pain, Moderate(Pain Scale 4-6) Pharmacy Consult (Consult Rx Vancomycin Dosing) 1 each MISCELLANE DAILY PRN PRN Reason: Consult order Polyethylene Glycol (Polyethylene Glycol 3350 17 Gm Powd.Pack) 17 gm PO DAILY PRN PRN Reason: Constipation Sodium Chloride (0.9 % Sodium Chloride Flush 3 Ml Syringe) [address] [facility] [facility] Home Medications ?Medication ?Instructions ?Recorded ?Confirmed ?Last Taken ?Type omeprazole 40 mg capsule,delayed 40 mg PO DAILY PRN Acid Reflux 04/03/22 08/23/23 04/03/22 History release metformin 500 mg tablet,extended 1,000 mg PO BID 12/14/23 12/14/23 Unknown History release 24 hr Physical Exam 2 Vital Signs and Narrative: Vital Signs: Last Vital Signs Temp 99.4 F 12/14/23 10:31 Pulse 108 H 12/14/23 10:31 Resp 20 12/14/23 10:31 BP 172/81 H 12/14/23 10:31 Pulse Ox 96 12/14/23 10:31 O2 Del Method Room Air 12/14/23 10:31 BMI result Body Mass Index 33.4 General: AOx3, no acute distress Resp: CTA bilaterally CVS: S1, S2, RRR GI: +BS, NT, no distention Skin: Warm, dry Neuro: Cranial nerves II-XII grossly intact bilaterally. Motor grossly intact bilaterally Extremities: Right foot s/p great toe amputaton. Second digit with swelling, erythema, and warmth. Area of dark discoloration/necrosis at distal aspect of 2nd toe. Psych: Appropriate affect Results Labs 12/14/23 10:45 12/14/23 10:45 Labs: Laboratory Results - last 24 hr 12/14/23 12/14/23 10:45 12:36 MCV 80.2 MCH 27.4 MCHC 34.1 RDW 13.3 Plt Count 203 MPV 11.4 Immature Gran % (Auto) 0.4 Neut % (Auto) 87.0 H Lymph % (Auto) 4.4 L [place] % (Auto) 7.9 Eos % (Auto) 0.1 Baso % (Auto) 0.2 Lymph # (Auto) 0.4 L [place] # (Auto) 0.7 Eos # (Auto) 0.0 Baso # (Auto) 0.0 Abs Immat Gran (auto) 0.03 Absolute Neuts (auto) 7.1 Absolute Nucleated RBC 0.000 Nucleated RBC % (auto) 0.0 ESR 13 Anion Gap 12 Estim Creat Clear Calc 75.1 Estimated GFR > 60 Random Glucose 224 H Lactic Acid 0.8 Calcium 9.5 Magnesium 2.1 Total Bilirubin 0.6 AST 11 ALT 17 Alkaline Phosphatase 54 C-Reactive Protein 7.34 H Total Protein 7.3 Albumin 4.2 COVID-19 ([facility]) Negative COVID-19 Clin Com See Note Imaging Radiologist's Impressions: Impressions Foot X-Ray 12/14/23 10:40 IMPRESSION: 1. No acute abnormality. 2. Postsurgical changes related to amputation distal to the level of the distal 1st metatarsal. 3. 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 Electronically signed by: Hood Dixon MD 12/14/2023 11:01 AM EDT RP Assessment and Plan (1) Cellulitis: Qualifiers: Site of cellulitis: extremity Site of cellulitis of extremity: toe L aterality: right Qualified Code(s): L03.031 - Cellulitis of right toe Status: Acute Plan The patient is a 58 year male with a PMH significant for insulin-dependent type 2 diabetes with diabetic neuropathy, Charcot foot, hx of osteomyelitis s/p right great toe amputation, HTN, HLD, and GERD who presented to the ED complaining of right 2nd toe swelling, redness, and discoloration since this morning. Patient was admitted to the hospital under general surgery services for treatment of right 2nd toe cellulitis requiring IV antibiotics and possible surgical debridement. Hospitalist consult for medical management. Right 2nd toe cellulitis with likely necrosis Plan as per General surgery Hyponatremia, mild Sodium 132 at time of presentation Patient with hx since at least 2020 of mild hyponatremia Follow BMP HTN Appears poorly controlled, was hypertensive at 172/81 Continue amlodipine, hydralazine, losartan, and metoprolol Follow BP closely Non-insulin dependent type two diabetes Hold metformin Sliding-scale insulin Continue Jardiance Diabetic diet Thank you for allowing us to participate in the care of this patient. Will continue to follow along with you.
[2023-12-14] MEDS: vancomycin/NS 2,000 MG/500 ML PLAST..BAG 250 MG IV (13:37)
[2023-12-14 14:00] VITALS: BP 152/76; PULSE 98; RESP 16; TEMP 37; O2SAT 95
--- NOTE | 2023-12-14 14:11 | PHA.PROG ---
Admission Date/Time: December 14, 2023 13:17 Indication: SKIN & STRUCTURE Weight in k.3 kg Adjusted body weight in K.84 [place] body weight in K.2 Obesity Dosing Indication % IBW: 33.4 Serum Creatinine - Last 168 Hours 12/14/23 10:45 Creatinine 1.10 Estimated CrCl and GFR - Last 168 Hours 12/14/23 10:45 Estim Creat Clear Calc 75.1 Estimated GFR > 60 Vancomycin Loading Dose: 2000 MG Current Vancomycin Dosing Regimen: 1000 MG Q12 Vancomycin Monitoring using AUC goal of 400 - 600 range with trough as surrogate marker: 536/17.6 Date and Time for next Vancomycin Level to be drawn: 12/15/23 @1999 Pharmacist Comments on Vancomycin Plan: LOAD OF APPROXIMATELY 22.6 MG/KG GIVEN IN ED Vancomycin dosing will take advantage of [employer] as a clinical decision support tool that uses Bayesian modeling to calculate individual patient's pharmacokinetic parameters and forecast the patient's drug concentration time course with the target goal AUC 24 range of 400 - 600 mg/L/hr.
--- NOTE | 2023-12-14 14:19 | PHA.MEDREC ---
Pharmacy Consult ? Medication Reconciliation Pharmacy has completed the medication reconciliation. Patient was a proper historian! OF NOTE: patient is on metformin ER.
[2023-12-14 14:22] LABS: Glucose, Whole Blood 197 mg/dL (60-115)
--- NOTE | 2023-12-14 15:32 | PC.NURSE ---
re: 0.45% NS admin delay- spoke with nursing snow removal supervisor- ED does not have 0.45% in department- SupMichaelle Bowden to bring down
[2023-12-14] MEDS: Sodium Chloride 0.45 % 1,000 ML 100 ML IVCONT ×2 (15:44→23:46)
[2023-12-14] MEDS: Empagliflozin 25 MG TABLET PO (15:48)
[2023-12-14] MEDS: Enoxaparin Sodium 40 MG/0.4 ML SYRINGE SUBCUT (15:51)
[2023-12-14] MEDS: hydrALAZINE HCl 50 MG TABLET PO ×2 (15:52→21:11)
[2023-12-14] MEDS: Omeprazole 40 MG CAPSULE.DR PO (15:52)
[2023-12-14] MEDS: 0.9 % Sodium Chloride Flush 3 ML SYRINGE IVFLUSH (15:53)
[2023-12-14 16:35] VITALS: BP 151/79; PULSE 94; RESP 14; TEMP 37; O2SAT 95
[2023-12-14 17:50] VITALS: BP 141/78; PULSE 101; RESP 16; TEMP 37.2; O2SAT 95
[2023-12-14 17:55] LABS: Glucose, Whole Blood 158 mg/dL (60-115)
[2023-12-14 19:15] VITALS: BMI 33.9
[2023-12-14 19:35] VITALS: BP 160/77; PULSE 101; RESP 16; TEMP 37.4; O2SAT 95
[2023-12-14 20:13] LABS: Glucose, Whole Blood 138 mg/dL (60-115)
[2023-12-14 21:11] VITALS: BP 160/77
[2023-12-14] MEDS: bisacodyL 5 MG TABLET.DR 10 MG PO (21:12)
[2023-12-14] MEDS: vancomycin HCL 1,000 MG in 0.9 % Sodium Chloride 250 ML 270 MG IV (21:57)
[2023-12-15 03:10] VITALS: BP 145/78; PULSE 89; RESP 16; TEMP 36.1; O2SAT 96
[2023-12-15] MEDS: Omeprazole 40 MG CAPSULE.DR PO (05:30)
[2023-12-15 06:06] LABS: MANUAL DIFF FLAG NO
[2023-12-15 06:32] LABS: Anion Gap 15 (12-20); Blood Urea Nitrogen 21 mg/dL (9-16); Calcium 8.3 mg/dL (8.4-10.2); Carbon Dioxide 19 mmol/L (22-29); Chloride 105 mmol/L (96-108); Creatinine Clr Calc Pharmacy 79.2; Estimated Glomerular Filt Rate > 60; Glucose Random 136 mg/dL (60-115); Potassium 4.2 mmol/L (3.3-5.1); Sodium 135 mmol/L (135-145)
[2023-12-15 06:35] LABS: Basophils Percent Auto 0.3 % (0-2); Eosinophils Percent Auto 0.2 % (0-4); Hematocrit 36.7 % (42.0-52.0); Hemoglobin 12.2 g/dl (14.0-18.0); Imm Gran Abs Auto 0.03 X10*3/uL (0.00-0.03); Imm Gran Pct Auto 0.5 % (0.0-0.4); Lymphocytes Absolute Auto 0.7 X10*3/uL (1.2-4.9); Lymphocytes Percent Auto 10.5 % (20-40); Mean Corpuscular HGB Conc 33.2 g/dl (31.0-36.0); Mean Corpuscular Hemoglobin 27.4 pg (27.0-33.0); Mean Corpuscular Volume 82.3 fL (80.0-98.0); Mean Platelet Volume 11.6 fL (9.4-12.4); Monocytes Absolute Auto 0.7 X10*3/uL (0.1-1.2); Monocytes Percent Auto 10.2 % (2-11); Neutrophils Percent Auto 78.3 % (45-73); Platelet Count 198 X10*3/uL (160-400); Red Blood Count 4.46 X10*6/uL (4.60-5.80); Red Cell Distribution Width 13.9 % (11.0-16.0); White Blood Count 6.4 X10*3/uL (4.8-10.8)
[2023-12-15 07:21] LABS: Glucose, Whole Blood 119 mg/dL (60-115)
[2023-12-15 07:49] VITALS: BP 158/83; PULSE 89; RESP 16; TEMP 36.3; O2SAT 96
[2023-12-15] MEDS: hydrALAZINE HCl 50 MG TABLET PO ×3 (08:31→20:30)
[2023-12-15] MEDS: Empagliflozin 25 MG TABLET PO (08:32)
[2023-12-15] MEDS: Losartan Potassium 50 MG TABLET 100 MG PO (08:32)
[2023-12-15] MEDS: Metoprolol Succinate ER 100 MG TAB.ER.24H 200 MG PO (08:32)
[2023-12-15] MEDS: amLODIPine Besylate 10 MG TABLET PO (08:32)
[2023-12-15] MEDS: Fenofibrate 160 MG TABLET PO (08:32)
--- NOTE | 2023-12-15 08:53 | P.PNGS_ITS ---
Subjective Subjective Date of Service: 12/15/23 Interval history: Hospital day 2, right 2nd toe diabetic infection. No new complaints. Physical Exam 2 Vital Signs: Vital Signs: Last Vital Signs Temp 97.4 F 12/15/23 07:49 Pulse 89 12/15/23 07:49 Resp 16 12/15/23 07:49 BP 158/83 H 12/15/23 07:49 Pulse Ox 96 12/15/23 07:49 O2 Del Method Room Air 12/15/23 07:49 BMI result Body Mass Index 33.9 Const: General: no acute distress Nutritional Appearance: well nourished Orientation/consciousness: patient oriented x3 Resp: Effort & Inspection: normal respiratory effort Neuro: General: patient oriented x3 Extrem: Other: Debrided the right 2nd toe ulcer located at the distal phalanx just below the nail. Ulcer measures 1 cm in diameter. The overlying callus was removed. Palpable distal phalanx noted at the base of the wound. Wounds debrided of skin, subcutaneous tissue, 1 cm diameter. Wounds then packed with silver alginate followed by dry sterile dressings. Objective Data Active Medications Acetaminophen (Acetaminophen 325 Mg Tablet) 650 mg PO Q6H PRN PRN Reason: Pain, Mild (Pain Scale 1-3), fever or headache Amlodipine Besylate (Amlodipine Besylate 10 Mg Tablet) 10 mg PO DAILY [facility]; Protocol Last Admin: 12/15/23 08:32 Dose: 10 mg Documented By: ELLIS Bisacodyl (Bisacodyl 5 Mg Tablet.Dr) 10 mg PO BEDTIME [facility] Last Admin: 12/14/23 21:12 Dose: 10 mg Documented By: CASTILHenrietta Calcium Carbonate (Calcium Carbonate 750 Mg Tab.Chew) 750 mg PO Q4H PRN PRN Reason: Heartburn Empagliflozin (Empagliflozin 25 Mg Tablet) 25 mg PO DAILY [facility] Last Admin: 12/15/23 08:32 Dose: 25 mg Documented By: ELLIS Enoxaparin Sodium (Enoxaparin Sodium 40 Mg/0.4 Ml Syringe) 40 mg SUBCUT Q24H [facility] Last Admin: 12/14/23 15:51 Dose: 40 mg Documented By: EMRE Fenofibrate (Fenofibrate 160 Mg Tablet) 160 mg PO DAILY [facility] Last Admin: 12/15/23 08:32 Dose: 160 mg Documented By: ELLIS Glucose (Glucose Gel 15 Gm Gel..Gram.) 15 gm PO Q15M PRN; Protocol PRN Reason: per Hypoglycemia Standing Ord. Hydralazine HCl (Hydralazine Hcl 50 Mg Tablet) 50 mg PO TID [facility]; Protocol Last Admin: 12/15/23 08:31 Dose: 50 mg Documented By: ELLIS Hydromorphone HCl (Hydromorphone Hcl 0.5 Mg/0.5 Ml Syringe) 0.5 mg IVPUSH Q3H PRN; Protocol PRN Reason: Pain, Severe (Pain Scale 7-10) Sodium Chloride (Sodium Chloride 0.45 %) 1,000 mls @ 100 mls/hr IVCONT .Q10H [facility] Last Admin: 12/14/23 23:46 Dose: 100 mls/hr Documented By: JASON Dextrose (D10) 250 mls @ 750 mls/hr IV Q15M PRN; Protocol PRN Reason: per Hypoglycemia Standing Ord. Vancomycin HCl 1,000 mg/ (Sodium Chloride) 270 mls @ 270 mls/hr IV Q12H [facility] Last Infusion: 12/14/23 23:08 Dose: Infused Documented By: JASON Ceftriaxone Sodium 1 gm/ (Sodium Chloride) 50 mls @ 100 mls/hr IV Q12H [facility] Last Infusion: 12/15/23 00:22 Dose: Infused Documented By: JASON Insulin Human Lispro (Insulin Lispro 100 Unit/Ml 3 Ml Vial) 0 unit SUBCUT QIDACHS [facility]; Protocol Last Admin: 12/15/23 07:29 Dose: Not Given Documented By: ELLIS Non-Admin Reason: No Insulin Coverage Losartan Potassium (Losartan Potassium 50 Mg Tablet) 100 mg PO DAILY [facility]; Protocol Last Admin: 12/15/23 08:32 Dose: 100 mg Documented By: ELLIS Melatonin (Melatonin 3 Mg Tablet) 6 mg PO BEDTIME PRN PRN Reason: Insomnia Metoprolol Succinate (Metoprolol Succinate Er 100 Mg Tab.Er.24h) 200 mg PO DAILY [facility]; Protocol Last Admin: 12/15/23 08:32 Dose: 200 mg Documented By: ELLIS Omeprazole (Omeprazole 40 Mg Capsule.) 40 mg PO DAILY@0630 [facility] Last Admin: 12/15/23 05:30 Dose: 40 mg Documented By: JASON Ondansetron HCl (Ondansetron Hcl 4 Mg/2 Ml Vial) 4 mg IVPUSH Q8H PRN PRN Reason: Nausea and Vomiting Oxycodone HCl (Oxycodone Hcl Immed Release 5 Mg Tablet) 5 mg PO Q6H PRN PRN Reason: Pain, Moderate(Pain Scale 4-6) Pharmacy Consult (Consult Rx Vancomycin Dosing) 1 each MISCELLANE DAILY PRN PRN Reason: Consult order Polyethylene Glycol (Polyethylene Glycol 3350 17 Gm Powd.Pack) 17 gm PO DAILY PRN PRN Reason: Constipation Sodium Chloride (0.9 % Sodium Chloride Flush 3 Ml Syringe) 3 ml IVFLUSH QSHIFT [facility] Last Admin: 12/15/23 07:29 Dose: Not Given Documented By: ELLIS Non-Admin Reason: IV Running Labs 12/15/23 05:43 12/15/23 05:43 Labs: Laboratory Results - last 24 hr 12/14/23 12/14/23 12/14/23 10:45 12:36 14:16 MCV 80.2 MCH 27.4 MCHC 34.1 RDW 13.3 Plt Count 203 MPV 11.4 Immature Gran % (Auto) 0.4 Neut % (Auto) 87.0 H Lymph % (Auto) 4.4 L Norton % (Auto) 7.9 Eos % (Auto) 0.1 Baso % (Auto) 0.2 Lymph # (Auto) 0.4 L Norton # (Auto) 0.7 Eos # (Auto) 0.0 Baso # (Auto) 0.0 Abs Immat Gran (auto) 0.03 Absolute Neuts (auto) 7.1 Absolute Nucleated RBC 0.000 Nucleated RBC % (auto) 0.0 ESR 13 Anion Gap 12 Estim Creat Clear Calc 75.1 Estimated GFR > 60 POC Glucose 197 H Random Glucose 224 H Lactic Acid 0.8 Calcium 9.5 Magnesium 2.1 Total Bilirubin 0.6 AST 11 ALT 17 Alkaline Phosphatase 54 C-Reactive Protein 7.34 H Total Protein 7.3 Albumin 4.2 COVID-19 ([facility]) Negative COVID-19 Clin Com See Note 12/14/23 12/14/23 12/15/23 16:43 19:56 05:43 MCV 82.3 MCH 27.4 MCHC 33.2 RDW 13.9 Plt Count 198 MPV 11.6 Immature Gran % (Auto) 0.5 H Neut % (Auto) 78.3 H Lymph % (Auto) 10.5 L Norton % (Auto) 10.2 Eos % (Auto) 0.2 Baso % (Auto) 0.3 Lymph # (Auto) 0.7 L Norton # (Auto) 0.7 Eos # (Auto) 0.0 Baso # (Auto) 0.0 Abs Immat Gran (auto) 0.03 Absolute Neuts (auto) 5.0 Absolute Nucleated RBC 0.000 Nucleated RBC % (auto) 0.0 ESR Anion Gap 15 Estim Creat Clear Calc 79.2 Estimated GFR > 60 POC Glucose 158 H 138 H Random Glucose 136 H Lactic Acid Calcium 8.3 L D Magnesium Total Bilirubin AST ALT Alkaline Phosphatase C-Reactive Protein Total Protein Albumin COVID-19 ([facility]) COVID-19 [employer]less Com 12/15/23 07:09 MCV MCH MCHC RDW Plt Count MPV Immature Gran % (Auto) Neut % (Auto) Lymph % (Auto) Norton % (Auto) Eos % (Auto) Baso % (Auto) Lymph # (Auto) Norton # (Auto) Eos # (Auto) Baso # (Auto) Abs Immat Gran (auto) Absolute Neuts (auto) Absolute Nucleated RBC Nucleated RBC % (auto) ESR Anion Gap Estim Creat Clear Calc Estimated GFR POC Glucose 119 H Random Glucose Lactic Acid Calcium Magnesium Total Bilirubin AST ALT Alkaline Phosphatase C-Reactive Protein Total Protein Albumin COVID-19 ([facility]) COVID-19 Clin Com Procedures Date of Service Date of Service: 12/15/23 Progress Note: A&P Assessment and plan (1) Open toe wound: Status: Acute Plan 58-year-old male patient with a history of right great toe amputation now with a new ulceration of the right 2nd toe. Wound was debrided this morning and dressed with silver alginate. Erythema appears essentially the same this morning in the 2nd toe. Continue IV antibiotics. 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 We will consult Dr. Cabello for further evaluation. Time Spent With Patient Time: Total time managing care of this patient today ____ minutes. Quality Stroke Does the patient have a stroke diagnosis?: No VTE Prior VTE?: No VTE Risk Level:: Surgical - moderate VTE Device Contraindication: N/A - Device Ordered VTE Drug Contraindication: N/A - Med Ordered
--- NOTE | 2023-12-15 09:11 | HO.PM.IMPN ---
Subjective Subjective Date of Service: 12/15/23 Interval History: foot cellulitis Review of Systems 2nd foot digit seems similar to yesterday no fevers Physical Exam Vital Signs: Vital Signs: Last Vital Signs Temp 97.4 F 12/15/23 07:49 Pulse 89 12/15/23 07:49 Resp 16 12/15/23 07:49 BP 158/83 H 12/15/23 07:49 Pulse Ox 96 12/15/23 07:49 O2 Del Method Room Air 12/15/23 07:49 BMI result Body Mass Index 33.9 Appearance: Alert.? Oriented X3.? cvs: rrr, [id number] , no murmur res: clear to auscultation ,no rhonchii or wheezing abd: no rebound or guarding ,nt, bs present. ext pulses present , no cyanosis . right foot -2nd digit -seems similar neuro: axo3 , nonfocal. Objective Data Active Medications Acetaminophen (Acetaminophen 325 Mg Tablet) 650 mg PO Q6H PRN PRN Reason: Pain, Mild (Pain Scale 1-3), fever or headache Amlodipine Besylate (Amlodipine Besylate 10 Mg Tablet) 10 mg PO DAILY [facility]; Protocol Last Admin: 12/15/23 08:32 Dose: 10 mg Documented By: ELLIS Bisacodyl (Bisacodyl 5 Mg Tablet.) 10 mg PO BEDTIME [facility] Last Admin: 12/14/23 21:12 Dose: 10 mg Documented By: CASTILHenrietta Calcium Carbonate (Calcium Carbonate 750 Mg Tab.Chew) 750 mg PO Q4H PRN PRN Reason: Heartburn Empagliflozin (Empagliflozin 25 Mg Tablet) 25 mg PO DAILY [facility] Last Admin: 12/15/23 08:32 Dose: 25 mg Documented By: ELLIS Enoxaparin Sodium (Enoxaparin Sodium 40 Mg/0.4 Ml Syringe) 40 mg SUBCUT Q24H [facility] Last Admin: 12/14/23 15:51 Dose: 40 mg Documented By: EMRE Fenofibrate (Fenofibrate 160 Mg Tablet) 160 mg PO DAILY [facility] Last Admin: 12/15/23 08:32 Dose: 160 mg Documented By: ELLIS Glucose (Glucose Gel 15 Gm Gel..Gram.) 15 gm PO Q15M PRN; Protocol PRN Reason: per Hypoglycemia Standing Ord. Hydralazine HCl (Hydralazine Hcl 50 Mg Tablet) 50 mg PO TID [facility]; Protocol Last Admin: 12/15/23 08:31 Dose: 50 mg Documented By: ELLIS Hydromorphone HCl (Hydromorphone Hcl 0.5 Mg/0.5 Ml Syringe) 0.5 mg IVPUSH Q3H PRN; Protocol PRN Reason: Pain, Severe (Pain Scale 7-10) Sodium Chloride (Sodium Chloride 0.45 %) 1,000 mls @ 100 mls/hr IVCONT .Q10H [facility] Last Admin: 12/14/23 23:46 Dose: 100 mls/hr Documented By: JASON Dextrose (D10) 250 mls @ 750 mls/hr IV Q15M PRN; Protocol PRN Reason: per Hypoglycemia Standing Ord. Vancomycin HCl 1,000 mg/ (Sodium Chloride) 270 mls @ 270 mls/hr IV Q12H [facility] Last Infusion: 12/14/23 23:08 Dose: Infused Documented By: JASON Ceftriaxone Sodium 1 gm/ (Sodium Chloride) 50 mls @ 100 mls/hr IV Q12H [facility] Last Infusion: 12/15/23 00:22 Dose: Infused Documented By: JASON Insulin Human Lispro (Insulin Lispro 100 Unit/Ml 3 Ml Vial) 0 unit SUBCUT QIDACHS [facility]; Protocol Last Admin: 12/15/23 07:29 Dose: Not Given Documented By: ELLIS Non-Admin Reason: No Insulin Coverage Losartan Potassium (Losartan Potassium 50 Mg Tablet) 100 mg PO DAILY [facility]; Protocol Last Admin: 12/15/23 08:32 Dose: 100 mg Documented By: ELLIS Melatonin (Melatonin 3 Mg Tablet) 6 mg PO BEDTIME PRN PRN Reason: Insomnia Metoprolol Succinate (Metoprolol Succinate Er 100 Mg Tab.Er.24h) 200 mg PO DAILY [facility]; Protocol Last Admin: 12/15/23 08:32 Dose: 200 mg Documented By: ELLSI Omeprazole (Omeprazole 40 Mg Capsule.Dr) 40 mg PO DAILY@0630 [facility] Last Admin: 12/15/23 05:30 Dose: 40 mg Documented By: JASON Ondansetron HCl (Ondansetron Hcl 4 Mg/2 Ml Vial) 4 mg IVPUSH Q8H PRN PRN Reason: Nausea and Vomiting Oxycodone HCl (Oxycodone Hcl Immed Release 5 Mg Tablet) 5 mg PO Q6H PRN PRN Reason: Pain, Moderate(Pain Scale 4-6) Pharmacy Consult (Consult Rx Vancomycin Dosing) 1 each MISCELLANE DAILY PRN PRN Reason: Consult order Polyethylene Glycol (Polyethylene Glycol 3350 17 Gm Powd.Pack) 17 gm PO DAILY PRN PRN Reason: Constipation Sodium Chloride (0.9 % Sodium Chloride Flush 3 Ml Syringe) 3 ml IVFLUSH QSHIFT [facility] Last Admin: 12/15/23 07:29 Dose: Not Given Documented By: ELLIS Non-Admin Reason: IV Running Labs 12/15/23 05:43 12/15/23 05:43 Labs: Laboratory Results - last 24 hr 12/14/23 12/14/23 12/14/23 10:45 12:36 14:16 MCV 80.2 MCH 27.4 MCHC 34.1 RDW 13.3 Plt Count 203 MPV 11.4 Immature Gran % (Auto) 0.4 Neut % (Auto) 87.0 H Lymph % (Auto) 4.4 L Clinch % (Auto) 7.9 Eos % (Auto) 0.1 Baso % (Auto) 0.2 Lymph # (Auto) 0.4 L Cl[place] # (Auto) 0.7 Eos # (Auto) 0.0 Baso # (Auto) 0.0 Abs Immat Gran (auto) 0.03 Absolute Neuts (auto) 7.1 Absolute Nucleated RBC 0.000 Nucleated RBC % (auto) 0.0 ESR 13 Anion Gap 12 Estim Creat Clear Calc 75.1 Estimated GFR > 60 POC Glucose 197 H Random Glucose 224 H Lactic Acid 0.8 Calcium 9.5 Magnesium 2.1 Total Bilirubin 0.6 AST 11 ALT 17 Alkaline Phosphatase 54 C-Reactive Protein 7.34 H Total Protein 7.3 Albumin 4.2 COVID-19 ([facility]) Negative COVID-19 Clin Com See Note 12/14/23 12/14/23 12/15/23 16:43 19:56 05:43 MCV 82.3 MCH 27.4 MCHC 33.2 RDW 13.9 Plt Count 198 MPV 11.6 Immature Gran % (Auto) 0.5 H Neut % (Auto) 78.3 H Lymph % (Auto) 10.5 L Cl[place] % (Auto) 10.2 Eos % (Auto) 0.2 Baso % (Auto) 0.3 Lymph # (Auto) 0.7 L Clinch # (Auto) 0.7 Eos # (Auto) 0.0 Baso # (Auto) 0.0 Abs Immat Gran (auto) 0.03 Absolute Neuts (auto) 5.0 Absolute Nucleated RBC 0.000 Nucleated RBC % (auto) 0.0 ESR Anion Gap 15 Estim Creat Clear Calc 79.2 Estimated GFR > 60 POC Glucose 158 H 138 H Random Glucose 136 H Lactic Acid Calcium 8.3 L D Magnesium Total Bilirubin AST ALT Alkaline Phosphatase C-Reactive Protein Total Protein Albumin COVID-19 ([facility]) COVID-19 Clin Com 12/15/23 07:09 MCV MCH MCHC RDW Plt Count MPV Immature Gran % (Auto) Neut % (Auto) Lymph % (Auto) Clinch % (Auto) Eos % (Auto) Baso % (Auto) Lymph # (Auto) Clinch # (Auto) Eos # (Auto) Baso # (Auto) Abs Immat Gran (auto) Absolute Neuts (auto) Absolute Nucleated RBC Nucleated RBC % (auto) ESR Anion Gap Estim Creat Clear Calc Estimated GFR POC Glucose 119 H Random Glucose Lactic Acid Calcium Magnesium Total Bilirubin AST ALT Alkaline Phosphatase C-Reactive Protein Total Protein Albumin COVID-19 ([facility]) COVID-19 Clin Com Assessment and Plan (1) Amputation of right great toe: Status: Acute Plan 58year-old male with history of? diabetes mellitus with? diabetic? 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 continue vanco/ceftriaxone ( 12/14/23) vascular eval -added asa ,on fenofibrate . htn bp under better control continue home meds, hydralazine adequate pain control renal US negative dm:fs acceptable fs with sliding scale HLP: continue statin. As per Gi notes(09/29) patient has hx of barrets [place] :his omeprazole 40 mg daily he was supposed follow up with GI for repeated egd/colonoscopy(hx of polyps) outpatient dvt prophylax:s/c lovenox. 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 Quality Stroke Does the patient have a stroke diagnosis?: No VTE Prior VTE?: No VTE Risk Level:: Surgical - moderate VTE Device Contraindication: N/A - Device Ordered VTE Drug Contraindication: N/A - Med Ordered
[2023-12-15] MEDS: vancomycin HCL 1,000 MG in 0.9 % Sodium Chloride 250 ML 270 MG IV ×2 (10:10→22:05)
[2023-12-15 11:20] LABS: Glucose, Whole Blood 146 mg/dL (60-115)
[2023-12-15] MEDS: cefTRIAXone sodium 1 GM in 0.9 % Sodium Chloride 50 ML IV ×2 (11:28→23:53)
--- NOTE | 2023-12-15 11:37 | MHC.CM.PN ---
PATIENT IS FULLY INDEPENDENT AND USES NO DME OR VNA HE WORKS [employer] AND HAS TRANSPORT HOME AT TIME OF DC. HCP DISCUSSED. PATIENT DOES NOT BELIEVE THAT HE HAS ONE. FAMILY IN ROOM AND ATTEMPTING TO CONVINCE PATIENT TO COMPLETE ONE. PATIENT STATES THAT IF HE CHOOSES TO DO SO, HE WILL ASK FOR CASE MANAGEMENT. CURRENT PLAN WILL BE HOME - SELF CARE.
[2023-12-15] MEDS: Sodium Chloride 0.45 % 1,000 ML 100 ML IVCONT ×3 (12:03→22:11)
[2023-12-15] MEDS: Aspirin Enteric Coated 81 MG TABLET.DR PO (12:31)
[2023-12-15] MEDS: Enoxaparin Sodium 40 MG/0.4 ML SYRINGE SUBCUT (12:31)
[2023-12-15 15:23] VITALS: BP 144/71; PULSE 99; RESP 20; TEMP 37.7; O2SAT 93
[2023-12-15 16:28] LABS: Glucose, Whole Blood 145 mg/dL (60-115)
[2023-12-15 19:35] LABS: Glucose, Whole Blood 267 mg/dL (60-115)
[2023-12-15 19:40] VITALS: BP 140/62; PULSE 96; RESP 20; TEMP 36.8; O2SAT 95
[2023-12-15 20:27] LABS: Vancomycin Trough 11.3 mcg/mL (10.0-20.0)
[2023-12-15 20:30] VITALS: BP 140/62
[2023-12-15] MEDS: bisacodyL 5 MG TABLET.DR 10 MG PO (20:30)
[2023-12-15] MEDS: Insulin Lispro 100 UNIT/ML 3 ML VIAL SUBCUT (20:39)
[2023-12-15] MEDS: 0.9 % Sodium Chloride Flush 3 ML SYRINGE IVFLUSH (23:53)
[2023-12-16 03:09] VITALS: BP 141/68; PULSE 90; RESP 18; TEMP 36.2; O2SAT 94
[2023-12-16] MEDS: Omeprazole 40 MG CAPSULE.DR PO (05:43)
[2023-12-16 06:21] LABS: Creatinine Clr Calc Pharmacy 92.5; Estimated Glomerular Filt Rate > 60
[2023-12-16 07:01] VITALS: BP 147/70; PULSE 91; RESP 16; TEMP 36.6; O2SAT 95
[2023-12-16 07:08] LABS: Glucose, Whole Blood 169 mg/dL (60-115)
--- NOTE | 2023-12-16 08:08 | P.PNGS_ITS ---
Subjective Subjective Date of Service: 12/16/23 Interval history: asked to see pt for hx of rectal carcinoid on polyp removed endoscopically- 2020 he denies rectal bleeding he has not seen me since he was advised regular colonoscopy and anoscopy his last colonoscopy was in Nov 2020 - no residual/recurrent carcinoid in rectum Physical Exam 2 Vital Signs: Vital Signs: Last Vital Signs Temp 98 F 12/16/23 07:01 Pulse 91 12/16/23 07:01 Resp 16 12/16/23 07:01 BP 147/70 H 12/16/23 07:01 Pulse Ox 95 12/16/23 07:01 O2 Del Method Room Air 12/16/23 07:01 BMI result Body Mass Index 33.9 Const: General: comfortable and no acute distress Resp: Effort & Inspection: normal respiratory effort Extrem: Other: has ulcer/gangrene at tip of 2nd toe on right; amputation site on big toe Objective Data Active Medications Acetaminophen (Acetaminophen 325 Mg Tablet) 650 mg PO Q6H PRN PRN Reason: Pain, Mild (Pain Scale 1-3), fever or headache Amlodipine Besylate (Amlodipine Besylate 10 Mg Tablet) 10 mg PO DAILY [facility]; Protocol Last Admin: 12/15/23 08:32 Dose: 10 mg Documented By: ELLIS Aspirin (Aspirin Enteric Coated 81 Mg Tablet.) 81 mg PO DAILY [facility] Last Admin: 12/15/23 12:31 Dose: 81 mg Documented By: ELLIS Bisacodyl (Bisacodyl 5 Mg Tablet.) 10 mg PO BEDTIME [facility] Last Admin: 12/15/23 20:30 Dose: 10 mg Documented By: STEPHANE Calcium Carbonate (Calcium Carbonate 750 Mg Tab.Chew) 750 mg PO Q4H PRN PRN Reason: Heartburn Empagliflozin (Empagliflozin 25 Mg Tablet) 25 mg PO DAILY [facility] Last Admin: 12/15/23 08:32 Dose: 25 mg Documented By: ELLIS Enoxaparin Sodium (Enoxaparin Sodium 40 Mg/0.4 Ml Syringe) 40 mg SUBCUT Q24H [facility] Last Admin: 12/15/23 12:31 Dose: 40 mg Documented By: ELLIS Fenofibrate (Fenofibrate 160 Mg Tablet) 160 mg PO DAILY [facility] Last Admin: 12/15/23 08:32 Dose: 160 mg Documented By: ELLIS Glucose (Glucose Gel 15 Gm Gel..Gram.) 15 gm PO Q15M PRN; Protocol PRN Reason: per Hypoglycemia Standing Ord. Hydralazine HCl (Hydralazine Hcl 50 Mg Tablet) 50 mg PO TID [facility]; Protocol Last Admin: 12/15/23 20:30 Dose: 50 mg Documented By: STEPHANE Hydromorphone HCl (Hydromorphone Hcl 0.5 Mg/0.5 Ml Syringe) 0.5 mg IVPUSH Q3H PRN; Protocol PRN Reason: Pain, Severe (Pain Scale 7-10) Sodium Chloride (Sodium Chloride 0.45 %) 1,000 mls @ 100 mls/hr IVCONT .Q10H [facility] Last Infusion: 12/15/23 23:08 Dose: 100 mls/hr Documented By: STEPHANE Dextrose (D10) 250 mls @ 750 mls/hr IV Q15M PRN; Protocol PRN Reason: per Hypoglycemia Standing Ord. Vancomycin HCl 1,000 mg/ (Sodium Chloride) 270 mls @ 270 mls/hr IV Q12H [facility] Last Infusion: 12/15/23 23:07 Dose: Infused Documented By: STEPHANE Ceftriaxone Sodium 1 gm/ (Sodium Chloride) 50 mls @ 100 mls/hr IV Q12H [facility] Last Infusion: 12/16/23 00:23 Dose: Infused Documented By: STEPHANE Insulin Human Lispro (Insulin Lispro 100 Unit/Ml 3 Ml Vial) 0 unit SUBCUT QIDACHS [facility]; Protocol Last Admin: 12/15/23 20:39 Dose: 6 unit Documented By: STEPHANE Losartan Potassium (Losartan Potassium 50 Mg Tablet) 100 mg PO DAILY [facility]; Protocol Last Admin: 12/15/23 08:32 Dose: 100 mg Documented By: ELLIS Melatonin (Melatonin 3 Mg Tablet) 6 mg PO BEDTIME PRN PRN Reason: Insomnia Metoprolol Succinate (Metoprolol Succinate Er 100 Mg Tab.Er.24h) 200 mg PO DAILY [facility]; Protocol Last Admin: 12/15/23 08:32 Dose: 200 mg Documented By: ELLIS Omeprazole (Omeprazole 40 Mg Capsule.) 40 mg PO DAILY@0630 [facility] Last Admin: 12/16/23 05:43 Dose: 40 mg Documented By: STEPHANE Ondansetron HCl (Ondansetron Hcl 4 Mg/2 Ml Vial) 4 mg IVPUSH Q8H PRN PRN Reason: Nausea and Vomiting Oxycodone HCl (Oxycodone Hcl Immed Release 5 Mg Tablet) 5 mg PO Q6H PRN PRN Reason: Pain, Moderate(Pain Scale 4-6) Pharmacy Consult (Consult Rx Vancomycin Dosing) 1 each MISCELLANE DAILY PRN PRN Reason: Consult order Polyethylene Glycol (Polyethylene Glycol 3350 17 Gm Powd.Pack) 17 gm PO DAILY PRN PRN Reason: Constipation Sodium Chloride (0.9 % Sodium Chloride Flush 3 Ml Syringe) 3 ml IVFLUSH QSHIFT [facility] Last Admin: 12/15/23 23:53 Dose: 3 ml Documented By: STEPHANE Labs 12/15/23 05:43 12/16/23 05:18 Labs: Laboratory Results - last 24 hr 12/15/23 12/15/23 12/15/23 11:11 16:25 19:15 Hold Purple Top Estim Creat Clear Calc Estimated GFR POC Glucose 146 H 145 H 267 H Vancomycin Trough 12/15/23 12/16/23 12/16/23 20:01 05:18 07:00 Hold Purple Top SEE NOTE Estim Creat Clear Calc 92.5 Estimated GFR > 60 POC Glucose 169 H Vancomycin Trough 11.3 Microbiology Microbiology Results: Microbiology 12/14/23 12:36 Blood Culture - Preliminary Blood - Venous No growth after 24 hours. 12/14/23 12:35 Blood Culture - Preliminary Blood - Venous No growth after 24 hours. Procedures Date of Service Date of Service: 12/16/23 Progress Note: A&P Assessment and plan (1) History of malignant carcinoid tumor of rectum: Status: Acute Assessment and Plan: he has not followed up since 2020 recommend repeat anoscopy - may be done as outpt he is supposed to see GI as well for EGD, colonoscopy - known Mendez's ds awaiting input from Vascular in view of PAD will see in office on discharge Dr Mckeon following for toe ulcer Time Spent With Patient Time: Total time managing care of this patient today ____ minutes. Quality Stroke Does the patient have a stroke diagnosis?: No VTE Prior VTE?: No VTE Risk Level:: Surgical - moderate VTE Device Contraindication: N/A - Device Ordered VTE Drug Contraindication: N/A - Med Ordered
[2023-12-16] MEDS: Insulin Lispro 100 UNIT/ML 3 ML VIAL SUBCUT (09:11)
[2023-12-16 09:12] VITALS: BP 157/82; PULSE 92
[2023-12-16] MEDS: Fenofibrate 160 MG TABLET PO (09:12)
[2023-12-16] MEDS: Metoprolol Succinate ER 100 MG TAB.ER.24H 200 MG PO (09:12)
[2023-12-16] MEDS: amLODIPine Besylate 10 MG TABLET PO (09:13)
[2023-12-16] MEDS: Aspirin Enteric Coated 81 MG TABLET.DR PO (09:13)
[2023-12-16] MEDS: hydrALAZINE HCl 50 MG TABLET PO ×3 (09:13→20:15)
[2023-12-16] MEDS: Empagliflozin 25 MG TABLET PO (09:14)
[2023-12-16] MEDS: Losartan Potassium 50 MG TABLET 100 MG PO (09:14)
[2023-12-16] MEDS: Sodium Chloride 0.45 % 1,000 ML 100 ML IVCONT ×2 (09:16→22:59)
[2023-12-16] MEDS: vancomycin HCL 1,000 MG in 0.9 % Sodium Chloride 250 ML 270 MG IV ×2 (10:44→21:48)
[2023-12-16 11:19] LABS: Glucose, Whole Blood 136 mg/dL (60-115)
--- NOTE | 2023-12-16 12:06 | HO.PM.IMPN ---
Subjective Subjective Date of Service: 12/16/23 Interval History: cellulitis Review of Systems foot finger area seems similar no fevers Physical Exam Vital Signs: Vital Signs: Last Vital Signs Temp 98 F 12/16/23 07:01 Pulse 92 12/16/23 09:12 Resp 16 12/16/23 07:01 BP 157/82 H 12/16/23 09:12 Pulse Ox 95 12/16/23 07:01 O2 Del Method Room Air 12/16/23 07:01 BMI result Body Mass Index 33.9 Appearance: Alert.? Oriented X3.? cvs: rrr, [id number] . res: clear to auscultation ,no rhonchii or wheezing abd: no rebound or guarding ,nt, bs present. ext pulses present , no cyanosis . right foot -2nd digit -seems similar neuro: axo3 , nonfocal. Objective Data Active Medications Acetaminophen (Acetaminophen 325 Mg Tablet) 650 mg PO Q6H PRN PRN Reason: Pain, Mild (Pain Scale 1-3), fever or headache Amlodipine Besylate (Amlodipine Besylate 10 Mg Tablet) 10 mg PO DAILY [facility]; Protocol Last Admin: 12/16/23 09:13 Dose: 10 mg Documented By: PATRICE Aspirin (Aspirin Enteric Coated 81 Mg Tablet.) 81 mg PO DAILY [facility] Last Admin: 12/16/23 09:13 Dose: 81 mg Documented By: PATRICE Bisacodyl (Bisacodyl 5 Mg Tablet.) 10 mg PO BEDTIME [facility] Last Admin: 12/15/23 20:30 Dose: 10 mg Documented By: STEPHANE Calcium Carbonate (Calcium Carbonate 750 Mg Tab.Chew) 750 mg PO Q4H PRN PRN Reason: Heartburn Empagliflozin (Empagliflozin 25 Mg Tablet) 25 mg PO DAILY [facility] Last Admin: 12/16/23 09:14 Dose: 25 mg Documented By: PATRICE Enoxaparin Sodium (Enoxaparin Sodium 40 Mg/0.4 Ml Syringe) 40 mg SUBCUT Q24H [facility] Last Admin: 12/15/23 12:31 Dose: 40 mg Documented By: ELLIS Fenofibrate (Fenofibrate 160 Mg Tablet) 160 mg PO DAILY [facility] Last Admin: 12/16/23 09:12 Dose: 160 mg Documented By: PATRICE Glucose (Glucose Gel 15 Gm Gel..Gram.) 15 gm PO Q15M PRN; Protocol PRN Reason: per Hypoglycemia Standing Ord. Hydralazine HCl (Hydralazine Hcl 50 Mg Tablet) 50 mg PO TID [facility]; Protocol Last Admin: 12/16/23 09:13 Dose: 50 mg Documented By: PATRICE Hydromorphone HCl (Hydromorphone Hcl 0.5 Mg/0.5 Ml Syringe) 0.5 mg IVPUSH Q3H PRN; Protocol PRN Reason: Pain, Severe (Pain Scale 7-10) Sodium Chloride (Sodium Chloride 0.45 %) 1,000 mls @ 100 mls/hr IVCONT .Q10H [facility] Last Admin: 12/16/23 09:16 Dose: 100 mls/hr Documented By: PATRICE Dextrose (D10) 250 mls @ 750 mls/hr IV Q15M PRN; Protocol PRN Reason: per Hypoglycemia Standing Ord. Vancomycin HCl 1,000 mg/ (Sodium Chloride) 270 mls @ 270 mls/hr IV Q12H [facility] Last Admin: 12/16/23 10:44 Dose: 270 mls/hr Documented By: PATRICE Ceftriaxone Sodium 1 gm/ (Sodium Chloride) 50 mls @ 100 mls/hr IV Q12H [facility] Last Infusion: 12/16/23 00:23 Dose: Infused Documented By: STEPHANE Insulin Human Lispro (Insulin Lispro 100 Unit/Ml 3 Ml Vial) 0 unit SUBCUT QIDACHS [facility]; Protocol Last Admin: 12/16/23 12:01 Dose: Not Given Documented By: PATRICE Non-Admin Reason: No Insulin Coverage Losartan Potassium (Losartan Potassium 50 Mg Tablet) 100 mg PO DAILY [facility]; Protocol Last Admin: 12/16/23 09:14 Dose: 100 mg Documented By: PATRICE Melatonin (Melatonin 3 Mg Tablet) 6 mg PO BEDTIME PRN PRN Reason: Insomnia Metoprolol Succinate (Metoprolol Succinate Er 100 Mg Tab.Er.24h) 200 mg PO DAILY [facility]; Protocol Last Admin: 12/16/23 09:12 Dose: 200 mg Documented By: PATRICE Omeprazole (Omeprazole 40 Mg Samy.) 40 mg PO DAILY@0630 [facility] Last Admin: 12/16/23 05:43 Dose: 40 mg Documented By: STEPHANE Ondansetron HCl (Ondansetron Hcl 4 Mg/2 Ml Vial) 4 mg IVPUSH Q8H PRN PRN Reason: Nausea and Vomiting Oxycodone HCl (Oxycodone Hcl Immed Release 5 Mg Tablet) 5 mg PO Q6H PRN PRN Reason: Pain, Moderate(Pain Scale 4-6) Pharmacy Consult (Consult Rx Vancomycin Dosing) 1 each MISCELLANE DAILY PRN PRN Reason: Consult order Polyethylene Glycol (Polyethylene Glycol 3350 17 Gm Powd.Pack) 17 gm PO DAILY PRN PRN Reason: Constipation Sodium Chloride (0.9 % Sodium Chloride Flush 3 Ml Syringe) 3 ml IVFLUSH QSHIFT [facility] Last Admin: 12/16/23 09:12 Dose: Not Given Documented By: PATRICE Non-Admin Reason: IV Running Labs 12/15/23 05:43 12/16/23 05:18 Labs: Laboratory Results - last 24 hr 12/15/23 12/15/23 12/15/23 16:25 19:15 20:01 Hold Purple Top Estim Creat Clear Calc Estimated GFR POC Glucose 145 H 267 H Vancomycin Trough 11.3 12/16/23 12/16/23 12/16/23 05:18 07:00 11:14 Hold Purple Top SEE NOTE Estim Creat Clear Calc 92.5 Estimated GFR > 60 POC Glucose 169 H 136 H Vancomycin Trough Microbiology Microbiology Results: Microbiology 12/14/23 12:36 Blood Culture - Preliminary Blood - Venous No growth after 24 hours. 12/14/23 12:35 Blood Culture - Preliminary Blood - Venous No growth after 24 hours. Assessment and Plan (1) Cellulitis: Status: Acute Assessment and Plan: 58year-old male with history of? diabetes mellitus with? diabetic? 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 continue vanco/ceftriaxone ( 12/14/23) vascular eval - considering right tibial art stenosis -added asa ,on fenofibrate . check lipid panel in am. htn bp under better control continue home meds, hydralazine adequate pain control renal US negative dm:fs acceptable fs with sliding scale HLP: continue statin. As per Gi notes(09/29) patient has hx of barrets Esopahgus :his omeprazole 40 mg daily he was supposed follow up with GI for repeated egd/colonoscopy(hx of polyps) outpatient( as per patient he is going for both tests in ) d/w GI provider miss Nella armijo to add aspirin. he was also supposed to follow up dr stevens as per GI . dvt prophylax:s/c lovenox. 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 above is d/w primary team in detail. Quality Stroke Does the patient have a stroke diagnosis?: No VTE Prior VTE?: No VTE Risk Level:: Surgical - moderate VTE Device Contraindication: N/A - Device Ordered VTE Drug Contraindication: N/A - Med Ordered
[2023-12-16] MEDS: cefTRIAXone sodium 1 GM in 0.9 % Sodium Chloride 50 ML IV ×2 (12:58→23:35)
--- NOTE | 2023-12-16 13:00 | P.CONGS_ITS ---
History of Present Illness Consult details Consult date: 12/16/23 Reason for consult: wound care Narrative: Very pleasant 58-year-old gentleman well known to me for diabetic ulcers. He actually had a right great toe diabetic foot ulcer which was dating back to April of 2022. At that time he presented to the hospital with gangrene it was subsequently amputated it had gone on to heal. Most recently the 2nd toe appears to have developed an ulcer. Reports that it was after hitting the toe and subsequently went on to develop this ulcer. Became quite concerned about the 2nd toe and was subsequently admitted for IV antibiotics. Review of Systems 2 Review of Systems: Yes all other systems are reviewed and are negative Constitutional: Constitutional: Reports no additional constitutional complaints ENT: Reports Normal hearing present Cardiovascular: Cardiovascular: Denies chest pain, Denies chest pain at rest, Denies chest pain with activity and Denies pedal edema Respiratory: Respiratory: Denies cough Gastrointestinal: Gastrointestinal: Denies abdominal pain Musculoskeletal: Musculoskeletal: Denies abnormal gait, Denies muscle cramps and Denies radiating pain into limb Integumentary/Breasts: Skin/Breast: Denies skin ulcer and Denies wounds Neurologic: Reports Normal hearing present and Denies abnormal gait Psychiatric: Psychiatric: Reports no additional psychiatric complaints [facility] Past Medical History Medical History (Updated 12/16/23 @ 08:11 by Narendra Macedo MD) History of malignant carcinoid tumor of rectum Peripheral neuropathy Diabetes Charcot's joint of right foot COVID-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 Rectal carcinoid tumor Crohn's colitis Vitamin D deficiency Obesity (BMI 30-39.9) Mendez's esophagus Hypercholesterolemia Type 2 diabetes mellitus with hyperglycemia HTN (hypertension) Family History Family History Father Diabetes CVD (cardiovascular disease) Myocardial infarction Hypertension Mother CVD (cardiovascular disease) Myocardial infarction Hypertension Throat cancer Maternal Grandmother Gastric cancer Paternal Grandmother Myocardial infarction CVD (cardiovascular disease) Maternal Aunt Gastric cancer Breast cancer Sister In good health Maternal Grandfather CVD (cardiovascular disease) Paternal Grandfather CVD (cardiovascular disease) Other Substance abuse Surgical History Surgical History Amputation of right great toe (04/10/22) History of esophagogastroduodenoscopy (EGD) H/O colonoscopy History of umbilical hernia repair Social History Social History Household Members: Family Household Members Other:: with motehr and sister Housing: House Are you a primary respite care provider to a significant other at home: No Do you presently have visiting nurse or other home services: No Alcohol intake: never Comment: pt refuse bed alarm Patient Tobacco Use Status: Never used Tobacco e-Cigarette/Vaping Use: Never Used Second Hand Smoke Exposure: Yes service: No Current occupational status: employed Current occupation: [employer] Cognitive needs: No Hearing needs: No Vision needs: Yes Meds Allergies Allergy/AdvReac Type Severity Reaction Status Date / Time lisinopril [LISINOPRIL] Allergy Intermediate COUGH Verified 12/14/23 10:36 Penicillins [PENICILLINS] Allergy Intermediate HIVES Verified 12/14/23 10:36 Active Medications: Current Medications Acetaminophen (Acetaminophen 325 Mg Tablet) 650 mg PO Q6H PRN PRN Reason: Pain, Mild (Pain Scale 1-3), fever or headache Amlodipine Besylate (Amlodipine Besylate 10 Mg Tablet) 10 mg PO DAILY [facility]; Protocol Last Admin: 12/16/23 09:13 Dose: 10 mg Aspirin (Aspirin Enteric Coated 81 Mg Tablet.) 81 mg PO DAILY [facility] Last Admin: 12/16/23 09:13 Dose: 81 mg Bisacodyl (Bisacodyl 5 Mg Tablet.) 10 mg PO BEDTIME [facility] Last Admin: 12/15/23 20:30 Dose: 10 mg Calcium Carbonate (Calcium Carbonate 750 Mg Tab.Chew) 750 mg PO Q4H PRN PRN Reason: Heartburn Empagliflozin (Empagliflozin 25 Mg Tablet) 25 mg PO DAILY [facility] Last Admin: 12/16/23 09:14 Dose: 25 mg Enoxaparin Sodium (Enoxaparin Sodium 40 Mg/0.4 Ml Syringe) 40 mg SUBCUT Q24H [facility] Last Admin: 12/15/23 12:31 Dose: 40 mg Fenofibrate (Fenofibrate 160 Mg Tablet) 160 mg PO DAILY [facility] Last Admin: 12/16/23 09:12 Dose: 160 mg Glucose (Glucose Gel 15 Gm Gel..Gram.) 15 gm PO Q15M PRN; Protocol PRN Reason: per Hypoglycemia Standing Ord. Hydralazine HCl (Hydralazine Hcl 50 Mg Tablet) 50 mg PO TID [facility]; Protocol Last Admin: 12/16/23 09:13 Dose: 50 mg Hydromorphone HCl (Hydromorphone Hcl 0.5 Mg/0.5 Ml Syringe) 0.5 mg IVPUSH Q3H PRN; Protocol PRN Reason: Pain, Severe (Pain Scale 7-10) Sodium Chloride (Sodium Chloride 0.45 %) 1,000 mls @ 100 mls/hr IVCONT .Q10H [facility] Last Admin: 12/16/23 09:16 Dose: 100 mls/hr Dextrose (D10) 250 mls @ 750 mls/hr IV Q15M PRN; Protocol PRN Reason: per Hypoglycemia Standing Ord. Vancomycin HCl 1,000 mg/ (Sodium Chloride) 270 mls @ 270 mls/hr IV Q12H [facility] Last Admin: 12/16/23 10:44 Dose: 270 mls/hr Ceftriaxone Sodium 1 gm/ (Sodium Chloride) 50 mls @ 100 mls/hr IV Q12H [facility] Last Infusion: 12/16/23 00:23 Dose: Infused Insulin Human Lispro (Insulin Lispro 100 Unit/Ml 3 Ml Vial) 0 unit SUBCUT QIDACHS [facility]; Protocol Last Admin: 12/16/23 12:01 Dose: Not Given Losartan Potassium (Losartan Potassium 50 Mg Tablet) 100 mg PO DAILY [facility]; Protocol Last Admin: 12/16/23 09:14 Dose: 100 mg Melatonin (Melatonin 3 Mg Tablet) 6 mg PO BEDTIME PRN PRN Reason: Insomnia Metoprolol Succinate (Metoprolol Succinate Er 100 Mg Tab.Er.24h) 200 mg PO DAILY [facility]; Protocol Last Admin: 12/16/23 09:12 Dose: 200 mg Omeprazole (Omeprazole 40 Mg Capsule.Dr) 40 mg PO DAILY@0630 [facility] Last Admin: 12/16/23 05:43 Dose: 40 mg Ondansetron HCl (Ondansetron Hcl 4 Mg/2 Ml Vial) 4 mg IVPUSH Q8H PRN PRN Reason: Nausea and Vomiting Oxycodone HCl (Oxycodone Hcl Immed Release 5 Mg Tablet) 5 mg PO Q6H PRN PRN Reason: Pain, Moderate(Pain Scale 4-6) Pharmacy Consult (Consult Rx Vancomycin Dosing) 1 each MISCELLANE DAILY PRN PRN Reason: Consult order Polyethylene Glycol (Polyethylene Glycol 3350 17 Gm Powd.Pack) 17 gm PO DAILY PRN PRN Reason: Constipation Sodium Chloride (0.9 % Sodium Chloride Flush 3 Ml Syringe) 3 ml IVFLUSH QSHIFT [facility] Last Admin: 12/16/23 09:12 Dose: Not Given Home Medications ?Medication ?Instructions ?Recorded ?Confirmed ?Last Taken ?Type omeprazole 40 mg capsule,delayed 40 mg PO DAILY PRN Acid Reflux 04/03/22 12/14/23 04/03/22 History release metformin 500 mg tablet,extended 1,000 mg PO BID 12/14/23 12/14/23 Unknown History release 24 hr Physical Exam 2 Vital Signs: Vital Signs: Last Vital Signs Temp 98 F 12/16/23 07:01 Pulse 92 12/16/23 09:12 Resp 16 12/16/23 07:01 BP 157/82 H 12/16/23 09:12 Pulse Ox 95 12/16/23 07:01 O2 Del Method Room Air 12/16/23 07:01 BMI result Body Mass Index 33.9 Const: General: cooperative, healthy appearing and comfortable O rientation/consciousness: oriented to person, oriented to place and oriented to time HEENT: Head: Yes normal to inspection Neck: Neck: Yes normal visual inspection Carotids: no bruits Chest: Chest palpation & inspection: normal inspection of the chest Resp: Effort & Inspection: normal respiratory effort and able to speak in complete sentences Auscultation: clear to auscultation bilaterally, no crackles, no rales, no rhonchi and no wheezes Cardio: Other: Right palpable posterior tibial pulse. Rate: regular rate Rhythm: regular rhythm Heart sounds: S1 normal heart sound present and S2 normal heart sound present Bruits: no carotid bruits Peripheral pulses: Peripheral pulses 2+ throughout GI: Inspection: Yes normal to inspection Skin: Other: Right great toe tuft appears to have nonhealing ulcer Wounds: no wounds Hair: normal Neuro: General: oriented to person, oriented to place and oriented to time Cranial nerves: Yes CN's II-XII intact bilaterally and Yes Normal hearing present Cognition (Neuro): normal cognition Motor exam (neuro): 5/5 motor strength present throughout Extrem: Other: venous exam: No significant superficial varicosities or spider telangiectasias, minimal edema General: No clubbing, No cyanosis and No edema Psych: Appearance: grossly normal Mental Status: mental status grossly normal Speech and movement: Normal speech and movement present Results Labs 12/15/23 05:43 12/16/23 05:18 Labs: Abnormal lab results 12/15/23 12/15/23 12/16/23 Range/Units 16:25 19:15 07:00 POC Glucose 145 H 267 H 169 H (60-115) mg/dL 12/16/23 Range/Units 11:14 POC Glucose 136 H (60-115) mg/dL BMP 12/16/23 05:18 Creatinine 0.90 All other labs normal. Assessment and Plan (1) PAD (peripheral artery disease): Status: Acute Plan In short patient has stable PA D. Testing which was done on 12/04 demonstrated an SWAPNA of 0.86 with concerns stenosis in the posterior tibial artery. Repeat testing on 12/10 demonstrated the similar result. He does have palpable posterior tibial pulse and I do think that he has adequate supply to heal his wound. Unclear if this is underlying osteomyelitis. May require MRI. May require Infectious Disease evaluation as well. Will discuss with surgical team. We will peripherally follow with you. Thank you for allowing us to assist in his care. Procedures Date of Service Date of Service: 12/16/23
--- NOTE | 2023-12-16 13:31 | PM.PNGS ---
Subjective Subjective Date of Service: 12/16/23 Interval history: Hospital day 3, right 2nd toe diabetic infection. No new complaints. Reports being seen by Dr. Cabello and Dr. Macedo. Overall feels improved. Physical Exam Vital Signs: Vital Signs: Last Vital Signs Temp 98 F 12/16/23 07:01 Pulse 92 12/16/23 09:12 Resp 16 12/16/23 07:01 BP 157/82 H 12/16/23 09:12 Pulse Ox 95 12/16/23 07:01 O2 Del Method Room Air 12/16/23 07:01 BMI result Body Mass Index 33.9 Const: General: no acute distress Nutritional Appearance: well nourished Orientation/consciousness: patient oriented x3 Resp: Effort & Inspection: normal respiratory effort Neuro: General: patient oriented x3 Extrem: Other: Right 2nd toe ulcer open and draining, clean sterile dressings applied. Minimal erythema noted in the toe. Objective Data Active Medications Acetaminophen (Acetaminophen 325 Mg Tablet) 650 mg PO Q6H PRN PRN Reason: Pain, Mild (Pain Scale 1-3), fever or headache Amlodipine Besylate (Amlodipine Besylate 10 Mg Tablet) 10 mg PO DAILY [facility]; Protocol Last Admin: 12/16/23 09:13 Dose: 10 mg Documented By: PATRICE Aspirin (Aspirin Enteric Coated 81 Mg Tablet.) 81 mg PO DAILY [facility] Last Admin: 12/16/23 09:13 Dose: 81 mg Documented By: PATRICE Bisacodyl (Bisacodyl 5 Mg Tablet.) 10 mg PO BEDTIME [facility] Last Admin: 12/15/23 20:30 Dose: 10 mg Documented By: STEPHANE Calcium Carbonate (Calcium Carbonate 750 Mg Tab.Chew) 750 mg PO Q4H PRN PRN Reason: Heartburn Empagliflozin (Empagliflozin 25 Mg Tablet) 25 mg PO DAILY [facility] Last Admin: 12/16/23 09:14 Dose: 25 mg Documented By: PATRICE Enoxaparin Sodium (Enoxaparin Sodium 40 Mg/0.4 Ml Syringe) 40 mg SUBCUT Q24H [facility] Last Admin: 12/15/23 12:31 Dose: 40 mg Documented By: ELLIS Fenofibrate (Fenofibrate 160 Mg Tablet) 160 mg PO DAILY [facility] Last Admin: 12/16/23 09:12 Dose: 160 mg Documented By: PATRICE Glucose (Glucose Gel 15 Gm Gel..Gram.) 15 gm PO Q15M PRN; Protocol PRN Reason: per Hypoglycemia Standing Ord. Hydralazine HCl (Hydralazine Hcl 50 Mg Tablet) 50 mg PO TID [facility]; Protocol Last Admin: 12/16/23 09:13 Dose: 50 mg Documented By: PATRICE Hydromorphone HCl (Hydromorphone Hcl 0.5 Mg/0.5 Ml Syringe) 0.5 mg IVPUSH Q3H PRN; Protocol PRN Reason: Pain, Severe (Pain Scale 7-10) Sodium Chloride (Sodium Chloride 0.45 %) 1,000 mls @ 100 mls/hr IVCONT .Q10H [facility] Last Admin: 12/16/23 09:16 Dose: 100 mls/hr Documented By: PATRICE Dextrose (D10) 250 mls @ 750 mls/hr IV Q15M PRN; Protocol PRN Reason: per Hypoglycemia Standing Ord. Vancomycin HCl 1,000 mg/ (Sodium Chloride) 270 mls @ 270 mls/hr IV Q12H [facility] Last Infusion: 12/16/23 13:05 Dose: Infused Documented By: PATRICE Ceftriaxone Sodium 1 gm/ (Sodium Chloride) 50 mls @ 100 mls/hr IV Q12H [facility] Last Admin: 12/16/23 12:58 Dose: 100 mls/hr Documented By: PATRICE Insulin Human Lispro (Insulin Lispro 100 Unit/Ml 3 Ml Vial) 0 unit SUBCUT QIDACHS [facility]; Protocol Last Admin: 12/16/23 12:01 Dose: Not Given Documented By: PATRICE Non-Admin Reason: No Insulin Coverage Losartan Potassium (Losartan Potassium 50 Mg Tablet) 100 mg PO DAILY [facility]; Protocol Last Admin: 12/16/23 09:14 Dose: 100 mg Documented By: PATRICE Melatonin (Melatonin 3 Mg Tablet) 6 mg PO BEDTIME PRN PRN Reason: Insomnia Metoprolol Succinate (Metoprolol Succinate Er 100 Mg Tab.Er.24h) 200 mg PO DAILY [facility]; Protocol Last Admin: 12/16/23 09:12 Dose: 200 mg Documented By: PATRICE Omeprazole (Omeprazole 40 Mg Capsule.) 40 mg PO DAILY@0630 [facility] Last Admin: 12/16/23 05:43 Dose: 40 mg Documented By: STEPHANE Ondansetron HCl (Ondansetron Hcl 4 Mg/2 Ml Vial) 4 mg IVPUSH Q8H PRN PRN Reason: Nausea and Vomiting Oxycodone HCl (Oxycodone Hcl Immed Release 5 Mg Tablet) 5 mg PO Q6H PRN PRN Reason: Pain, Moderate(Pain Scale 4-6) Pharmacy Consult (Consult Rx Vancomycin Dosing) 1 each MISCELLANE DAILY PRN PRN Reason: Consult order Polyethylene Glycol (Polyethylene Glycol 3350 17 Gm Powd.Pack) 17 gm PO DAILY PRN PRN Reason: Constipation Sodium Chloride (0.9 % Sodium Chloride Flush 3 Ml Syringe) 3 ml IVFLUSH QSHIFT [facility] Last Admin: 12/16/23 09:12 Dose: Not Given Documented By: PATRICE Non-Admin Reason: IV Running Labs 12/15/23 05:43 12/16/23 05:18 Labs: Laboratory Results - last 24 hr 12/15/23 12/15/23 12/15/23 16:25 19:15 20:01 Hold Purple Top Estim Creat Clear Calc Estimated GFR POC Glucose 145 H 267 H Vancomycin Trough 11.3 12/16/23 12/16/23 12/16/23 05:18 07:00 11:14 Hold Purple Top SEE NOTE Estim Creat Clear Calc 92.5 Estimated GFR > 60 POC Glucose 169 H 136 H Vancomycin Trough Microbiology Microbiology Results: Microbiology 12/14/23 12:36 Blood Culture - Preliminary Blood - Venous No growth after 24 hours. 12/14/23 12:35 Blood Culture - Preliminary Blood - Venous No growth after 24 hours. Procedures Date of Service Date of Service: 12/16/23 Progress Note: A&P Assessment and plan (1) Open toe wound: Status: Acute Plan 58-year-old male patient with a new total ulceration right 2nd toe. Appreciate Dr. Cabello and Dr. Macedo input. Continue antibiotics and local wound debridement. Time Spent With Patient Time: Total time managing care of this patient today ____ minutes. Quality Stroke Does the patient have a stroke diagnosis?: No VTE Prior VTE?: No VTE Risk Level:: Surgical - moderate VTE Device Contraindication: N/A - Device Ordered VTE Drug Contraindication: N/A - Med Ordered
[2023-12-16] MEDS: Enoxaparin Sodium 40 MG/0.4 ML SYRINGE SUBCUT (13:34)
[2023-12-16 15:09] VITALS: BP 149/84; PULSE 87; RESP 17; TEMP 36.9; O2SAT 94
[2023-12-16 16:50] LABS: Glucose, Whole Blood 141 mg/dL (60-115)
[2023-12-16 19:33] VITALS: BP 162/87; PULSE 87; RESP 17; TEMP 36.4; O2SAT 93
[2023-12-16 20:10] LABS: Glucose, Whole Blood 146 mg/dL (60-115)
[2023-12-16] MEDS: bisacodyL 5 MG TABLET.DR 10 MG PO (20:14)
[2023-12-16 20:43] LABS: Vancomycin Random 9.6 mcg/mL (15-20)
--- NOTE | 2023-12-16 20:48 | HE.PHANOTE ---
RE: vanco Trough on 12/15 came back low at 9.6mg/L; increased dose to 1000mg Q8H with predicted trough of 14.4mg/L, AUC of 494mg/L. Next level to be drawn 12/16 @1999
[2023-12-17] VITALS (8 sets, daily range): BP systolic 136–164; BP diastolic 68–81; PULSE 89–102; RESP 12–17; TEMP 36.4–37.8; O2SAT 92–96
[2023-12-17] MEDS: 0.9 % Sodium Chloride Flush 3 ML SYRINGE IVFLUSH ×3 (00:03→20:30)
--- NOTE | 2023-12-17 00:08 | PC.NURSE ---
pt wanted his IVF stopped.States he is eating and drinking fine. notified and ok to stop fluids per .
[2023-12-17] MEDS: Omeprazole 40 MG CAPSULE.DR PO (06:04)
[2023-12-17] MEDS: vancomycin HCL 1,000 MG in 0.9 % Sodium Chloride 250 ML 270 MG IV ×2 (06:05→14:20)
[2023-12-17 06:11] LABS: Creatinine Clr Calc Pharmacy 95.6; Estimated Glomerular Filt Rate > 60
[2023-12-17 07:11] LABS: Glucose, Whole Blood 119 mg/dL (60-115)
--- NOTE | 2023-12-17 08:08 | P.PNGS_ITS ---
Subjective Subjective Date of Service: 12/17/23 Interval history: 58-year-old male patient with a recent onset right 2nd toe ulcer. He denies any new symptoms today. Physical Exam 2 Vital Signs: Vital Signs: Last Vital Signs Temp 98 F 12/17/23 06:47 Pulse 95 12/17/23 06:47 Resp 16 12/17/23 06:47 BP 152/68 H 12/17/23 06:47 Pulse Ox 96 12/17/23 06:47 O2 Del Method Room Air 12/17/23 06:47 BMI result Body Mass Index 33.9 Const: General: no acute distress Nutritional Appearance: well nourished Orientation/consciousness: patient oriented x3 Resp: Effort & Inspection: normal respiratory effort Neuro: General: patient oriented x3 Extrem: Other: Right 2nd toe ulcer open and draining, necrotic tissue and loose nail matrix removed down to viable tissue. Wounds repacked with silver alginate and covered with dry sterile dressings. Objective Data Active Medications Acetaminophen (Acetaminophen 325 Mg Tablet) 650 mg PO Q6H PRN PRN Reason: Pain, Mild (Pain Scale 1-3), fever or headache Amlodipine Besylate (Amlodipine Besylate 10 Mg Tablet) 10 mg PO DAILY [facility]; Protocol Last Admin: 12/16/23 09:13 Dose: 10 mg Documented By: PATRICE Aspirin (Aspirin Enteric Coated 81 Mg Tablet.) 81 mg PO DAILY [facility] Last Admin: 12/16/23 09:13 Dose: 81 mg Documented By: PATRICE Bisacodyl (Bisacodyl 5 Mg Tablet.) 10 mg PO BEDTIME [facility] Last Admin: 12/16/23 20:14 Dose: 10 mg Documented By: ANGEL Calcium Carbonate (Calcium Carbonate 750 Mg Tab.Chew) 750 mg PO Q4H PRN PRN Reason: Heartburn Empagliflozin (Empagliflozin 25 Mg Tablet) 25 mg PO DAILY [facility] Last Admin: 12/16/23 09:14 Dose: 25 mg Documented By: PATRICE Enoxaparin Sodium (Enoxaparin Sodium 40 Mg/0.4 Ml Syringe) 40 mg SUBCUT Q24H [facility] Last Admin: 12/16/23 13:34 Dose: 40 mg Documented By: PATRICE Fenofibrate (Fenofibrate 160 Mg Tablet) 160 mg PO DAILY [facility] Last Admin: 12/16/23 09:12 Dose: 160 mg Documented By: PATRICE Glucose (Glucose Gel 15 Gm Gel..Gram.) 15 gm PO Q15M PRN; Protocol PRN Reason: per Hypoglycemia Standing Ord. Hydralazine HCl (Hydralazine Hcl 50 Mg Tablet) 50 mg PO TID [facility]; Protocol Last Admin: 12/16/23 20:15 Dose: 50 mg Documented By: ANGEL Hydromorphone HCl (Hydromorphone Hcl 0.5 Mg/0.5 Ml Syringe) 0.5 mg IVPUSH Q3H PRN; Protocol PRN Reason: Pain, Severe (Pain Scale 7-10) Dextrose (D10) 250 mls @ 750 mls/hr IV Q15M PRN; Protocol PRN Reason: per Hypoglycemia Standing Ord. Ceftriaxone Sodium 1 gm/ (Sodium Chloride) 50 mls @ 100 mls/hr IV Q12H [facility] Last Infusion: 12/17/23 00:07 Dose: Infused Documented By: ANGEL Vancomycin HCl 1,000 mg/ (Sodium Chloride) 270 mls @ 270 mls/hr IV Q8H [facility] Last Infusion: 12/17/23 07:28 Dose: Infused Documented By: JULIANN Insulin Human Lispro (Insulin Lispro 100 Unit/Ml 3 Ml Vial) 0 unit SUBCUT QIDACHS [facility]; Protocol Last Admin: 12/17/23 07:28 Dose: Not Given Documented By: JULIANN Non-Admin Reason: No Insulin Coverage Losartan Potassium (Losartan Potassium 50 Mg Tablet) 100 mg PO DAILY [facility]; Protocol Last Admin: 12/16/23 09:14 Dose: 100 mg Documented By: PATRICE Melatonin (Melatonin 3 Mg Tablet) 6 mg PO BEDTIME PRN PRN Reason: Insomnia Metoprolol Succinate (Metoprolol Succinate Er 100 Mg Tab.Er.24h) 200 mg PO DAILY [facility]; Protocol Last Admin: 12/16/23 09:12 Dose: 200 mg Documented By: PATRICE Omeprazole (Omeprazole 40 Mg Capsule.) 40 mg PO DAILY@0630 [facility] Last Admin: 12/17/23 06:04 Dose: 40 mg Documented By: ANGEL Ondansetron HCl (Ondansetron Hcl 4 Mg/2 Ml Vial) 4 mg IVPUSH Q8H PRN PRN Reason: Nausea and Vomiting Oxycodone HCl (Oxycodone Hcl Immed Release 5 Mg Tablet) 5 mg PO Q6H PRN PRN Reason: Pain, Moderate(Pain Scale 4-6) Pharmacy Consult (Consult Rx Vancomycin Dosing) 1 each MISCELLANE DAILY PRN PRN Reason: Consult order Polyethylene Glycol (Polyethylene Glycol 3350 17 Gm Powd.Pack) 17 gm PO DAILY PRN PRN Reason: Constipation Sodium Chloride (0.9 % Sodium Chloride Flush 3 Ml Syringe) 3 ml IVFLUSH QSHIFT [facility] Last Admin: 12/17/23 00:03 Dose: 3 ml Documented By: ANGEL Labs 12/15/23 05:43 12/17/23 05:27 Labs: Laboratory Results - last 24 hr 12/16/23 12/16/23 12/16/23 11:14 16:47 19:54 Hold Purple Top Estim Creat Clear Calc Estimated GFR POC Glucose 136 H 141 H Random Vancomycin 9.6 L 12/16/23 12/17/23 12/17/23 20:06 05:27 06:47 Hold Purple Top SEE NOTE Estim Creat Clear Calc 95.6 Estimated GFR > 60 POC Glucose 146 H 119 H Random Vancomycin Microbiology Microbiology Results: Microbiology 12/14/23 12:36 Blood Culture - Preliminary Blood - Venous No growth after 48 hours. 12/14/23 12:35 Blood Culture - Preliminary Blood - Venous No growth after 48 hours. Procedures Date of Service Date of Service: 12/17/23 Progress Note: A&P Assessment and plan (1) Cellulitis: Status: Acute (2) Open toe wound: Status: Acute Plan Right 2nd toe with an open wound which extends to the distal phalanx wishes suggestive of underlying osteomyelitis. Silver alginate dressing applied. Will obtain MRI today to evaluate for osteomyelitis. Continue IV antibiotics. Time Spent With Patient Time: Total time managing care of this patient today ____ minutes. Quality Stroke Does the patient have a stroke diagnosis?: No VTE Prior VTE?: No VTE Risk Level:: Surgical - moderate VTE Device Contraindication: N/A - Device Ordered VTE Drug Contraindication: N/A - Med Ordered
[2023-12-17] MEDS: Empagliflozin 25 MG TABLET PO (08:27)
[2023-12-17] MEDS: Fenofibrate 160 MG TABLET PO (08:27)
[2023-12-17] MEDS: Aspirin Enteric Coated 81 MG TABLET.DR PO (08:27)
[2023-12-17] MEDS: Losartan Potassium 50 MG TABLET 100 MG PO (08:28)
[2023-12-17] MEDS: Metoprolol Succinate ER 100 MG TAB.ER.24H 200 MG PO (08:28)
[2023-12-17] MEDS: amLODIPine Besylate 10 MG TABLET PO (08:28)
[2023-12-17] MEDS: hydrALAZINE HCl 50 MG TABLET PO ×3 (08:28→20:29)
--- NOTE | 2023-12-17 09:38 | P.PNIM_ITS ---
Subjective Subjective Date of Service: 12/17/23 Interval History: f/u on med management, on iv abx for right foot ulcer and awaiting MR to r/o osteomylitis (OM) Physical Exam 2 Vital Signs: Vital Signs: Last Vital Signs Temp 98 F 12/17/23 06:47 Pulse 102 H 12/17/23 08:27 Resp 16 12/17/23 06:47 BP 164/76 H 12/17/23 08:27 Pulse Ox 96 12/17/23 06:47 O2 Del Method Room Air 12/17/23 06:47 BMI result Body Mass Index 33.9 Const: Other: General: AO X 3, no acute distress Resp: CTA bilateral CVS: S1,S2,RRR GI: +BS, NT, no distention Skin: No rash Neuro: motor grossly intact Psych: appropriate affect Objective Data Active Medications Acetaminophen (Acetaminophen 325 Mg Tablet) 650 mg PO Q6H PRN PRN Reason: Pain, Mild (Pain Scale 1-3), fever or headache Amlodipine Besylate (Amlodipine Besylate 10 Mg Tablet) 10 mg PO DAILY [facility]; Protocol Last Admin: 12/17/23 08:28 Dose: 10 mg Documented By: JULIANN Aspirin (Aspirin Enteric Coated 81 Mg Tablet.) 81 mg PO DAILY [facility] Last Admin: 12/17/23 08:27 Dose: 81 mg Documented By: JULIANN Bisacodyl (Bisacodyl 5 Mg Tablet.) 10 mg PO BEDTIME [facility] Last Admin: 12/16/23 20:14 Dose: 10 mg Documented By: ODRISHenrietta Calcium Carbonate (Calcium Carbonate 750 Mg Tab.Chew) 750 mg PO Q4H PRN PRN Reason: Heartburn Empagliflozin (Empagliflozin 25 Mg Tablet) 25 mg PO DAILY [facility] Last Admin: 12/17/23 08:27 Dose: 25 mg Documented By: JULIANN Enoxaparin Sodium (Enoxaparin Sodium 40 Mg/0.4 Ml Syringe) 40 mg SUBCUT Q24H [facility] Last Admin: 12/16/23 13:34 Dose: 40 mg Documented By: PATRICE Fenofibrate (Fenofibrate 160 Mg Tablet) 160 mg PO DAILY [facility] Last Admin: 12/17/23 08:27 Dose: 160 mg Documented By: JULIANN Glucose (Glucose Gel 15 Gm Gel..Gram.) 15 gm PO Q15M PRN; Protocol PRN Reason: per Hypoglycemia Standing Ord. Hydralazine HCl (Hydralazine Hcl 50 Mg Tablet) 50 mg PO TID [facility]; Protocol Last Admin: 12/17/23 08:28 Dose: 50 mg Documented By: JULIANN Hydromorphone HCl (Hydromorphone Hcl 0.5 Mg/0.5 Ml Syringe) 0.5 mg IVPUSH Q3H PRN; Protocol PRN Reason: Pain, Severe (Pain Scale 7-10) Dextrose (D10) 250 mls @ 750 mls/hr IV Q15M PRN; Protocol PRN Reason: per Hypoglycemia Standing Ord. Ceftriaxone Sodium 1 gm/ (Sodium Chloride) 50 mls @ 100 mls/hr IV Q12H [facility] Last Infusion: 12/17/23 00:07 Dose: Infused Documented By: ANGEL Vancomycin HCl 1,000 mg/ (Sodium Chloride) 270 mls @ 270 mls/hr IV Q8H [facility] Last Infusion: 12/17/23 07:28 Dose: Infused Documented By: JULIANN Insulin Human Lispro (Insulin Lispro 100 Unit/Ml 3 Ml Vial) 0 unit SUBCUT QIDACHS [facility]; Protocol Last Admin: 12/17/23 07:28 Dose: Not Given Documented By: JULIANN Non-Admin Reason: No Insulin Coverage Losartan Potassium (Losartan Potassium 50 Mg Tablet) 100 mg PO DAILY [facility]; Protocol Last Admin: 12/17/23 08:28 Dose: 100 mg Documented By: JULIANN Melatonin (Melatonin 3 Mg Tablet) 6 mg PO BEDTIME PRN PRN Reason: Insomnia Metoprolol Succinate (Metoprolol Succinate Er 100 Mg Tab.Er.24h) 200 mg PO DAILY [facility]; Protocol Last Admin: 12/17/23 08:28 Dose: 200 mg Documented By: JULIANN Omeprazole (Omeprazole 40 Mg Capsule.) 40 mg PO DAILY@0630 [facility] Last Admin: 12/17/23 06:04 Dose: 40 mg Documented By: ANGEL Ondansetron HCl (Ondansetron Hcl 4 Mg/2 Ml Vial) 4 mg IVPUSH Q8H PRN PRN Reason: Nausea and Vomiting Oxycodone HCl (Oxycodone Hcl Immed Release 5 Mg Tablet) 5 mg PO Q6H PRN PRN Reason: Pain, Moderate(Pain Scale 4-6) Pharmacy Consult (Consult Rx Vancomycin Dosing) 1 each MISCELLANE DAILY PRN PRN Reason: Consult order Polyethylene Glycol (Polyethylene Glycol 3350 17 Gm Powd.Pack) 17 gm PO DAILY PRN PRN Reason: Constipation Sodium Chloride (0.9 % Sodium Chloride Flush 3 Ml Syringe) 3 ml IVFLUSH QSHIFT [facility] Last Admin: 12/17/23 08:27 Dose: 3 ml Documented By: JULIANN Labs 12/15/23 05:43 12/17/23 05:27 Labs: Laboratory Results - last 24 hr 12/16/23 12/16/23 12/16/23 11:14 16:47 19:54 Hold Purple Top Estim Creat Clear Calc Estimated GFR POC Glucose 136 H 141 H Random Vancomycin 9.6 L 12/16/23 12/17/23 12/17/23 20:06 05:27 06:47 Hold Purple Top SEE NOTE Estim Creat Clear Calc 95.6 Estimated GFR > 60 POC Glucose 146 H 119 H Random Vancomycin Microbiology Microbiology Results: Microbiology 12/14/23 12:36 Blood Culture - Preliminary Blood - Venous No growth after 48 hours. 12/14/23 12:35 Blood Culture - Preliminary Blood - Venous No growth after 48 hours. 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 continue vanco/ceftriaxone ( 12/14/23) vascular eval - considering right tibial art stenosis -added asa ,on fenofibrate . check lipid panel in am. HTN-- -continue hydralazine, losartatn and metoprolol and adjust PRN DM -continue SSI -hold Jardiance in case surgery HLP: continue statin. PAD--ASA, Lipitor, h/o barrets esoph--PPI, f/u with GI for surveillance EGD, missed appt in july dvt prophylax:s/c lovenox. Quality Stroke Does the patient have a stroke diagnosis?: No VTE Prior VTE?: No VTE Risk Level:: Surgical - moderate VTE Device Contraindication: N/A - Device Ordered VTE Drug Contraindication: N/A - Med Ordered
[2023-12-17 11:12] LABS: Glucose, Whole Blood 120 mg/dL (60-115)
--- NOTE | 2023-12-17 11:23 | HO.WOUND ---
Wound Consult cancelled 58yr old? admitted to [facility] [place] on 12/14/23 13:17 See progress notes and H&P for detailed history.? Wound consult placed for Right foot wounds. Brief chart review reveals patient is seen and followed by Dr. Mckeon and topical recommendation in place for Silver Alginate dressing changes. Will defer to Dr. Mckeon at this time.
[2023-12-17] MEDS: gadobutroL 10 ML VIAL IVPUSH (12:08)
[2023-12-17] MEDS: Enoxaparin Sodium 40 MG/0.4 ML SYRINGE SUBCUT (12:33)
[2023-12-17] MEDS: cefTRIAXone sodium 1 GM in 0.9 % Sodium Chloride 50 ML IV ×2 (12:33→23:41)
--- NOTE | 2023-12-17 13:17 | HO.VASCPN ---
Subjective Subjective Date of Service: 12/17/23 Patient reports: no new complaints and feels better Interval history: Patient seen and examined. No significant events overnight. Underwent MRI and just returned from the study. Physical Exam Vital Signs: Vital Signs: Last Vital Signs Temp 98 F 12/17/23 06:47 Pulse 102 H 12/17/23 08:27 Resp 16 12/17/23 06:47 BP 164/76 H 12/17/23 08:27 Pulse Ox 96 12/17/23 06:47 O2 Del Method Room Air 12/17/23 06:47 BMI result Body Mass Index 33.9 Const: General: cooperative, healthy appearing and no acute distress Orientation/consciousness: oriented to person, oriented to place and oriented to time HEENT: Head: Yes normal to inspection Neck: Carotids: no bruits Chest: Chest palpation & inspection: normal inspection of the chest Resp: Effort & Inspection: normal respiratory effort and able to speak in complete sentences Auscultation: clear to auscultation bilaterally Cardio: Rate: regular rate Heart sounds: S1 normal heart sound present and S2 normal heart sound present GI: Inspection: Yes normal to inspection Skin: Other: Right 2nd toe dressing clean dry intact General skin exam: no rashes or lesions noted Wounds: no wounds Neuro: General: oriented to person, oriented to place, oriented to time and CN's II-XI intact bilaterally Extrem: General: Yes normal to inspection, Yes full ROM and Yes no clubbing, cyanosis or edema Psych: Appearance: grossly normal and well kempt Speech and movement: Normal speech and movement present Affect: normal affect Progress Note: A&P Assessment and plan (1) PAD (peripheral artery disease): Status: Acute Assessment and Plan: In short patient is stable from a peripheral vascular standpoint. MRI results have already been posted and is positive for osteomyelitis. Would involve Infectious Disease and may require long-term antibiotics possibly up to 6 weeks. This was discussed with the patient. Thank you for allowing us to assist in his care. Time Spent With Patient Time: Total time managing care of this patient today ____ minutes. Procedures Date of Service Date of Service: 12/17/23 Quality Stroke Does the patient have a stroke diagnosis?: No VTE Prior VTE?: No VTE Risk Level:: Surgical - moderate VTE Device Contraindication: N/A - Device Ordered VTE Drug Contraindication: N/A - Med Ordered
[2023-12-17 16:32] LABS: Glucose, Whole Blood 129 mg/dL (60-115)
[2023-12-17 20:16] LABS: Vancomycin Trough 15.4 mcg/mL (10.0-20.0)
[2023-12-17 20:23] LABS: Glucose, Whole Blood 135 mg/dL (60-115)
--- NOTE | 2023-12-17 20:29 | HE.PHANOTE ---
RE: VANCO DOSING Trough came back as 15.4. Dose is decreased to 750 mg q8h, next trough is scheduled for 12/18/23 @1999.
[2023-12-17] MEDS: vancomycin HCL 750 MG in 0.9 % Sodium Chloride 250 ML 265 MG IV (22:25)
--- NOTE | 2023-12-17 23:08 | PC.NURSE ---
Assumed care of patient at 19:00. Denies pain or other complaints. Wound care to ulcer done. Please see shift assessment, tasks in worklist, and MAR for full details. Handoff report given to oncoming RN at 23:00.
[2023-12-18 03:43] VITALS: BP 146/74; PULSE 94; RESP 16; TEMP 36.6; O2SAT 92
[2023-12-18] MEDS: Omeprazole 40 MG CAPSULE.DR PO (06:46)
[2023-12-18] MEDS: vancomycin HCL 750 MG in 0.9 % Sodium Chloride 250 ML 265 MG IV ×2 (06:46→14:38)
[2023-12-18 07:14] LABS: Creatinine Clr Calc Pharmacy 93.5; Estimated Glomerular Filt Rate > 60
[2023-12-18 07:32] VITALS: BP 169/81; PULSE 92; RESP 18; TEMP 36.1; O2SAT 94
[2023-12-18 07:35] LABS: Glucose, Whole Blood 106 mg/dL (60-115)
[2023-12-18] MEDS: hydrALAZINE HCl 50 MG TABLET PO (07:55)
[2023-12-18] MEDS: Metoprolol Succinate ER 100 MG TAB.ER.24H 200 MG PO (07:55)
[2023-12-18] MEDS: Fenofibrate 160 MG TABLET PO (07:55)
[2023-12-18] MEDS: Losartan Potassium 50 MG TABLET 100 MG PO (07:55)
[2023-12-18] MEDS: amLODIPine Besylate 10 MG TABLET PO (07:56)
[2023-12-18] MEDS: Aspirin Enteric Coated 81 MG TABLET.DR PO (07:56)
[2023-12-18] MEDS: 0.9 % Sodium Chloride Flush 3 ML SYRINGE IVFLUSH ×2 (07:56→22:03)
--- NOTE | 2023-12-18 08:42 | P.PNGS_ITS ---
Subjective Subjective Date of Service: 12/18/23 Interval history: Patient with no new complaints Physical Exam 2 Vital Signs: Vital Signs: Last Vital Signs Temp 96.9 F 12/18/23 07:32 Pulse 92 12/18/23 07:32 Resp 18 12/18/23 07:32 BP 169/81 H 12/18/23 07:32 Pulse Ox 94 12/18/23 07:32 O2 Del Method Room Air 12/18/23 07:32 BMI result Body Mass Index 33.9 Const: General: no acute distress Nutritional Appearance: well nourished Orientation/consciousness: patient oriented x3 Resp: Effort & Inspection: normal respiratory effort Neuro: General: patient oriented x3 Extrem: Other: Right 2nd toe ulcer open and draining, palpable distal phalanx through ulceration. Wounds repacked with silver alginate and covered with dry sterile dressings. Objective Data Active Medications Acetaminophen (Acetaminophen 325 Mg Tablet) 650 mg PO Q6H PRN PRN Reason: Pain, Mild (Pain Scale 1-3), fever or headache Amlodipine Besylate (Amlodipine Besylate 10 Mg Tablet) 10 mg PO DAILY [facility]; Protocol Last Admin: 12/18/23 07:56 Dose: 10 mg Documented By: JULIANN Aspirin (Aspirin Enteric Coated 81 Mg Tablet.) 81 mg PO DAILY [facility] Last Admin: 12/18/23 07:56 Dose: 81 mg Documented By: JULIANN Bisacodyl (Bisacodyl 5 Mg Tablet.) 10 mg PO BEDTIME [facility] Last Admin: 12/17/23 20:24 Dose: Not Given Documented By: YOANA Non-Admin Reason: Patient Refused Calcium Carbonate (Calcium Carbonate 750 Mg Tab.Chew) 750 mg PO Q4H PRN PRN Reason: Heartburn Empagliflozin (Empagliflozin 25 Mg Tablet) 25 mg PO DAILY [facility] Last Admin: 12/17/23 08:27 Dose: 25 mg Documented By: JULIANN Enoxaparin Sodium (Enoxaparin Sodium 40 Mg/0.4 Ml Syringe) 40 mg SUBCUT Q24H [facility] Last Admin: 12/17/23 12:33 Dose: 40 mg Documented By: JULIANN Fenofibrate (Fenofibrate 160 Mg Tablet) 160 mg PO DAILY [facility] Last Admin: 12/18/23 07:55 Dose: 160 mg Documented By: JULIANN Glucose (Glucose Gel 15 Gm Gel..Gram.) 15 gm PO Q15M PRN; Protocol PRN Reason: per Hypoglycemia Standing Ord. Hydralazine HCl (Hydralazine Hcl 50 Mg Tablet) 50 mg PO TID [facility]; Protocol Last Admin: 12/18/23 07:55 Dose: 50 mg Documented By: JULIANN Hydromorphone HCl (Hydromorphone Hcl 0.5 Mg/0.5 Ml Syringe) 0.5 mg IVPUSH Q3H PRN; Protocol PRN Reason: Pain, Severe (Pain Scale 7-10) Dextrose (D10) 250 mls @ 750 mls/hr IV Q15M PRN; Protocol PRN Reason: per Hypoglycemia Standing Ord. Ceftriaxone Sodium 1 gm/ (Sodium Chloride) 50 mls @ 100 mls/hr IV Q12H [facility] Last Infusion: 12/18/23 00:18 Dose: Infused Documented By: FLORA Vancomycin HCl 750 mg/ Sodium (Chloride) 265 mls @ 265 mls/hr IV Q8H [facility] Last Infusion: 12/18/23 07:56 Dose: Infused Documented By: JULIANN Insulin Human Lispro (Insulin Lispro 100 Unit/Ml 3 Ml Vial) 0 unit SUBCUT QIDACHS [facility]; Protocol Last Admin: 12/18/23 07:38 Dose: Not Given Documented By: JULIANN Non-Admin Reason: No Insulin Coverage Losartan Potassium (Losartan Potassium 50 Mg Tablet) 100 mg PO DAILY [facility]; Protocol Last Admin: 12/18/23 07:55 Dose: 100 mg Documented By: JULIANN Melatonin (Melatonin 3 Mg Tablet) 6 mg PO BEDTIME PRN PRN Reason: Insomnia Metoprolol Succinate (Metoprolol Succinate Er 100 Mg Tab.Er.24h) 200 mg PO DAILY [facility]; Protocol Last Admin: 12/18/23 07:55 Dose: 200 mg Documented By: JULIANN Omeprazole (Omeprazole 40 Mg Capsule.Dr) 40 mg PO DAILY@0630 [facility] Last Admin: 12/18/23 06:46 Dose: 40 mg Documented By: FLORA Ondansetron HCl (Ondansetron Hcl 4 Mg/2 Ml Vial) 4 mg IVPUSH Q8H PRN PRN Reason: Nausea and Vomiting Oxycodone HCl (Oxycodone Hcl Immed Release 5 Mg Tablet) 5 mg PO Q6H PRN PRN Reason: Pain, Moderate(Pain Scale 4-6) Pharmacy Consult (Consult Rx Vancomycin Dosing) 1 each MISCELLANE DAILY PRN PRN Reason: Consult order Polyethylene Glycol (Polyethylene Glycol 3350 17 Gm Powd.Pack) 17 gm PO DAILY PRN PRN Reason: Constipation Sodium Chloride (0.9 % Sodium Chloride Flush 3 Ml [facility]) [facility] Last Admin: 12/18/23 07:56 Dose: 3 ml Documented By: JULIANN Labs 12/15/23 05:43 12/18/23 06:45 Labs: Laboratory Results - last 24 hr 12/17/23 12/17/23 12/17/23 11:06 16:25 19:53 Estim Creat Clear Calc Estimated GFR POC Glucose 120 H 129 H Vancomycin Trough 15.4 12/17/23 12/18/23 12/18/23 20:20 06:45 07:31 Estim Creat Clear Calc 93.5 Estimated GFR > 60 POC Glucose 135 H 106 Vancomycin Trough Procedures Date of Service Date of Service: 12/18/23 Progress Note: A&P Assessment and plan (1) Open toe wound: Status: Acute (2) Diabetic ulcer of right foot: Status: Acute Plan 58-year-old male patient with history of diabetes and previous right great toe amputation now with ulceration of the 2nd toe with exposed bone. MRI confirms evidence of osteomyelitis at the distal tuft. Options include 6 weeks IV antibiotics with local wound care verses 2nd toe amputation. Options were reviewed with the patient and he will discuss this further with his family. Discussed MRI findings with Dr. Cabello. He will also discuss possible amputation with the patient. Time Spent With Patient Time: Total time managing care of this patient today ____ minutes. Quality Stroke Does the patient have a stroke diagnosis?: No VTE Prior VTE?: No VTE Risk Level:: Surgical - moderate VTE Device Contraindication: N/A - Device Ordered VTE Drug Contraindication: N/A - Med Ordered
--- NOTE | 2023-12-18 09:37 | P.PNIM_ITS ---
Subjective Subjective Date of Service: 12/18/23 Interval History: f/u on med management, on iv abx for right foot ulcer; MR + for osteomylitis (OM) Physical Exam 2 Vital Signs: Vital Signs: Last Vital Signs Temp 96.9 F 12/18/23 07:32 Pulse 92 12/18/23 07:32 Resp 18 12/18/23 07:32 BP 169/81 H 12/18/23 07:32 Pulse Ox 94 12/18/23 07:32 O2 Del Method Room Air 12/18/23 07:32 BMI result Body Mass Index 33.9 Const: Other: General: AO X 3, no acute distress Resp: CTA bilateral CVS: S1,S2,RRR GI: +BS, NT, no distention Skin: r second toe ulcer w/ exosed bone Neuro: motor grossly intact Psych: appropriate affect Objective Data Active Medications Acetaminophen (Acetaminophen 325 Mg Tablet) 650 mg PO Q6H PRN PRN Reason: Pain, Mild (Pain Scale 1-3), fever or headache Amlodipine Besylate (Amlodipine Besylate 10 Mg Tablet) 10 mg PO DAILY [facility]; Protocol Last Admin: 12/18/23 07:56 Dose: 10 mg Documented By: JULIANN Aspirin (Aspirin Enteric Coated 81 Mg Tablet.) 81 mg PO DAILY [facility] Last Admin: 12/18/23 07:56 Dose: 81 mg Documented By: JULIANN Bisacodyl (Bisacodyl 5 Mg Tablet.) 10 mg PO BEDTIME [facility] Last Admin: 12/17/23 20:24 Dose: Not Given Documented By: YOANA Non-Admin Reason: Patient Refused Calcium Carbonate (Calcium Carbonate 750 Mg Tab.Chew) 750 mg PO Q4H PRN PRN Reason: Heartburn Empagliflozin (Empagliflozin 25 Mg Tablet) 25 mg PO DAILY [facility] Last Admin: 12/17/23 08:27 Dose: 25 mg Documented By: JULIANN Enoxaparin Sodium (Enoxaparin Sodium 40 Mg/0.4 Ml Syringe) 40 mg SUBCUT Q24H [facility] Last Admin: 12/17/23 12:33 Dose: 40 mg Documented By: JULIANN Fenofibrate (Fenofibrate 160 Mg Tablet) 160 mg PO DAILY [facility] Last Admin: 12/18/23 07:55 Dose: 160 mg Documented By: JULIANN Glucose (Glucose Gel 15 Gm Gel..Gram.) 15 gm PO Q15M PRN; Protocol PRN Reason: per Hypoglycemia Standing Ord. Hydralazine HCl (Hydralazine Hcl 50 Mg Tablet) 50 mg PO TID [facility]; Protocol Last Admin: 12/18/23 07:55 Dose: 50 mg Documented By: JULIANN Hydromorphone HCl (Hydromorphone Hcl 0.5 Mg/0.5 Ml Syringe) 0.5 mg IVPUSH Q3H PRN; Protocol PRN Reason: Pain, Severe (Pain Scale 7-10) Dextrose (D10) 250 mls @ 750 mls/hr IV Q15M PRN; Protocol PRN Reason: per Hypoglycemia Standing Ord. Ceftriaxone Sodium 1 gm/ (Sodium Chloride) 50 mls @ 100 mls/hr IV Q12H [facility] Last Infusion: 12/18/23 00:18 Dose: Infused Documented By: FLORA Vancomycin HCl 750 mg/ Sodium (Chloride) 265 mls @ 265 mls/hr IV Q8H [facility] Last Infusion: 12/18/23 07:56 Dose: Infused Documented By: JULIANN Insulin Human Lispro (Insulin Lispro 100 Unit/Ml 3 Ml Vial) 0 unit SUBCUT QIDACHS [facility]; Protocol Last Admin: 12/18/23 07:38 Dose: Not Given Documented By: JULIANN Non-Admin Reason: No Insulin Coverage Losartan Potassium (Losartan Potassium 50 Mg Tablet) 100 mg PO DAILY [facility]; Protocol Last Admin: 12/18/23 07:55 Dose: 100 mg Documented By: JULIANN Melatonin (Melatonin 3 Mg Tablet) 6 mg PO BEDTIME PRN PRN Reason: Insomnia Metoprolol Succinate (Metoprolol Succinate Er 100 Mg Tab.Er.24h) 200 mg PO DAILY [facility]; Protocol Last Admin: 12/18/23 07:55 Dose: 200 mg Documented By: JULIANN Omeprazole (Omeprazole 40 Mg Capsule.Dr) 40 mg PO DAILY@0630 [facility] Last Admin: 12/18/23 06:46 Dose: 40 mg Documented By: FLORA Ondansetron HCl (Ondansetron Hcl 4 Mg/2 Ml Vial) 4 mg IVPUSH Q8H PRN PRN Reason: Nausea and Vomiting Oxycodone HCl (Oxycodone Hcl Immed Release 5 Mg Tablet) 5 mg PO Q6H PRN PRN Reason: Pain, Moderate(Pain Scale 4-6) Pharmacy Consult (Consult Rx Vancomycin Dosing) 1 each MISCELLANE DAILY PRN PRN Reason: Consult order Polyethylene Glycol (Polyethylene Glycol 3350 17 Gm Powd.Pack) 17 gm PO DAILY PRN PRN Reason: Constipation Sodium Chloride (0.9 % Sodium Chloride Flush 3 Ml Syringe) 3 [facility] Last Admin: 12/18/23 07:56 Dose: 3 ml Documented By: JULIANN Labs 12/15/23 05:43 12/18/23 06:45 Labs: Laboratory Results - last 24 hr 12/17/23 12/17/23 12/17/23 11:06 16:25 19:53 Estim Creat Clear Calc Estimated GFR POC Glucose 120 H 129 H Vancomycin Trough 15.4 12/17/23 12/18/23 12/18/23 20:20 06:45 07:31 Estim Creat Clear Calc 93.5 Estimated GFR > 60 POC Glucose 135 H 106 Vancomycin Trough Assessment and Plan (1) Cellulitis: Status: Acute Assessment and Plan: 58/m w/ dm with neuropathy, Charcot joint disease, htn, HLD, carcinoid tumor removal in 2020 here with right 2nd toe ulcer and OM on MRI -continue ceftriaxone and Vanco 12/14 -pt to decide on amputation vs trial of usp abx. 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 -outpatient vascular follow up. continue ASA, statin HTN--on higher side -increase hydralazine to 75 tid, cont losartatn and metoprolol DM -continue SSI -hold Jardiance in case surgery HLP: continue statin. PAD--ASA, Lipitor, h/o barrets esoph--PPI, f/u with GI for surveillance EGD, missed appt in july dvt prophylax:s/c lovenox. Quality Stroke Does the patient have a stroke diagnosis?: No VTE Prior VTE?: No VTE Risk Level:: Surgical - moderate VTE Device Contraindication: N/A - Device Ordered VTE Drug Contraindication: N/A - Med Ordered
--- NOTE | 2023-12-18 09:57 | P.PNVS_ITS ---
Subjective Subjective Date of Service: 12/18/23 Patient reports: no new complaints and feels better Interval history: Very pleasant 58-year-old gentleman presents for follow-up regarding nonhealing right 2nd toe. No events overnight. MRI completed and results posted which is positive for osteomyelitis. Now for routine follow-up. Physical Exam Vital Signs: Vital Signs: Last Vital Signs Temp 96.9 F 12/18/23 07:32 Pulse 92 12/18/23 07:32 Resp 18 12/18/23 07:32 BP 169/81 H 12/18/23 07:32 Pulse Ox 94 12/18/23 07:32 O2 Del Method Room Air 12/18/23 07:32 BMI result Body Mass Index 33.9 Const: General: cooperative, healthy appearing and no acute distress Orientation/consciousness: oriented to person, oriented to place and oriented to time HEENT: Head: Yes normal to inspection Neck: Carotids: no bruits Chest: Chest palpation & inspection: normal inspection of the chest Resp: Effort & Inspection: normal respiratory effort and able to speak in complete sentences Auscultation: clear to auscultation bilaterally Cardio: Rate: regular rate Heart sounds: S1 normal heart sound present and S2 normal heart sound present GI: Inspection: Yes normal to inspection Skin: Other: Right 2nd toe ulcer in the distal aspect penetrating down to bone. General skin exam: no rashes or lesions noted Wounds: no wounds Neuro: General: oriented to person, oriented to place, oriented to time and CN's II-XI intact bilaterally Extrem: General: Yes normal to inspection, Yes full ROM and Yes no clubbing, cyanosis or edema Psych: Appearance: grossly normal and well kempt Speech and movement: No rmal speech and movement present Affect: normal affect Progress Note: A&P Assessment and plan (1) Osteomyelitis: Status: Acute Assessment and Plan: In short patient has right 2nd toe diabetic foot ulcer with osteomyelitis. I did discuss the options with the patient and since the wound does penetrate down to bone we believe that amputation would be the best option for him. He was in agreement. The patient will require right 2nd toe amputation. Risks benefits complications including but not limited to bleeding infection nonhealing were discussed with the patient. Agreed and consented. We will try to get him on schedule for tomorrow Time Spent With Patient Time: Total time managing care of this patient today ____ minutes. Procedures Date of Service Date of Service: 12/18/23 Quality Stroke Does the patient have a stroke diagnosis?: No VTE Prior VTE?: No VTE Risk Level:: Surgical - moderate VTE Device Contraindication: N/A - Device Ordered VTE Drug Contraindication: N/A - Med Ordered
[2023-12-18 11:41] LABS: Glucose, Whole Blood 130 mg/dL (60-115)
[2023-12-18] MEDS: cefTRIAXone sodium 1 GM in 0.9 % Sodium Chloride 50 ML IV ×2 (12:29→23:48)
[2023-12-18] MEDS: Enoxaparin Sodium 40 MG/0.4 ML SYRINGE SUBCUT (12:30)
--- NOTE | 2023-12-18 13:02 | MHC.CM.PN ---
EMR REVIEWED. PT WILL BE SCHEDULED FOR RIGHT SECOND TOE AMP PER SURGERY. CM WILL CONTINUE TO FOLLOW FOR ANY CHANGE TO DC NEEDS.
[2023-12-18 14:44] VITALS: BP 139/75; PULSE 90; RESP 16; TEMP 37.3; O2SAT 92
[2023-12-18] MEDS: hydrALAZINE HCl 25 MG TABLET 75 MG PO ×2 (14:45→21:58)
[2023-12-18 16:34] LABS: Glucose, Whole Blood 135 mg/dL (60-115)
[2023-12-18 19:26] VITALS: BP 167/79; PULSE 96; RESP 18; TEMP 36.8; O2SAT 92
[2023-12-18 20:03] LABS: Glucose, Whole Blood 144 mg/dL (60-115)
[2023-12-18 21:58] VITALS: BP 167/79
[2023-12-18] MEDS: bisacodyL 5 MG TABLET.DR 10 MG PO (21:59)
[2023-12-18 22:14] LABS: Vancomycin Random 10.3 mcg/mL (15-20)
[2023-12-18] MEDS: vancomycin HCL 1,000 MG in 0.9 % Sodium Chloride 250 ML 270 MG IV (22:42)
[2023-12-19] VITALS (10 sets, daily range): BP systolic 143–163; BP diastolic 73–81; PULSE 88–96; RESP 16–20; TEMP 36.2–37.1; O2SAT 91–93
[2023-12-19] MEDS: vancomycin HCL 1,000 MG in 0.9 % Sodium Chloride 250 ML 270 MG IV ×3 (06:02→22:18)
[2023-12-19] MEDS: Omeprazole 40 MG CAPSULE.DR PO (06:02)
[2023-12-19 06:18] LABS: Estimated Glomerular Filt Rate > 60
[2023-12-19 07:25] LABS: Glucose, Whole Blood 123 mg/dL (60-115)
[2023-12-19] MEDS: 0.9 % Sodium Chloride Flush 3 ML SYRINGE IVFLUSH ×3 (07:36→22:18)
[2023-12-19] MEDS: amLODIPine Besylate 10 MG TABLET PO (07:55)
[2023-12-19] MEDS: Losartan Potassium 50 MG TABLET 100 MG PO (07:56)
[2023-12-19] MEDS: Aspirin Enteric Coated 81 MG TABLET.DR PO (07:56)
[2023-12-19] MEDS: Metoprolol Succinate ER 100 MG TAB.ER.24H 200 MG PO (07:56)
[2023-12-19] MEDS: Fenofibrate 160 MG TABLET PO (07:56)
[2023-12-19] MEDS: hydrALAZINE HCl 25 MG TABLET 75 MG PO ×3 (07:56→19:21)
--- NOTE | 2023-12-19 08:01 | HO.PM.IMPN ---
Subjective Subjective Date of Service: 12/19/23 Interval History: f/u on med management, on iv abx for right 2nd foot ulcer and osteomylitis (OM) for amputation today Physical Exam Vital Signs: Vital Signs: Last Vital Signs Temp 97.4 F 12/19/23 07:12 Pulse 96 12/19/23 07:12 Resp 16 12/19/23 07:12 BP 163/78 H 12/19/23 07:55 Pulse Ox 92 12/19/23 07:12 O2 Del Method Room Air 12/19/23 07:12 BMI result Body Mass Index 33.9 Const: Other: General: AO X 3, no acute distress Resp: CTA bilateral CVS: S1,S2,RRR GI: +BS, NT, no distention Skin: r second toe ulcer w/ exosed bone Neuro: motor grossly intact Psych: appropriate affect Objective Data Active Medications Acetaminophen (Acetaminophen 325 Mg Tablet) 650 mg PO Q6H PRN PRN Reason: Pain, Mild (Pain Scale 1-3), fever or headache Amlodipine Besylate (Amlodipine Besylate 10 Mg Tablet) 10 mg PO DAILY [facility]; Protocol Last Admin: 12/19/23 07:55 Dose: 10 mg Documented By: EMILIA Aspirin (Aspirin Enteric Coated 81 Mg Tablet.) 81 mg PO DAILY [facility] Last Admin: 12/19/23 07:56 Dose: 81 mg Documented By: EMILIA Bisacodyl (Bisacodyl 5 Mg Tablet.) 10 mg PO BEDTIME [facility] Last Admin: 12/18/23 21:59 Dose: 10 mg Documented By: SCOTT Calcium Carbonate (Calcium Carbonate 750 Mg Tab.Chew) 750 mg PO Q4H PRN PRN Reason: Heartburn Empagliflozin (Empagliflozin 25 Mg Tablet) 25 mg PO DAILY [facility] Last Admin: 12/19/23 07:49 Dose: Not Given Documented By: EMILIA Non-Admin Reason: NPO Enoxaparin Sodium (Enoxaparin Sodium 40 Mg/0.4 Ml Syringe) 40 mg SUBCUT Q24H [facility] Last Admin: 12/18/23 12:30 Dose: 40 mg Documented By: JULIANN Fenofibrate (Fenofibrate 160 Mg Tablet) 160 mg PO DAILY [facility] Last Admin: 12/19/23 07:56 Dose: 160 mg Documented By: EMILIA Glucose (Glucose Gel 15 Gm Gel..Gram.) 15 gm PO Q15M PRN; Protocol PRN Reason: per Hypoglycemia Standing Ord. Hydralazine HCl (Hydralazine Hcl 25 Mg Tablet) 75 mg PO TID [facility]; Protocol Last Admin: 12/19/23 07:56 Dose: 75 mg Documented By: EMILIA Hydromorphone HCl (Hydromorphone Hcl 0.5 Mg/0.5 Ml Syringe) 0.5 mg IVPUSH Q3H PRN; Protocol PRN Reason: Pain, Severe (Pain Scale 7-10) Dextrose (D10) 250 mls @ 750 mls/hr IV Q15M PRN; Protocol PRN Reason: per Hypoglycemia Standing Ord. Ceftriaxone Sodium 1 gm/ (Sodium Chloride) 50 mls @ 100 mls/hr IV Q12H [facility] Last Infusion: 12/19/23 00:27 Dose: Infused Documented By: SCOTT Vancomycin HCl 1,000 mg/ (Sodium Chloride) 270 mls @ 270 mls/hr IV Q8H [facility] Last Infusion: 12/19/23 07:09 Dose: Infused Documented By: EMILIA Insulin Human Lispro (Insulin Lispro 100 Unit/Ml 3 Ml Vial) 0 unit SUBCUT QIDACHS [facility]; Protocol Last Admin: 12/19/23 07:33 Dose: Not Given Documented By: EMILIA Non-Admin Reason: No Insulin Coverage Losartan Potassium (Losartan Potassium 50 Mg Tablet) 100 mg PO DAILY [facility]; Protocol Last Admin: 12/19/23 07:56 Dose: 100 mg Documented By: EMILIA Melatonin (Melatonin 3 Mg Tablet) 6 mg PO BEDTIME PRN PRN Reason: Insomnia Metoprolol Succinate (Metoprolol Succinate Er 100 Mg Tab.Er.24h) 200 mg PO DAILY [facility]; Protocol Last Admin: 12/19/23 07:56 Dose: 200 mg Documented By: EMILIA Omeprazole (Omeprazole 40 Mg Capsule.Dr) 40 mg PO DAILY@0630 [facility] Last Admin: 12/19/23 06:02 Dose: 40 mg Documented By: SCOTT Ondansetron HCl (Ondansetron Hcl 4 Mg/2 Ml Vial) 4 mg IVPUSH Q8H PRN PRN Reason: Nausea and Vomiting Oxycodone HCl (Oxycodone Hcl Immed Release 5 Mg Tablet) 5 mg PO Q6H PRN PRN Reason: Pain, Moderate(Pain Scale 4-6) Pharmacy Consult (Consult Rx Vancomycin Dosing) 1 each MISCELLANE DAILY PRN PRN Reason: Consult order Polyethylene Glycol (Polyethylene Glycol 3350 17 Gm Powd.Pack) 17 gm PO DAILY PRN PRN Reason: Constipation Sodium Chloride (0.9 % Sodium Chloride Flush 3 Ml Syringe) 3 ml IVFLUSH QSHIFT [facility] Last Admin: 12/19/23 07:36 Dose: 3 ml Documented By: EMILIA Labs 12/15/23 05:43 12/19/23 05:18 Labs: Laboratory Results - last 24 hr 12/18/23 12/18/23 12/18/23 11:38 16:28 19:55 Hold Purple Top Estim Creat Clear Calc Estimated GFR POC Glucose 130 H 135 H 144 H Random Vancomycin 12/18/23 12/19/23 12/19/23 21:54 05:18 07:11 Hold Purple Top SEE NOTE Estim Creat Clear Calc 111.0 Estimated GFR > 60 POC Glucose 123 H Random Vancomycin 10.3 L Assessment and Plan (1) Cellulitis: Status: Acute Assessment and Plan: 58/m w/ dm with neuropathy, Charcot joint disease, htn, HLD, carcinoid tumor removal in 2020 here with right 2nd toe ulcer and OM on MRI -continue ceftriaxone and Vanco 12/14 -pt has opted for ampuation planned for today 12/18, post amputation if baseline is cleaned, will not need antibiotics Arterial studies performed on 12/11/2023 reveal severe stenosis, 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 -outpatient vascular follow up with Dr. Cabello. continue ASA, statin HTN--on higher side -increases hydralazine to 75 tid, cont losartatn and metoprolol DM, FBS 123 -continue SSI -hold Jardiance until after surgery HLP: continue statin. PAD--ASA, Lipitor, h/o barrets esoph--PPI, f/u with GI for surveillance EGD, missed appt in july dvt prophylax:s/c lovenox. Quality Stroke Does the patient have a stroke diagnosis?: No VTE Prior VTE?: No VTE Risk Level:: Surgical - moderate VTE Device Contraindication: N/A - Device Ordered VTE Drug Contraindication: N/A - Med Ordered
--- NOTE | 2023-12-19 08:21 | P.PNGS_ITS ---
Subjective Subjective Date of Service: 12/19/23 Interval history: No new complaints Says he feels well overall Physical Exam 2 Vital Signs: Vital Signs: Last Vital Signs Temp 97.4 F 12/19/23 07:12 Pulse 96 12/19/23 07:12 Resp 16 12/19/23 07:12 BP 163/78 H 12/19/23 07:55 Pulse Ox 92 12/19/23 07:12 O2 Del Method Room Air 12/19/23 07:12 BMI result Body Mass Index 33.9 Const: General: comfortable and no acute distress Resp: Effort & Inspection: normal respiratory effort Cardio: Rate: regular rate Extrem: Other: Right foot with dressings, dry Objective Data Active Medications Acetaminophen (Acetaminophen 325 Mg Tablet) 650 mg PO Q6H PRN PRN Reason: Pain, Mild (Pain Scale 1-3), fever or headache Amlodipine Besylate (Amlodipine Besylate 10 Mg Tablet) 10 mg PO DAILY [facility]; Protocol Last Admin: 12/19/23 07:55 Dose: 10 mg Documented By: EMILIA Aspirin (Aspirin Enteric Coated 81 Mg Tablet.) 81 mg PO DAILY [facility] Last Admin: 12/19/23 07:56 Dose: 81 mg Documented By: EMILIA Bisacodyl (Bisacodyl 5 Mg Tablet.) 10 mg PO BEDTIME [facility] Last Admin: 12/18/23 21:59 Dose: 10 mg Documented By: SCOTT Calcium Carbonate (Calcium Carbonate 750 Mg Tab.Chew) 750 mg PO Q4H PRN PRN Reason: Heartburn Empagliflozin (Empagliflozin 25 Mg Tablet) 25 mg PO DAILY [facility] Last Admin: 12/19/23 07:49 Dose: Not Given Documented By: EMILIA Non-Admin Reason: NPO Enoxaparin Sodium (Enoxaparin Sodium 40 Mg/0.4 Ml Syringe) 40 mg SUBCUT Q24H [facility] Last Admin: 12/18/23 12:30 Dose: 40 mg Documented By: JULIANN Fenofibrate (Fenofibrate 160 Mg Tablet) 160 mg PO DAILY [facility] Last Admin: 12/19/23 07:56 Dose: 160 mg Documented By: EMILIA Glucose (Glucose Gel 15 Gm Gel..Gram.) 15 gm PO Q15M PRN; Protocol PRN Reason: per Hypoglycemia Standing Ord. Hydralazine HCl (Hydralazine Hcl 25 Mg Tablet) 75 mg PO TID [facility]; Protocol Last Admin: 12/19/23 07:56 Dose: 75 mg Documented By: EMILIA Hydromorphone HCl (Hydromorphone Hcl 0.5 Mg/0.5 Ml Syringe) 0.5 mg IVPUSH Q3H PRN; Protocol PRN Reason: Pain, Severe (Pain Scale 7-10) Dextrose (D10) 250 mls @ 750 mls/hr IV Q15M PRN; Protocol PRN Reason: per Hypoglycemia Standing Ord. Ceftriaxone Sodium 1 gm/ (Sodium Chloride) 50 mls @ 100 mls/hr IV Q12H [facility] Last Infusion: 12/19/23 00:27 Dose: Infused Documented By: SCOTT Vancomycin HCl 1,000 mg/ (Sodium Chloride) 270 mls @ 270 mls/hr IV Q8H [facility] Last Infusion: 12/19/23 07:09 Dose: Infused Documented By: EMILIA Insulin Human Lispro (Insulin Lispro 100 Unit/Ml 3 Ml Vial) 0 unit SUBCUT QIDACHS [facility]; Protocol Last Admin: 12/19/23 07:33 Dose: Not Given Documented By: EMILIA Non-Admin Reason: No Insulin Coverage Losartan Potassium (Losartan Potassium 50 Mg Tablet) 100 mg PO DAILY [facility]; Protocol Last Admin: 12/19/23 07:56 Dose: 100 mg Documented By: EMILIA Melatonin (Melatonin 3 Mg Tablet) 6 mg PO BEDTIME PRN PRN Reason: Insomnia Metoprolol Succinate (Metoprolol Succinate Er 100 Mg Tab.Er.24h) 200 mg PO DAILY [facility]; Protocol Last Admin: 12/19/23 07:56 Dose: 200 mg Documented By: EMILIA Omeprazole (Omeprazole 40 Mg Capsule.Dr) 40 mg PO DAILY@0630 [facility] Last Admin: 12/19/23 06:02 Dose: 40 mg Documented By: SCOTT Ondansetron HCl (Ondansetron Hcl 4 Mg/2 Ml Vial) 4 mg IVPUSH Q8H PRN PRN Reason: Nausea and Vomiting Oxycodone HCl (Oxycodone Hcl Immed Release 5 Mg Tablet) 5 mg PO Q6H PRN PRN Reason: Pain, Moderate(Pain Scale 4-6) Pharmacy Consult (Consult Rx Vancomycin Dosing) 1 each MISCELLANE DAILY PRN PRN Reason: Consult order Polyethylene Glycol (Polyethylene Glycol 3350 17 Gm Powd.Pack) 17 gm PO DAILY PRN PRN Reason: Constipation Sodium Chloride (0.9 % Sodium Chloride Flush 3 Ml Syringe) 3 ml IVFLUSH QSHIFT [facility] Last Admin: 12/19/23 07:36 Dose: 3 ml Documented By: EMILIA Labs 12/15/23 05:43 12/19/23 05:18 Labs: Laboratory Results - last 24 hr 12/18/23 12/18/23 12/18/23 11:38 16:28 19:55 Hold Purple Top Estim Creat Clear Calc Estimated GFR POC Glucose 130 H 135 H 144 H Random Vancomycin 12/18/23 12/19/23 12/19/23 21:54 05:18 07:11 Hold Purple Top SEE NOTE Estim Creat Clear Calc 111.0 Estimated GFR > 60 POC Glucose 123 H Random Vancomycin 10.3 L Procedures Date of Service Date of Service: 12/19/23 Progress Note: A&P Assessment and plan (1) Open toe wound: Status: Acute Assessment and Plan: With bone exposed on 2nd toe ulcer For amputation today with Dr. Cabello On antibiotics For postop wound care after amputation Time Spent With Patient Time: Total time managing care of this patient today ____ minutes. Quality Stroke Does the patient have a stroke diagnosis?: No VTE Prior VTE?: No VTE Risk Level:: Surgical - moderate VTE Device Contraindication: N/A - Device Ordered VTE Drug Contraindication: N/A - Med Ordered
[2023-12-19 08:30] LABS: Anion Gap 18 (12-20); Blood Urea Nitrogen 14 mg/dL (9-16); Calcium 8.7 mg/dL (8.4-10.2); Carbon Dioxide 20 mmol/L (22-29); Chloride 104 mmol/L (96-108); Glucose Random 110 mg/dL (60-115); Potassium 4.2 mmol/L (3.3-5.1); Sodium 138 mmol/L (135-145)
--- NOTE | 2023-12-19 09:10 | MHC.SHP ---
Pre-Procedural Eval Section A - 24 Hr Update-Section A only Date of Service: 12/19/23 The patient is an INPATIENT: Yes Changes since office visit: Yes Patient answered all questions The patient has been examined within 24 hours of the surgical procedure. The History & Physical has been completed within 30 days and I have reviewed it.: Yes Section B - Complete if H&P > 30 days Chief Complaint: Diabetic ulcer right 2nd toe Allergies: Allergies Allergy/AdvReac Type Severity Reaction Status Date / Time lisinopril [LISINOPRIL] Allergy Intermediate COUGH Verified 12/14/23 10:36 Penicillins [PENICILLINS] Allergy Intermediate HIVES Verified 12/14/23 10:36 Plan I have reviewed the history and physical and performed a pertinent physical examination on my patient. No changes have occurred unless specified. Please note that this is considered an emergency case due to the level of infection and underlying osteomyelitis Time Spent With Patient Time: Total time managing care of this patient today ____ minutes.
[2023-12-19 11:27] LABS: Glucose, Whole Blood 105 mg/dL (60-115)
--- NOTE | 2023-12-19 11:55 | PC.NURSE ---
report called to SS HEMAL Parada .
[2023-12-19] MEDS: cefTRIAXone sodium 1 GM in 0.9 % Sodium Chloride 50 ML IV ×2 (12:24→23:16)
--- NOTE | 2023-12-19 12:34 | PC.NURSE ---
Patient arrived to [facility]. One PRN angio present, #20 left FA. Site red, hard, swollen. IV removed d/t infiltration. New IV placed. Tolerated well.
--- NOTE | 2023-12-19 12:35 | PC.NURSE ---
Addendum entered by Karma Fitzgerald RN 12/19/23 13:03: Dr. Bullard at bedside and also made aware. Original Note: Patient arrived to [facility]. Vital signs taken. SaO2 90-92% on room air. No diagnosis of any respiratory disease in JUN. Per patient they have been telling me on the floor that it has been staying under 90% . Patient verified that he has never been diagnosed with any respiratory disease or asthma. Lung sounds diminished throughout. Per documentation, patient has been about 90-93% for days, 96% on admission. Dr. Ram made aware and at bedside. Agrees patients lung sounds are diminished. SaO2 briefly up to 96% with deep breaths and right back down to 90%. No mention of low oxygen during report with floor nurse nor in hospitalist notes. No new orders at this time.
--- NOTE | 2023-12-19 12:50 | HO.ANESPROP2 ---
HPI - Anesthesia Eval Consult details Narrative: For amput right 2nd toe. PMFSH Active Problems Active Problems: All Active Problems History of malignant carcinoid tumor of rectum (Acute) Necrosis (Acute) Cellulitis (Acute) Open toe wound (Acute) PAD (peripheral artery disease) (Acute) Amputation of right great toe (Acute 04/10/22) Anxiety (Acute) HTN (hypertension) (Acute) Bacteremia (Acute) Diabetic ulcer of right foot (Acute) Osteomyelitis (Acute) Diabetic neuropathy (Acute) Numbness of right foot (Acute) SOB (shortness of breath) on exertion (Acute) Plantar fasciitis of right foot (Acute) Sessile colonic polyp (Acute) Adenomatous polyp of ascending colon (Acute) Somatic dysfunction of left sacroiliac joint (Acute) Left fibular fracture (Acute) Annual physical exam (Acute) Guaiac + stool (Acute) Skin tag (Acute) Carcinoid tumor (Acute) Rectal carcinoid tumor (Acute) Obesity (BMI 30-39.9) (Acute) Mendez's esophagus (Acute) Hypercholesterolemia (Acute) Type 2 diabetes mellitus with hyperglycemia (Acute) Past Medical History Medical History (Updated 12/16/23 @ 08:11 by Narendra Macedo MD) History of malignant carcinoid tumor of rectum Peripheral neuropathy Diabetes Charcot's joint of right foot COVID-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 Rectal carcinoid tumor Crohn's colitis Vitamin D deficiency Obesity (BMI 30-39.9) Mendez's esophagus Hypercholesterolemia Type 2 diabetes mellitus with hyperglycemia HTN (hypertension) Family History Family History Father Diabetes CVD (cardiovascular disease) Myocardial infarction Hypertension Mother CVD (cardiovascular disease) Myocardial infarction Hypertension Throat cancer Maternal Grandmother Gastric cancer Paternal Grandmother Myocardial infarction CVD (cardiovascular disease) Maternal Aunt Gastric cancer Breast cancer Sister In good health Maternal Grandfather CVD (cardiovascular disease) Paternal Grandfather CVD (cardiovascular disease) Other Substance abuse Family history of problems with anesthesia: No Surgical History Surgical History Amputation of right great toe (04/10/22) History of esophagogastroduodenoscopy (EGD) H/O colonoscopy History of umbilical hernia repair History of Problems with Anesthesia: No Social History Social History Household Members: Family Household Members Other:: with motehr and sister Housing: House Are you a primary care team assistant to a significant other at home: No Do you presently have visiting nurse or other home services: No Alcohol intake: never Comment: pt refuse bed alarm Patient Tobacco Use Status: Never used Tobacco e-Cigarette/Vaping Use: Never Used Second Hand Smoke Exposure: Yes service: No Current occupational status: employed Current occupation: cook Cognitive needs: No Hearing needs: No Vision needs: Yes Meds Allergies Allergy/AdvReac Type Severity Reaction Status Date / Time lisinopril [LISINOPRIL] Allergy Intermediate COUGH Verified 12/19/23 12:11 Penicillins [PENICILLINS] Allergy Intermediate HIVES Verified 12/19/23 12:11 Active Medications: Current Medications Acetaminophen (Acetaminophen 325 Mg Tablet) 650 mg PO Q6H PRN PRN Reason: Pain, Mild (Pain Scale 1-3), fever or headache Amlodipine Besylate (Amlodipine Besylate 10 Mg Tablet) 10 mg PO DAILY [facility]; Protocol Last Admin: 12/19/23 07:55 Dose: 10 mg Aspirin (Aspirin Enteric Coated 81 Mg Tablet.) 81 mg PO DAILY [facility] Last Admin: 12/19/23 07:56 Dose: 81 mg Bisacodyl (Bisacodyl 5 Mg Tablet.) 10 mg PO BEDTIME [facility] Last Admin: 12/18/23 21:59 Dose: 10 mg Calcium Carbonate (Calcium Carbonate 750 Mg Tab.Chew) 750 mg PO Q4H PRN PRN Reason: Heartburn Empagliflozin (Empagliflozin 25 Mg Tablet) 25 mg PO DAILY [facility] Last Admin: 12/19/23 07:49 Dose: Not Given Enoxaparin Sodium (Enoxaparin Sodium 40 Mg/0.4 Ml Syringe) 40 mg SUBCUT Q24H [facility] Last Admin: 12/18/23 12:30 Dose: 40 mg Fenofibrate (Fenofibrate 160 Mg Tablet) 160 mg PO DAILY [facility] Last Admin: 12/19/23 07:56 Dose: 160 mg Glucose (Glucose Gel 15 Gm Gel..Gram.) 15 gm PO Q15M PRN; Protocol PRN Reason: per Hypoglycemia Standing Ord. Hydralazine HCl (Hydralazine Hcl 25 Mg Tablet) 75 mg PO TID OBI; Protocol Last Admin: 12/19/23 07:56 Dose: 75 mg Hydromorphone HCl (Hydromorphone Hcl 0.5 Mg/0.5 Ml Syringe) 0.5 mg IVPUSH Q3H PRN; Protocol PRN Reason: Pain, Severe (Pain Scale 7-10) Dextrose (D10) 250 mls @ 750 mls/hr IV Q15M PRN; Protocol PRN Reason: per Hypoglycemia Standing Ord. Ceftriaxone Sodium 1 gm/ (Sodium Chloride) 50 mls @ 100 mls/hr IV Q12H [facility] Last Admin: 12/19/23 12:24 Dose: 50 mls/hr Vancomycin HCl 1,000 mg/ (Sodium Chloride) 270 mls @ 270 mls/hr IV Q8H [facility] Last Infusion: 12/19/23 07:09 Dose: Infused Insulin Human Lispro (Insulin Lispro 100 Unit/Ml 3 Ml Vial) 0 unit SUBCUT QIDACHS [facility]; Protocol Last Admin: 12/19/23 12:14 Dose: Not Given Losartan Potassium (Losartan Potassium 50 Mg Tablet) 100 mg PO DAILY [facility]; Protocol Last Admin: 12/19/23 07:56 Dose: 100 mg Melatonin (Melatonin 3 Mg Tablet) 6 mg PO BEDTIME PRN PRN Reason: Insomnia Metoprolol Succinate (Metoprolol Succinate Er 100 Mg Tab.Er.24h) 200 mg PO DAILY [facility]; Protocol Last Admin: 12/19/23 07:56 Dose: 200 mg Omeprazole (Omeprazole 40 Mg Capsule.Dr) 40 mg PO DAILY@0630 [facility] Last Admin: 12/19/23 06:02 Dose: 40 mg Ondansetron HCl (Ondansetron Hcl 4 Mg/2 Ml Vial) 4 mg IVPUSH Q8H PRN PRN Reason: Nausea and Vomiting Oxycodone HCl (Oxycodone Hcl Immed Release 5 Mg Tablet) 5 mg PO Q6H PRN PRN Reason: Pain, Moderate(Pain Scale 4-6) Pharmacy Consult (Consult Rx Vancomycin Dosing) 1 each MISCELLANE DAILY PRN PRN Reason: Consult order Polyethylene Glycol (Polyethylene Glycol 3350 17 Gm Powd.Pack) 17 gm PO DAILY PRN PRN Reason: Constipation Sodium Chloride (0.9 % Sodium Chloride Flush 3 Ml Syringe) 3 ml IVFLUSH QSHIFT [facility] Last Admin: 12/19/23 07:36 Dose: 3 ml Home Medications ?Medication ?Instructions ?Recorded ?Confirmed ?Last Taken ?Type omeprazole 40 mg capsule,delayed 40 mg PO DAILY PRN Acid Reflux 04/03/22 12/14/23 04/03/22 History release metformin 500 mg tablet,extended 1,000 mg PO BID 12/14/23 12/14/23 Unknown History release 24 hr Exam Height,Weight and Vital Signs: Height 5 ft 4 in Weight 89.6 kg Last Vital Signs Temp 98.8 F 12/19/23 12:28 Pulse 92 12/19/23 12:28 Resp 16 12/19/23 12:28 BP 163/73 H 12/19/23 12:28 Pulse Ox 92 12/19/23 12:28 O2 Del Method Room Air 12/19/23 12:28 Pertinent Lab Results Pertinent Lab Results: Laboratory Tests 12/14/23 12/14/23 12/14/23 10:45 12:36 14:16 WBC 8.2 RBC 4.86 Hgb 13.3 L Hct 39.0 L MCV 80.2 MCH 27.4 MCHC 34.1 RDW 13.3 Plt Count 203 MPV 11.4 Immature Gran % (Auto) 0.4 Neut % (Auto) 87.0 H Lymph % (Auto) 4.4 L Stewart % (Auto) 7.9 Eos % (Auto) 0.1 Baso % (Auto) 0.2 Lymph # (Auto) 0.4 L Stewart # (Auto) 0.7 Eos # (Auto) 0.0 Baso # (Auto) 0.0 Abs Immat Gran (auto) 0.03 Absolute Neuts (auto) 7.1 Absolute Nucleated RBC 0.000 Nucleated RBC % (auto) 0.0 ESR 13 Hold Purple Top Sodium 132 L Potassium 4.9 Chloride 101 Carbon Dioxide 24 Anion Gap 12 BUN 17 H Creatinine 1.10 Estim Creat Clear Calc 75.1 Estimated GFR > 60 POC Glucose 197 H Random Glucose 224 H Lactic Acid 0.8 Calcium 9.5 Magnesium 2.1 Total Bilirubin 0.6 AST 11 ALT 17 Alkaline Phosphatase 54 C-Reactive Protein 7.34 H Total Protein 7.3 Albumin 4.2 Vancomycin Trough Random Vancomycin COVID-19 ([facility]) Negative COVID-19 Clin Com See Note 12/14/23 12/14/23 12/15/23 16:43 19:56 05:43 WBC 6.4 RBC 4.46 L Hgb 12.2 L Hct 36.7 L MCV 82.3 MCH 27.4 MCHC 33.2 RDW 13.9 Plt Count 198 MPV 11.6 Immature Gran % (Auto) 0.5 H Neut % (Auto) 78.3 H Lymph % (Auto) 10.5 L Stewart % (Auto) 10.2 Eos % (Auto) 0.2 Baso % (Auto) 0.3 Lymph # (Auto) 0.7 L Stewart # (Auto) 0.7 Eos # (Auto) 0.0 Baso # (Auto) 0.0 Abs Immat Gran (auto) 0.03 Absolute Neuts (auto) 5.0 Absolute Nucleated RBC 0.000 Nucleated RBC % (auto) 0.0 ESR Hold Purple Top Sodium 135 Potassium 4.2 Chloride 105 Carbon Dioxide 19 L Anion Gap 15 BUN 21 H Creatinine 1.05 Estim Creat Clear Calc 79.2 Estimated GFR > 60 POC Glucose 158 H 138 H Random Glucose 136 H Lactic Acid Calcium 8.3 L D Magnesium Total Bilirubin AST ALT Alkaline Phosphatase C-Reactive Protein Total Protein Albumin Vancomycin Trough Random Vancomycin COVID-19 ([facility]) COVID-19 [employer] 12/15/23 12/15/23 12/15/23 07:09 11:11 16:25 WBC RBC Hgb Hct MCV MCH MCHC RDW Plt Count MPV Immature Gran % (Auto) Neut % (Auto) Lymph % (Auto) Stewart % (Auto) Eos % (Auto) Baso % (Auto) Lymph # (Auto) Stewart # (Auto) Eos # (Auto) Baso # (Auto) Abs Immat Gran (auto) Absolute Neuts (auto) Absolute Nucleated RBC Nucleated RBC % (auto) ESR Hold Purple Top Sodium Potassium Chloride Carbon Dioxide Anion Gap BUN Creatinine Estim Creat Clear Calc Estimated GFR POC Glucose 119 H 146 H 145 H Random Glucose Lactic Acid Calcium Magnesium Total Bilirubin AST ALT Alkaline Phosphatase C-Reactive Protein Total Protein Albumin Vancomycin Trough Random Vancomycin COVID-19 ([facility]) COVID-19 [employer] 12/15/23 12/15/23 12/16/23 19:15 20:01 05:18 WBC RBC Hgb Hct MCV MCH MCHC RDW Plt Count MPV Immature Gran % (Auto) Neut % (Auto) Lymph % (Auto) Stewart % (Auto) Eos % (Auto) Baso % (Auto) Lymph # (Auto) Stewart # (Auto) Eos # (Auto) Baso # (Auto) Abs Immat Gran (auto) Absolute Neuts (auto) Absolute Nucleated RBC Nucleated RBC % (auto) ESR Hold Purple Top SEE NOTE Sodium Potassium Chloride Carbon Dioxide Anion Gap BUN Creatinine 0.90 Estim Creat Clear Calc 92.5 Estimated GFR > 60 POC Glucose 267 H Random Glucose Lactic Acid Calcium Magnesium Total Bilirubin AST ALT Alkaline Phosphatase C-Reactive Protein Total Protein Albumin Vancomycin Trough 11.3 Random Vancomycin COVID-19 ([facility]) COVID-19 [employer] 12/16/23 12/16/23 12/16/23 07:00 11:14 16:47 WBC RBC Hgb Hct MCV MCH MCHC RDW Plt Count MPV Immature Gran % (Auto) Neut % (Auto) Lymph % (Auto) Stewart % (Auto) Eos % (Auto) Baso % (Auto) Lymph # (Auto) Stewart # (Auto) Eos # (Auto) Baso # (Auto) Abs Immat Gran (auto) Absolute Neuts (auto) Absolute Nucleated RBC Nucleated RBC % (auto) ESR Hold Purple Top Sodium Potassium Chloride Carbon Dioxide Anion Gap BUN Creatinine Estim Creat Clear Calc Estimated GFR POC Glucose 169 H 136 H 141 H Random Glucose Lactic Acid Calcium Magnesium Total Bilirubin AST ALT Alkaline Phosphatase C-Reactive Protein Total Protein Albumin Vancomycin Trough Random Vancomycin COVID-19 ([facility]) COVID-19 [employer] 12/16/23 12/16/23 12/17/23 19:54 20:06 05:27 WBC RBC Hgb Hct MCV MCH MCHC RDW Plt Count MPV Immature Gran % (Auto) Neut % (Auto) Lymph % (Auto) Stewart % (Auto) Eos % (Auto) Baso % (Auto) Lymph # (Auto) Stewart # (Auto) Eos # (Auto) Baso # (Auto) Abs Immat Gran (auto) Absolute Neuts (auto) Absolute Nucleated RBC Nucleated RBC % (auto) ESR Hold Purple Top SEE NOTE Sodium Potassium Chloride Carbon Dioxide Anion Gap BUN Creatinine 0.87 Estim Creat Clear Calc 95.6 Estimated GFR > 60 POC Glucose 146 H Random Glucose Lactic Acid Calcium Magnesium Total Bilirubin AST ALT Alkaline Phosphatase C-Reactive Protein Total Protein Albumin Vancomycin Trough Random Vancomycin 9.6 L COVID-19 ([facility]) COVID-19 [employer] 12/17/23 12/17/23 12/17/23 06:47 11:06 16:25 WBC RBC Hgb Hct MCV MCH MCHC RDW Plt Count MPV Immature Gran % (Auto) Neut % (Auto) Lymph % (Auto) Stewart % (Auto) Eos % (Auto) Baso % (Auto) Lymph # (Auto) Stewart # (Auto) Eos # (Auto) Baso # (Auto) Abs Immat Gran (auto) Absolute Neuts (auto) Absolute Nucleated RBC Nucleated RBC % (auto) ESR Hold Purple Top Sodium Potassium Chloride Carbon Dioxide Anion Gap BUN Creatinine Estim Creat Clear Calc Estimated GFR POC Glucose 119 H 120 H 129 H Random Glucose Lactic Acid Calcium Magnesium Total Bilirubin AST ALT Alkaline Phosphatase C-Reactive Protein Total Protein Albumin Vancomycin Trough Random Vancomycin COVID-19 ([facility]) COVID-19 [employer] 12/17/23 12/17/23 12/18/23 19:53 20:20 06:45 WBC RBC Hgb Hct MCV MCH MCHC RDW Plt Count MPV Immature Gran % (Auto) Neut % (Auto) Lymph % (Auto) Stewart % (Auto) Eos % (Auto) Baso % (Auto) Lymph # (Auto) Stewart # (Auto) Eos # (Auto) Baso # (Auto) Abs Immat Gran (auto) Absolute Neuts (auto) Absolute Nucleated RBC Nucleated RBC % (auto) ESR Hold Purple Top Sodium Potassium Chloride Carbon Dioxide Anion Gap BUN Creatinine 0.89 Estim Creat Clear Calc 93.5 Estimated GFR > 60 POC Glucose 135 H Random Glucose Lactic Acid Calcium Magnesium Total Bilirubin AST ALT Alkaline Phosphatase C-Reactive Protein Total Protein Albumin Vancomycin Trough 15.4 Random Vancomycin COVID-19 ([facility]) COVID-19 [employer] Com 12/18/23 12/18/23 12/18/23 07:31 11:38 16:28 WBC RBC Hgb Hct MCV MCH MCHC RDW Plt Count MPV Immature Gran % (Auto) Neut % (Auto) Lymph % (Auto) Stewart % (Auto) Eos % (Auto) Baso % (Auto) Lymph # (Auto) Stewart # (Auto) Eos # (Auto) Baso # (Auto) Abs Immat Gran (auto) Absolute Neuts (auto) Absolute Nucleated RBC Nucleated RBC % (auto) ESR Hold Purple Top Sodium Potassium Chloride Carbon Dioxide Anion Gap BUN Creatinine Estim Creat Clear Calc Estimated GFR POC Glucose 106 130 H 135 H Random Glucose Lactic Acid Calcium Magnesium Total Bilirubin AST ALT Alkaline Phosphatase C-Reactive Protein Total Protein Albumin Vancomycin Trough Random Vancomycin COVID-19 ([facility]) COVID-19 [employer] 12/18/23 12/18/23 12/19/23 19:55 21:54 05:18 WBC RBC Hgb Hct MCV MCH MCHC RDW Plt Count MPV Immature Gran % (Auto) Neut % (Auto) Lymph % (Auto) Stewart % (Auto) Eos % (Auto) Baso % (Auto) Lymph # (Auto) Stewart # (Auto) Eos # (Auto) Baso # (Auto) Abs Immat Gran (auto) Absolute Neuts (auto) Absolute Nucleated RBC Nucleated RBC % (auto) ESR Hold Purple Top SEE NOTE Sodium 138 Potassium 4.2 Chloride 104 Carbon Dioxide 20 L Anion Gap 18 BUN 14 Creatinine 0.75 Estim Creat Clear Calc 111.0 Estimated GFR > 60 POC Glucose 144 H Random Glucose 110 Lactic Acid Calcium 8.7 Magnesium Total Bilirubin AST ALT Alkaline Phosphatase C-Reactive Protein Total Protein Albumin Vancomycin Trough Random Vancomycin 10.3 L COVID-19 ([facility]) COVID-19 [employer] 12/19/23 12/19/23 07:11 11:23 WBC RBC Hgb Hct MCV MCH MCHC RDW Plt Count MPV Immature Gran % (Auto) Neut % (Auto) Lymph % (Auto) Stewart % (Auto) Eos % (Auto) Baso % (Auto) Lymph # (Auto) Stewart # (Auto) Eos # (Auto) Baso # (Auto) Abs Immat Gran (auto) Absolute Neuts (auto) Absolute Nucleated RBC Nucleated RBC % (auto) ESR Hold Purple Top Sodium Potassium Chloride Carbon Dioxide Anion Gap BUN Creatinine Estim Creat Clear Calc Estimated GFR POC Glucose 123 H 105 Random Glucose Lactic Acid Calcium Magnesium Total Bilirubin AST ALT Alkaline Phosphatase C-Reactive Protein Total Protein Albumin Vancomycin Trough Random Vancomycin COVID-19 ([facility]) COVID-19 [employer] Airway Mallampati Class: II TM Dist: <=3cm Neck ROM: Full Heart: ok Lungs: SpO2 92% on RA Assessment and Plan Assessment Anesthesia Assessment: Anesthesia Plan Discussed and Chart Reviewed Final Anesthetic Review Family History of Problems with Anesthesia: No History of Problems with Anesthesia: No NPO: Yes ASA Class: III Final Preanesthetic Review: No Changes in Pt Med Stat, Meds/Allgs Chart Reviewed, Consent Obtained/Reviewed and Anes Risks/Benef Reviewed Patient Risk: High Procedure Risk: Low Anesthetic Plan Anesthetic Plan: Agree w/ Assess. and Plan and TIVA Disposition: Standard PACU
[2023-12-19] MEDS: Lactated Ringers 1,000 ML 80 ML IVCONT (13:02)
--- NOTE | 2023-12-19 14:10 | W.PM.OPN ---
Operative Note Operative Note Date of Service: 12/19/23 Narrative: Operative note by [facility] Preoperative diagnosis: 1. Right 2nd toe osteomyelitis 2. Diabetic foot ulcer Postoperative diagnosis: Same Procedure: Right 2nd toe amputation Surgeon:Carlos Cabello M.D. Ham Clerk: None Anesthesia: Sedation with ankle block by Dr. Bullard Specimens: 1 Drains: None Estimated blood loss: Minimal Indications: 58-year-old diabetic gentleman who had a previous right great toe amputation now has a 2nd toe amputation with a nonhealing ulcer. There is underlying osteomyelitis. Now presents for right 2nd toe amputation. The patient has signed the informed consent after reviewing risks, complications, benefits, and alternatives previously discussed with the patient. The patient was given the opportunity to ask any additional questions or voice any concerns. All questions were answered to the patient's satisfaction. Procedure in detail: Patient was brought to the operating room prior to which a time-out was called for patient identification site verification. Right leg was prepped and draped in the standard surgical fashion. Previous to that anesthesia provided an ankle block. Once this was accomplished a curvilinear fishmouth incision was carried out over the 2nd toe down to the metatarsal head. We then resected the entire 2nd toe in its entirety. It was taken down through the skin fascia and tissue 1st with a 15 blade than electrocautery. Once the toe was removed in its entirety hemostasis was achieved with electrocautery. Of note there was appropriate bleeding from the wound bed. The wound was thoroughly irrigated out. Deep layer was reapproximated using 2 0 Polysorb superficial layer was reapproximated using a 3-0 nylon in a mattress fashion and skin clips. Xeroform and a sterile dressing were applied. At the end the case sponge instrument counts were correct. Patient tolerated the procedure well. Returned to recovery with stable vitals This note is constructed using voice recognition software. While every effort has been made to ensure accuracy, maintenance service dispatcher errors may have been included. Thank you for allowing me to participate in the care of your patient. Yours sincerely, Carlos Cabello MD, FACS, R.P.V.I.
[2023-12-19] MEDS: Enoxaparin Sodium 40 MG/0.4 ML SYRINGE SUBCUT (15:03)
[2023-12-19 16:02] LABS: Glucose, Whole Blood 169 mg/dL (60-115)
[2023-12-19] MEDS: Insulin Lispro 100 UNIT/ML 3 ML VIAL SUBCUT (17:49)
[2023-12-19] MEDS: bisacodyL 5 MG TABLET.DR 10 MG PO (19:22)
--- NOTE | 2023-12-19 19:54 | P.CDIM_ITS ---
PROVIDER RESPONSE TEXT: To clarify, the appropriate diagnosis supported by the clinical indicators: Acute QUERY TEXT: PHYSICIAN'S DOCUMENTATION REQUEST Date of Query: 12/18/2023 12:44 PM EDT Patient Name: Rehan Gramajo Admit Date: 12/14/2023 Dear Pelon Caputo MD, A review of the medical record indicates additional documentation may be needed. Please review below and update the documentation accordingly. Clinical Indicators: Per Hospitalist Progress Note 12/18/23: right 2nd toe ulcer and OM on MRI -continue Ceftriaxone and Vanco 12/14 Clarify which of the following accurately represents the acuity of the Osteomyelitis. Possible options might include: Acute Acute on chronic Compensated Chronic stable condition Remission Other (explain) Clinically unable to determine (explain) Thank you, Phylicia Álvarez RN Use of terms such as suspected, likely, concern for, or probable (associated with a specific diagnosi s that is being evaluated, monitored, or treated as if it exists) are acceptable and can be coded in the inpatient se tting, when documented at the time of discharge. Please use your independent medical judgment in providing your response. THIS QUERY IS PART OF THE PERMANENT MEDICAL RECORD
[2023-12-19 20:03] LABS: Glucose, Whole Blood 93 mg/dL (60-115)
[2023-12-19 21:31] LABS: Vancomycin Random 13.2 mcg/mL (15-20)
--- NOTE | 2023-12-19 21:51 | HE.PHANOTE ---
RE: VANCO DOSING Random came back as 13.2, continue with dose of 1000 mg q8h. Next random is scheduled for 12/20/23 @2100.
[2023-12-19 23:03] LABS: Anion Gap 20 (12-20); Carbon Dioxide 20 mmol/L (22-29); Chloride 103 mmol/L (96-108); Potassium 3.8 mmol/L (3.3-5.1); Sodium 139 mmol/L (135-145)
[2023-12-19] MEDS: Lactated Ringers 1,000 ML 125 ML IVCONT (23:17)
[2023-12-20] VITALS (9 sets, daily range): BP systolic 159–190; BP diastolic 75–85; PULSE 83–98; RESP 16–18; TEMP 36.8–37.6; O2SAT 91–99
--- NOTE | 2023-12-20 05:42 | P.PNIM_ITS ---
Subjective Subjective Date of Service: 12/21/23 Interval History: f/u on ampuate right second toe for OM Physical Exam 2 Vital Signs: Vital Signs: Last Vital Signs Temp 99.7 F 12/20/23 00:00 Pulse 98 12/20/23 00:00 Resp 16 12/20/23 00:00 BP 159/75 H 12/20/23 00:00 Pulse Ox 92 12/20/23 00:00 O2 Del Method Room Air 12/20/23 00:00 BMI result Body Mass Index 33.9 Const: Other: General: AO X 3, no acute distress Resp: CTA bilateral CVS: S1,S2,RRR GI: +BS, NT, no distention Skin: r second toe ulcer w/ exosed bone Neuro: motor grossly intact Psych: appropriate affect Objective Data Active Medications Acetaminophen (Acetaminophen 325 Mg Tablet) 650 mg PO Q6H PRN PRN Reason: Pain, Mild (Pain Scale 1-3), fever or headache Amlodipine Besylate (Amlodipine Besylate 10 Mg Tablet) 10 mg PO DAILY [facility]; Protocol Last Admin: 12/19/23 07:55 Dose: 10 mg Documented By: EMILIA Aspirin (Aspirin Enteric Coated 81 Mg Tablet.) 81 mg PO DAILY [facility] Last Admin: 12/19/23 07:56 Dose: 81 mg Documented By: EMILIA Bisacodyl (Bisacodyl 5 Mg Tablet.) 10 mg PO BEDTIME [facility] Last Admin: 12/19/23 19:22 Dose: 10 mg Documented By: RAYMUNDO Calcium Carbonate (Calcium Carbonate 750 Mg Tab.Chew) 750 mg PO Q4H PRN PRN Reason: Heartburn Empagliflozin (Empagliflozin 25 Mg Tablet) 25 mg PO DAILY [facility] Last Admin: 12/19/23 07:49 Dose: Not Given Documented By: EMILIA Non-Admin Reason: NPO Enoxaparin Sodium (Enoxaparin Sodium 40 Mg/0.4 Ml Syringe) 40 mg SUBCUT Q24H [facility] Last Admin: 12/19/23 15:03 Dose: 40 mg Documented By: EMILIA Fenofibrate (Fenofibrate 160 Mg Tablet) 160 mg PO DAILY [facility] Last Admin: 12/19/23 07:56 Dose: 160 mg Documented By: EMILIA Glucose (Glucose Gel 15 Gm Gel..Gram.) 15 gm PO Q15M PRN; Protocol PRN Reason: per Hypoglycemia Standing Ord. Hydralazine HCl (Hydralazine Hcl 25 Mg Tablet) 75 mg PO TID [facility]; Protocol Last Admin: 12/19/23 19:21 Dose: 75 mg Documented By: RAYMUNDO Hydromorphone HCl (Hydromorphone Hcl 0.5 Mg/0.5 Ml Syringe) 0.5 mg IVPUSH Q3H PRN; Protocol PRN Reason: Pain, Severe (Pain Scale 7-10) Dextrose (D10) 250 mls @ 750 mls/hr IV Q15M PRN; Protocol PRN Reason: per Hypoglycemia Standing Ord. Ceftriaxone Sodium 1 gm/ (Sodium Chloride) 50 mls @ 100 mls/hr IV Q12H [facility] Last Infusion: 12/19/23 23:53 Dose: Infused Documented By: TOBY Vancomycin HCl 1,000 mg/ (Sodium Chloride) 270 mls @ 270 mls/hr IV Q8H [facility] Last Infusion: 12/19/23 23:20 Dose: Infused Documented By: TOBY Lactated Ringer's (Lr) 1,000 mls @ 125 mls/hr IVCONT .Q8H [facility] Last Admin: 12/19/23 23:17 Dose: 125 mls/hr Documented By: TOBY Insulin Human Lispro (Insulin Lispro 100 Unit/Ml 3 Ml Vial) 0 unit SUBCUT QIDACHS [facility]; Protocol Last Admin: 12/19/23 20:05 Dose: Not Given Documented By: RAYMUNDO Non-Admin Reason: No Insulin Coverage Losartan Potassium (Losartan Potassium 50 Mg Tablet) 100 mg PO DAILY [facility]; Protocol Last Admin: 12/19/23 07:56 Dose: 100 mg Documented By: EMILIA Melatonin (Melatonin 3 Mg Tablet) 6 mg PO BEDTIME PRN PRN Reason: Insomnia Metoprolol Succinate (Metoprolol Succinate Er 100 Mg Tab.Er.24h) 200 mg PO DAILY [facility]; Protocol Last Admin: 12/19/23 07:56 Dose: 200 mg Documented By: EMILIA Naloxone HCl (Naloxone Hcl 0.4 Mg/Ml Vial) 0.04 mg IVPUSH Q5M PRN PRN Reason: Excessive sedation or RR < 8 Omeprazole (Omeprazole 40 Mg Capsule.) 40 mg PO DAILY@0630 [facility] Last Admin: 12/19/23 06:02 Dose: 40 mg Documented By: SCOTT Ondansetron HCl (Ondansetron Hcl 4 Mg/2 Ml Vial) 4 mg IVPUSH Q8H PRN PRN Reason: Nausea and Vomiting Pharmacy Consult (Consult Rx Vancomycin Dosing) 1 each MISCELLANE DAILY PRN PRN Reason: Consult order Polyethylene Glycol (Polyethylene Glycol 3350 17 Gm Powd.Pack) 17 gm PO DAILY PRN PRN Reason: Constipation Sodium Chloride (0.9 % Sodium Chloride Flush 3 Ml Syringe) 3 ml IVFLUSH QSHIFT [facility] Last Admin: 12/19/23 22:18 Dose: 3 ml Documented By: LUNAQC Labs 12/15/23 05:43 12/21/23 05:25 Labs: Laboratory Results - last 24 hr 12/19/23 12/19/23 12/19/23 05:18 07:11 11:23 Hold Purple Top SEE NOTE Anion Gap 18 Estim Creat Clear Calc 111.0 Estimated GFR > 60 POC Glucose 123 H 105 Random Glucose 110 Calcium 8.7 Random Vancomycin 12/19/23 12/19/23 12/19/23 15:51 19:51 20:54 Hold Purple Top Anion Gap Estim Creat Clear Calc Estimated GFR POC Glucose 169 H 93 Random Glucose Calcium Random Vancomycin 13.2 L 12/19/23 22:47 Hold Purple Top Anion Gap 20 Estim Creat Clear Calc Estimated GFR POC Glucose Random Glucose Calcium Random Vancomycin Microbiology Microbiology Results: Microbiology 12/14/23 12:36 Blood Culture - Final Blood - Venous No growth after 5 days. 12/14/23 12:35 Blood Culture - Final Blood - Venous No growth after 5 days. Assessment and Plan (1) Cellulitis: Status: Acute Assessment and Plan: 58/m w/ dm with neuropathy, Charcot joint disease, htn, HLD, carcinoid tumor removal in 2020 here with right 2nd toe ulcer and OM on MRI -continue ceftriaxone and Vanco started 12/14 -had amputation on 12/18, dressing changes per surgery. If base is cleaned abx can be stopped Arterial studies performed on 12/11/2023 reveal severe stenosis, 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 -outpatient vascular follow up with Dr. Cabello. continue ASA, statin HTN--still on higher side -increases hydralazine to 100 tid, cont losartatn and metoprolol. As next step consider norvasc Mild metabolic acidodis--check Beta-hydroxybutyrate, rule euglecemic dka DM, controlled -continue SSI -resume jardiance after surgery HLP: continue statin. PAD--ASA, Lipitor, h/o barrets esoph--PPI, f/u with GI for surveillance EGD, missed appt in july dvt prophylax:s/c lovenox. Quality Stroke Does the patient have a stroke diagnosis?: No VTE Prior VTE?: No VTE Risk Level:: Surgical - moderate VTE Device Contraindication: N/A - Device Ordered VTE Drug Contraindication: N/A - Med Ordered
[2023-12-20] MEDS: Omeprazole 40 MG CAPSULE.DR PO (05:49)
[2023-12-20] MEDS: vancomycin HCL 1,000 MG in 0.9 % Sodium Chloride 250 ML 270 MG IV ×2 (05:52→14:18)
[2023-12-20 06:57] LABS: Anion Gap 21 (12-20); Blood Urea Nitrogen 10 mg/dL (9-16); Calcium 8.8 mg/dL (8.4-10.2); Carbon Dioxide 20 mmol/L (22-29); Chloride 102 mmol/L (96-108); Creatinine Clr Calc Pharmacy 105.3; Estimated Glomerular Filt Rate > 60; Glucose Random 107 mg/dL (60-115); Sodium 139 mmol/L (135-145)
[2023-12-20 07:34] LABS: Beta-Hydroxybutyrate 5.72 mmol/L (0.02-0.27)
--- NOTE | 2023-12-20 07:43 | PM.PNGS ---
Subjective Subjective Date of Service: 12/20/23 Interval history: Underwent 2nd toe amp yesterday with Dr. Cabello Says he has good pain control States he is ready to be discharged Physical Exam Vital Signs: Vital Signs: Last Vital Signs Temp 99.4 F 12/20/23 04:00 Pulse 94 12/20/23 04:00 Resp 16 12/20/23 04:00 BP 167/79 H 12/20/23 04:00 Pulse Ox 99 12/20/23 04:00 O2 Del Method Room Air 12/20/23 04:00 BMI result Body Mass Index 33.9 Const: General: comfortable and no acute distress Resp: Effort & Inspection: normal respiratory effort Cardio: Rate: regular rate Extrem: Other: Dressings in place Objective Data Active Medications Acetaminophen (Acetaminophen 325 Mg Tablet) 650 mg PO Q6H PRN PRN Reason: Pain, Mild (Pain Scale 1-3), fever or headache Amlodipine Besylate (Amlodipine Besylate 10 Mg Tablet) 10 mg PO DAILY [facility]; Protocol Last Admin: 12/19/23 07:55 Dose: 10 mg Documented By: EMILIA Aspirin (Aspirin Enteric Coated 81 Mg Tablet.) 81 mg PO DAILY [facility] Last Admin: 12/19/23 07:56 Dose: 81 mg Documented By: EMILIA Bisacodyl (Bisacodyl 5 Mg Tablet.) 10 mg PO BEDTIME [facility] Last Admin: 12/19/23 19:22 Dose: 10 mg Documented By: RAYMUNDO Calcium Carbonate (Calcium Carbonate 750 Mg Tab.Chew) 750 mg PO Q4H PRN PRN Reason: Heartburn Empagliflozin (Empagliflozin 25 Mg Tablet) 25 mg PO DAILY [facility] Enoxaparin Sodium (Enoxaparin Sodium 40 Mg/0.4 Ml Syringe) 40 mg SUBCUT Q24H [facility] Last Admin: 12/19/23 15:03 Dose: 40 mg Documented By: EMILIA Fenofibrate (Fenofibrate 160 Mg Tablet) 160 mg PO DAILY [facility] Last Admin: 12/19/23 07:56 Dose: 160 mg Documented By: EMILIA Glucose (Glucose Gel 15 Gm Gel..Gram.) 15 gm PO Q15M PRN; Protocol PRN Reason: per Hypoglycemia Standing Ord. Hydralazine HCl (Hydralazine Hcl 50 Mg Tablet) 100 mg PO TID [facility]; Protocol Hydromorphone HCl (Hydromorphone Hcl 0.5 Mg/0.5 Ml Syringe) 0.5 mg IVPUSH Q3H PRN; Protocol PRN Reason: Pain, Severe (Pain Scale 7-10) Dextrose (D10) 250 mls @ 750 mls/hr IV Q15M PRN; Protocol PRN Reason: per Hypoglycemia Standing Ord. Ceftriaxone Sodium 1 gm/ (Sodium Chloride) 50 mls @ 100 mls/hr IV Q12H [facility] Last Infusion: 12/19/23 23:53 Dose: Infused Documented By: TOBY Vancomycin HCl 1,000 mg/ (Sodium Chloride) 270 mls @ 270 mls/hr IV Q8H [facility] Last Infusion: 12/20/23 07:24 Dose: Infused Documented By: EMILIA Lactated Ringer's (Lr) 1,000 mls @ 125 mls/hr IVCONT .Q8H [facility] Last Infusion: 12/20/23 07:24 Dose: Infused Documented By: EMILIA Insulin Human Lispro (Insulin Lispro 100 Unit/Ml 3 Ml Vial) 0 unit SUBCUT QIDACHS [facility]; Protocol Last Admin: 12/20/23 07:34 Dose: Not Given Documented By: EMILIA Non-Admin Reason: No Insulin Coverage Losartan Potassium (Losartan Potassium 50 Mg Tablet) 100 mg PO DAILY [facility]; Protocol Last Admin: 12/19/23 07:56 Dose: 100 mg Documented By: EMILIA Melatonin (Melatonin 3 Mg Tablet) 6 mg PO BEDTIME PRN PRN Reason: Insomnia Metoprolol Succinate (Metoprolol Succinate Er 100 Mg Tab.Er.24h) 200 mg PO DAILY [facility]; Protocol Last Admin: 12/19/23 07:56 Dose: 200 mg Documented By: EMILIA Naloxone HCl (Naloxone Hcl 0.4 Mg/Ml Vial) 0.04 mg IVPUSH Q5M PRN PRN Reason: Excessive sedation or RR < 8 Omeprazole (Omeprazole 40 Mg Capsule.) 40 mg PO DAILY@0630 [facility] Last Admin: 12/20/23 05:49 Dose: 40 mg Documented By: TOBY Ondansetron HCl (Ondansetron Hcl 4 Mg/2 Ml Vial) 4 mg IVPUSH Q8H PRN PRN Reason: Nausea and Vomiting Pharmacy Consult (Consult Rx Vancomycin Dosing) 1 each MISCELLANE DAILY PRN PRN Reason: Consult order Polyethylene Glycol (Polyethylene Glycol 3350 17 Gm Powd.Pack) 17 gm PO DAILY PRN PRN Reason: Constipation Sodium Chloride (0.9 % Sodium Chloride Flush 3 Ml Syringe) [facility] Last Admin: 12/19/23 22:18 Dose: 3 ml Documented By: LINNEA Labs 12/15/23 05:43 12/20/23 05:31 Labs: Laboratory Results - last 24 hr 12/19/23 12/19/23 12/19/23 05:18 11:23 15:51 Anion Gap 18 Estim Creat Clear Calc 111.0 Estimated GFR > 60 POC Glucose 105 169 H Random Glucose 110 Calcium 8.7 Beta-Hydroxybutyrate Random Vancomycin 12/19/23 12/19/23 12/19/23 19:51 20:54 22:47 Anion Gap 20 Estim Creat Clear Calc Estimated GFR POC Glucose 93 Random Glucose Calcium Beta-Hydroxybutyrate Random Vancomycin 13.2 L 12/20/23 05:31 Anion Gap 21 H Estim Creat Clear Calc 105.3 Estimated GFR > 60 POC Glucose Random Glucose 107 Calcium 8.8 Beta-Hydroxybutyrate 5.72 H Random Vancomycin Microbiology Microbiology Results: Microbiology 12/14/23 12:36 Blood Culture - Final Blood - Venous No growth after 5 days. 12/14/23 12:35 Blood Culture - Final Blood - Venous No growth after 5 days. Procedures Date of Service Date of Service: 12/20/23 Progress Note: A&P Assessment and plan (1) Cellulitis: Status: Acute Assessment and Plan: Status post toe amp by Dr. Cabello DC home today if okay with Dr. Cabello Wound care instructions Also advised to follow up with me in the office because of history of carcinoid Need to follow up with Dr. Cabello Time Spent With Patient Time: Total time managing care of this patient today ____ minutes. Quality Stroke Does the patient have a stroke diagnosis?: No VTE Prior VTE?: No VTE Risk Level:: Surgical - moderate VTE Device Contraindication: N/A - Device Ordered VTE Drug Contraindication: N/A - Med Ordered
[2023-12-20 08:04] LABS: Glucose, Whole Blood 110 mg/dL (60-115)
[2023-12-20] MEDS: 0.9 % Sodium Chloride Flush 3 ML SYRINGE IVFLUSH (08:21)
[2023-12-20] MEDS: Losartan Potassium 50 MG TABLET 100 MG PO (08:21)
[2023-12-20] MEDS: Aspirin Enteric Coated 81 MG TABLET.DR PO (08:21)
[2023-12-20] MEDS: Fenofibrate 160 MG TABLET PO (08:22)
[2023-12-20] MEDS: Metoprolol Succinate ER 100 MG TAB.ER.24H 200 MG PO (08:22)
[2023-12-20] MEDS: amLODIPine Besylate 10 MG TABLET PO (08:22)
[2023-12-20] MEDS: hydrALAZINE HCl 50 MG TABLET 100 MG PO ×3 (08:22→21:29)
[2023-12-20 08:56] LABS: Venous Blood Gas Refer to POC result
[2023-12-20 08:57] LABS: VBG Base Excess -4.2 mmol/L; VBG HCO3 18 mmol/L (22-26); VBG pCO2 28 mmHg; VBG pH 7.42 (7.32-7.43); VBG pO2 68 mmHg
--- NOTE | 2023-12-20 09:38 | HO.PM.IMPN ---
Subjective Subjective Date of Service: 12/20/23 Interval History: seen and examined this AM reports no complaints; wishes to go home d/w him at length regarding his lab results this AM and DKA Review of Systems Negative except HPI/interval history. Physical Exam Vital Signs: Vital Signs: Last Vital Signs Temp 99.4 F 12/20/23 04:00 Pulse 97 12/20/23 08:00 Resp 16 12/20/23 04:00 BP 190/85 H 12/20/23 08:22 Pulse Ox 94 12/20/23 08:00 O2 Del Method Room Air 12/20/23 08:00 BMI result Body Mass Index 33.9 Const: Other: General - no acute distress, appears comfortable Cardiovascular - regular rate and rhythm, S1-S2 Lungs - normal respiratory effort, clear to auscultation bilaterally, no wheezing Abdomen - soft, nontender, no rebound or guarding Extremities - no edema bilaterally; dressing in place Neuro - awake and alert, no focal deficits Objective Data Active Medications Acetaminophen (Acetaminophen 325 Mg Tablet) 650 mg PO Q6H PRN PRN Reason: Pain, Mild (Pain Scale 1-3), fever or headache Amlodipine Besylate (Amlodipine Besylate 10 Mg Tablet) 10 mg PO DAILY [facility]; Protocol Last Admin: 12/20/23 08:22 Dose: 10 mg Documented By: EMILIA Aspirin (Aspirin Enteric Coated 81 Mg Tablet.) 81 mg PO DAILY [facility] Last Admin: 12/20/23 08:21 Dose: 81 mg Documented By: EMILIA Bisacodyl (Bisacodyl 5 Mg Tablet.) 10 mg PO BEDTIME [facility] Last Admin: 12/19/23 19:22 Dose: 10 mg Documented By: RAYMUNDO Calcium Carbonate (Calcium Carbonate 750 Mg Tab.Chew) 750 mg PO Q4H PRN PRN Reason: Heartburn Enoxaparin Sodium (Enoxaparin Sodium 40 Mg/0.4 Ml Syringe) 40 mg SUBCUT Q24H [facility] Last Admin: 12/19/23 15:03 Dose: 40 mg Documented By: EMILIA Fenofibrate (Fenofibrate 160 Mg Tablet) 160 mg PO DAILY [facility] Last Admin: 12/20/23 08:22 Dose: 160 mg Documented By: EMILIA Glucose (Glucose Gel 15 Gm Gel..Gram.) 15 gm PO Q15M PRN; Protocol PRN Reason: per Hypoglycemia Standing Ord. Hydralazine HCl (Hydralazine Hcl 50 Mg Tablet) 100 mg PO TID [facility]; Protocol Last Admin: 12/20/23 08:22 Dose: 100 mg Documented By: EMILIA Hydromorphone HCl (Hydromorphone Hcl 0.5 Mg/0.5 Ml Syringe) 0.5 mg IVPUSH Q3H PRN; Protocol PRN Reason: Pain, Severe (Pain Scale 7-10) Dextrose (D10) 250 mls @ 750 mls/hr IV Q15M PRN; Protocol PRN Reason: per Hypoglycemia Standing Ord. Ceftriaxone Sodium 1 gm/ (Sodium Chloride) 50 mls @ 100 mls/hr IV Q12H [facility] Last Infusion: 12/19/23 23:53 Dose: Infused Documented By: TOBY Vancomycin HCl 1,000 mg/ (Sodium Chloride) 270 mls @ 270 mls/hr IV Q8H [facility] Last Infusion: 12/20/23 07:24 Dose: Infused Documented By: EMILIA Dextrose/Sodium Chloride (D5ns) 1,000 mls @ 125 mls/hr IVCONT .Q8H [facility] Insulin Human Lispro (Insulin Lispro 100 Unit/Ml 3 Ml Vial) 0 unit SUBCUT QIDACHS [facility]; Protocol Last Admin: 12/20/23 07:34 Dose: Not Given Documented By: EMILIA Non-Admin Reason: No Insulin Coverage Losartan Potassium (Losartan Potassium 50 Mg Tablet) 100 mg PO DAILY [facility]; Protocol Last Admin: 12/20/23 08:21 Dose: 100 mg Documented By: EMILIA Melatonin (Melatonin 3 Mg Tablet) 6 mg PO BEDTIME PRN PRN Reason: Insomnia Metoprolol Succinate (Metoprolol Succinate Er 100 Mg Tab.Er.24h) 200 mg PO DAILY [facility]; Protocol Last Admin: 12/20/23 08:22 Dose: 200 mg Documented By: EMILIA Naloxone HCl (Naloxone Hcl 0.4 Mg/Ml Vial) 0.04 mg IVPUSH Q5M PRN PRN Reason: Excessive sedation or RR < 8 Omeprazole (Omeprazole 40 Mg Capsule.) 40 mg PO DAILY@0630 [facility] Last Admin: 12/20/23 05:49 Dose: 40 mg Documented By: HO.ANTOIC Ondansetron HCl (Ondansetron Hcl 4 Mg/2 Ml Vial) 4 mg IVPUSH Q8H PRN PRN Reason: Nausea and Vomiting Pharmacy Consult (Consult Rx Vancomycin Dosing) 1 each MISCELLANE DAILY PRN PRN Reason: Consult order Polyethylene Glycol (Polyethylene Glycol 3350 17 Gm Powd.Pack) 17 gm PO DAILY PRN PRN Reason: Constipation Sodium Chloride (0.9 % Sodium Chloride Flush 3 Ml Syringe) [facility] Last Admin: 12/20/23 08:21 Dose: 3 ml Documented By: EMILIA Labs 12/15/23 05:43 12/20/23 05:31 Labs: Laboratory Results - last 24 hr 12/19/23 12/19/23 12/19/23 11:23 15:51 19:51 VBG pH VBG pCO2 VBG pO2 VBG HCO3 VBG O2 Saturation VBG Base Excess Anion Gap Estim Creat Clear Calc Estimated GFR POC Glucose 105 169 H 93 Random Glucose Calcium Beta-Hydroxybutyrate Random Vancomycin 12/19/23 12/19/23 12/20/23 20:54 22:47 05:31 VBG pH VBG pCO2 VBG pO2 VBG HCO3 VBG O2 Saturation VBG Base Excess Anion Gap 20 21 H Estim Creat Clear Calc 105.3 Estimated GFR > 60 POC Glucose Random Glucose 107 Calcium 8.8 Beta-Hydroxybutyrate 5.72 H Random Vancomycin 13.2 L 12/20/23 12/20/23 07:30 08:53 VBG pH 7.42 VBG pCO2 28 VBG pO2 68 VBG HCO3 18 L VBG O2 Saturation 95.0 VBG Base Excess -4.2 Anion Gap Estim Creat Clear Calc Estimated GFR POC Glucose 110 Random Glucose Calcium Beta-Hydroxybutyrate Random Vancomycin Microbiology Microbiology Results: Microbiology 12/14/23 12:36 Blood Culture - Final Blood - Venous No growth after 5 days. 12/14/23 12:35 Blood Culture - Final Blood - Venous No growth after 5 days. Assessment and Plan (1) Open toe wound: Status: Acute (2) DKA (diabetic ketoacidosis): Status: Acute Plan 58/m w/ dm with neuropathy, Charcot joint disease, htn, HLD, carcinoid tumor removal in 2020 here with DM with probable early euglycemic DKA on SGLT-2 inhibiter -- been on hold prior to surgery bicarb/gap/beta-hydroxybuterate showing early DKA; VBG without acidosis will start D5NS and give 10 untis of lantus and repeat labs in 4 hours d/w ICU -- will monitor closely and escalate care if not improved right 2nd toe ulcer and acute OM on MRI -continue ceftriaxone and Vanco 12/14 s/p amputation will d/w surg re: alf antibiotics Arterial studies performed on 12/11/2023 reveal severe stenosis, 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 -outpatient vascular follow up with Dr. Cabello. continue ASA, statin HTN--uncontrolled hydralaing 100 (increased today), metoprolol xl 200; losartan 100 HLP: continue statin. PAD--ASA, Lipitor, h/o barrets esoph--PPI, f/u with GI for surveillance EGD, missed appt in july dvt prophylax - lovenox full code pt with what appears to be early euglycemic DKA -- will require on going hospitalization for treatment of this Quality Stroke Does the patient have a stroke diagnosis?: No VTE Prior VTE?: No VTE Risk Level:: Surgical - moderate VTE Device Contraindication: N/A - Device Ordered VTE Drug Contraindication: N/A - Med Ordered
[2023-12-20] MEDS: Dextrose 5 % and 0.9 % NaCl 1,000 ML 125 ML IVCONT ×2 (11:02→16:45)
[2023-12-20] MEDS: Insulin Glargine,Hum.rec.anlog 100 UNIT/ML 10 ML VIAL 10 UNIT SUBCUT (11:02)
--- NOTE | 2023-12-20 11:03 | P.DS_ITS ---
DS: Providers Provider Date of Service: 12/20/23 Date of admission: 12/14/23 13:17 Primary care physician: Zurdo Mccormick MD Consults: 12/14/23 13:25 Consult to Hospitalist Routine Comment: Consulting Provider: Hospitalist Reason For Exam: Diabetic toe infection, medical management 12/14/23 19:25 Consult to Wound Care Routine Reason for consultation: DFU right 2nd toe, previously bump in a car 12/15/23 08:06 Consult to Vascular Surgery Routine Consulting Provider: [facility] [place] Vascular Services Reason for consultation: Pad / foot cellulitis in dm Has provider been notified: No 12/18/23 09:45 Consult to Infectious Diseases Routine Consulting Provider: [facility] [place] Infectious Disease [facility] Reason for consultation: OM of right second toe DS: Diagnosis Discharge Diagnosis (1) Open toe wound: Status: Acute (2) DKA (diabetic ketoacidosis): Status: Acute DS: Summary Hospital Course Hospital Course: Patient had presented to the hospital on 12/14/2023. At that time he was noted to have a nonhealing ulcer on the right 2nd toe with progressive cellulitis. Was subsequently admitted and treated with IV antibiotics. Upon further workup including x-ray and subsequent MRI it was noted that he had underlying osteomyelitis and the wound actually penetrated to bone. After discussion with the patient and options were presented to the patient he subsequently underwent right 2nd toe amputation on 12/19/2023. Operation went without incident. Postop day 1 pain was well controlled. Dressing was changed and appear to be healing well. He was subsequently discharged. Condition upon discharge was stable discharge medications included doxycycline for an additional 7 days for questionable skin cellulitis. In addition Percocet was given for pain control. He will follow up with Dr. Cabello in approximately 2 weeks' time for suture and staple removal. Time Attestation Discharge Coordination Time (in mins): 35 Quality: Safe Use of Opioids Does Pt have an Active Cancer Diagnosis on the Problem List?: No Quality: Stroke Does the patient have a stroke diagnosis?: No Physical Exam Vital Signs: Vital Signs: Last Vital Signs Temp 99.4 F 12/20/23 04:00 Pulse 83 12/20/23 10:31 Resp 16 12/20/23 04:00 BP 167/79 H 12/20/23 10:31 Pulse Ox 94 12/20/23 08:00 O2 Del Method Room Air 12/20/23 08:00 BMI result Body Mass Index 33.9 Const: General: cooperative, healthy appearing and no acute distress Orientation/consciousness: oriented to person, oriented to place and oriented to time HEENT: Head: Yes normal to inspection Neck: Carotids: no bruits Chest: Chest palpation & inspection: normal inspection of the chest Resp: Effort & Inspection: normal respiratory effort and able to speak in complete sentences Auscultation: clear to auscultation bilaterally Cardio: Rate: regular rate Heart sounds: S1 normal heart sound present and S2 normal heart sound present GI: Inspection: Yes normal to inspection Skin: Other: Right 2nd toe amp healing well General skin exam: no rashes or lesions noted Wounds: no wounds Neuro: General: oriented to person, oriented to place, oriented to time and CN's II-XI intact bilaterally Extrem: General: Yes normal to inspection, Yes full ROM and Yes no clubbing, cyanosis or edema Psych: Appearance: grossly normal and well kempt Speech and movement: Normal speech and movement present Affect: normal affect DS: Data Data Completed and Pending Completed studies during hospitalization [Text1]: Procedures Detachment at Right 1st Toe, High, Open Approach (04/03/22) Insertion of Infusion Device into Right Basilic Vein, Percutaneous Approach (04/03/22) Pending studies at discharge: Pending at discharge 12/19/23 14:01 Surgical [PTH] Routine Labs on day of discharge: Laboratory Results - last 24 hr 12/19/23 12/19/23 12/19/23 11:23 15:51 19:51 VBG pH VBG pCO2 VBG pO2 VBG HCO3 VBG O2 Saturation VBG Base Excess Sodium Potassium Chloride Carbon Dioxide Anion Gap BUN Creatinine Estim Creat Clear Calc Estimated GFR POC Glucose 105 169 H 93 Random Glucose Calcium Beta-Hydroxybutyrate Random Vancomycin 12/19/23 12/19/23 12/20/23 20:54 22:47 05:31 VBG pH VBG pCO2 VBG pO2 VBG HCO3 VBG O2 Saturation VBG Base Excess Sodium 139 139 Potassium 3.8 4.0 Chloride 103 102 Carbon Dioxide 20 L 20 L Anion Gap 20 21 H BUN 10 Creatinine 0.79 Estim Creat Clear Calc 105.3 Estimated GFR > 60 POC Glucose Random Glucose 107 Calcium 8.8 Beta-Hydroxybutyrate 5.72 H Random Vancomycin 13.2 L 12/20/23 12/20/23 07:30 08:53 VBG pH 7.42 VBG pCO2 28 VBG pO2 68 VBG HCO3 18 L VBG O2 Saturation 95.0 VBG Base Excess -4.2 Sodium Potassium Chloride Carbon Dioxide Anion Gap BUN Creatinine Estim Creat Clear Calc Estimated GFR POC Glucose 110 Random Glucose Calcium Beta-Hydroxybutyrate Random Vancomycin Discharge Plan Discharge Anticipated Discharge Date/Time: 12/20/23 07:46 Patient Disposition: Home, Self-Care Discharge Diagnosis: osteomyelitis of 2nd toe Referrals: Carlos Cabello MD [Physician] - 1 Week Po,Zurdo Putnam MD [Primary Care Provider] - 1 Week Discharge Medications: New oxycodone-acetaminophen [Percocet] 5-325 mg tablet 1 tab PO Q4-6H PRN (Reason: pain) Qty: 20 0RF Rx Instructions: Partial Fill upon patient request. doxycycline hyclate 100 mg capsule 100 mg PO BID Qty: 14 0RF Continued empagliflozin 25 mg tablet 25 mg PO QAM 90 Days Qty: 90 2RF metoprolol succinate 200 mg tablet extended release 24 hr 200 mg PO DAILY 90 Days Qty: 90 0RF fenofibrate 160 mg tablet 160 mg PO DAILY 90 Days Qty: 90 0RF dulaglutide 1.5 mg/0.5 mL pen injector 1.5 mg subcut QWEEK 30 Days Qty: 2.5 3RF amlodipine 10 mg tablet 10 mg PO DAILY 90 Days Qty: 90 0RF losartan 100 mg tablet 100 mg PO DAILY 90 Days Qty: 90 0RF omeprazole 40 mg capsule,delayed release(DR/EC) 40 mg PO DAILY PRN (Reason: Acid Reflux) metformin 500 mg tablet extended release 24 hr 1,000 mg PO BID hydralazine 50 mg tablet 50 mg PO TID 30 Days Qty: 90 3RF Protocol: Hold for SBP< HOLD for SBP < : 90 bisacodyl [Dulcolax (bisacodyl)] 5 mg tablet,delayed release (DR/EC) 10 mg PO BEDTIME 2 Days Qty: 4 0RF Discharge Orders: Discharge Order (Routine); Ordered 12/20/23 Ordered By: Carlos Cabello Diet: Advance to usual diet Activity on Discharge: As tolerated Stand Alone Forms: Patient Portal Discharge page Print Language: Telugu Activity Restrictions/Additional Instructions: Wound care upon discharge: xeroform, 4x4 and Kerlix wrap to be changed 3 times a week. Please call Dr. Cablelo at [phone] for 2 week follow up for suture and staple removal Care Plan Goals: return to baseline Health Concerns: DM, hx of carcinoid Plan of Treatment: daily wound care office ffup Assessment: doing well
--- NOTE | 2023-12-20 11:20 | MHC.CM.PN ---
PT CLEARED TO DC HOME TODAY WITH NO SERVICES VIA PRIVATE TRANSPORT
[2023-12-20 11:38] LABS: Glucose, Whole Blood 175 mg/dL (60-115)
[2023-12-20] MEDS: cefTRIAXone sodium 1 GM in 0.9 % Sodium Chloride 50 ML IV (11:54)
[2023-12-20] MEDS: Insulin Lispro 100 UNIT/ML 3 ML VIAL SUBCUT ×3 (11:56→21:29)
[2023-12-20] MEDS: Enoxaparin Sodium 40 MG/0.4 ML SYRINGE SUBCUT (13:06)
--- NOTE | 2023-12-20 13:27 | HO.POSTANES ---
Post Anesthesia Evaluation Post Anesthesia Evaluation Date of Service: 12/20/23 Vital Signs: Vital Signs Temp Pulse Resp BP Pulse Ox O2 Del Method 12/20/23 13:05 Room Air 12/20/23 10:31 83 167/79 H 12/20/23 08:22 190/85 H 12/20/23 08:22 190/85 H 12/20/23 08:22 190/85 H 12/20/23 08:21 190/85 H 12/20/23 08:00 97 190/85 H 94 Room Air 12/20/23 04:00 99.4 F 94 16 167/79 H 99 Room Air Anesthesia: Monitored Mental Status: Awake Pain Control: Satisfactory Nausea/Vomiting: None Hydration: Adequate Anesthesia-Related Issues: No Anes. Related Issues
[2023-12-20 16:05] LABS: VBG Base Excess 3.7 mmol/L; VBG HCO3 27 mmol/L (22-26); VBG pCO2 39 mmHg; VBG pH 7.45 (7.32-7.43); VBG pO2 37 mmHg
[2023-12-20 16:06] LABS: Venous Blood Gas Refer to POC result
[2023-12-20 16:14] LABS: Beta-Hydroxybutyrate 1.26 mmol/L (0.02-0.27)
[2023-12-20 16:15] LABS: Anion Gap 13 (12-20); Blood Urea Nitrogen 10 mg/dL (9-16); Carbon Dioxide 27 mmol/L (22-29); Chloride 103 mmol/L (96-108); Creatinine Clr Calc Pharmacy 108.1; Estimated Glomerular Filt Rate > 60; Glucose Random 198 mg/dL (60-115); Sodium 139 mmol/L (135-145)
[2023-12-20 16:27] LABS: Estimated Average Glucose 189 mg/dL; Hemoglobin A1c % 8.2 % (<6.0)
[2023-12-20 16:37] LABS: Glucose, Whole Blood 189 mg/dL (60-115)
[2023-12-20] MEDS: Doxycycline Monohydrate 100 MG CAPSULE PO (16:44)
[2023-12-20] MEDS: Insulin Glargine,Hum.rec.anlog 100 UNIT/ML 10 ML VIAL SUBCUT (16:44)
[2023-12-20 21:10] LABS: Glucose, Whole Blood 179 mg/dL (60-115)
[2023-12-20 21:22] LABS: Vancomycin Random 12.5 mcg/mL (15-20)
[2023-12-20] MEDS: bisacodyL 5 MG TABLET.DR 10 MG PO (21:30)
[2023-12-21] MEDS: Dextrose 5 % and 0.9 % NaCl 1,000 ML 125 ML IVCONT ×2 (00:30→08:01)
[2023-12-21 03:54] VITALS: BP 160/80; PULSE 84; RESP 17; TEMP 36.7; O2SAT 93
[2023-12-21] MEDS: Omeprazole 40 MG CAPSULE.DR PO (05:46)
[2023-12-21] MEDS: Doxycycline Monohydrate 100 MG CAPSULE PO (05:46)
[2023-12-21 05:58] LABS: Anion Gap 11 (12-20); Beta-Hydroxybutyrate 0.48 mmol/L (0.02-0.27); Blood Urea Nitrogen 8 mg/dL (9-16); Calcium 8.5 mg/dL (8.4-10.2); Carbon Dioxide 26 mmol/L (22-29); Chloride 104 mmol/L (96-108); Creatinine Clr Calc Pharmacy 122.4; Estimated Glomerular Filt Rate > 60; Glucose Random 183 mg/dL (60-115); Potassium 3.5 mmol/L (3.3-5.1); Sodium 137 mmol/L (135-145)
[2023-12-21 07:42] LABS: Glucose, Whole Blood 170 mg/dL (60-115)
[2023-12-21 07:48] VITALS: BP 164/86; PULSE 88; RESP 16; TEMP 36.5; O2SAT 94
[2023-12-21 07:59] VITALS: BP 164/86
[2023-12-21] MEDS: Losartan Potassium 50 MG TABLET 100 MG PO (07:59)
[2023-12-21] MEDS: Insulin Lispro 100 UNIT/ML 3 ML VIAL SUBCUT (07:59)
[2023-12-21] MEDS: hydrALAZINE HCl 50 MG TABLET 100 MG PO (07:59)
[2023-12-21 08:00] VITALS: BP 164/86; PULSE 88
[2023-12-21] MEDS: Aspirin Enteric Coated 81 MG TABLET.DR PO (08:00)
[2023-12-21] MEDS: amLODIPine Besylate 10 MG TABLET PO (08:00)
[2023-12-21] MEDS: Metoprolol Succinate ER 100 MG TAB.ER.24H 200 MG PO (08:00)
[2023-12-21] MEDS: Fenofibrate 160 MG TABLET PO (08:00)
--- NOTE | 2023-12-21 09:51 | HO.PM.IMPN ---
Subjective Subjective Date of Service: 12/21/23 Interval History: Doing well, would like to go home DKA resolved. Review of Systems Negative except HPI/interval history. Physical Exam Vital Signs: Vital Signs: Last Vital Signs Temp 97.7 F 12/21/23 07:48 Pulse 88 12/21/23 08:00 Resp 16 12/21/23 07:48 BP 164/86 H 12/21/23 08:00 Pulse Ox 94 12/21/23 07:48 O2 Del Method Room Air 12/21/23 07:48 BMI result Body Mass Index 33.9 Const: Other: General: AO X 3, no acute distress Resp: CTA bilateral CVS: S1,S2,RRR GI: +BS, NT, no distention Skin: amputated site dressing in place Neuro: motor grossly intact Psych: appropriate affect Objective Data Active Medications Acetaminophen (Acetaminophen 325 Mg Tablet) 650 mg PO Q6H PRN PRN Reason: Pain, Mild (Pain Scale 1-3), fever or headache Amlodipine Besylate (Amlodipine Besylate 10 Mg Tablet) 10 mg PO DAILY [facility]; Protocol Last Admin: 12/21/23 08:00 Dose: 10 mg Documented By: NICOLASA Aspirin (Aspirin Enteric Coated 81 Mg Tablet.) 81 mg PO DAILY [facility] Last Admin: 12/21/23 08:00 Dose: 81 mg Documented By: NICOLASA Bisacodyl (Bisacodyl 5 Mg Tablet.) 10 mg PO BEDTIME [facility] Last Admin: 12/20/23 21:30 Dose: 10 mg Documented By: ELBERT Calcium Carbonate (Calcium Carbonate 750 Mg Tab.Chew) 750 mg PO Q4H PRN PRN Reason: Heartburn Doxycycline Monohydrate (Doxycycline Monohydrate 100 Mg Capsule) 100 mg PO Q12H [facility] Last Admin: 12/21/23 05:46 Dose: 100 mg Documented By: ELBERT Enoxaparin Sodium (Enoxaparin Sodium 40 Mg/0.4 Ml Syringe) 40 mg SUBCUT Q24H [facility] Last Admin: 12/20/23 13:06 Dose: 40 mg Documented By: EMILIA Fenofibrate (Fenofibrate 160 Mg Tablet) 160 mg PO DAILY [facility] Last Admin: 12/21/23 08:00 Dose: 160 mg Documented By: NICOLASA Glucose (Glucose Gel 15 Gm Gel..Gram.) 15 gm PO Q15M PRN; Protocol PRN Reason: per Hypoglycemia Standing Ord. Hydralazine HCl (Hydralazine Hcl 50 Mg Tablet) 100 mg PO TID [facility]; Protocol Last Admin: 12/21/23 07:59 Dose: 100 mg Documented By: NICOLASA Hydromorphone HCl (Hydromorphone Hcl 0.5 Mg/0.5 Ml Syringe) 0.5 mg IVPUSH Q3H PRN; Protocol PRN Reason: Pain, Severe (Pain Scale 7-10) Dextrose (D10) 250 mls @ 750 mls/hr IV Q15M PRN; Protocol PRN Reason: per Hypoglycemia Standing Ord. Insulin Human Lispro (Insulin Lispro 100 Unit/Ml 3 Ml Vial) 0 unit SUBCUT QIDACHS [facility]; Protocol Last Admin: 12/21/23 07:59 Dose: 2 unit Documented By: NICOLASA Losartan Potassium (Losartan Potassium 50 Mg Tablet) 100 mg PO DAILY [facility]; Protocol Last Admin: 12/21/23 07:59 Dose: 100 mg Documented By: NICOLASA Melatonin (Melatonin 3 Mg Tablet) 6 mg PO BEDTIME PRN PRN Reason: Insomnia Metoprolol Succinate (Metoprolol Succinate Er 100 Mg Tab.Er.24h) 200 mg PO DAILY [facility]; Protocol Last Admin: 12/21/23 08:00 Dose: 200 mg Documented By: NICOLASA Naloxone HCl (Naloxone Hcl 0.4 Mg/Ml Vial) 0.04 mg IVPUSH Q5M PRN PRN Reason: Excessive sedation or RR < 8 Omeprazole (Omeprazole 40 Mg Capsule.) 40 mg PO DAILY@0630 [facility] Last Admin: 12/21/23 05:46 Dose: 40 mg Documented By: ELBERT Ondansetron HCl (Ondansetron Hcl 4 Mg/2 Ml Vial) 4 mg IVPUSH Q8H PRN PRN Reason: Nausea and Vomiting Polyethylene Glycol (Polyethylene Glycol 3350 17 Gm Powd.Pack) 17 gm PO DAILY PRN PRN Reason: Constipation Sodium Chloride (0.9 % Sodium Chloride Flush 3 Ml Syringe) 3 ml IVFLUSH QSHIFT [facility] Last Admin: 12/21/23 07:55 Dose: Not Given Documented By: NICOLASA Non-Admin Reason: IV Running Labs 12/15/23 05:43 12/21/23 05:25 Labs: Laboratory Results - last 24 hr 12/20/23 12/20/23 12/20/23 11:32 15:52 15:59 Hold Purple Top VBG pH 7.45 H VBG pCO2 39 VBG pO2 37 VBG HCO3 27 H VBG O2 Saturation 69.0 VBG Base Excess 3.7 Anion Gap 13 Estim Creat Clear Calc 108.1 Estimated GFR > 60 POC Glucose 175 H Random Glucose 198 H Estimat Average Glucose 189 Hemoglobin A1c % 8.2 H Calcium 9.0 Beta-Hydroxybutyrate 1.26 H Random Vancomycin 12/20/23 12/20/23 12/20/23 16:28 20:55 21:01 Hold Purple Top VBG pH VBG pCO2 VBG pO2 VBG HCO3 VBG O2 Saturation VBG Base Excess Anion Gap Estim Creat Clear Calc Estimated GFR POC Glucose 189 H 179 H Random Glucose Estimat Average Glucose Hemoglobin A1c % Calcium Beta-Hydroxybutyrate Random Vancomycin 12.5 L 12/21/23 12/21/23 05:25 07:17 Hold Purple Top SEE NOTE VBG pH VBG pCO2 VBG pO2 VBG HCO3 VBG O2 Saturation VBG Base Excess Anion Gap 11 L Estim Creat Clear Calc 122.4 Estimated GFR > 60 POC Glucose 170 H Random Glucose 183 H Estimat Average Glucose Hemoglobin A1c % Calcium 8.5 Beta-Hydroxybutyrate 0.48 H Random Vancomycin Assessment and Plan (1) Open toe wound: Status: Acute (2) DKA (diabetic ketoacidosis): Status: Acute Plan 58/m w/ dm with neuropathy, Charcot joint disease, htn, HLD, carcinoid tumor removal in 2020 here with DM with probable early euglycemic DKA on SGLT-2 inhibiter (Jardiance)-- been on hold prior to surgery bicarb/gap/beta-hydroxybuterate showing early DKA; VBG without acidosis -Treated with Lantus and Dextrose and now resolved -risk of recurrence with serious consequence still exist and therefore stopping Jardiance and adding lantus and sliding scale, he maybe reevaluated on outpatient basis for consideration of restarting this med right 2nd toe ulcer and acute OM on MRI -continue ceftriaxone and Vanco 12/14 s/p amputation will d/w surg re: assisted antibiotics, Abx would not be indicated if amputated base was clean Arterial studies performed on 12/11/2023 reveal severe stenosis, 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 -outpatient vascular follow up with Dr. Cabello. continue ASA, statin HTN--uncontrolled hydralai 100 (increased today), metoprolol xl 200; losartan 100, Norvasac 10 HLP: continue statin. PAD--ASA, Lipitor, h/o barrets esoph--PPI, f/u with GI for surveillance EGD, missed appt in july dvt prophylax - lovenox full code pt with what appears to be early euglycemic DKA -- will require on going hospitalization for treatment of this Quality Stroke Does the patient have a stroke diagnosis?: No VTE Prior VTE?: No VTE Risk Level:: Surgical - moderate VTE Device Contraindication: N/A - Device Ordered VTE Drug Contraindication: N/A - Med Ordered
--- NOTE | 2023-12-21 10:23 | P.DS_ITS ---
DS: Providers Provider Date of Service: 12/21/23 Date of admission: 12/14/23 13:17 Date of discharge: 12/21/23 Primary care physician: Zurdo Mccormick MD Consults: 12/14/23 13:25 Consult to Hospitalist Routine Comment: Consulting Provider: Hospitalist Reason For Exam: Diabetic toe infection, medical management 12/14/23 19:25 Consult to Wound Care Routine Reason for consultation: DFU right 2nd toe, previously bump in a car 12/15/23 08:06 Consult to Vascular Surgery Routine Consulting Provider: [facility] Vascular Services Reason for consultation: Pad / foot cellulitis in dm Has provider been notified: No 12/18/23 09:45 Consult to Infectious Diseases Routine Consulting Provider: [facility] Infectious Disease Center Reason for consultation: OM of right second toe Attending physician on discharge: Oriana Morgan DS: Diagnosis Discharge Diagnosis (1) Open toe wound: Start date: 12/21/23 Status: Acute (2) DKA (diabetic ketoacidosis): Status: Acute DS: Summary Hospital Course Hospital Course: Patient had presented to the hospital on 12/14/2023. At that time he was noted to have a nonhealing ulcer on the right 2nd toe with progressive cellulitis. Was subsequently admitted and treated with IV antibiotics. Upon further workup including x-ray and subsequent MRI it was noted that he had underlying osteomyelitis and the wound actually penetrated to bone. After discussion with the patient and options were presented to the patient he subsequently underwent right 2nd toe amputation on 12/19/2023. Operation went without incident. Postop day 1 pain was well controlled. Dressing was changed and appear to be healing well. He was subsequently discharged. Condition upon discharge was stable discharge medications included doxycycline for an additional 7 days for questionable skin cellulitis. In addition Percocet was given for pain control. He will follow up with Dr. Cabello in approximately 2 weeks' time for suture and staple removal. He will also follow up with General surgery for further planning of his history of carcinoid Status at Discharge Functional status at discharge: independent ambulation Time Attestation Total time managing care of this patient today: 25 mintues. Discharge Coordination Time (in mins): Patient's status is fine on discharge Quality: Safe Use of Opioids Does Pt have an Active Cancer Diagnosis on the Problem List?: No Quality: Stroke Does the patient have a stroke diagnosis?: No Physical Exam Vital Signs: Vital Signs: Last Vital Signs Temp 97.7 F 12/21/23 07:48 Pulse 88 12/21/23 08:00 Resp 16 12/21/23 07:48 BP 164/86 H 12/21/23 08:00 Pulse Ox 94 12/21/23 07:48 O2 Del Method Room Air 12/21/23 07:48 BMI result Body Mass Index 33.9 Skin: Other: Patient is doing well toe amp site looks good DS: Data Data Completed and Pending Completed studies during hospitalization [Text1]: Procedures Detachment at Right 1st Toe, High, Open Approach (04/03/22) Insertion of Infusion Device into Right Basilic Vein, Percutaneous Approach (04/03/22) Pending studies at discharge: Pending at discharge 12/19/23 14:01 Surgical [PTH] Routine Labs on day of discharge: Laboratory Results - last 24 hr 12/20/23 12/20/23 12/20/23 11:32 15:52 15:59 Hold Purple Top VBG pH 7.45 H VBG pCO2 39 VBG pO2 37 VBG HCO3 27 H VBG O2 Saturation 69.0 VBG Base Excess 3.7 Sodium 139 Potassium 4.0 Chloride 103 Carbon Dioxide 27 Anion Gap 13 BUN 10 Creatinine 0.77 Estim Creat Clear Calc 108.1 Estimated GFR > 60 POC Glucose 175 H Random Glucose 198 H Estimat Average Glucose 189 Hemoglobin A1c % 8.2 H Calcium 9.0 Beta-Hydroxybutyrate 1.26 H Random Vancomycin 12/20/23 12/20/23 12/20/23 16:28 20:55 21:01 Hold Purple Top VBG pH VBG pCO2 VBG pO2 VBG HCO3 VBG O2 Saturation VBG Base Excess Sodium Potassium Chloride Carbon Dioxide Anion Gap BUN Creatinine Estim Creat Clear Calc Estimated GFR POC Glucose 189 H 179 H Random Glucose Estimat Average Glucose Hemoglobin A1c % Calcium Beta-Hydroxybutyrate Random Vancomycin 12.5 L 12/21/23 12/21/23 05:25 07:17 Hold Purple Top SEE NOTE VBG pH VBG pCO2 VBG pO2 VBG HCO3 VBG O2 Saturation VBG Base Excess Sodium 137 Potassium 3.5 Chloride 104 Carbon Dioxide 26 Anion Gap 11 L BUN 8 L Creatinine 0.68 Estim Creat Clear Calc 122.4 Estimated GFR > 60 POC Glucose 170 H Random Glucose 183 H Estimat Average Glucose Hemoglobin A1c % Calcium 8.5 Beta-Hydroxybutyrate 0.48 H Random Vancomycin Discharge Plan Discharge Anticipated Discharge Date/Time: 12/20/23 07:46 Patient Disposition: Home, Self-Care Discharge Diagnosis: osteomyelitis of 2nd toe Referrals: Carlos Cabello MD [Physician] - 1 Week Po,Zurdo Putnam MD [Primary Care Provider] - 1 Week Discharge Medications: New oxycodone-acetaminophen [Percocet] 5-325 mg tablet 1 tab PO Q4-6H PRN (Reason: pain) Qty: 20 0RF Rx Instructions: Partial Fill upon patient request. doxycycline hyclate 100 mg capsule 100 mg PO BID Qty: 14 0RF Continued empagliflozin 25 mg tablet 25 mg PO QAM 90 Days Qty: 90 2RF metoprolol succinate 200 mg tablet extended release 24 hr 200 mg PO DAILY 90 Days Qty: 90 0RF fenofibrate 160 mg tablet 160 mg PO DAILY 90 Days Qty: 90 0RF dulaglutide 1.5 mg/0.5 mL pen injector 1.5 mg subcut QWEEK 30 Days Qty: 2.5 3RF amlodipine 10 mg tablet 10 mg PO DAILY 90 Days Qty: 90 0RF losartan 100 mg tablet 100 mg PO DAILY 90 Days Qty: 90 0RF omeprazole 40 mg capsule,delayed release(DR/EC) 40 mg PO DAILY PRN (Reason: Acid Reflux) metformin 500 mg tablet extended release 24 hr 1,000 mg PO BID hydralazine 50 mg tablet 50 mg PO TID 30 Days Qty: 90 3RF Protocol: Hold for SBP< HOLD for SBP < : 90 bisacodyl [Dulcolax (bisacodyl)] 5 mg tablet,delayed release (DR/EC) 10 mg PO BEDTIME 2 Days Qty: 4 0RF Discharge Orders: Discharge Order (Routine); Ordered 12/21/23 Ordered By: Oriana Morgan Diet: Advance to usual diet Activity on Discharge: As tolerated Stand Alone Forms: Patient Portal Discharge page Print Language: Sami Activity Restrictions/Additional Instructions: Wound care upon discharge: xeroform, 4x4 and Kerlix wrap to be changed 3 times a week. Please call Dr. Cabello at [phone] for 2 week follow up for suture and staple removal Care Plan Goals: return to baseline Health Concerns: DM, hx of carcinoid Plan of Treatment: daily wound care office ffup Assessment: doing well
[2023-12-21] MEDS: Insulin Glargine,Hum.rec.anlog 100 UNIT/ML 10 ML VIAL 10 UNIT SUBCUT (10:26)
--- NOTE | 2024-01-03 16:24 | P.CDIM_ITS ---
PROVIDER RESPONSE TEXT: To clarify, the appropriate diagnosis supported by the clinical indicators: Excisional debridement: Scissors used to debride skin and subcutaneous tissue to a depth of 0.5 cm. U lcer measured 1 cm in diameter. QUERY TEXT: PHYSICIAN'S DOCUMENTATION REQUEST Date of Query: 12/24/2023 07:03 AM EDT Patient Name: Rehan Gramajo Admit Date: 12/14/2023 Dear Rehan Mckeon MD, A review of the medical record indicates additional documentation may be needed. Please review below and update the documentation accordingly. Clinical Indicators: Per General Surgery Progress Note 12/15/23: wound debrided of skin and subcutaneous tissue Could you provide, in the Progress Notes, further clarification regarding the type and nature of the debridement? Excisional debridement Please also address the Type of instrument used, What was excised, Depth of debridement, and Size and appearance of the wound as able Non-excisional debridement Please also address the Depth of debridement, and Size and appearance of the wound as able Other (explain) Clinically unable to determine (explain) Thank you, Phylicia Álvarez RN Use of terms such as suspected, likely, concern for, or probable (associated with a specific diagnosi s that is being evaluated, monitored, or treated as if it exists) are acceptable and can be coded in the inpatient se tting, when documented at the time of discharge. Please use your independent medical judgment in providing your response. THIS QUERY IS PART OF THE PERMANENT MEDICAL RECORD
== END 2023-12-21 10:36 | disposition home or self-care (01) | DRG 314 ==
LOC: HO.ED 13:18 → HO.EDOVER 13:32 → HO.S3 17:51
PROVIDERS: Family Medicine; Internal Medicine; Physician Assistant; Surgery Vascular Surgery; Admitting Provider Surgery; Emergency Provider Emergency Medicine Emergency Medical Services; PCP Internal Medicine; Visit Provider Surgery
PROC: 0Y6R0Z0 Detachment at Right 2nd Toe, Complete, Open Approach (ICD-10-PCS; principal; 2023-12-19 13:30)
DX: E11.52 Type 2 diabetes mellitus with diabetic peripheral angiopathy with gangrene (principal); I70.261 Atherosclerosis of native arteries of extremities with gangrene, right leg; E11.42 Type 2 diabetes mellitus with diabetic polyneuropathy; M86.171 Other acute osteomyelitis, right ankle and foot; E11.69 Type 2 diabetes mellitus with other specified complication; E87.1 Hypo-osmolality and hyponatremia; L97.519 Non-pressure chronic ulcer of other part of right foot with unspecified severity; L03.031 Cellulitis of right toe; E11.10 Type 2 diabetes mellitus with ketoacidosis without coma; Z79.899 Other long term (current) drug therapy; G89.18 Other acute postprocedural pain; I10 Essential (primary) hypertension; Z20.822 Contact with and (suspected) exposure to COVID-19; Z79.84 Long term (current) use of oral hypoglycemic drugs; Z79.85 Long-term (current) use of injectable non-insulin antidiabetic drugs
CPT/HCPCS: 36415; 73630; 73720; 80048; 80051; 80053; 80202; 82010; 82565; 82803; 82947; 83036; 83605; 83735; 85025; 85652; 86140; 87040; 87635; 88305; 88311; 99285; A9585; J0696; J1650; J2704; J2795; J3370; J7120

== ENCOUNTER → 2023-12-14 13:17 | Outpatient (BNV) | payer OTHER, SELFPAY | PROVIDERS: Admitting Provider Surgery; Emergency Provider Emergency Medicine Emergency Medical Services; PCP Internal Medicine; Visit Provider Surgery Vascular Surgery | DX: E11.621 Type 2 diabetes mellitus with foot ulcer (principal); L97.511 Non-pressure chronic ulcer of other part of right foot limited to breakdown of skin; L03.031 Cellulitis of right toe; M86.9 Osteomyelitis, unspecified | CPT/HCPCS: 28810; 99222; 99232 ==

== ENCOUNTER → 2023-12-14 13:17 | Outpatient (BNV) | payer OTHER, SELFPAY | PROVIDERS: Admitting Provider Surgery; Emergency Provider Emergency Medicine Emergency Medical Services; PCP Internal Medicine; Visit Provider Surgery | DX: L03.031 Cellulitis of right toe (principal) | CPT/HCPCS: 11042; 99222; 99232; 99238; 99499 ==

== ENCOUNTER → 2023-12-14 13:17 | Outpatient (BNV) | payer OTHER, SELFPAY | PROVIDERS: Admitting Provider Surgery; Emergency Provider Emergency Medicine Emergency Medical Services; PCP Internal Medicine; Visit Provider Student in an Organized Health Care Education/Training Program | DX: E11.10 Type 2 diabetes mellitus with ketoacidosis without coma (principal); L03.031 Cellulitis of right toe; Z89.421 Acquired absence of other right toe(s) | CPT/HCPCS: 99222; 99232; 99499 ==

== ENCOUNTER 2023-12-31 15:45 | Outpatient (AMB) | payer OTHER, SELFPAY ==
--- NOTE | 2023-12-31 15:45 | MHC.PC.OV ---
Vital Signs 12/31/23 15:46 Height 5 ft 4 in Weight 186 lb BMI 31.9 BP 130/66 Blood Pressure Location Lt brachial Position Sitting Pulse 76 Pulse Source Pulse Oximeter Pulse Oximetry (%) 98 Oxygen Delivery Method Room Air Intake Visit Reasons: TCM DIABETIC ULCER SECOND TOE [employer] Sales Representative Required: No Allergies lisinopril [LISINOPRIL] Allergy (Intermediate, Verified 12/31/23 15:46) COUGH Penicillins [PENICILLINS] Allergy (Intermediate, Verified 12/31/23 15:46) HIVES Medication List - Last Reconciled 12/31/23 by Francesca Coulter PA-C amlodipine 10 mg PO DAILY 90 days bisacodyl (Dulcolax (bisacodyl)) 10 mg (2 x 5 mg) PO BEDTIME 2 days dulaglutide 1.5 mg (0.5 mL) subcut QWEEK 30 days empagliflozin 25 mg PO QAM 90 days fenofibrate 160 mg PO DAILY 90 days hydralazine 50 mg See Protocol PO TID 30 days losartan 100 mg PO DAILY 90 days metformin ER 1,000 mg PO BID metoprolol succinate ER 200 mg PO DAILY 90 days omeprazole 40 mg PO DAILY PRN Tobacco use date assessed: 08/23/23 Dental Screening Dental Screen Date: 08/23/23 HPI TCM DIABETIC ULCER SECOND TOE HPI Details 58-year-old obese male with uncontrolled diabetes mellitus hypertension hypercholesterolemia Barretts esophagus last seen by Dr. Mccormick August 2023 coming in for hospital follow up. Review of the notes, patient was seen in [facility] [place] for nonhealing ulcer of the right 2nd toe with progressive cellulitis. Patient was admitted and treated with IV antibiotics subsequent MRI revealed he had underlying osteomyelitis and underwent 2nd toe amputation on 12/19/2023. Patient was stable and discharged home 12/21/2023 to follow up with Dr. Cabello in 2 weeks continue on 7 days of doxycycline. Patient has been having regular dressing changes every 2 days and has not been seeing any redness or discharge. He has been having clear discharge occasionally from the wound. He denies any pain in the foot and no fevers. He regularly follows with Dr. Salgado every few months for Podiatry and was given a foot brace which will be picked up in the next 2 days. Has no concerns today. TCM TCM Information Date of Discharge 12/21/23 Discharged From [facility] Medical History (Updated 12/29/23 @ 00:01 by Background Daemon) History of malignant carcinoid tumor of rectum Peripheral neuropathy Diabetes Charcot's joint of right foot COVID-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 Rectal carcinoid tumor Crohn's colitis Vitamin D deficiency Obesity (BMI 30-39.9) Mendez's esophagus Hypercholesterolemia Type 2 diabetes mellitus with hyperglycemia HTN (hypertension) Surgical History (Updated 12/29/23 @ 00:01 by Background Daemon) Amputation of right great toe (04/10/22) History of esophagogastroduodenoscopy (EGD) H/O colonoscopy History of umbilical hernia repair Family History Father Diabetes CVD (cardiovascular disease) Myocardial infarction Hypertension Mother CVD (cardiovascular disease) Myocardial infarction Hypertension Throat cancer Maternal Grandmother Gastric cancer Paternal Grandmother Myocardial infarction CVD (cardiovascular disease) Maternal Aunt Gastric cancer Breast cancer Sister In good health Maternal Grandfather CVD (cardiovascular disease) Paternal Grandfather CVD (cardiovascular disease) Other Substance abuse Social History Household Members: Family Household Members Other:: with motehr and sister Housing: House Are you a primary residential caregiver to a significant other at home: No Do you presently have visiting nurse or other home services: No Alcohol intake: never Comment: pt refuse bed alarm Patient Tobacco Use Status: Never used Tobacco e-Cigarette/Vaping Use: Never Used Second Hand Smoke Exposure: Yes service: No Current occupational status: employed Current occupation: cook Cognitive needs: No Hearing needs: No Vision needs: Yes Questionnaire Thrive Questionnaire Date Thrive assessed: 12/15/23 Are you currently unemployed and looking for a job?: No AUDIT C Alcohol Use Questionnaire (AUDIT-C) 2. How many drinks containing alcohol do you have on a typical day when you are drinking?: 1 or 2 3. How often do you have six or more drinks on one occasion?: Never Total Score: 0 ANNALISA-7 AMB Questionnaire ANNALISA-7 Date ANNALISA - 7 assessed: 08/23/23 Source: Developed by Drs. Alexis Butt, Deandra López, Terrence Richard and colleagues, with an educational thor from [employer]. Review of Systems Const Denies body aches, Denies chills, Denies fatigue and Denies fever(s) Eyes Reports no additional complaints ENT Reports no additional complaints Card Denies chest pain, Denies leg edema, Denies lightheadedness and Denies dyspnea Resp Denies dyspnea GI Reports no additional complaints Reports no additional complaints Musc Details: Denies pain in right foot Endo Denies fatigue Physical exam (Primary Care) Vital Signs: Last Vital Signs Pulse 76 12/31/23 15:46 BP 130/66 12/31/23 15:46 Pulse Ox 98 12/31/23 15:46 Oxygen Delivery Method Room Air 12/31/23 15:46 BMI result Body Mass Index 31.9 Tobacco/Smoking Status: Tobacco use Status Tobacco use date assessed 08/23/23 12/31/23 15:47 Patient Tobacco Use Status Never used Tobacco 12/31/23 15:47 e-Cigarette/Vaping Use Never Used 12/31/23 15:47 Thrive Assessment: Date of Thrive Assessment Date Thrive assessed 12/15/23 12/31/23 15:47 Const General: cooperative, healthy appearing, comfortable and no acute distress Orientation/consciousness: patient oriented x3 HENMT Head: Yes normocephalic Ears: hearing grossly normal bilaterally General nose exam: Normal external nose present Eyes General: appearance normal, both eyes and all related structures Conjunctivae: conjunctivae normal Neck Neck: Yes full ROM and Yes no lymphadenopathy Resp Effort & Inspection: normal respiratory effort Auscultation: clear to auscultation bilaterally, no crackles, no rales, no rhonchi and no wheezes Cardio Rate: regular rate Rhythm: regular rhythm Skin General skin exam: no rashes or lesions noted Neuro General: patient oriented x3 Gait exam (Neuro): Normal gait present Extrem General: Yes normal to inspection, Yes full ROM and No edema Psych Affect: normal affect Attitude: cooperative Insight: Good insight present (Psych) Judgement: Good judgement present (Psych) Assessment and Plan Assessment & Plan (1) Type 2 diabetes mellitus with hyperglycemia: Comment: [facility] Dr. Lloyd Salgado Code(s): E11.65 - Type 2 diabetes mellitus with hyperglycemia Qualifiers: Diabetes mellitus half-way insulin use: with half-way use Qualified Code(s): E11.65 - Type 2 diabetes mellitus with hyperglycemia; Z79.4 - termite control servicer (current) use of insulin Plan: A1c 8.2% while in the hospital which is decreased from last A1c. He is requesting a referral to endocrinology for further management of his diabetes and referral was placed today. Decrease the amount of carbohydrates such as pasta, bread, rice, and potatoes and limit the amount of sweets. Although fruits are generally healthy they should be eaten in moderation as they are still high in sugar. Hemoglobin A1c goal of less than 7%. Advised patient to perform nightly foot checks for any lesions or lacerations and keep a close eye on and either he notices. (2) Osteomyelitis: Code(s): M86.9 - Osteomyelitis, unspecified Plan: Patient declines foot exam today and is scheduled to follow up with Dr. Cabello in 2 days. Can you with routine dressing changes and keeping the area clean and dry. If you began to have pain, redness, swelling, or fevers go to the ER immediately. Plan This note was constructed using voice recognition software. While every effort has been made to ensure accuracy and country singer, still areas may have been included sometimes these areas may affect the content or meeting of the given symptoms. Total time spent caring for the patient today was 30 minutes. This includes time spent before the visit reviewing the chart, time spent during the visit, and time spent after the visit and documentation. Orders: Referrals Endocrinology Referral E11.65 - Type 2 diabetes mellitus with hyperglycemia, Z79.4 - termite control servicer (current) use of insulin Coding Level of Care Code Est Pt Level 4 (03133) Diagnoses Type 2 diabetes mellitus with hyperglycemia, with long-term current use of insulin E11.65; Z79.4 Diabetes mellitus half-way insulin use: with termite control servicer use Osteomyelitis M86.9
[2023-12-31 15:46] VITALS: BP 130/66; PULSE 76; O2SAT 98; BMI 31.9
== END 2023-12-31 17:07 | disposition home or self-care (01) ==
PROVIDERS: PCP Internal Medicine
DX: E11.65 Type 2 diabetes mellitus with hyperglycemia (principal); Z79.4 Long term (current) use of insulin; M86.9 Osteomyelitis, unspecified

== ENCOUNTER → 2023-12-31 15:45 | Outpatient (BNVA) | payer OTHER, SELFPAY | PROVIDERS: PCP Internal Medicine | DX: E11.65 Type 2 diabetes mellitus with hyperglycemia (principal); M86.9 Osteomyelitis, unspecified; Z79.4 Long term (current) use of insulin | CPT/HCPCS: 99212 ==

== ENCOUNTER 2024-01-02 14:47 | Outpatient (AMB) | payer OTHER, SELFPAY ==
[2024-01-02 15:08] VITALS: BMI 31.9
--- NOTE | 2024-01-02 15:08 | MHC.OFFVIS ---
Vital Signs 01/02/24 15:08 Height 5 ft 4 in Weight 186 lb BMI 31.9 Intake Visit Reasons: 2 wk post op R 2nd toe amp 12/19/23 Intake Note: 2 week follow up Right 2nd toe amp 12/19/23, Dressing changes QOD, has sutures and shaheen Accompanied by: Sister Allergies lisinopril [LISINOPRIL] Allergy (Intermediate, Verified 01/02/24 15:16) COUGH Penicillins [PENICILLINS] Allergy (Intermediate, Verified 01/02/24 15:16) HIVES HPI HPI 2 wk post op R 2nd toe amp 12/19/23: Details: Patient is 2 weeks status post right 2nd toe amp. Appears to be doing relatively well. No other interval issues. Incision and wound appear to be healing well. No significant complaints. Now for routine postoperative follow-up. [facility] Medical History (Updated 01/02/24 @ 16:52 by Carlos Cabello MD) History of malignant carcinoid tumor of rectum Peripheral neuropathy Diabetes Charcot's joint of right foot COVID-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 Rectal carcinoid tumor Crohn's colitis Vitamin D deficiency Obesity (BMI 30-39.9) Mendez's esophagus Hypercholesterolemia Type 2 diabetes mellitus with hyperglycemia HTN (hypertension) Surgical History (Updated 01/02/24 @ 15:17 by ANNA Trivedi) History of complete ray amputation of second toe of right foot Amputation of right great toe (04/10/22) History of esophagogastroduodenoscopy (EGD) H/O colonoscopy History of umbilical hernia repair Family History Father Diabetes CVD (cardiovascular disease) Myocardial infarction Hypertension Mother CVD (cardiovascular disease) Myocardial infarction Hypertension Throat cancer Maternal Grandmother Gastric cancer Paternal Grandmother Myocardial infarction CVD (cardiovascular disease) Maternal Aunt Gastric cancer Breast cancer Sister In good health Maternal Grandfather CVD (cardiovascular disease) Paternal Grandfather CVD (cardiovascular disease) Other Substance abuse Social History Household Members: Family Household Members Other:: with motehr and sister Housing: House Are you a primary ambulatory care nurse to a significant other at home: No Do you presently have visiting nurse or other home services: No Alcohol intake: never Comment: pt refuse bed alarm Patient Tobacco Use Status: Never used Tobacco e-Cigarette/Vaping Use: Never Used Second Hand Smoke Exposure: Yes service: No Current occupational status: employed Current occupation: [employer] Cognitive needs: No Hearing needs: No Vision needs: Yes Review of Systems Const All systems reviewed & are unremarkable except as noted in HPI and below Reports no additional complaints ENT Reports Normal hearing present Card Denies chest pain, Denies chest pain at rest, Denies chest pain with activity and Denies pedal edema Resp Denies cough GI Denies abdominal pain Musc Denies abnormal gait, Denies muscle cramps and Denies radiating pain into limb Skin/Breast Denies skin ulcer and Denies wounds Neuro Reports Normal hearing present and Denies abnormal gait Psych Reports no additional complaints Physical Exam Vital Signs: BMI result Body Mass Index 31.9 Const General: cooperative, healthy appearing and comfortable Orientation/consciousness: oriented to person, oriented to place and oriented to time HEENT Head: Yes normal to inspection Neck Neck: Yes normal visual inspection Carotids: no bruits Chest Chest palpation & inspection: normal inspection of the chest Resp Effort & Inspection: normal respiratory effort and able to speak in complete sentences Auscultation: clear to auscultation bilaterally, no crackles, no rales, no rhonchi and no wheezes Cardio Rate: regular rate Rhythm: regular rhythm Heart sounds: S1 normal heart sound present and S2 normal heart sound present Bruits: no carotid bruits Peripheral pulses: Peripheral pulses 2+ throughout GI Inspection: Yes normal to inspection Skin Other: Right 2nd toe amp site well healing. Sutures and shaheen removed. Wounds: amputation site Hair: normal Neuro General: oriented to person, oriented to place and oriented to time Cranial nerves: Yes CN's II-XII intact bilaterally and Yes Normal hearing present Cognition (Neuro): normal cognition Motor exam (neuro): 5/5 motor strength present throughout Extrem Other: venous exam: No significant superficial varicosities or spider telangiectasias, minimal edema General: No clubbing, No cyanosis and No edema Psych Appearance: grossly normal Mental Status: mental status grossly normal Speech and movement: Normal speech and movement present Assessment & Plan Assessment & Plan (1) PAD (peripheral artery disease): Comment: 04/10/2022- right great toe amputation 12/19/2023 - right 2nd toe amputation Code(s): I73.9 - Peripheral vascular disease, unspecified Category: Medical Plan: In short patient is doing well after 2nd toe amputation. Appears to be healing relatively well. Will plan for 2 week follow-up for incision and wound check. He is in the process of getting new prosthetic. Thank you for allowing us to assist in his care. If there are any questions or concerns please do not hesitate to contact us. Please note a longitudinal relationship has been created with the patient and we have been following and surveillance this chronic condition. Coding Level of Care Code Est Pt Level 3 (93077) Complex EM visit Add On G2211 Diagnoses PAD (peripheral artery disease) I73.9
== END 2024-01-02 15:45 | disposition home or self-care (01) ==
PROVIDERS: PCP Internal Medicine; Visit Provider Surgery Vascular Surgery
DX: I73.9 Peripheral vascular disease, unspecified (principal)
CPT/HCPCS: 99024

== ENCOUNTER → 2024-01-02 14:47 | Outpatient (BNVA) | payer OTHER, SELFPAY | PROVIDERS: PCP Internal Medicine; Visit Provider Surgery Vascular Surgery | DX: I73.9 Peripheral vascular disease, unspecified (principal); Z47.81 Encounter for orthopedic aftercare following surgical amputation; Z89.421 Acquired absence of other right toe(s) | CPT/HCPCS: 99212 ==

== ENCOUNTER 2024-01-16 13:49 | Outpatient (AMB) | payer OTHER, SELFPAY ==
--- NOTE | 2024-01-16 13:52 | A.OFFVIS_ITS ---
<Statement entered by Carlos Cabello MD - 01/17/24 08:32> I agree with history, findings, assessment and plan documented by Marielle Nova PA-c. Intake Visit Reasons: 2 week right 2nd toe amp follow up Intake Note: Patient presents for 2 week right 2nd toe amp follow up. No complaints. Accompanied by: Self / Same As Patient Allergies lisinopril [LISINOPRIL] Allergy (Intermediate, Verified 01/16/24 13:52) COUGH Penicillins [PENICILLINS] Allergy (Intermediate, Verified 01/16/24 13:52) HIVES HPI HPI 2 week right 2nd toe amp follow up: Details: Rehan is presenting today for a 2w follow up s/p R2 toe amputation. He has been doing well. He denies any pain. He has been keeping the area C/D and there is no pain. He recently received a properly fitting prosthetic and he is doing well with it. He is anxious to get back to work. He is currently covering the site with a bandaid. He denies any other concerns today. [facility] Medical History History of malignant carcinoid tumor of rectum Peripheral neuropathy Diabetes Charcot's joint of right foot COVID-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 Rectal carcinoid tumor Crohn's colitis Vitamin D deficiency Obesity (BMI 30-39.9) Mendez's esophagus Hypercholesterolemia Type 2 diabetes mellitus with hyperglycemia HTN (hypertension) Surgical History History of complete ray amputation of second toe of right foot Amputation of right great toe (04/10/22) History of esophagogastroduodenoscopy (EGD) H/O colonoscopy History of umbilical hernia repair Family History Father Diabetes CVD (cardiovascular disease) Myocardial infarction Hypertension Mother CVD (cardiovascular disease) Myocardial infarction Hypertension Throat cancer Maternal Grandmother Gastric cancer Paternal Grandmother Myocardial infarction CVD (cardiovascular disease) Maternal Aunt Gastric cancer Breast cancer Sister In good health Maternal Grandfather CVD (cardiovascular disease) Paternal Grandfather CVD (cardiovascular disease) Other Substance abuse Social History (Updated 01/16/24 @ 14:16 by Marielle Nova PA-C) Household Members: Family Household Members Other:: with mother and sister Housing: House Are you a primary manager long term care to a significant other at home: No Do you presently have visiting nurse or other home services: No Alcohol intake: never Comment: pt refuse bed alarm Patient Tobacco Use Status: Never used Tobacco e-Cigarette/Vaping Use: Never Used Second Hand Smoke Exposure: Yes service: No Current occupational status: employed Current occupation: [employer] Cognitive needs: No Hearing needs: No Vision needs: Yes Review of Systems Const Reports as per HPI and Denies weakness ENT Reports Normal hearing present and Denies dizziness Card Reports as per HPI, Denies chest pain, Denies chest pain at rest, Denies chest pain with activity, Denies dyspnea and Denies dyspnea on exertion Resp Reports as per HPI, Denies cough, Denies dyspnea and Denies dyspnea on exertion GI Reports as per HPI, Denies abdominal pain, Denies nausea and Denies vomiting Musc Denies numbness Skin/Breast Reports as per HPI, Denies erythema and Denies wounds Neuro Reports Normal hearing present, Denies dizziness, Denies numbness, Denies Sensory deficit (Neuro) and Denies weakness Psych Reports no additional complaints Endo Reports no additional complaints Physical Exam Const General: healthy appearing and no acute distress Orientation/consciousness: patient oriented x3 HEENT Head: Yes normal to inspection Ears: hearing grossly normal bilaterally Mouth: Normal oral and palatal mucosa present Resp Effort & Inspection: normal respiratory effort and able to speak in complete sentences Auscultation: clear to auscultation bilaterally Cardio Jugular venous distension: no JVD Rate: regular rate Rhythm: regular rhythm Heart sounds: S1 normal heart sound present and S2 normal heart sound present Bruits: no abdominal aortic bruits, no carotid bruits, no femoral bruits and no renal bruits Peripheral pulses: Peripheral pulses 2+ throughout GI Inspection: Yes normal to inspection Palpation (GI): No Abdominal aortic bruit present Skin Other: R2 area: site is C/D/I. No discharge or bleeding noted. Incision and wound is healing well. There is no surrounding erythema/signs of infection. General skin exam: no rashes or lesions noted Wounds: no wounds Hair: normal Neuro General: patient oriented x3 Cranial nerves: Yes Normal hearing present Cognition (Neuro): normal cognition Gait exam (Neuro): Normal gait present Motor exam (neuro): 5/5 motor strength present throughout Sensory Exam: No Sensory deficit (Neuro) Extrem Other: no significant superficial varicosities or spider telangiectasis General: Yes normal to inspection, Yes full ROM, Yes capillary refill normal and Yes normal gait Assessment & Plan Assessment & Plan (1) PAD (peripheral artery disease): Comment: 04/10/2022- right great toe amputation 12/19/2023 - right 2nd toe amputation Code(s): I73.9 - Peripheral vascular disease, unspecified Category: Medical (2) Amputation of right great toe: Onset Date: 04/10/22 Code(s): S98.111A - Complete traumatic amputation of right great toe, initial encounter Category: Surgical Plan Rehan is doing well. His R2 toe amp site is healing well. He has been keeping it covered with a bandaid only. He recently received a well-fitting prosthetic. He is anxious to get back to work. Due to how well he is healing and having a well-fitted prosthetic, we feel he is well enough to go back to work; we have given him a work note. We will continue to monitor him yearly with arterial checks. We did discuss to keep the toe amp site clean and dry, especially when he is wearing the prosthetic. We discussed using bacitracin/neosporin until the site is completely scabbed over with a bandaid. We discussed that if any problems/concerns arise, to reach back out to us. We will have him return in 1y for ongoing surveillance of his PAD. Thank you for allowing us to assist in his care. If there are any questions or concerns, please do not hesitate to reach out. Coding Level of Care Code Established Pt Est Pt Level 3 (10771) Established Pt Complex EM visit Add On G2211 Patient Type Established Diagnoses PAD (peripheral artery disease) I73.9 Amputation of right great toe S98.111A Time Spent (min) 25
== END 2024-01-16 14:07 | disposition home or self-care (01) ==
PROVIDERS: PCP Internal Medicine; Visit Provider Surgery Vascular Surgery
DX: I73.9 Peripheral vascular disease, unspecified (principal); S98.111A Complete traumatic amputation of right great toe, initial encounter
CPT/HCPCS: 99024

== ENCOUNTER → 2024-01-16 13:49 | Outpatient (BNVA) | payer OTHER, SELFPAY | PROVIDERS: PCP Internal Medicine; Visit Provider Surgery Vascular Surgery | DX: E11.65 Type 2 diabetes mellitus with hyperglycemia (principal); E11.610 Type 2 diabetes mellitus with diabetic neuropathic arthropathy; E11.51 Type 2 diabetes mellitus with diabetic peripheral angiopathy without gangrene; E78.5 Hyperlipidemia, unspecified; Z79.84 Long term (current) use of oral hypoglycemic drugs; Z89.421 Acquired absence of other right toe(s); Z89.411 Acquired absence of right great toe | CPT/HCPCS: 82947; 99212 ==

== ENCOUNTER 2024-01-16 14:13 | Outpatient (AMB) | payer OTHER, SELFPAY ==
--- NOTE | 2024-01-16 14:22 | A.OFFVIS_ITS ---
Vital Signs 01/16/24 14:30 Height 5 ft 4 in Weight 189 lb 9.561 oz BMI 32.5 BP 130/80 Blood Pressure Location Rt brachial Position Sitting Pulse 98 Pulse Source Pulse Oximeter Intake Visit Reasons: T2DM/CONFIRMED Intake Note: NEW Patient presents today to re-establish treatment for Type 2 Diabetes Mellitus: Last Diabetic eye exam was on: Last year Last Podiatry exam was on: Does not see a Care Partner Most recent HbA1c: 8.2%, 12/20/2023 Random Glucose- 135mg/dL, Today Ship Mate Required: No Accompanied by: Self / Same As Patient Allergies lisinopril [LISINOPRIL] Allergy (Intermediate, Verified 01/16/24 14:32) COUGH Penicillins [PENICILLINS] Allergy (Intermediate, Verified 01/16/24 14:32) HIVES HPI Comments Details: Rox is a 58 y/o male presenting for diabetes Medical history: HTN, HLD, PVD, neuropathy, Charcot joint disease He was diagnosed 15 years ago. Current medications: Metformin 1000mg twice daily, Trulicity 1.5mg weekly, Jardiance 25mg daily. Compliant. Tolerates all without ill effect 12/19 A1C-8.2% from 10.8% in August. Checking blood glucose 3 days daily. 14 day average 160. Fasting 100-190. No hypoglycemia Micro/macrovascular complications sepsis, gangrene right great toe, and subsequent amputation of right great toe by Dr. Cabello at [facility] on 04/10/2022. Follows vascular, podiatry, wound ROS CONSTITUTIONAL: Denies weight loss, fever and chills. HEENT: Denies changes in vision and hearing. RESPIRATORY: Denies SOB and cough. CV: Denies palpitations and CP GI: Denies abdominal pain, nausea, vomiting and diarrhea. : Denies dysuria and urinary frequency. MSK: Denies new myalgia and joint pain. SKIN: Denies rash and pruritus. NEUROLOGICAL: Denies headache PSYCHIATRIC: Denies recent changes in mood. PHYSICAL EXAM: GENERAL: Alert and oriented x 3. NAD EYES: EOMI. Anicteric. HENT: Moist mucous membranes. No scleral icterus. No cervical lymphadenopathy. LUNGS: Clear to auscultation bilaterally. CARDIOVASCULAR: Regular rate and rhythm. No murmur. No JVD. ABDOMEN: Soft, non-tender +bs EXTREMITIES: No edema SKIN:Warm, dry NEUROLOGIC: No focal neurological deficits. CN II-XII grossly intact PSYCHIATRIC: Cooperative. Appropriate mood and affect [facility] Medical History History of malignant carcinoid tumor of rectum Peripheral neuropathy Diabetes Charcot's joint of right foot COVID-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 Rectal carcinoid tumor Crohn's colitis Vitamin D deficiency Obesity (BMI 30-39.9) Mendez's esophagus Hypercholesterolemia Type 2 diabetes mellitus with hyperglycemia HTN (hypertension) Surgical History History of complete ray amputation of second toe of right foot Amputation of right great toe (04/10/22) History of esophagogastroduodenoscopy (EGD) H/O colonoscopy History of umbilical hernia repair Family History Father Diabetes CVD (cardiovascular disease) Myocardial infarction Hypertension Mother CVD (cardiovascular disease) Myocardial infarction Hypertension Throat cancer Maternal Grandmother Gastric cancer Paternal Grandmother Myocardial infarction CVD (cardiovascular disease) Maternal Aunt Gastric cancer Breast cancer Sister In good health Maternal Grandfather CVD (cardiovascular disease) Paternal Grandfather CVD (cardiovascular disease) Other Substance abuse Social History (Updated 01/16/24 @ 14:16 by Marielle Nova PA-C) Household Members: Family Household Members Other:: with mother and sister Housing: House Are you a primary home care associate to a significant other at home: No Do you presently have visiting nurse or other home services: No Alcohol intake: never Comment: pt refuse bed alarm Patient Tobacco Use Status: Never used Tobacco e-Cigarette/Vaping Use: Never Used Second Hand Smoke Exposure: Yes service: No Current occupational status: employed Current occupation: cook Cognitive needs: No Hearing needs: No Vision needs: Yes Results Reviewed Results Reviewed: Laboratory Last Values Glucose (Clinic) 135 mg/dL (60-115) H 01/16/24 14:34 Assessment & Plan Assessment & Plan (1) Type 2 diabetes mellitus with hyperglycemia: Code(s): E11.65 - Type 2 diabetes mellitus with hyperglycemia Category: Medical Qualifiers: Diabetes mellitus intermodal customer service insulin use: with intermodal customer service use Qualified Code(s): E11.65 - Type 2 diabetes mellitus with hyperglycemia; Z79.4 - skilled nursing (current) use of insulin Plan: Increase trulicity to 3mg weekly Log fasting blood glucose Return in four weeks for glucose review Medications: New Trulicity (dulaglutide) 3 mg (0.5 mL) subcut QWEEK 2 mL 3RF NS E11.65 - Type 2 diabetes mellitus with hyperglycemia, Z79.4 - skilled nursing (current) use of insulin Discontinued dulaglutide Discontinued Reason: Doctor's Order 1.5 mg (0.5 mL) subcut QWEEK 30 days 2.5 mL 3RF E11.65 - Type 2 diabetes mellitus with hyperglycemia, Z79.4 - skilled nursing (current) use of insulin Coding Level of Care Code Est Pt Level 4 (11639) Diagnoses Type 2 diabetes mellitus with hyperglycemia, with long-term current use of insulin E11.65; Z79.4 Diabetes mellitus senior care insulin use: with intermodal customer service use
[2024-01-16 14:30] VITALS: BP 130/80; PULSE 98; BMI 32.5
[2024-01-16 14:37] LABS: Glucose, Whole Blood 135 mg/dL (60-115)
== END 2024-01-16 15:03 | disposition home or self-care (01) ==
PROVIDERS: PCP Internal Medicine; Visit Provider Internal Medicine
DX: E11.65 Type 2 diabetes mellitus with hyperglycemia (principal); Z79.4 Long term (current) use of insulin

== ENCOUNTER 2024-01-20 10:53 | Outpatient (AMB) | payer OTHER, SELFPAY ==
--- NOTE | 2024-01-20 11:21 | A.OFFPC_ITS ---
Vital Signs 01/20/24 11:22 Height 5 ft 4 in Weight 190 lb 2 oz BMI 32.6 BP 120/70 Blood Pressure Location Rt brachial Position Sitting Pulse 80 Pulse Source Pulse Oximeter Pulse Oximetry (%) 97 Oxygen Delivery Method Room Air Intake Visit Reasons: 3mof\u Intake Note: Patient is here to follow up on DM, PAD, Osteomyelitis. Pt decline flu shot today. Grant Administrator Required: No Lap Maker: Not Required per policy Accompanied by: Self / Same As Patient Allergies lisinopril [LISINOPRIL] Allergy (Intermediate, Verified 01/20/24 11:22) COUGH Penicillins [PENICILLINS] Allergy (Intermediate, Verified 01/20/24 11:22) HIVES Tobacco use date assessed: 01/20/24 Dental Screening Dental Screen Date: 08/23/23 HPI 3mof\u HPI Details 58 year old obese male with diabetes shaun litus uncontrolled coming in for follow-up. Last seen in 12/27/2023. Patient has a history tubular adenoma and has to be followed up with another colonoscopy. Patient is being followed up by Endocrinology seen in January 15 placed on Trulicity 3 mg patient also has been follow-up with vascular had 2nd toe amputation right diagnosis peripheral arterial disease April 10 2022 right great toe amputation 12/19/2023 right 2nd toe amputation. Has a well-fitting prosthetic now patient had an ultrasound done of the arterial system of the lower extremities consistent with severe stenosis of the right posterior tibial artery and [id number] stenosis of the left posterior tibial artery. [facility] Medical History History of malignant carcinoid tumor of rectum Peripheral neuropathy Diabetes Charcot's joint of right foot COVID-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 Rectal carcinoid tumor Crohn's colitis Vitamin D deficiency Obesity (BMI 30-39.9) Mendez's esophagus Hypercholesterolemia Type 2 diabetes mellitus with hyperglycemia HTN (hypertension) Surgical History History of complete ray amputation of second toe of right foot Amputation of right great toe (04/10/22) History of esophagogastroduodenoscopy (EGD) H/O colonoscopy History of umbilical hernia repair Family History Father Diabetes CVD (cardiovascular disease) Myocardial infarction Hypertension Mother CVD (cardiovascular disease) Myocardial infarction Hypertension Throat cancer Maternal Grandmother Gastric cancer Paternal Grandmother Myocardial infarction CVD (cardiovascular disease) Maternal Aunt Gastric cancer Breast cancer Sister In good health Maternal Grandfather CVD (cardiovascular disease) Paternal Grandfather CVD (cardiovascular disease) Other Substance abuse Social History Household Members: Family Household Members Other:: with mother and sister Housing: House Are you a primary respiratory care instructor to a significant other at home: No Do you presently have visiting nurse or other home services: No Alcohol intake: never Comment: pt refuse bed alarm Patient Tobacco Use Status: Never used Tobacco e-Cigarette/Vaping Use: Never Used Second Hand Smoke Exposure: Yes service: No Current occupational status: employed Current occupation: [employer] Cognitive needs: No Hearing needs: No Vision needs: Yes Questionnaire Thrive Questionnaire Date Thrive assessed: 12/15/23 Are you currently unemployed and looking for a job?: No ANNALISA-7 AMB Questionnaire ANNALISA-7 Date ANNALISA - 7 assessed: 08/23/23 Source: Developed by Drs. Alexis Butt, Deandra López, Terrence Richard and colleagues, with an educational thor from [employer]. Physical exam (Primary Care) Vital Signs: Last Vital Signs Pulse 80 01/20/24 11:22 BP 120/70 01/20/24 11:22 Pulse Ox 97 01/20/24 11:22 Oxygen Delivery Method Room Air 01/20/24 11:22 BMI result Body Mass Index 32.6 Tobacco/Smoking Status: Tobacco use Status Tobacco use date assessed 01/20/24 01/20/24 11:27 Patient Tobacco Use Status Never used Tobacco 01/20/24 11:27 e-Cigarette/Vaping Use Never Used 01/20/24 11:27 Thrive Assessment: Date of Thrive Assessment Date Thrive assessed 12/15/23 01/20/24 11:27 Const General: alert; No acute distress Eyes Conjunctivae: conjunctivae normal Resp Auscultation: clear to auscultation bilaterally Cardio Rate: regular rate Rhythm: regular rhythm GI Inspection: Yes normal to inspection Extrem General: Yes normal to inspection and No edema Immunizations Boostrix Tdap 2.5 Lf unit-8 mcg-5 Lf/0.5 mL intramuscular syringe Performing Provider: Zurdo Mccormick MD Performing Location: [facility] Administered by: ISABEL Nick on 01/20/24 12:10 Dose Route Admin Location Dispensed Lot Number Expiration Date [facility] Hourly Associate 0.5 mL IM Left Deltoid 0.5 mL [id number] 01/03/25 [id number] [employer] VIS Given Date VIS Provided VIS Publication Date 01/20/24 Single Vaccine 20 Eligibility Eligibility Date Funding Source Not [facility] Eligible 01/20/24 Private Coding Level of Care Code Est Pt Level 4 (95580) Complex EM visit Add On G2211 Diagnoses PAD (peripheral artery disease) I73.9 Primary hypertension I10 Hypertension type: primary hypertension Type 2 diabetes mellitus with hyperglycemia, with long-term current use of insulin E11.65; Z79.4 Diabetes mellitus staff counselor insulin use: with shelter use Hypercholesterolemia E78.00 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 Patient has a compromised arterial circulation of the lower extremities bilateral right more than the left (2) HTN (hypertension): Code(s): I10 - Essential (primary) hypertension Category: Medical Qualifiers: Hypertension type: primary hypertension Qualified Code(s): I10 - Ess ential (primary) hypertension Plan: Continue with blood pressure medication. Decrease salt intake and exercise on amlodipine 10 mg once a day hydralazine 50 mg 3 times a day losartan 100 mg once a day metoprolol 200 mg once a day (3) Type 2 diabetes mellitus with hyperglycemia: Comment: [facility] Code(s): E11.65 - Type 2 diabetes mellitus with hyperglycemia Category: Medical Qualifiers: Diabetes mellitus staff counselor insulin use: with staff counselor use Qualified Code(s): E11.65 - Type 2 diabetes mellitus with hyperglycemia; Z79.4 - terminal computer operator (current) use of insulin Plan: Decrease the amount of carbohydrate intake, pasta, bread, rice and potatoes are all sugar and that is aside from all the sweet stuff, remember that fruits are good but they are Sweet also. Hemoglobin A1c goal of less than 6.5. Patient is followed up by Endocrinology placed on Trulicity higher dose metformin a 1000 mg twice a day Jardiance 25 mg once a day (4) Hypercholesterolemia: Code(s): E78.00 - Pure hypercholesterolemia, unspecified Category: Medical Plan: Avoid fried foods, chicken skin, eggs, butter margarine, pastries and meat. Be it pork or beef they have a lot of cholesterol LDL goal of less than 100 preferably less than 70. And triglyceride of less than 150 on fenofibrate 160 mg once a day (5) Mendez's esophagus: Comment: Dr. Barraza January 2012, last EGD 2020 scope biopsy shows uncontrolled i nflammation in the distal esophagus repeat in 1 year Code(s): K22.70 - Mendez's esophagus without dysplasia Category: Medical Qualifiers: Mendez's esophagus type: with low grade dysplasia Qualified Code(s): K22.710 - Mendez's esophagus with low grade dysplasia Plan: Avoid the foods that causes that usually spicy foods, tomato products, juices, coffee, soda and foods that your sensitive to. After eating do not lie down, allow 3-4 hours before in lie down. And keep the head of bed above 30 degrees to avoid the acid from going up. Patient needs an EGD and has seen gastroenterology (6) Obesity (BMI 30-39.9): Code(s): E66.9 - Obesity, unspecified Category: Medical Plan: Diet and exercise (7) Adenomatous polyp of ascending colon: Comment: 2020 scope, repeat 1 year Code(s): D12.2 - Benign neoplasm of ascending colon Category: Medical Plan: Patient has a planned colon test. 02/2024 colon and EGD Orders: Orders Complete Blood Count Auto Diff Today E78.00 - Pure hypercholesterolemia, unspecified Reticulocyte Count Today E78.00 - Pure hypercholesterolemia, unspecified IRON PROFILE Today E78.00 - Pure hypercholesterolemia, unspecified Free T4 (Free Thyroxine) Today E78.00 - Pure hypercholesterolemia, unspecified Vitamin B12 and Folate Today E78.00 - Pure hypercholesterolemia, unspecified Hemoglobin A1c Today E11.65 - Type 2 diabetes mellitus with hyperglycemia, Z79.4 - terminal computer operator (current) use of insulin Comprehensive Met. Panel Today E78.00 - Pure hypercholesterolemia, unspecified Lipid Panel Today E78.00 - Pure hypercholesterolemia, unspecified Ferritin Today E78.00 - Pure hypercholesterolemia, unspecified Thyroid Stimulating Hormone Today E78.00 - Pure hypercholesterolemia, unspecified TDaP Immunization Today Z23 - Encounter for immunization Medications: New Boostrix Tdap (diphth,pertus(acell),tetanus) 0.5 mL IM ONCE 0.5 mL 0RF NS Z23 - Encounter for immunization
[2024-01-20 11:22] VITALS: BP 120/70; PULSE 80; O2SAT 97; BMI 32.6
== END 2024-01-20 12:14 | disposition home or self-care (01) ==
PROVIDERS: PCP Internal Medicine; Visit Provider Internal Medicine
DX: I73.9 Peripheral vascular disease, unspecified (principal); E11.65 Type 2 diabetes mellitus with hyperglycemia; Z79.4 Long term (current) use of insulin; E66.811 Obesity, class 1; Z68.32 Body mass index [BMI] 32.0-32.9, adult; I10 Essential (primary) hypertension; K22.710 Barrett's esophagus with low grade dysplasia; E78.00 Pure hypercholesterolemia, unspecified; D12.2 Benign neoplasm of ascending colon

== ENCOUNTER → 2024-01-20 10:53 | Outpatient (BNVA) | payer OTHER, SELFPAY | PROVIDERS: PCP Internal Medicine; Visit Provider Internal Medicine | DX: Z23 Encounter for immunization (principal); I73.9 Peripheral vascular disease, unspecified; I10 Essential (primary) hypertension; E11.65 Type 2 diabetes mellitus with hyperglycemia; E78.00 Pure hypercholesterolemia, unspecified; E66.9 Obesity, unspecified; D12.2 Benign neoplasm of ascending colon; K22.710 Barrett's esophagus with low grade dysplasia; Z79.4 Long term (current) use of insulin | CPT/HCPCS: 90471; 90715; 99212 ==

== ENCOUNTER 2024-02-20 13:38 | Outpatient (AMB) | payer OTHER, SELFPAY ==
[2024-02-20 13:41] VITALS: BP 142/82; PULSE 82; BMI 32.2
--- NOTE | 2024-02-20 13:41 | A.OFFVIS_ITS ---
Vital Signs 02/20/24 13:41 Height 5 ft 4 in Weight 187 lb 6.287 oz BMI 32.2 BP 142/82 H Blood Pressure Location Rt brachial Position Sitting Pulse 82 Pulse Source Pulse Oximeter Intake Visit Reasons: T2DM/LVM Intake Note: Patient presents today for a follow-up on for Type 2 Diabetes Mellitus: Last Diabetic eye exam was on: Last year Last Podiatry exam was on: Does not see a Slot Machine Department Floorperson Most recent HbA1c: 8.2%, 12/20/2023 Random Glucose- 105 mg/dL, Today Fruit Trimmer Required: No Accompanied by: Self / Same As Patient Allergies lisinopril [LISINOPRIL] Allergy (Intermediate, Verified 02/25/24 13:51) COUGH Penicillins [PENICILLINS] Allergy (Intermediate, Verified 02/25/24 13:51) HIVES HPI Comments Details: Rox is a 58 y/o male presenting for diabetes Medical history: HTN, HLD, PVD, neuropathy, Charcot joint disease He was diagnosed 15 years ago. Current medications: Metformin 1000mg twice daily, Trulicity 3mg weekly (increased from 1.5 a month ago), Jardiance 25mg daily. Compliant. Tolerates all without ill effect 12/19 A1C-8.2% from 10.8% in August. Checking blood glucose 3 days daily. 14 day similar to last 155. Fasting 100-190. No hypoglycemia Micro/macrovascular complications sepsis, gangrene right great toe, and subsequent amputation of right great toe by [place]. Cab[place] [facility] [place]. Follows vascular, podiatry, wound ROS CONSTITUTIONAL: Denies weight loss, fever and chills. HEENT: Denies changes in vision and hearing. RESPIRATORY: Denies SOB and cough. CV: Denies palpitations and CP GI: Denies abdominal pain, nausea, vomiting and diarrhea. : Denies dysuria and urinary frequency. MSK: Denies new myalgia and joint pain. SKIN: Denies rash and pruritus. NEUROLOGICAL: Denies headache PSYCHIATRIC: Denies recent changes in mood. PHYSICAL EXAM: GENERAL: Alert and oriented x 3. NAD EYES: EOMI. Anicteric. HENT: Moist mucous membranes. No scleral icterus. No cervical lymphadenopathy. LUNGS: Clear to auscultation bilaterally. CARDIOVASCULAR: Regular rate and rhythm. No murmur. No JVD. ABDOMEN: Soft, non-tender +bs EXTREMITIES: No edema SKIN:Warm, dry NEUROLOGIC: No focal neurological deficits. CN II-XII grossly intact PSYCHIATRIC: Cooperative. Appropriate mood and affect [facility] Medical History Amputation of toe (12/19/23) History of malignant carcinoid tumor of rectum Peripheral neuropathy Diabetes Charcot's joint of right foot COVID-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 Rectal carcinoid tumor Crohn's colitis Vitamin D deficiency Obesity (BMI 30-39.9) Mendez's esophagus Hypercholesterolemia Type 2 diabetes mellitus with hyperglycemia HTN (hypertension) Surgical History History of complete ray amputation of second toe of right foot Amputation of right great toe (04/10/22) History of esophagogastroduodenoscopy (EGD) H/O colonoscopy History of umbilical hernia repair Family History Father Diabetes CVD (cardiovascular disease) Myocardial infarction Hypertension Mother CVD (cardiovascular disease) Myocardial infarction Hypertension Throat cancer Maternal Grandmother Gastric cancer Paternal Grandmother Myocardial infarction CVD (cardiovascular disease) Maternal Aunt Gastric cancer Breast cancer Sister In good health Maternal Grandfather CVD (cardiovascular disease) Paternal Grandfather CVD (cardiovascular disease) Other Substance abuse Social History Household Members: Family Household Members Other:: with mother and sister Housing: House Are you a primary patient care representative to a significant other at home: No Do you presently have visiting nurse or other home services: No Alcohol intake: never Comment: pt refuse bed alarm Patient Tobacco Use Status: Never used Tobacco e-Cigarette/Vaping Use: Never Used Second Hand Smoke Exposure: Yes Use of substances other than those prescribed or required for medical reasons: No Have you been hit, kicked, punched, or otherwise hurt by someone within the past year? If so, by whom?: No Are you DNR?: No Advance Directives: No (will bring DOS) Advance Directives Information Provided: Yes Advance Directives on File: No Recently lost weight without trying: No Poor oral hygiene: No service: No Current occupational status: employed Current occupation: [employer] Cognitive needs: No Hearing needs: No Vision needs: Yes Physical Exam Vital Signs: Last Vital Signs Pulse 82 02/20/24 13:41 BP 142/82 H 02/20/24 13:41 BMI result Body Mass Index 32.2 Results Reviewed Results Reviewed: Laboratory Last Values Glucose (Clinic) 105 mg/dL (60-115) 02/20/24 13:44 Assessment & Plan Assessment & Plan (1) Type 2 diabetes mellitus with hyperglycemia: Code(s): E11.65 - Type 2 diabetes mellitus with hyperglycemia Category: Medical Qualifiers: Diabetes mellitus bed bug exterminator insulin use: with correction use Qualified Code(s): E11.65 - Type 2 diabetes mellitus with hyperglycemia; Z79.4 - long-term (current) use of insulin Plan: Uncontrolled. Add actos 30mg daily short term follow up Medications: New pioglitazone 30 mg PO DAILY 90 tabs 3RF metformin ER 1,000 mg (2 x 500 mg) PO BID 360 tabs 3RF Refilled empagliflozin 25 mg PO QAM 90 tabs 3RF 90 days E11.65 - Type 2 diabetes mellitus with hyperglycemia, Z79.4 - intermodal dispatcher (current) use of insulin Coding Level of Care Code Est Pt Level 4 (43577) Diagnoses Type 2 diabetes mellitus with hyperglycemia, with long-term current use of insulin E11.65; Z79.4 Diabetes mellitus correction insulin use: with bed bug exterminator use
[2024-02-20 13:48] LABS: Glucose, Whole Blood 105 mg/dL (60-115)
== END 2024-02-20 14:03 | disposition home or self-care (01) ==
PROVIDERS: PCP Internal Medicine; Visit Provider Internal Medicine
DX: E11.65 Type 2 diabetes mellitus with hyperglycemia (principal); Z79.4 Long term (current) use of insulin

== ENCOUNTER → 2024-02-20 13:38 | Outpatient (BNVA) | payer OTHER, SELFPAY | PROVIDERS: PCP Internal Medicine; Visit Provider Internal Medicine | DX: E11.40 Type 2 diabetes mellitus with diabetic neuropathy, unspecified (principal); E11.65 Type 2 diabetes mellitus with hyperglycemia; E78.5 Hyperlipidemia, unspecified; Z79.4 Long term (current) use of insulin | CPT/HCPCS: 82947; 99212 ==

== ENCOUNTER 2024-02-27 06:24 | Day surgery (SDC) | payer OTHER, SELFPAY ==
[2024-02-25 13:44] VITALS: BMI 34.2
--- NOTE | 2024-02-26 11:58 | P.CONAN_ITS ---
Documented by User: Maegan Hampton NP 02/26/24 12:00 HPI - Anesthesia Eval Consult details Narrative: 59yo M for Upper Endoscopy and Colonoscopy s/p toe amp 12/2023 with MAC Anesthesia Pre-Procedure Meds Is the patient on any of the following meds?: GLP1/DPP4 and SGLT2 Inhib PMFSH Active Problems Active Problems: All Active Problems PAD (peripheral artery disease) (Acute) Anxiety (Acute) Bacteremia (Acute) Osteomyelitis (Acute) Diabetic neuropathy (Acute) Numbness of right foot (Acute) SOB (shortness of breath) on exertion (Acute) Plantar fasciitis of right foot (Acute) Sessile colonic polyp (Acute) Adenomatous polyp of ascending colon (Acute) Carcinoid tumor (Acute) Skin tag (Acute) Guaiac + stool (Acute) Annual physical exam (Acute) Left fibular fracture (Acute) Somatic dysfunction of left sacroiliac joint (Acute) History of malignant carcinoid tumor of rectum (Acute) Amputation of right great toe (Acute 04/10/22) HTN (hypertension) (Acute) Rectal carcinoid tumor (Acute) Obesity (BMI 30-39.9) (Acute) Mendez's esophagus (Acute) Hypercholesterolemia (Acute) Type 2 diabetes mellitus with hyperglycemia (Acute) Past Medical History Medical History Amputation of toe (12/19/23) History of malignant carcinoid tumor of rectum Peripheral neuropathy Diabetes Charcot's joint of right foot COVID-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 Rectal carcinoid tumor Crohn's colitis Vitamin D deficiency Obesity (BMI 30-39.9) Mendez's esophagus Hypercholesterolemia Type 2 diabetes mellitus with hyperglycemia HTN (hypertension) Family History Family History Father Diabetes CVD (cardiovascular disease) Myocardial infarction Hypertension Mother CVD (cardiovascular disease) Myocardial infarction Hypertension Throat cancer Maternal Grandmother Gastric cancer Paternal Grandmother Myocardial infarction CVD (cardiovascular disease) Maternal Aunt Gastric cancer Breast cancer Sister In good health Maternal Grandfather CVD (cardiovascular disease) Paternal Grandfather CVD (cardiovascular disease) Other Substance abuse Family history of problems with anesthesia: No Surgical History Surgical History History of complete ray amputation of second toe of right foot Amputation of right great toe (04/10/22) History of esophagogastroduodenoscopy (EGD) H/O colonoscopy History of umbilical hernia repair History of Problems with Anesthesia: No Social History Social History Household Members: Family Household Members Other:: with mother and sister Housing: House Are you a primary post anesthesia care unit nurse to a significant other at home: No Do you presently have visiting nurse or other home services: No Alcohol intake: never Comment: pt refuse bed alarm Patient Tobacco Use Status: Never used Tobacco e-Cigarette/Vaping Use: Never Used Second Hand Smoke Exposure: Yes Use of substances other than those prescribed or required for medical reasons: No Have you been hit, kicked, punched, or otherwise hurt by someone within the past year? If so, by whom?: No Are you DNR?: No Advance Directives: No (will bring DOS) Advance Directives Information Provided: Yes Advance Directives on File: No Recently lost weight without trying: No Poor oral hygiene: No service: No Current occupational status: employed Current occupation: [employer] Cognitive needs: No Hearing needs: No Vision needs: Yes Meds Allergies Allergy/AdvReac Type Severity Reaction Status Date / Time lisinopril [LISINOPRIL] Allergy Intermediate COUGH Verified 02/25/24 13:51 Penicillins [PENICILLINS] Allergy Intermediate HIVES Verified 02/25/24 13:51 Home Medications ?Medication ?Instructions ?Recorded ?Confirmed ?Last Taken ?Type omeprazole 40 mg capsule,delayed 40 mg PO DAILY PRN Acid Reflux 04/03/22 02/25/24 04/03/22 History release Exam Height,Weight and Vital Signs: Height 5 ft 4 in Weight 90.265 kg Pertinent Lab Results Pertinent Lab Results: Laboratory Tests 12/15/23 12/21/23 05:43 05:25 WBC 6.4 Hgb 12.2 L Hct 36.7 L Plt Count 198 Sodium 137 Potassium 3.5 Chloride 104 Carbon Dioxide 26 BUN 8 L Creatinine 0.68 Narrative Narrative: ECHO 2022 Conclusions: - 1. No obvious vegetation seen on this study 2. Normal LV systolic function with impaired relaxation filling pattern 3. Mild fibrocalcific aortic and mitral valve changes with normal cardiac valvular Doppler 4. No gross pericardial effusion Assessment and Plan Assessment Anesthesia Assessment: Chart Reviewed Final Anesthetic Review Family History of Problems with Anesthesia: No History of Problems with Anesthesia: No Documented by User: Venice Shore MD 02/27/24 08:45 HPI - Anesthesia Eval Anesthesia Pre-Procedure Meds Is the patient on any of the following meds?: GLP1/DPP4 (Last dose 02/17/24) and SGLT2 Inhib (Last dose 02/24/24) PMFSH Past Medical History Medical History Amputation of toe (12/19/23) History of malignant carcinoid tumor of rectum Peripheral neuropathy Diabetes Charcot's joint of right foot COVID-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 Rectal carcinoid tumor Crohn's colitis Vitamin D deficiency Obesity (BMI 30-39.9) Mendez's esophagus Hypercholesterolemia Type 2 diabetes mellitus with hyperglycemia HTN (hypertension) Family History Family History Father Diabetes CVD (cardiovascular disease) Myocardial infarction Hypertension Mother CVD (cardiovascular disease) Myocardial infarction Hypertension Throat cancer Maternal Grandmother Gastric cancer Paternal Grandmother Myocardial infarction CVD (cardiovascular disease) Maternal Aunt Gastric cancer Breast cancer Sister In good health Maternal Grandfather CVD (cardiovascular disease) Paternal Grandfather CVD (cardiovascular disease) Other Substance abuse Family history of problems with anesthesia: No Surgical History Surgical History History of complete ray amputation of second toe of right foot Amputation of right great toe (04/10/22) History of esophagogastroduodenoscopy (EGD) H/O colonoscopy History of umbilical hernia repair History of Problems with Anesthesia: No Social History Social History Household Members: Family Household Members Other:: with mother and sister Housing: House Are you a primary post anesthesia care unit nurse to a significant other at home: No Do you presently have visiting nurse or other home services: No Alcohol intake: never Comment: pt refuse bed alarm Patient Tobacco Use Status: Never used Tobacco e-Cigarette/Vaping Use: Never Used Second Hand Smoke Exposure: Yes Use of substances other than those prescribed or required for medical reasons: No Have you been hit, kicked, punched, or otherwise hurt by someone within the past year? If so, by whom?: No Are you DNR?: No Advance Directives: No (will bring DOS) Advance Directives Information Provided: Yes Advance Directives on File: No Recently lost weight without trying: No Poor oral hygiene: No service: No Current occupational status: employed Current occupation: [employer] Cognitive needs: No Hearing needs: No Vision needs: Yes Meds Allergies Allergy/AdvReac Type Severity Reaction Status Date / Time lisinopril [LISINOPRIL] Allergy Intermediate COUGH Verified 02/25/24 13:51 Penicillins [PENICILLINS] Allergy Intermediate HIVES Verified 02/25/24 13:51 Home Medications ?Medication ?Instructions ?Recorded ?Confirmed ?Last Taken ?Type omeprazole 40 mg capsule,delayed 40 mg PO DAILY PRN Acid Reflux 04/03/22 02/25/24 04/03/22 History release Exam Height,Weight and Vital Signs: Height 5 ft 4 in Weight 90.265 kg Vital Signs Temp Pulse Resp BP Pulse Ox O2 Del Method 02/27/24 06:54 97.7 F 84 16 165/84 H 97 Room Air Pertinent Lab Results Pertinent Lab Results: Laboratory Tests 12/15/23 12/21/23 05:43 05:25 WBC 6.4 Hgb 12.2 L Hct 36.7 L Plt Count 198 Sodium 137 Potassium 3.5 Chloride 104 Carbon Dioxide 26 BUN 8 L Creatinine 0.68 Lab Results 02/27/24 Range/Units 06:59 POC Glucose 117 H (60-115) mg/dL Airway Mallampati Class: II TM Dist: >3cm Neck ROM: Full Loose/Missing/Broken Teeth: Yes (Some missing. Denies broken or loose teeth) Heart: RRR Lungs: CTAB Assessment and Plan Assessment Anesthesia Assessment: Anesthesia Plan Discussed and Chart Reviewed Final Anesthetic Review Family History of Problems with Anesthesia: No History of Problems with Anesthesia: No NPO: Yes ASA Class: III Final Preanesthetic Review: No Changes in Pt Med Stat, Meds/Allgs Chart Reviewed, Consent Obtained/Reviewed and Anes Risks/Benef Reviewed Patient Risk: Intermediate Procedure Risk: Low Assessment/Block/Sedation in SS: Assess/Block/Sedation-SS Anesthetic Plan Anesthetic Plan: TIVA Disposition: Standard PACU
[2024-02-27 06:48] VITALS: BMI 31.6
[2024-02-27 06:54] VITALS: BP 165/84; PULSE 84; RESP 16; TEMP 36.5; O2SAT 97
[2024-02-27 07:03] LABS: Glucose, Whole Blood 117 mg/dL (60-115)
[2024-02-27] MEDS: Lactated Ringers 1,000 ML 100 ML IVCONT (07:06)
--- NOTE | 2024-02-27 07:58 | MHC.SHP ---
Pre-Procedural Eval Section A - 24 Hr Update-Section A only Date of Service: 02/27/24 Section B - Complete if H&P > 30 days Chief Complaint: Mendez's esophagus without dysplasia,polyp colon Details of Present Illness: Peripheral neuropathy Diabetes Charcot's joint of right foot COVID-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 Rectal carcinoid tumor Crohn's colitis Vitamin D deficiency Obesity (BMI 30-39.9) Mendez's esophagus Hypercholesterolemia Type 2 diabetes mellitus with hyperglycemia HTN (hypertension) Surgical History Amputation of right great toe (04/10/22) History of esophagogastroduodenoscopy (EGD) H/O colonoscopy History of umbilical hernia repair Allergies: Allergies Allergy/AdvReac Type Severity Reaction Status Date / Time lisinopril [LISINOPRIL] Allergy Intermediate COUGH Verified 02/25/24 13:51 Penicillins [PENICILLINS] Allergy Intermediate HIVES Verified 02/25/24 13:51 Review of Systems Review of Systems Comment: Ten point ROS negative Exam Exam Comment: Gen appear: No acute distress HEENT: no icterus Chest: No overt resp distress Abd: soft, nontender, nondistended Psych: Stable affect, answering questions appropriately Neuro: A/Ox3 noted to move all extremities spontaneously Ext: no peripheral edema Plan Diagnosis/Plan: Unchanged I have reviewed the history and physical and performed a pertinent physical examination on my patient. No changes have occurred unless specified. Time Spent With Patient Time: Total time managing care of this patient today ____ minutes.
[2024-02-27 09:19] VITALS: BP 113/69; PULSE 79; RESP 20; TEMP 36.1; O2SAT 98
--- NOTE | 2024-02-27 09:19 | P.OPN-COLO_ITS ---
Colonoscopy Operative Note Operative Note Date of Service: 02/27/24 Narrative: Procedure: Upper endoscopy and colonoscopy Indication: History of collazo's, crohns dysplasia screening, rectal carcinoid Endoscopist: Sol Ndiaye MD Anesthesia Provider: Korina Kang CRNA Anesthesia type: MAC Instrument: [id number] and [id number]-[id number] EGD Procedure:?? The procedure, indications, preparation and potential complications were reviewed with the patient, who indicated understanding and gave written informed consent to proceed. The endoscope was introduced through the mouth, and advanced to the 2nd part of the duodenum. The mucosa was carefully examined on slow withdrawal of the endoscope. The patient tolerated the procedure well. There were no immediate complications.? EGD Findings:? * Esophagus:? The GE junction was at 33 cm with salmon colored mucosa extending up to 29 cm. 4 quadrant cold forceps biopsies were taken from q1 cm. WATS-3D brushings were also performed. This will also be sent out for Tissue Cypher for risk stratification. A large hiatal hernia was noted with the diaphragmatic pinch at 37 cm. * Stomach:? Normal gastric mucosa. Retroflexion was performed in the cardia that showed Hill grade II hiatal hernia. * Duodenum:? Normal duodenal mucosa. Colonoscopy Procedure:? The patient was then turned for the colonoscopy. A digital rectal exam was performed which was abnormal for prolapsed hemorrhoids. A distal attachment cap was affixed to the tip of the scope and the colonoscope was then inserted through the anus and advanced through the colon and advanced to the cecum at 75 cm and terminal ileum.? Appendiceal orifice and ileocecal valve were identified. Mucosa was carefully examined under high definition white light as the instrument was slowly withdrawn in a retrograde panoramic fashion. Retroflexion was performed in rectum. The procedure was not difficult. The quality of the prep was BBPS: 3+2+3 = adequate Withdrawal time 35 minutes Limitations: No limitations Findings: Mucosa: Normal colon and terminal ileum mucosa under HDWL exam. The colon was then irrigated with methylene blue 1% mixed in 250 cc of saline for chromoendoscopy exam. No dysplastic appearing mucosa was noted. Random right and left sided biopsies were taken. Protruding lesions: * 1 sessile polyp of size 6 mm in transverse colon. Cold snare polypectomy was performed. The polyp was completely removed and retrieved. Forceps biopsies were also taken from around the polyp for underlying active colitis. * 1 sessile polyp of size 2 mm in rectum. Cold snare polypectomy was performed. The polyp was completely removed and retrieved. * 2 sessile pale appearing nodules/polyps noted just distal to anorectum, 2 cm above dentate line. Cold snare polypectomy was performed. These were sent in a separate jar given prev hx of rectal carcinoid. * Large internal hemorrhoids without stigmata of recent bleeding. Excavated lesions: * [id number] diverticulosis of the left colon. Impression: 1. Collazo's esophagus (biopsy, WATS, tissue cypher) 2. Normal stomach 3. Normal duodenum 4. Normal colon and terminal ileum mucosa (chromoendoscopy, biopsy) 5. Total of 4 polyps removed 6. Diverticulosis 7. Internal and external hemorrhoids Recommendations:?? * Follow-up path and ancillary testing results * Avoid NSAIDs * Continue PPI indefinitely * Repeat EGD interval depends on on presence and extent of dysplasia * Follow up colo in 2-3 years depending on pathology
[2024-02-27 09:34] VITALS: BP 131/79; PULSE 86; RESP 16; TEMP 36.4; O2SAT 98
== END 2024-02-27 09:58 | disposition home or self-care (01) ==
PROVIDERS: PCP Internal Medicine; Visit Provider Internal Medicine
PROC: (CPT 45385; principal; 2024-02-27 07:40)
DX: Z12.11 Encounter for screening for malignant neoplasm of colon (principal); Z86.0101 Personal history of adenomatous and serrated colon polyps; D12.3 Benign neoplasm of transverse colon; K62.1 Rectal polyp; Z85.040 Personal history of malignant carcinoid tumor of rectum; K57.30 Diverticulosis of large intestine without perforation or abscess without bleeding; K50.90 Crohn's disease, unspecified, without complications; K64.8 Other hemorrhoids; K64.4 Residual hemorrhoidal skin tags; K22.70 Barrett's esophagus without dysplasia; K44.9 Diaphragmatic hernia without obstruction or gangrene; I10 Essential (primary) hypertension; E11.65 Type 2 diabetes mellitus with hyperglycemia; E78.00 Pure hypercholesterolemia, unspecified; Z89.411 Acquired absence of right great toe; Z89.421 Acquired absence of other right toe(s); Z79.84 Long term (current) use of oral hypoglycemic drugs; Z79.85 Long-term (current) use of injectable non-insulin antidiabetic drugs; Z79.899 Other long term (current) drug therapy; Z88.0 Allergy status to penicillin; Z88.8 Allergy status to other drugs, medicaments and biological substances
CPT/HCPCS: 45385; 45380; 43239; 82947; 88305; J1100; J1596; J2003; J2704

== ENCOUNTER → 2024-02-27 06:24 | Outpatient (BNV) | payer OTHER, SELFPAY | PROVIDERS: PCP Internal Medicine; Visit Provider Internal Medicine | DX: Z12.11 Encounter for screening for malignant neoplasm of colon (principal); D12.3 Benign neoplasm of transverse colon; K62.1 Rectal polyp; K64.8 Other hemorrhoids; K57.30 Diverticulosis of large intestine without perforation or abscess without bleeding; K52.9 Noninfective gastroenteritis and colitis, unspecified; K22.70 Barrett's esophagus without dysplasia | CPT/HCPCS: 43239; 45380; 45385 ==

== ENCOUNTER 2024-03-18 09:23 | Outpatient (AMB) | payer OTHER, SELFPAY ==
--- NOTE | 2024-03-18 09:25 | A.OFFVIS_ITS ---
Vital Signs 03/18/24 09:26 Height 5 ft 4 in Weight 188 lb 7.924 oz BMI 32.4 BP 168/90 H Blood Pressure Location Rt brachial Position Sitting Pulse 95 Pulse Source Pulse Oximeter Intake Visit Reasons: T2DM/Confirmed Intake Note: Patient presents today for a follow-up on for Type 2 Diabetes Mellitus: Last Diabetic eye exam was on: DUE Last Podiatry exam was on: Does not see a Peanut Grader Most recent HbA1c: 7.2%, 03/18/2024 Random Glucose- 241 mg/dL, Today Machine Pan Greaser Required: No Accompanied by: Self / Same As Patient Allergies lisinopril [LISINOPRIL] Allergy (Intermediate, Verified 03/18/24 09:26) COUGH Penicillins [PENICILLINS] Allergy (Intermediate, Verified 03/18/24 09:26) HIVES HPI Comments Details: Rox is a 58 y/o male presenting for diabetes Medical history: HTN, HLD, PVD, neuropathy, Charcot joint disease He was diagnosed 15 years ago. Current medications: Metformin 1000mg twice daily, Trulicity 3mg weekly (increased from 1.5 a month ago), Jardiance 25mg daily and the Actos 30mg daily (which was added one month ago). Compliant. Tolerates all without ill effect A1C today is 7.2% 12/19 A1C-8.2% from 10.8% in August. Micro/macrovascular complications sepsis, gangrene right great toe, and subsequent amputation of right great toe by Dr. Cabello at [facility] on 04/10/2022. Follows vascular, podiatry, wound ROS CONSTITUTIONAL: Denies weight loss, fever and chills. HEENT: Denies changes in vision and hearing. RESPIRATORY: Denies SOB and cough. CV: Denies palpitations and CP GI: Denies abdominal pain, nausea, vomiting and diarrhea. : Denies dysuria and urinary frequency. MSK: Denies new myalgia and joint pain. SKIN: Denies rash and pruritus. NEUROLOGICAL: Denies headache PSYCHIATRIC: Denies recent changes in mood. PHYSICAL EXAM: GENERAL: Alert and oriented x 3. NAD EYES: EOMI. Anicteric. HENT: Moist mucous membranes. No scleral icterus. No cervical lymphadenopathy. LUNGS: Clear to auscultation bilaterally. CARDIOVASCULAR: Regular rate and rhythm. No murmur. No JVD. ABDOMEN: Soft, non-tender +bs EXTREMITIES: No edema SKIN:Warm, dry NEUROLOGIC: No focal neurological deficits. CN II-XII grossly intact PSYCHIATRIC: Cooperative. Appropriate mood and affect [facility] Medical History Amputation of toe (12/19/23) History of malignant carcinoid tumor of rectum Peripheral neuropathy Diabetes Charcot's joint of right foot COVID-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 Rectal carcinoid tumor Crohn's colitis Vitamin D deficiency Obesity (BMI 30-39.9) Mendez's esophagus Hypercholesterolemia Type 2 diabetes mellitus with hyperglycemia HTN (hypertension) Surgical History History of complete ray amputation of second toe of right foot Amputation of right great toe (04/10/22) History of esophagogastroduodenoscopy (EGD) H/O colonoscopy History of umbilical hernia repair Family History Father Diabetes CVD (cardiovascular disease) Myocardial infarction Hypertension Mother CVD (cardiovascular disease) Myocardial infarction Hypertension Throat cancer Maternal Grandmother Gastric cancer Paternal Grandmother Myocardial infarction CVD (cardiovascular disease) Maternal Aunt Gastric cancer Breast cancer Sister In good health Maternal Grandfather CVD (cardiovascular disease) Paternal Grandfather CVD (cardiovascular disease) Other Substance abuse Social History Household Members: Family Household Members Other:: with mother and sister Housing: House Are you a primary care professionals to a significant other at home: No Do you presently have visiting nurse or other home services: No 75 years or older and lives alone: No Alcohol intake: never Comment: pt refuse bed alarm Patient Tobacco Use Status: Never used Tobacco e-Cigarette/Vaping Use: Never Used Second Hand Smoke Exposure: Yes service: No Current occupational status: employed Current occupation: [employer] Cognitive needs: No Hearing needs: No Vision needs: Yes Physical Exam Vital Signs: Last Vital Signs Pulse 95 03/18/24 09:26 BP 168/90 H 03/18/24 09:26 BMI result Body Mass Index 32.4 Results AMB Hemoglobin A1c AMB Hemoglobin A1c 7.2 % Last Edit by ANNA Lyon on 03/18/24 09:46 Results Reviewed Results Reviewed: Laboratory Last Values Glucose (Clinic) 241 mg/dL (60-115) H 03/18/24 09:33 Hgb A1c (Clinic) 7.2 % (4.0-6.0) H 03/18/24 09:35 Assessment & Plan Assessment & Plan (1) Type 2 diabetes mellitus: Code(s): E11.9 - Type 2 diabetes mellitus without complications Category: Medical Qualifiers: Diabetes mellitus powder room attendant insulin use: without snf use Diabetes mellitus complication status: with hyperglycemia Qualified Code(s): E11.65 - Type 2 diabetes mellitus with hyperglycemia Plan: Doing amazing, much improved control Continue current doses and return in 3 months for next A1C, soone as needed Orders: Orders AMB Hemoglobin A1c Today E11.65 - Type 2 diabetes mellitus with hyperglycemia, Z79.4 - lap checker (current) use of insulin Medications: Refilled empagliflozin 25 mg PO QAM 90 tabs 3RF 90 days E11.65 - Type 2 diabetes mellitus with hyperglycemia, Z79.4 - care home (current) use of insulin metformin ER 1,000 mg (2 x 500 mg) PO BID 360 tabs 3RF Coding Level of Care Code Est Pt Level 3 (45065) Diagnoses Type 2 diabetes mellitus with hyperglycemia, without long-term current use of insulin E11.65 Diabetes mellitus powder room attendant insulin use: without snf use Diabetes mellitus complication status: with hyperglycemia
[2024-03-18 09:26] VITALS: BP 168/90; PULSE 95; BMI 32.4
[2024-03-18 09:37] LABS: Glucose, Whole Blood 241 mg/dL (60-115)
== END 2024-03-18 09:56 | disposition home or self-care (01) ==
PROVIDERS: PCP Internal Medicine; Visit Provider Internal Medicine
DX: E11.65 Type 2 diabetes mellitus with hyperglycemia (principal); Z79.4 Long term (current) use of insulin

== ENCOUNTER → 2024-03-18 09:23 | Outpatient (BNVA) | payer OTHER, SELFPAY | PROVIDERS: PCP Internal Medicine; Visit Provider Internal Medicine | DX: E11.65 Type 2 diabetes mellitus with hyperglycemia (principal); E11.42 Type 2 diabetes mellitus with diabetic polyneuropathy; I10 Essential (primary) hypertension; Z79.84 Long term (current) use of oral hypoglycemic drugs; Z79.4 Long term (current) use of insulin | CPT/HCPCS: 82947; 83036; 99212 ==

== ENCOUNTER 2024-06-17 08:52 | Outpatient (AMB) | payer OTHER, SELFPAY ==
--- NOTE | 2024-06-17 08:55 | A.OFFVIS_ITS ---
Vital Signs 06/17/24 08:58 Height 5 ft 4 in Weight 198 lb 6.656 oz BMI 34.1 BP 160/90 H Blood Pressure Location Rt brachial Position Sitting Pulse 95 Pulse Oximetry (%) 98 Oxygen Delivery Method Room Air Intake Visit Reasons: DM Intake Note: Patient presents today for a follow-up on Type 2 Diabetes Mellitus: Last Diabetic eye exam was on: DUE Last Podiatry exam was on: Patient does not see a Supervisor Power Reactor Most recent HbA1c: 6.3%, 06/17/2024 Random Glucose- 196 mg/dL, Today Electrical Controls Engineer Required: No Accompanied by: Self / Same As Patient Allergies lisinopril [LISINOPRIL] Allergy (Intermediate, Verified 06/17/24 08:56) COUGH Penicillins [PENICILLINS] Allergy (Intermediate, Verified 06/17/24 08:56) HIVES Medication List - Last Reconciled 06/17/24 by Maddie Mendiola MD amlodipine 10 mg PO DAILY 90 days bisacodyl (Dulcolax (bisacodyl)) 10 mg (2 x 5 mg) PO BEDTIME 2 days empagliflozin 25 mg PO QAM 90 days fenofibrate 160 mg PO DAILY 90 days hydralazine 50 mg See Protocol PO TID 30 days losartan 100 mg PO DAILY 90 days metformin ER 1,000 mg (2 x 500 mg) PO BID metoprolol succinate ER 200 mg PO DAILY 90 days omeprazole 40 mg PO DAILY PRN Trulicity (dulaglutide) 3 mg (0.5 mL) subcut QWEEK NS HPI Comments Details: Rox is a 58 y/o male presenting for diabetes Medical history: HTN, HLD, PVD, neuropathy, Charcot joint disease He was diagnosed 15 years ago. Current medications: Metformin 1000mg twice daily, Trulicity 3mg weekly, Jardiance 25mg daily and the Actos 30mg daily. Compliant. Tolerates all without ill effect A1C today is 6.3% from is 7.2% 12/19 A1C-8.2% from 10.8% in August. Fasting blood Micro/macrovascular complications sepsis, gangrene right great toe, and subsequent amputation of right great toe by Dr. Cabello at [facility] on 04/10/2022. Follows vascular, podiatry-Dr Salgado, wound ROS CONSTITUTIONAL: Denies weight loss, fever and chills. HEENT: Denies changes in vision and hearing. RESPIRATORY: Denies SOB and cough. CV: Denies palpitations and CP GI: Denies abdominal pain, nausea, vomiting and diarrhea. : Denies dysuria and urinary frequency. MSK: Denies new myalgia and joint pain. SKIN: Denies rash and pruritus. NEUROLOGICAL: Denies headache PSYCHIATRIC: Denies recent changes in mood. PHYSICAL EXAM: GENERAL: Alert and oriented x 3. NAD EYES: EOMI. Anicteric. HENT: Moist mucous membranes. No scleral icterus. No cervical lymphadenopathy. LUNGS: Clear to auscultation bilaterally. CARDIOVASCULAR: Regular rate and rhythm. No murmur. No JVD. ABDOMEN: Soft, non-tender +bs EXTREMITIES: No edema SKIN:Warm, dry NEUROLOGIC: No focal neurological deficits. CN II-XII grossly intact PSYCHIATRIC: Cooperative. Appropriate mood and affect [facility] Medical History Amputation of toe (12/19/23) History of malignant carcinoid tumor of rectum Peripheral neuropathy Diabetes Charcot's joint of right foot COVID-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 Rectal carcinoid tumor Crohn's colitis Vitamin D deficiency Obesity (BMI 30-39.9) Mendez's esophagus Hypercholesterolemia Type 2 diabetes mellitus with hyperglycemia HTN (hypertension) Surgical History History of complete ray amputation of second toe of right foot Amputation of right great toe (04/10/22) History of esophagogastroduodenoscopy (EGD) H/O colonoscopy History of umbilical hernia repair Family History Father Diabetes CVD (cardiovascular disease) Myocardial infarction Hypertension Mother CVD (cardiovascular disease) Myocardial infarction Hypertension Throat cancer Maternal Grandmother Gastric cancer Paternal Grandmother Myocardial infarction CVD (cardiovascular disease) Maternal Aunt Gastric cancer Breast cancer Sister In good health Maternal Grandfather CVD (cardiovascular disease) Paternal Grandfather CVD (cardiovascular disease) Other Substance abuse Social History Household Members: Family Household Members Other:: with mother and sister Housing: House Are you a primary medical care administrator to a significant other at home: No Do you presently have visiting nurse or other home services: No 75 years or older and lives alone: No Alcohol intake: never Comment: pt refuse bed alarm Patient Tobacco Use Status: Never used Tobacco e-Cigarette/Vaping Use: Never Used Second Hand Smoke Exposure: Yes service: No Current occupational status: employed Current occupation: [employer] Cognitive needs: No Hearing needs: No Vision needs: Yes Physical Exam Vital Signs: Last Vital Signs Pulse 95 06/17/24 08:58 BP 160/90 H 06/17/24 08:58 Pulse Ox 98 06/17/24 08:58 Oxygen Delivery Method Room Air 06/17/24 08:58 BMI result Body Mass Index 34.1 Results AMB Hemoglobin A1c AMB Hemoglobin A1c 6.3 % Last Edit by ANNA Lyon on 06/17/24 09:11 Results Reviewed Results Reviewed: Laboratory Last Values Glucose (Clinic) 196 mg/dL (60-115) H 06/17/24 09:01 Hgb A1c (Clinic) 6.3 % (4.0-6.0) H 06/17/24 09:10 Assessment & Plan Assessment & Plan (1) Type 2 diabetes mellitus: Code(s): E11.9 - Type 2 diabetes mellitus without complications Category: Medical Qualifiers: Diabetes mellitus fdc insulin use: without fdc use Diabetes mellitus complication status: with hyperglycemia Qualified Code(s): E11.65 - Type 2 diabetes mellitus with hyperglycemia Plan: well controlled on current regimen which he will continue Return in 3 months for follow up with labs prior. Orders: Orders Hemoglobin A1c 3 Months E11.65 - Type 2 diabetes mellitus with hyperglycemia Comprehensive Met. Panel 3 Months E11.65 - Type 2 diabetes mellitus with hyperglycemia Lipid Panel 3 Months E11.65 - Type 2 diabetes mellitus with hyperglycemia Microalbumin, Random (w Creat) 3 Months E11.65 - Type 2 diabetes mellitus with hyperglycemia AMB Hemoglobin A1c Today E11.65 - Type 2 diabetes mellitus with hyperglycemia Coding Level of Care Code Est Pt Level 4 (31933) Diagnoses Type 2 diabetes mellitus with hyperglycemia, without long-term current use of insulin E11.65 Diabetes mellitus joint terminal attack controller insulin use: without joint terminal attack controller use Diabetes mellitus complication status: with hyperglycemia
[2024-06-17 08:58] VITALS: BP 160/90; PULSE 95; O2SAT 98; BMI 34.1
[2024-06-17 09:05] LABS: Glucose, Whole Blood 196 mg/dL (60-115)
--- OUTSIDE RECORDS SUMMARY | 2024-06-17 09:28 | XMS_ITS | Encounter Summary ---
Author Organization [facility], Address [address] [place] [address] Phone Care Team Providers Care Signal Timer Name Role Phone Zurdo Mccormick MD Primary Care Provider [phone] Reason for Visit * Reason Comments Med Refill Encounter Details Date Type Department Care Team (Late st Contact Info) Description 07/24/2019 Refill [facility] [address] [place] [address] Miguel Angel Mensah MD Social History Tobacco Use Types Packs/Day Years Used Date Smoking Tobacco: Never Alcohol Use Standard Drinks/Week Comments No 0 (1 standard drink = 0.6 oz pur e alcohol) Sex and Gender Information Value Date Recorded Sex Assigned at Not on file Legal Sex Male 4:31 PM EST Gender Identity Not on file Sexual Orientation Not on file documented as of this encounter Plan of Treatment Not on file documented as of this encounter Visit Diagnoses Not on filedocumented in this encounter Care Teams Signal Timer Relationship Specialty Start Date End Date Zurdo Mccormick MD [facility] [address] [place], [place] PCP - General 02/10/19 documented as of this encounter
--- OUTSIDE RECORDS SUMMARY | 2024-06-17 09:28 | XMS_ITS | Clinical Summary ---
Author Organization [facility] Facility Address [address] [address] Care Team Providers Care Metal Hardener Name Role Phone Zurdo Mccormick MD Primary Care Provider [phone] Allergies Active Allergy Reactions Criticality Noted Date Comments Lisinopril Other (see comments) 04/13/2019 Penicillin G Other (see comments) 04/13/2019 Medications amLODIPine (NORVASC) 10 MG tablet Take 1 tablet by mouth 1 (one) time each day Active Dulaglutide (TRULICITY) 1.5 MG/0.5ML solution pen-injector Inject 0.5 mL under the skin Active JARDIANCE 25 MG tablet 04/11/2019 Active fenofibrate (TRIGLIDE) 160 MG tablet Take 1 tablet by mouth 1 (one) time each day Active hydroCHLOROthia zide (HYDRODIURIL) 25 MG tablet Take 1 tablet by mouth 1 (one) time each day Active insulin degludec (TRESIBA FLEXTOUCH) 200 UNIT/ML injection Inject 70 Units under the skin Active losartan (COZAAR) 100 MG tablet Take 1 tablet by mouth 1 (one) time each day Active metFORMIN (FORTAMET) 500 MG 24 hr tablet Take 2 tablets by mouth 2 (two) times a day Active metoprolol succinate XL (TOPROL-XL) 100 MG 24 hr tablet TAKE 1 & 1 2 (ONE & ONE HALF) TABLETS BY MOUTH ONCE DAILY 01/29/2019 Active metoprolol succinate XL (TOPROL-XL) 100 MG 24 hr tablet TAKE 1 & 1/2 (ONE & ONE-HALF) TABLETS BY MOUTH ONCE DAILY 45 tablet 10/02/2019 Active Active Problems Problem Noted Date Diagnosed Date Crohn's disease 04/13/2019 Essential hypertension 04/13/2019 Hypertriglyceridemia 04/13/2019 Type 2 diabetes mellitus without complication Family History Medical History Relation Comments Diabetes Father 2 Heart disease Father 2 Hypertension Father 2 Heart disease Mother 2 Hypertension Mother 2 Stroke Mother 2 Relation Status Comments Father 1 Father 2 Mother 1 Mother 2 Social History Tobacco Use Types Packs/Day Years Used Date Smoking Tobacco: Never Alcohol Use Standard Drinks/Week Comments No 0 (1 standard drink = 0.6 oz pur e alcohol) Sex and Gender Information Value Date Recorded Sex Assigned at Not on file Legal Sex Male 4:31 PM EST Gender Identity Not on file Sexual Orientation Not on file Last Filed Vital Signs Vital Sign Reading Time Taken Comments Blood Pressure 156/82 02/03/2018 12:00 PM EDT Pulse - - Temperature - - Respiratory Rate - - Oxygen Saturation - - Inhaled Oxygen Concentration - - Weight 93.4 kg (206 lb) 02/03/2018 12:00 PM EDT Height 167.6 cm (5' 6 ) 02/03/2018 12:00 PM EDT Body Mass Index 33.25 02/03/2018 12:00 PM EDT Plan of Treatment Health Maintenance Due Date Last Done Comments Hepatitis B Vaccine (1 of 3 - 19+ 3-dose series) 1986 Colorectal Cancer Screening: Annual FOBT 02/09/2016 Colorectal Cancer Screening: Colonoscopy 02/09/2016 Colorectal Cancer Screening: Sigmoidoscopy 02/09/2016 Diabetes: Hemoglobin A1C 04/13/2019 Diabetes: Ophthalmology Exam 04/13/2019 Diabetes: Pedal Pulse Checked 04/13/2019 Diabetes: Sensory Foot Exam 04/13/2019 Diabetes: Visual Foot Exam 04/13/2019 Influenza Vaccine (#1) 2023 Pneumococcal Vaccine: Pediat rics (0 to 5 Years) and At-Risk Patients (6 to 64 Years) Aged Out No longer eligible b ased on patient's age to complete this topic Care Teams Metal Hardener Relationship Specialty Start Date End Date Zurdo Mccormick MD [facility] OR [address] [place] PCP - General 02/10/19
--- OUTSIDE RECORDS SUMMARY | 2024-06-17 09:28 | XMS_ITS ---
Author Organization [facility] Address [address] [place] [address] Care Team Providers Care Beater Dumper Name Role Phone Ely Mccormicknidia Primary Care Provider Branden Nails [phone] REASON FOR VISIT NS to 04/09/23 appt Encounters Encounter Location Date [facility] [address] [facility] [address] [place] [address] 04/09/2023 Branden Salgado Plan Of Treatment No Information Progress Notes * Rehan GRAMAJO EDOB: [birth year] (58 yo M)Acc No.[id number]:04/09/2023 Patient:?Rehan Gramajo :1965???Age:58 Y???Sex:Male Address:[address] [place] [address], [address] * true * Date:? Generated for Printi ng/Fahamzahg/eTransmitting on:?06/17/2024 09:28 AM EDT
--- OUTSIDE RECORDS SUMMARY | 2024-06-17 09:28 | XMS_ITS | Encounter Summary ---
Author Organization [facility], Address [address] [place] [address] Phone Care Team Providers Care Punch Press Operator Helper Name Role Phone Zurdo Mccormick MD Primary Care Provider [phone] Reason for Visit * Reason Comments Med Refill Encounter Details Date Type Department Care Team (Late st Contact Info) Description 04/11/2019 Refill [facility] [address] [place] [address] Miguel Angel Mensah MD Social [...] on filedocumented in this encounter Care Teams Punch Press Operator Helper Relationship Specialty Start Date End Date Zurdo cMcormick MD [facility] [address] [place], [place] PCP - General 02/10/19 documented as of this encounter
--- OUTSIDE RECORDS SUMMARY | 2024-06-17 09:29 | XMS_ITS ---
Author Organization [facility] Address [address] [place] [address] Care Team Providers Care Adjustment Supervisor Name Role Phone Ely Mccormicknidia Primary Care Provider Branden Nails [phone] REASON FOR VISIT copies of all visit notes Encounters Encounter Location Date Provider Diagnosis [facility] [address] [address] 04/28/2024 Branden Salgado Plan Of Treatment No Information Progress Notes * Rehan GRAMAJO EDOB: [birth year] (59 yo M)Acc No.[id number]:04/28/2024 Patient:?Rehan GRAMAJO :1965???Age:59 Y???Sex:Male Address:[address] [place] [address], [address] * true * Date:? Generated for Printi ng/Fahamzahg/eTransmitting on:?06/17/2024 09:29 AM EDT
--- OUTSIDE RECORDS SUMMARY | 2024-06-17 09:29 | XMS_ITS ---
Author Organization [facility] Address [address] [place] [address] Care Team Providers Care Geothermal Technician Name Role Phone Zurdo Mccormick Primary Care Provider Branden Nails [phone] REASON FOR VISIT Disability Encounters Encounter Location Date [facility] [address] [address] 06/05/2023 Branden Salgado Plan Of Treatment No Information Progress Notes * Rehan GRAMAJO EDOB: [birth year] (58 yo M)Acc No.[id number]:06/05/2023 Patient:?Rehan Gramajo :1965???Age:58 Y???Sex:Male Address:[address] [place] [address], [address] * true * Date:? Generated for Printi ng/Faxing/eTransmitting on:?06/17/2024 09:28 AM EDT
--- OUTSIDE RECORDS SUMMARY | 2024-06-17 09:29 | XMS_ITS | Patient Health Record ---
[facility] Address [address] [place] [address] Care Team Providers Care Insurance Verification Clerk Name Role Phone Zurdo Mccormick Primary Care Provider Branden Nails Unavailable [phone] Allergies Allergen (clinical drug ingredient) Drug/Non Drug Allergy documented on EMR Reaction Allergy Type Onset Date Status lisinopril Lisinopril cough Drug Allergy Activ e Penicillin hives,rash Drug Allergy Activ e Reason For Referral No Information Medications Medication SIG (Take, Route, Frequency, Duration) Notes Start Date End Date Status Work Note . . . patient is totally disabled from work until 01/26/2022 11/09/2021 Not-Taking Extra Depth Diabetic Shoes with 3 Pair Custom heat-molded multi-density innersoles for 1 year Dx: 11/09/2021 Active Wheelchair as directed 08/28/2021 Not-Ta megan Walking Boot/Pneumatic As directed Wear Daily for Until further notice 08/28/2021 Not-Taking Work Note . . . patient has complex fracture/dislocati on right foot and is totally disabled from work until further notice Not-Taking Trulicity 1.5 MG/0.5ML as directed Subcutaneous Active AFO-fixed . 1 . Wear daily for . Active Work Note . . . patient is totally disabled from work for one month 08/31/2022 Not-Taking Walking Boot/Pneumatic As directed Wear Daily for Until further notice 08/31/2022 Active Omeprazole 40 MG 1 capsule 30 minutes before morning meal Orally twice a day Active metFORMIN HCl 500 MG 1 tablet with a meal Orally Active Metoprolol Succinate 200 MG 1 capsule Orally Active Fenofibrate 160 MG 1 tablet Orally Once a day Active hydroCHLOROthiazide Active Jardiance 25 MG 1 tablet Orally Once a day for 30 day(s) Active Losartan Potassium 50 MG 1 tablet Orally Once a day Active Scottjosuerosario Abdi Not -Taking Work Note . . . patient must stay at 4 hours daily, 4 days a week indefinitely at this time Active Empagliflozin 25 MG 1 tablet Orally Not-Taking amLODIPine Besylate 10 MG 1 tablet Orally Active Docusate Sodium 100 MG 1 capsule as needed Orally Not-Taking Dulaglutide 1.5 MG/0.5ML as directed Subcutaneous Trulicity Active Doxycycline Monohydrate 100 MG 1 capsule Orally Once a day for 10 days 03/19/2023 Active Work Note . . . patient may return to work on 02/06/2022 wearing his custom brace and starting at 4 hours per day for two weeks progressing to 6hrs/day for 2 weeks and then 8hrs/day as tolerated 01/22/2022 Not-Taking oxyCODONE-Acetaminophen 5-325 MG 1 tablet as needed Orally every 4-6 hrs Not-Taking Immunizations Vaccine Route Administration Date Status Comme nts COVID-19 Pfizer BioNTech Vaccine Unknown 03/13/2021 Administered 1st 08/29/20 2nd 09/19/20 Influenza Unknown 12/07/2021 Administered Social History Tobacco Use: Social History Observation Description Date Details (start date - stop date) Never Smoker NA - NA Tobacco Use/Smoking Question Answer Notes Are you a: nonsmoker Additional Findings: Tobacco Non-User Current no n-smoker Alcohol Screen Question Answer Notes Did you have a drink containing alcohol in the p ast year? No Points 0 Interpretation Negative Tobacco use other than smoking: Question Answer Notes Are you an other tobacco user? No Problems Problem Type SNOMED Code ICD Code Onset Dates Problem Status W/U Status Risk Notes Problem Polyneuropathy due to type 2 diabetes mellitus (712129123) Type 2 diabetes mellitus with diabetic polyneuropathy (E11.42) Active confirmed Problem Polyneuropathy due to diabetes mellitus type I (089030873) Type 1 diabetes mellitus with diabetic polyneuropathy (E10.42) Active confirmed Problem [id number] Charcot's joint arthropathy in type 2 diabetes mellitus (E11.610) Active confirmed Encounters Encounter Location Date Provider Diagnosis [facility] [address] [place] [address] 04/28/2024 Branden Salgado Plan Of Treatment Pending Test Test Name Order Date X ray : Foot, left 3V 08/28/2021 X ray : Foot, left 3V 08/31/2022 X ray : Foot, right 3V 05/23/2022 X ray : Foot, right 3V 09/28/2021 X ray : Foot, right 3V 11/09/2021 X ray : Foot, right 3V 01/22/2022 X ray : Foot, right 3V 08/28/2021 [id number] SKIN/TISSUE 05/23/2022 [id number] SKIN/TISSUE 07/04/2022 [id number] SKIN LESIONS, 2 TO 4 11/03/19 Insurance Providers Payer Name Payer Address Payer Phone Subscriber Number Group Number Insured Name Patient Relationship to Insured Coverage Start Date Coverage End Date [facility] [address] [place] [address] [id number] Rehan Gramajo Self - patient is the insured Medical (General) History Medical History History ICD Code Barretts esophagus covid-19 Crohns disease Hypertension type II diabetes Vitamin D deficiency Cholesterol Neuropathy Chicken pox Surgical History Surgery Date(Month/Year) colonoscopy umbilical hernia repair EGD R amputation, toe 04/2022 Hospitalization History Reason Date(Month/Year) [facility]- Right toe amputation 04/09/2022
--- OUTSIDE RECORDS SUMMARY | 2024-06-17 09:29 | XMS_ITS | Encounter Summary ---
Author Organization [facility] Address [id number] [place] [id number] Care Team Providers Care Welder Gas Automatic Name Role Phone Zurdo Mccormick MD Primary Care Provider [phone] Reason for Visit * Reason Comments Follow-up Left foot pain, open sore Encounter Details Date Type Department Care Team (Late st Contact Info) Description 05/25/2024 3:00 PM EST Office Visit Orthopedic Surgery - [place] [address] [phone] Mikal Salgado DPM [address] [address] Charcot's joint of ankle, left (Primary Dx); Left foot pain; Diabetic mononeuropathy simplex (CMS/HCC) Social History Tobacco Use Types Packs/Day Years Used Date Smoking Tobacco: Never Assessed Sex and Gender Information Value Date Recorded Sex Assigned at Not on file Legal Sex Male 3:11 PM EST Gender Identity Not on file Sexual Orientation Not on file documented as of this encounter Last Filed Vital Signs Vital Sign Reading Time Taken Comments Blood Pressure - - Pulse - - Temperature - - Respiratory Rate - - Oxygen Saturation - - Inhaled Oxygen Concentration - - Weight 85.3 kg (188 lb) 05/25/2024 2:47 PM EST Height 162.6 cm (5' 4.02 ) 05/25/2024 2:47 PM ES T Body Mass Index 32.25 05/25/2024 2:47 PM EST documented in this encounter Progress Notes * Mikal Salgado DPM - 05/25/2024 3:00 PM EST Last PCP visit:Referring MD: Dr Betito MAC 06/11/2023 S Patient presents today with worsening swelling redness of his left foot was diagnosed with Charcot arthropathy has been doing well notes the pain and swelling has improved has been staying off and wearing a fracture boot as instructed to get x-rays at today's appointment ROS: GENERAL: Pt denies nausea, fever, vomiting, chills, or shortness of breath. Pt in NAD. CARDIOLOGY: pt denies chest pain, palpitations LUNGS: pt denies shortness of breath MUSCULOSKELETAL: See HPI, otherwise no joint pain or swelling, back pain, or muscle pain. SKIN: see HPI, otherwise no lesions, rash or itching NEURO: No persistent headache, weakness or numbness The remainder of the review of systems is noncontributory PAST MEDICAL HISTORY: There is no problem list on file for this patient. Type 2 diabetes Charcot history of right great toe amputation and Mendez's esophageal Crohn's disease hypertension type 2 diabetes vitamin D deficiency cholesterolemia neuropathy and chickenpox SOCIAL HISTORY: Social History Tobacco Use Smoking status: Not on file Smokeless tobacco: Not on file Substance Use Topics Alcohol use: Not on file History Never marked as reviewed. ACTIVE MEDICATIONS: Current Outpatient Medications Medication Sig Dispense Refill Doxycycline Monohydrate (ADOXA) 100 MG tablet Take 1 Tablet by mouth 2 times daily for 14 days. 28 Tablet 0 No current facility-administered medications for this visit. ALLERGIES: Lisinopril and Penicillins PHYSICAL EXAM: Height 5' 4 (1.626 m), weight 188 lb (85.3 kg). Estimated body mass index is 32.27 kg/m?? as calculated from the following: Height as of this encounter: 5' 4 (1.626 m). Weight as of this encounter: 188 lb (85.3 kg). PODIATRIC EXAMINATION: GENERAL: Patient appears well nourished, with NAD. VASCULAR: Dorsalis pedis pulses are 2/4 bilaterally and Posterior tibial pulses are 2/4 bilaterally. Capillary filling time within normal limits the digits. No pallor on elevation or rubor on dependency. Positive hair growth. No varicosities. Denies rest pain or claudication pain. NEUROLOGICAL: Sharp/dull sensation , protective sensation 0/10 with 5.07 semmes farhad bilaterally, vibratory sensation with tuning fork intact to the tibial tuberosity. ORTHOPEDIC: Good muscle strength 5/5 of all flexors and extensors. Dorsi flexion of ankle ,10 degrees, plantar flexion WNL. No muscle atrophy. DERMATOLOGICAL:. Toenails: Left Toenail(s) 1-5: Crumbling upon debridement, subungual debris, discoloration, dystrophy, elongation, mycotic appearance, onychomycosis, pain and thickening. Right Toenail(s)2 345: Crumbling upon debridement, subungual debris, discoloration, dystrophy, elongation, mycotic appearance, onychomycosis, pain and thickening. Annular scaling bilateral feet moccasin distribution Skin thinning texture shiny appearance diffuse hyperpigmentation bilaterally pedal hair decreased Ulcer completely resolved BIOMECHANICS: Charcot arthropathy nail of the right foot and concerning signs of Charcot therapy left foot IMAGING: Left foot X-rays reviewed with stabilizing Charcot arthropathy of the right foot IMPRESSION: 1. Charcot's joint of ankle, left 2. Left foot pain XR Foot 3+ Views Left 3. Diabetic mononeuropathy simplex (CMS/HCC) PLAN: Acute Charcot left foot discussed reviewed Fracture boot recommended patient states that his home Work note given to excuse patient for at least 6 months which can be dialed back as he now can be minimally to nonweightbearing to the both lower extremities Reconstructive surgery specific to Ami SHAFER was discussed with patient major surgery was discussed and reviewed to rebalance the Charcot arthropathy foot to discussed with patient pending clinical progression if he worsens we can pursue surgical intervention patient states he like to think about itbut does not want to at this time it would be used to augment his recovery and minimize the pole ofthe Achilles tendon and deforming force -Major surgical reconstruction was discussed with patient and family member sister they brought today's appointment patient specific risk factors were discussed and reviewed based on patient stabilizing x-rays without signs of progression as well as his desire to hold off on major reconstructive surgery we will hold off on Ami SHAFER at this time Follow-up in 1 month; x-ray ordered to be taken 1 month Mikal Salgado DPM documented in this encounter Plan of Treatment Upcoming Encounters Date Type Department Care Team (Late st Contact Info) Description 07/09/2024 2:15 PM EDT Office Visit Orthopedic Surgery - [address] [place] [phone] Mikal Salgado, YEFRI [address] [phone] documented as of this encounter Results * XR Foot 3+ Views Left (05/25/2024 3:17 PM EST) Anatomical Region Laterality Modality Lower Extremities, Foot Left Computed Radiography Narrative 05/25/2024 4:12 PM EST Left foot 3 views Stabilizing Charcot arthropathy no acute changes from previous radiographs Mikal Salgado DPM IMG XR PROCEDURES Final R esult documented in this encounter Visit Diagnoses Diagnosis Charcot's joint of ankle, left- Primary Left foot pain Pain in soft tissues of limb Diabetic mononeuropathy simplex (CMS/HCC) Type II or unspecified type diabetes mellitus with neurological manifestations, not stated as uncontrolled documented in this encounter Care Teams Welder [employer] Automatic Relationship Specialty Start Date End Date Zurdo Mccormick MD [address] [place] [address] [address] [facility] [place] [address] PCP - General 05/01/23 documented as of this encounter
--- OUTSIDE RECORDS SUMMARY | 2024-06-17 09:29 | XMS_ITS | Clinical Summary ---
Author Organization [address] [facility] Address [address] [place] [address] Phone Care Team Providers Care Shoe Polisher Name Role Phone Zurdo Mccormick MD Primary Care Provider [phone] Allergies Active Allergy Reactions Criticality Noted Date Comments Lisinopril 08/08/2023 Penicillins 08/08/2023 Medications No known medications Encounters Date Type Department Care Team Description 05/25/2024 3:00 PM EST Office Visit [facility] [address] [phone] Mikal Salgado DPM Charcot's joint of ankle, left (Primary Dx); Left foot pain; Diabetic mononeuropathy simplex (CMS/HCC) 04/22/2024 3:15 PM EST Office Visit Orthopedic [facility] [address] [phone] Mikal Salgado DPM Charcot's joint of ankle, left (Primary Dx); Dermatophytosis of nail; Pain in toe of right foot; Pain in toe of left foot; Diabetic mononeuropathy simplex (CMS/HCC) 04/16/2024 Telephone Orthopedic [facility] [address] [phone] Mikal Salgado DPM paperwork 04/06/2024 Telephone [facility] [address] [phone] Mikal Salgado DPM from Last 3 Months Immunizations Name Administration Dates Next Due COVID-19 (Moderna/Spikevax) 12yo and older 01/25 Social History Tobacco Use Types Packs/Day Years [...] Mass Index 32.25 05/25/2024 2:47 PM EST Plan of Treatment Upcoming Encounters Date Type Department Care Team (Late st Contact Info) Description 07/09/2024 2:15 PM EDT Office Visit Orthopedic Surgery - [place] [address] [phone] Mikal Salgado, DPM [address] [address] Health Maintenance Due Date Last Done Comments Diabetes: Annual GFR (Glomerular Filtration Rate) 1967 Diabetes: Annual Foot Exam 1977 Diabetes: Annual Retina Eye Exam 1977 Hepatitis B Vaccines (1 of 3 - 19+ 3-dose series) 1986 Zoster Vaccines (1 of 2) 2017 COVID-19 Vaccine ( season) 2023 01/25/2022, 03/13/2021, 09/19/2020, Additional history exists Influenza Vaccine (#1) 2023 02/21/2023 Cholesterol Screening (Lipid Panel) 01/15/2024 Colorectal Cancer Screening: Colonoscopy 01/15/2024 Depression Screening 01/15/2024 HIV Screening 01/15/2024 Hepatitis C Screening 01/15/2024 Social Influencers of Health Screening 01/15/2024 Diabetes: Annual Urine Albumin-Creatinine Ratio (uACR) 03/25/2024 Diabetes: Blood Sugar Control Test (HGBA1C) 03/25/2024 Hypertension/CHF/CAD Annual BMP Blood Test 03/25/2024 DTaP,Tdap,and Td Vaccines (2 - Td or Tdap) 01/19/2034 01/20/2024 Pneumococcal Vaccine: 50+ Years Completed 08/23/2023 Pneumococcal Vaccine: Pediatrics (0 to 5 Years) and At-Risk Patients (6 to 64 Years) Completed 08/23/2023 HIB Vaccines Aged Out No longer eligi ble based on patient's age to complete this topic HPV Vaccines Aged Out No longer eligi ble based on patient's age to complete this topic Hepatitis A Vaccines Aged Out No long er eligible based on patient's age to complete this topic IPV Vaccines Aged Out No longer eligi ble based on patient's age to complete this topic MMR Vaccines Aged Out No longer eligi ble based on patient's age to complete this topic Meningococcal ACWY Vaccine Aged Out N o longer eligible based on patient's age to complete this topic Meningococcal B Vacine Aged Out No lo nger eligible based on patient's age to complete this topic RSV Immunization Patients Under 20 months Aged Out No longer eligible based on patient's age to complete this topic Varicella Vaccines Aged Out No longer eligible based on patient's age to complete this topic Procedures Procedure Name Priority Date/Time Associated Diagnosis Comments XR FOOT 3+ VIEWS LEFT Routine 05/25/2024 3:17 PM EST Left foot pain XR FOOT 3+ VIEWS LEFT Routine 04/22/2024 3:49 PM EST Charcot's joint of ankle, left from Last 3 Months Results * XR Foot 3+ Views Left (05/25/2024 3:17 PM EST) Only the most recent of2 resultswithin the time period is included. Anatomical Region Laterality Modality Lower Extremities, Foot Left Computed Radiography Narrative 05/25/2024 4:12 PM EST Left foot 3 views Stabilizing Charcot arthropathy no acute changes from previous radiographs Mikal Salgado DPM IMG XR PROCEDURES Final R esult from Last 3 Months Insurance [facility] Care Teams Shoe Polisher Relationship Specialty Start Date End Date Zurdo Mccormick MD [address] [place] [address] [address] [facility] [place] [address] PCP - General 05/01/23
== END 2024-06-17 09:24 | disposition home or self-care (01) ==
LOC: HO.ENCR 08:52
PROVIDERS: PCP Internal Medicine; Visit Provider Internal Medicine
DX: E11.65 Type 2 diabetes mellitus with hyperglycemia (principal)

== ENCOUNTER → 2024-06-17 08:52 | Outpatient (BNVA) | payer OTHER, SELFPAY | PROVIDERS: PCP Internal Medicine; Visit Provider Internal Medicine | DX: E11.65 Type 2 diabetes mellitus with hyperglycemia (principal); Z79.84 Long term (current) use of oral hypoglycemic drugs; Z79.85 Long-term (current) use of injectable non-insulin antidiabetic drugs | CPT/HCPCS: 82947; 83036; 99212 ==

== ENCOUNTER → 2024-07-21 15:24 | Outpatient (BNVA) | payer OTHER, SELFPAY | PROVIDERS: PCP Internal Medicine; Visit Provider Internal Medicine | DX: E11.65 Type 2 diabetes mellitus with hyperglycemia (principal); E11.40 Type 2 diabetes mellitus with diabetic neuropathy, unspecified; E11.51 Type 2 diabetes mellitus with diabetic peripheral angiopathy without gangrene; E11.610 Type 2 diabetes mellitus with diabetic neuropathic arthropathy; E78.00 Pure hypercholesterolemia, unspecified; K22.710 Barrett's esophagus with low grade dysplasia; E66.9 Obesity, unspecified; I10 Essential (primary) hypertension; D3A.00 Benign carcinoid tumor of unspecified site; K22.70 Barrett's esophagus without dysplasia; Z79.4 Long term (current) use of insulin; Z79.899 Other long term (current) drug therapy; Z68.33 Body mass index [BMI] 33.0-33.9, adult | CPT/HCPCS: 96127; 99212 ==

== ENCOUNTER 2024-07-21 15:51 | Outpatient (AMB) | payer OTHER, SELFPAY ==
[2024-07-21 15:27] VITALS: BP 150/74; PULSE 87; TEMP 36.4; O2SAT 96; BMI 33.6
--- NOTE | 2024-07-21 15:27 | A.OFFPC_ITS ---
Vital Signs 07/21/24 15:27 Height 5 ft 4 in Weight 195 lb 8 oz BMI 33.6 BP 150/74 H Blood Pressure Location Lt brachial Position Sitting Pulse 87 Pulse Source Pulse Oximeter Temp 97.5 F Temp Source Temporal Artery Scan Pulse Oximetry (%) 96 Oxygen Delivery Method Room Air Intake Visit Reasons: 3 month f/u Sisal Picker Required: No Neon Glass Bender: Not Required per policy Accompanied by: Self / Same As Patient Allergies lisinopril [LISINOPRIL] Allergy (Intermediate, Verified 07/21/24 15:27) COUGH Penicillins [PENICILLINS] Allergy (Intermediate, Verified 07/21/24 15:27) HIVES Tobacco use date assessed: 07/21/24 Dental Screening Dental Screen Date: 07/21/24 Did you have a dental visit in the last 12 months?: No Did you have a dental problem in the last 6 months where you did not have access to dental care?: No Was dental information given to patient?: No [facility] Medical History Amputation of toe (12/19/23) History of malignant carcinoid tumor of rectum Peripheral neuropathy Diabetes Charcot's joint of right foot COVID-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 Rectal carcinoid tumor Crohn's colitis Vitamin D deficiency Obesity (BMI 30-39.9) Mendez's esophagus Hypercholesterolemia Type 2 diabetes mellitus with hyperglycemia HTN (hypertension) Surgical History History of complete ray amputation of second toe of right foot Amputation of right great toe (04/10/22) History of esophagogastroduodenoscopy (EGD) H/O colonoscopy History of umbilical hernia repair Family History Father Diabetes CVD (cardiovascular disease) Myocardial infarction Hypertension Mother CVD (cardiovascular disease) Myocardial infarction Hypertension Throat cancer Maternal Grandmother Gastric cancer Paternal Grandmother Myocardial infarction CVD (cardiovascular disease) Maternal Aunt Gastric cancer Breast cancer Sister In good health Maternal Grandfather CVD (cardiovascular disease) Paternal Grandfather CVD (cardiovascular disease) Other Substance abuse Social History Household Members: Family Household Members Other:: with mother and sister Housing: House Are you a primary campground caretaker to a significant other at home: No Do you presently have visiting nurse or other home services: No 75 years or older and lives alone: No Alcohol intake: never Comment: pt refuse bed alarm Patient Tobacco Use Status: Never used Tobacco e-Cigarette/Vaping Use: Never Used Second Hand Smoke Exposure: Yes service: No Current occupational status: employed Current occupation: cook Cognitive needs: No Hearing needs: No Vision needs: Yes Questionnaire PHQ-9 Over the last 2 weeks, how often have you been bothered by any of the following problems? 1. Little interest or pleasure in doing things: not at all 2. Feeling down, depressed, or hopeless: not at all 3. Trouble falling or staying asleep, or sleeping too much: not at all 4. Feeling tired or having little energy: not at all 5. Poor appetite or overeating: not at all 6. Feeling bad about yourself - or that you are a failure or have let yourself or your family down: not at all 7. Trouble concentrating on things, such as reading the newspaper or watching television: not at all 8. Moving or speaking so slowly that other people could have noticed. Or the opposite - being so fidgety or restless that you have been moving around a lot more than usual: not at all 9. Thoughts that you would be better off or of hurting yourself in some way: not at all Total score: 0 Depression Screening Interpretation: Negative Depression Screening Done: Yes 53800 - PHQ-9 Billing: Yes Source: Developed by Drs. Alexis Butt, Deandra López, Terrence Richard and colleagues, with an educational thor from [employer] Thrive Questionnaire Date Thrive assessed: 07/21/24 I am a: Patient What is your living situation today?: I have a steady place to live Within the past 12 months, did the food you bought not last and you didn't have the money to get more?: Never true Within the past 12 months, did you worry whether your food would run out before you got money to buy more?: Never true Do you have trouble paying for medicines?: No Do you have trouble getting transportation to medical appointments?: No Do you have trouble paying your heating and electricity bill?: No Do you have trouble taking care of your child, family member or friend?: No Do you have trouble with day-to-day activities such as bathing, preparing meals, shopping, managing finances, etc.?: No Are you currently unemployed and looking for a job?: No Are you interested in more education?: No Please select the resources that you would like help with: None Currently or been in a relationship where the following occur: No concerns reported THRIVE Score: 0 AUDIT C Alcohol Use Questionnaire (AUDIT-C) 1. How often do you have a drink containing alcohol?: Monthly or less 2. How many drinks containing alcohol do you have on a typical day when you are drinking?: 1 or 2 3. How often do you have six or more drinks on one occasion?: Never Total Score: 1 ANNALISA-7 AMB Questionnaire ANNALISA-7 Date ANNALISA - 7 assessed: 07/21/24 Feeling nervous, anxious, or on edge: 0 = Not at all Not being able to stop or control worryin = Not at all Worrying too much about different things: 0 = Not at all Trouble relaxin = Not at all Being so restless that it is hard to sit still: 0 = Not at all Becoming easily annoyed or irritable: 0 = Not at all Feeling afraid as if something awful might happen: 0 = Not at all Total ANNALISA-7 score (0-4 normal; 5-9 mild; 10-14 moderate; 15-21 severe): 0 Source: Developed by Drs. Alexis Butt, Deandra López, Terrence Richard and colleagues, with an educational thor from [employer]. Physical exam (Primary Care) Vital Signs: Oxygen Delivery Method Room Air 07/21/24 15:27 Tobacco/Smoking Status: Tobacco use Status Tobacco use date assessed 07/21/24 07/21/24 15:32 Patient Tobacco Use Status Never used Tobacco 07/21/24 15:32 e-Cigarette/Vaping Use Never Used 07/21/24 15:32 PHQ-9: PHQ-9 Score PHQ-9: Total score 0 07/21/24 15:32 Depression Screening Interpretation: Negative Thrive Assessment: Date of Thrive Assessment Date Thrive assessed 07/21/24 07/21/24 15:32 Currently or been in a relationship where the following occur: No concerns reported Const General: alert; No acute distress Eyes Conjunctivae: conjunctivae normal Resp Auscultation: clear to auscultation bilaterally Cardio Rate: regular rate Rhythm: regular rhythm GI Inspection: Yes normal to inspection Extrem General: Yes normal to inspection and No edema Coding Level of Care Code Est Pt Level 4 (76002) Complex EM visit Add On G2211 Diagnoses Type 2 diabetes mellitus with hyperglycemia, with long-term current use of insulin E11.65; Z79.4 Diabetes mellitus penitentiary insulin use: with penitentiary use Hypercholesterolemia E78.00 Mendez's esophagus with low grade dysplasia K22.710 Mendez's esophagus type: with low grade dysplasia Obesity (BMI 30-39.9) E66.9 Primary hypertension I10 Hypertension type: primary hypertension Carcinoid tumor D3A.00 Carcinoid tumor large intestine location: rectum PAD (peripheral artery disease) I73.9 Additional Codes PHQ-9 - 67310 - PHQ-9 Billing: Yes ([id number]) Assessment & Plan Assessment & Plan (1) Type 2 diabetes mellitus with hyperglycemia: Comment: [facility] Code(s): E11.65 - Type 2 diabetes mellitus with hyperglycemia Category: Medical Qualifiers: Diabetes mellitus extermination inspector insulin use: with extermination inspector use Qualified Code(s): E11.65 - Type 2 diabetes mellitus with hyperglycemia; Z79.4 - [facility] (current) use of insulin Plan: Decrease the amount of carbohydrate intake, pasta, bread, rice and potatoes are all sugar and that is aside from all the sweet stuff, remember that fruits are good but they are Sweet also. Patient does see endocrinology hemoglobin A1c controlled on Jardiance 25 mg once a day metformin a 1000 mg twice a day and Trulicity 3 mg once a week patient is up-to-date with Podiatry and reminded about Ophthalmology (2) Hypercholesterolemia: Code(s): E78.00 - Pure hypercholesterolemia, unspecified Category: Medical Plan: Avoid fried foods, chicken skin, eggs, butter margarine, pastries and meat. Be it pork or beef they have a lot of cholesterol on fenofibrate 160 mg once a day (3) Mendez's esophagus: Comment: Dr. Barraza January 2012, last EGD 2020 scope biopsy shows uncontrolled inflammation in the distal esophagus repeat in 1 year Code(s): K22.70 - Mendez's esophagus without dysplasia Category: Medical Qualifiers: Mendez's esophagus type: with low grade dysplasia Qualified Code(s): K22.710 - Mendez's esophagus with low grade dysplasia Plan: Avoid the foods that causes that usually spicy foods, tomato products, juices, coffee, soda and foods that your sensitive to. After eating do not lie down, allow 3-4 hours before in lie down. And keep the head of bed above 30 degrees to avoid the acid from going up. Patient follows up with Gastroenterology and is on omeprazole 40 mg once a day (4) Obesity (BMI 30-39.9): Code(s): E66.9 - Obesity, unspecified Category: Medical Plan: Diet and exercise (5) HTN (hypertension): Code(s): I10 - Essential (primary) hypertension Category: Medical Qualifiers: Hypertension type: primary hypertension Qualified Code(s): I10 - Essential (primary) hypertension Plan: Continue with blood pressure medication. Decrease salt intake and exercise on amlodipine 10 mg once a day hydralazine 50 mg 3 times a day losartan 100 mg once a day and metoprolol 200 mg once a day. admits missing hydralazine (6) Carcinoid tumor: Comment: September 2020 colonoscopy rectal biopsy, repeat scope in 1 year Code(s): D3A.00 - Benign carcinoid tumor of unspecified site Category: Medical Qualifiers: Carcinoid tumor large intestine location: rectum Plan: Continue to follow-up with Gastroenterology (7) PAD (peripheral artery disease): Comment: 04/10/2022- right great toe amputation 12/19/2023 - right 2nd toe amputation Code(s): I73.9 - Peripheral vascular disease, unspecified Category: Medical Plan: Continue to follow-up with podiatry. Keep blood pressure under control, keep cholesterol low Plan History of Present Illness The patient is a 59-year-old male presenting for a follow-up on diabetes and hypertension management. He has diabetes mellitus with a last known A1c of 6.3%, currently treated with Jardiance, Metformin, and Trulicity. The patient experiences diabetic neuropathy, requiring a fracture boot due to a Charcot joint in the left ankle. The patient's hypertension is managed with multiple medications; recently, he experienced disruption in one medication but resumed after procuring a new supply. Blood pressure measurement during the visit was 140 mmHg. There is a co-existing condition of Mendez?s esophagus, hypercholesterolemia, and a history of rectal sigmoid tumor. Current cholesterol management is under Fenofibrate, awaiting retesting. Health Maintenance - Cholesterol evaluation due in mid-2023 - Hemoglobin A1c at 6.3% in June 2023 - Maintaining hypertension control with the current regimen - Annual ophthalmology examination advised - Discussed shingles vaccination as beneficial, available at the pharmacy Social History Review of Systems - Cardiovascular: Reports issues associated with hypertension - Endocrine: Reports management of diabetes with medication - Musculoskeletal: Reports left ankle Charcot joint, diabetic neuropathy - Gastrointestinal: Reports Mendez?s esophagus under gastroenterology care Physical Exam - Cardiovascular- Blood pressure measured at 140 mmHg - Musculoskeletal- Left ankle Charcot joint Results - Labs: Hemoglobin A1c of 6.3% in June 2023, anemia with hemoglobin 12.2 in December 2023 - Cholesterol test required Plan In the visit, I confirmed the patient?s diabetes management strategy, maintaining the regimen with favorable A1c levels, and planned regular monitoring. Regarding hypertension, I advised the continuation of the current treatment after resolving medication disruptions. I reviewed potential surgical options for podiatric issues and emphasized retesting for cholesterol. Annual eye exams and shingles vaccination were encouraged to ensure comprehensive care. Patient was informed and verbally consented to the use of an ambient scribe for clinic note documentation during this visit. Discussion Notes I discussed with the patient the importance of adhering to his current diabetes and hypertension regimens, considering his stable A1c and blood pressure levels with ongoing control efforts. I explained the rationale for retesting his cholesterol levels due to the last assessment being mid-2023. The discussions leaned on improving circulation issues involving potential surgery. I emphasized the need for annual ophthalmology evaluations and explained the efficacy of a shingles vaccination to reduce future risks. Patient Instructions Orders: Orders Microalbumin, Random (w Creat) Today E11.65 - Type 2 diabetes mellitus with hyperglycemia
--- OUTSIDE RECORDS SUMMARY | 2024-07-21 18:33 | XMS_ITS | Encounter Summary ---
Author Organization [facility], Address [address] [place] [address] Phone Care Team Providers Care Claims Analyst Name Role Phone Zurdo Mccormick MD Primary Care Provider [phone] Reason for Visit * Reason Comments Med Refill Encounter Details Date Type Department Care Team (Late st Contact Info) Description 07/24/2019 Refill [facility] [address] [place] [address] Miguel Angel Mensah MD Social [...] on filedocumented in this encounter Care Teams Claims Analyst Relationship Specialty Start Date End Date Zurdo Mccormick MD [facility] [address] [place], [place] PCP - General 02/10/19 documented as of this encounter
--- OUTSIDE RECORDS SUMMARY | 2024-07-21 18:33 | XMS_ITS | Encounter Summary ---
Author Organization [facility], Address [address] [place] [address] Phone Care Team Providers Care Malariologist Name Role Phone Zurdo Mccormick MD Primary Care Provider [phone] Reason for Visit * Reason Comments Med Refill Encounter Details Date Type Department Care Team (Late st Contact Info) Description 04/11/2019 Refill [facility] [address] [place] [address] Miguel Angel Mensah MD Social [...] on filedocumented in this encounter Care Teams Malariologist Relationship Specialty Start Date End Date Zurdo Mccormick MD [facility] [address] [place], [place] PCP - General 02/10/19 documented as of this encounter
--- OUTSIDE RECORDS SUMMARY | 2024-07-21 18:33 | XMS_ITS ---
Author Organization [facility] Address [address] [place] [address] Care Team Providers Care Insurance Broker Name Role Phone Jace Zurdo Primary Care Provider Branden Nails [phone] REASON FOR VISIT SSA Records Request Encounters Encounter Location Date Provider Diagnosis [facility] [address] [place] [address] 07/08/2024 Branden Salgado Plan Of Treatment No Information Progress Notes * Rehan MAE EDOB: 7 (59 yo M)Acc No.[id number]:07/08/2024 Patient:?Rehan MAE :1965???Age:59 Y???Sex:Male Address:[address] [place] [address], [address] * * Date:?
--- OUTSIDE RECORDS SUMMARY | 2024-07-21 18:33 | XMS_ITS ---
Author Organization [facility] Address [address] [place] [address] Care Team Providers Care Production Grader Name Role Phone Zurdo Mccormick Primary Care Provider Branden Nails [phone] REASON FOR VISIT Disability Encounters Encounter Location Date [facility] [address] [facility] [address] [place] [address] 06/05/2023 Branden Salgado Plan Of Treatment No Information Progress Notes * Rehan GRAMAJO EDOB: 7 (58 yo M)Acc No.[id number]:06/05/2023 Patient:?Rehan Gramajo :1965???Age:58 Y???Sex:Male Address:[address] [place] [address], [address] * true * Date:? Generated for Printi ng/Faxing/eTransmitting on:?07/21/2024 06:33 PM EDT
--- OUTSIDE RECORDS SUMMARY | 2024-07-21 18:33 | XMS_ITS ---
Author Organization [facility] Address [address] [place] [address] Care Team Providers Care Stagecraft Professor Name Role Phone Ely Mccormicknidia Primary Care Provider Branden Nails [phone] REASON FOR VISIT copies of all visit notes Encounters Encounter Location Date Provider Diagnosis [facility] [address] [address] 04/28/2024 Branden Salgado Plan Of Treatment No Information Progress Notes * Rehan GRAMAJO EDOB: 7 (59 yo M)Acc No.[id number]:04/28/2024 Patient:?Rehan GRAMAJO :1965???Age:59 Y???Sex:Male Address:[address] [place] [address], [address] * true * Date:? Generated for Printi ng/Fahamzahg/eTransmitting on:?07/21/2024 06:33 PM EDT
--- OUTSIDE RECORDS SUMMARY | 2024-07-21 18:33 | XMS_ITS | Patient Health Record ---
[facility] Address [address] [place] [address] Care Team Providers Care Client Partner Name Role Phone Zurdo Mccormick Primary Care Provider Branden Nails Unavailable [phone] Allergies Allergen (clinical drug ingredient) Drug/Non Drug [...] Polyneuropathy due to type 2 diabetes mellitus (156721730) Type 2 diabetes mellitus with diabetic polyneuropathy (E11.42) Active confirmed Problem Polyneuropathy due to diabetes mellitus type I (140124858) Type 1 diabetes mellitus with diabetic polyneuropathy (E10.42) Active confirmed Problem [id number] Charcot's joint arthropathy in type 2 diabetes mellitus (E11.610) Active confirmed Encounters Encounter Location Date Provider Diagnosis [facility] [address] [address] 07/08/2024 Branden Salgado [facility] [place] [address] [facility] [address] [place] [address] 04/28/2024 Branden Salgado Plan Of Treatment Pending Test Test Name Order Date X ray : Foot, left 3V 08/28/2021 X ray : Foot, left 3V 08/31/2022 X ray : Foot, right 3V 05/23/2022 X ray : Foot, right 3V 09/28/2021 X ray : Foot, right 3V 11/09/2021 X ray : Foot, right 3V 01/22/2022 X ray : Foot, right 3V 08/28/2021 [id number] SKIN/TISSUE 05/23/2022 [id number] SKIN/TISSUE 07/04/2022 [id number] SKIN LESIONS, 2 TO 4 11/03/19 Insurance Providers Payer Name Payer Address Payer Phone Subscriber Number Group Number Insured Name Patient Relationship to Insured Coverage Start Date Coverage End Date [facility] [address] [place] [address] [id number] Rehan Gramajo Self - patient is the insured Medical (General) History Medical History History ICD Code Barretts esophagus covid-19 Crohns disease Hypertension type II diabetes Vitamin D deficiency Cholesterol Neuropathy Chicken pox Surgical History Surgery Date(Month/Year) colonoscopy umbilical hernia repair EGD R amputation, toe 04/2022 Hospitalization History Reason Date(Month/Year) [facility]- Right toe amputation 04/09/2022
--- OUTSIDE RECORDS SUMMARY | 2024-07-21 18:33 | XMS_ITS | Clinical Summary ---
Author Organization [facility] Address [address] [place] [address] Phone Care Team Providers Care Pediatric Intensive Physician Name Role Phone Zurdo Mccormick MD Primary Care Provider [phone] Allergies Active Allergy Reactions Criticality Noted Date Comments Lisinopril 08/08/2023 Penicillins 08/08/2023 Medications No known medications Encounters Date Type Department Care Team Description 07/09/2024 2:15 PM EDT Office Visit [facility] [place] [address] [address] Mikal Salgado, ELISABETHM Charcot's joint of ankle, left (Primary Dx); Follow-up exam 05/25/2024 3:00 PM EST Office Visit [place] [address] [phone] Mikal Salgado, DPM Charcot's joint of ankle, left (Primary Dx); Left foot pain; Diabetic mononeuropathy simplex (CMS/HCC V24, CMS/HCC V28) 04/22/2024 3:15 PM EST Office Visit [facility] [address] [phone] Mikal Salgado, DPM Charcot's joint of ankle, left (Primary Dx); Dermatophytosis of nail; Pain in toe of right foot; Pain in toe of left foot; Diabetic mononeuropathy simplex (CMS/HCC V24, CMS/HCC V28) from Last 3 Months Immunizations Name Administration [...] - - Weight 85.3 kg (188 lb) 07/09/2024 2:03 PM EDT Height 162.6 cm (5' 4.02 ) 07/09/2024 2:03 PM ED T Body Mass Index 32.25 07/09/2024 2:03 PM EDT Plan of Treatment Upcoming Encounters Date Type Department Care Team (Late st Contact Info) Description 08/11/2024 2:15 PM EDT Office Visit Orthopedic [facility] [place] [address] [phone] Mikal Salgado, DPM [address] [address] Health Maintenance Due Date Last Done Comments Diabetes: Annual GFR (Glomerular Filtration Rate) 1967 Diabetes: Annual Foot Exam 1977 Diabetes: Annual Retina Eye Exam 1977 Hepatitis B Vaccines (1 of 3 - 19+ 3-dose series) 1986 Zoster Vaccines (1 of 2) 2017 COVID-19 Vaccine ( season) 2023 01/25/2022, 03/13/2021, 09/19/2020, Additional history exists Cholesterol Screening (Lipid Panel) 01/15/2024 Colorectal Cancer Screening: Colonoscopy 01/15/2024 Depression Screening 01/15/2024 HIV Screening 01/15/2024 Hepatitis C Screening 01/15/2024 Social Influencers of Health Screening 01/15/2024 Diabetes: Annual Urine Albumin-Creatinine Ratio (uACR) 03/25/2024 Diabetes: Blood Sugar Control Test (HGBA1C) 03/25/2024 Hypertension/CHF/CAD Annual BMP Blood Test 03/25/2024 Influenza Vaccine (Season Ended) 2024 02/21/2023 DTaP,Tdap,and Td Vaccines (2 - Td or [...] age to complete this topic Meningococcal B Vaccine Aged Out No l onger eligible based on patient's age to complete this topic RSV Immunization Patients Under 20 months Aged Out No longer eligible based on patient's age to complete this topic Varicella Vaccines Aged Out No longer eligible based on patient's age to complete this topic Procedures Procedure Name Priority Date/Time Associated Diagnosis Comments XR FOOT 3+ VIEWS LEFT Routine 07/09/2024 2:56 PM EDT Follow-up exam XR FOOT 3+ VIEWS LEFT Routine 05/25/2024 3:17 PM EST Left foot pain XR FOOT 3+ VIEWS LEFT Routine 04/22/2024 3:49 PM EST Charcot's joint of ankle, left from Last 3 Months Results * XR Foot 3+ Views Left (07/09/2024 2:56 PM EDT) Only the most recent of3 resultswithin the time period is included. Anatomical Region Laterality Modality Lower Extremities, Foot Left Computed Radiography Narrative 07/09/2024 6:19 PM EDT Left foot 3 views Stabilizing Charcot arthropathy with no acute changes from previous radiographs taken degenerative changes still involve the navicular bone cuneiforms and midtarsal joint Mikal Salgado DPM IMG XR PROCEDURES Final R esult from Last 3 Months Insurance [facility] Care Teams Pediatric Intensive Physician Relationship Specialty Start Date End Date Zurdo Mccormick MD [address] [place] [address] [address] [facility] [place] [address] PCP - General 05/01/23
--- OUTSIDE RECORDS SUMMARY | 2024-07-21 18:33 | XMS_ITS | Clinical Summary ---
Author Organization [facility] Facility Address [address] [address] Care Team Providers Care Engineer Sergeant Name Role Phone Zurdo Mccormick MD Primary Care Provider [phone] Allergies Active Allergy Reactions Criticality Noted Date [...] (1 of 3 - 19+ 3-dose series) 02/08 Colorectal Cancer Screening: Annual FOBT 02/09/2016 Colorectal Cancer Screening: Colonoscopy 02/09/2016 Colorectal Cancer Screening: Sigmoidoscopy 02/09/2016 Pneumococcal Vaccine: 50+ Years (1 of 1 - PCV) 017 Diabetes: Hemoglobin A1C 04/13/2019 Diabetes: Ophthalmology Exam 04/13/2019 Diabetes: Pedal Pulse Checked 04/13/2019 Diabetes: Sensory Foot Exam 04/13/2019 Diabetes: Visual Foot Exam 04/13/2019 Influenza Vaccine (Season Ended) 2024 Care Teams Engineer Sergeant Relationship Specialty Start Date End Date Zurdo Mccormick MD [facility] [place] [address] [place], [place] PCP - General 02/10/19
== END 2024-07-21 15:53 | disposition home or self-care (01) ==
PROVIDERS: PCP Internal Medicine; Visit Provider Internal Medicine
DX: E11.65 Type 2 diabetes mellitus with hyperglycemia (principal); Z79.4 Long term (current) use of insulin; D3A.00 Benign carcinoid tumor of unspecified site; I73.9 Peripheral vascular disease, unspecified; E66.9 Obesity, unspecified; Z68.33 Body mass index [BMI] 33.0-33.9, adult; K22.710 Barrett's esophagus with low grade dysplasia; E78.00 Pure hypercholesterolemia, unspecified; I10 Essential (primary) hypertension

== ENCOUNTER 2024-09-30 09:44 | Outpatient (AMB) | payer OTHER, SELFPAY ==
[2024-09-30 10:07] VITALS: BP 168/86; PULSE 87; O2SAT 98; BMI 34.4
--- NOTE | 2024-09-30 10:07 | A.OFFVIS_ITS ---
Vital Signs 09/30/24 10:07 Height 5 ft 4 in Weight 200 lb 9.93 oz BMI 34.4 BP 168/86 H Blood Pressure Location Rt brachial Position Sitting Pulse 87 Pulse Source Pulse Oximeter Pulse Oximetry (%) 98 Oxygen Delivery Method Room Air Intake Visit Reasons: T2DM Intake Note: Patient presents today for a follow-up on Type 2 Diabetes Mellitus: Last Diabetic eye exam was on: DUE Last Podiatry exam was on: 05/25/2024 DR Salgado, [facility]. Most recent HbA1c: 7.1%, 09/16/2024 Random Glucose: 255 mg/dL Allergies lisinopril (LISINOPRIL) Allergy (Intermediate, Verified 07/21/24 15:27) COUGH Penicillins (PENICILLINS) Allergy (Intermediate, Verified 07/21/24 15:27) HIVES HPI Comments Details: Rox is a 58 y/o male presenting for diabetes Medical history: HTN, HLD, PVD, neuropathy, Charcot joint disease He was diagnosed 15 years ago. Current medications: Metformin 1000mg twice daily, Trulicity 3mg weekly, Jardiance 25mg daily and the Actos 30mg daily. He has been out of actos for 2 months. Compliant. Tolerates all without ill effect A1C today is 7.1% from 6.3% from 7.2%, 8.2, 10.8 last May Micro/macrovascular complications sepsis, gangrene right great toe, and subsequent amputation of right great toe [place]. [place] [facility] [place]. Follows vascular, podiatry-Dr Salgado, wound ROS CONSTITUTIONAL: Denies weight loss, fever and chills. HEENT: Denies changes in vision and hearing. RESPIRATORY: Denies SOB and cough. CV: Denies palpitations and CP GI: Denies abdominal pain, nausea, vomiting and diarrhea. : Denies dysuria and urinary frequency. MSK: Denies new myalgia and joint pain. SKIN: Denies rash and pruritus. NEUROLOGICAL: Denies headache PSYCHIATRIC: Denies recent changes in mood. PHYSICAL EXAM: GENERAL: Alert and oriented x 3. NAD EYES: EOMI. Anicteric. HENT: Moist mucous membranes. No scleral icterus. No cervical lymphadenopathy. LUNGS: Clear to auscultation bilaterally. CARDIOVASCULAR: Regular rate and rhythm. +systolic murmur No JVD. ABDOMEN: Soft, non-tender +bs EXTREMITIES: No edema SKIN:Warm, dry NEUROLOGIC: No focal neurological deficits. CN II-XII grossly intact PSYCHIATRIC: Cooperative. Appropriate mood and affect [facility] Medical History Amputation of toe (12/19/23) History of malignant carcinoid tumor of rectum Peripheral neuropathy Diabetes Charcot's joint of right foot COVID-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 Rectal carcinoid tumor Crohn's colitis Vitamin D deficiency Obesity (BMI 30-39.9) Mendez's esophagus Hypercholesterolemia Type 2 diabetes mellitus with hyperglycemia HTN (hypertension) Surgical History History of complete ray amputation of second toe of right foot Amputation of right great toe (04/10/22) History of esophagogastroduodenoscopy (EGD) H/O colonoscopy History of umbilical hernia repair Family History Father Diabetes CVD (cardiovascular disease) Myocardial infarction Hypertension Mother CVD (cardiovascular disease) Myocardial infarction Hypertension Throat cancer Maternal Grandmother Gastric cancer Paternal Grandmother Myocardial infarction CVD (cardiovascular disease) Maternal Aunt Gastric cancer Breast cancer Sister In good health Maternal Grandfather CVD (cardiovascular disease) Paternal Grandfather CVD (cardiovascular disease) Other Substance abuse Social History Household Members: Family Household Members Other:: with mother and sister Housing: House Are you a primary transitional care liaison to a significant other at home: No Do you presently have visiting nurse or other home services: No 75 years or older and lives alone: No Alcohol intake: never Comment: pt refuse bed alarm Patient Tobacco Use Status: Never used Tobacco e-Cigarette/Vaping Use: Never Used Second Hand Smoke Exposure: Yes service: No Current occupational status: employed Current occupation: [employer] Cognitive needs: No Hearing needs: No Vision needs: Yes Physical Exam Vital Signs: Last Vital Signs Pulse 87 09/30/24 10:07 BP 168/86 H 09/30/24 10:07 Pulse Ox 98 09/30/24 10:07 Oxygen Delivery Method Room Air 09/30/24 10:07 BMI result Body Mass Index 34.4 Results AMB Hemoglobin A1c AMB Hemoglobin A1c 7.1 % Last Edit by ANNA Lyon on 09/30/24 10:30 Results Reviewed Results Reviewed: Laboratory Last Values Glucose (Clinic) 255 mg/dL (60-115) H 09/30/24 10:14 Assessment & Plan Assessment & Plan (1) Type 2 diabetes mellitus with hyperglycemia: Comment: [facility] Code(s): E11.65 - Type 2 diabetes mellitus with hyperglycemia Category: Medical Qualifiers: Diabetes mellitus group home insulin use: with keno terminal operator use Qualified Code(s): E11.65 - Type 2 diabetes mellitus with hyperglycemia; Z79.4 - technician terminal and repeater (current) use of insulin (2) Heart murmur: Code(s): R01.1 - Cardiac murmur, unspecified Category: Medical Plan Type 2 diabetes Increase in a1C in setting of being out of Actos x 2 months Continue current medications, restarting actos Glucometer ordered. His is not working Murmur more prominent-echo ordered Orders: Orders AMB Hemoglobin A1c Today E11.65 - Type 2 diabetes mellitus with hyperglycemia CA echo transthoracic complete Today P96.89 - Other specified conditions originating in the period, R01.1 - Cardiac murmur, unspecified Medications: New pioglitazone 30 mg PO DAILY 90 tabs 3RF OneTouch Verio Flex meter (blood-glucose meter) once daily 1 ea 3RF NS E11.65 - Type 2 diabetes mellitus with hyperglycemia, Z79.4 - technician terminal and repeater (current) use of insulin OneTouch Delica Plus Lancet (lancets) As directed 100 ea 3RF NS E11.65 - Type 2 diabetes mellitus with hyperglycemia, Z79.4 - technician terminal and repeater (current) use of insulin OneTouch Verio test strips (blood sugar diagnostic) once daily 100 ea 3RF NS E11.65 - Type 2 diabetes mellitus with hyperglycemia, Z79.4 - technician terminal and repeater (current) use of insulin Coding Level of Care Code Est Pt Level 4 (27224) Diagnoses Type 2 diabetes mellitus with hyperglycemia, with long-term current use of insulin E11.65; Z79.4 Diabetes mellitus keno terminal operator insulin use: with keno terminal operator use Heart murmur R01.1
[2024-09-30 10:17] LABS: Glucose, Whole Blood 255 mg/dL (60-115)
--- OUTSIDE RECORDS SUMMARY | 2024-09-30 11:02 | XMS_ITS | Encounter Summary ---
Author Organization [facility], Address [address] [place] [address] Phone Care Team Providers Care Crt Name Role Phone Zurdo Mccormick MD Primary Care Provider [phone] Reason for Visit * Reason Comments Med Refill Encounter Details Date Type Department Care Team (Late st Contact Info) Description 04/11/2019 Refill [facility] [address] [place] [address] Miguel Angel Mensah MD Social [...] on filedocumented in this encounter Care Teams Crt Relationship Specialty Start Date End Date Zurdo Mccormick MD [facility] [address] [place], [place] PCP - General 02/10/19 documented as of this encounter
== END 2024-09-30 10:34 | disposition home or self-care (01) ==
LOC: HO.ENCR 09:45
PROVIDERS: PCP Internal Medicine; Visit Provider Internal Medicine
DX: E11.65 Type 2 diabetes mellitus with hyperglycemia (principal); Z79.4 Long term (current) use of insulin; R01.1 Cardiac murmur, unspecified

== ENCOUNTER → 2024-09-30 09:44 | Outpatient (BNVA) | payer OTHER, SELFPAY | PROVIDERS: PCP Internal Medicine; Visit Provider Internal Medicine | DX: E11.65 Type 2 diabetes mellitus with hyperglycemia (principal); Z79.4 Long term (current) use of insulin; R01.1 Cardiac murmur, unspecified | CPT/HCPCS: 82947; 83036; 99212 ==

== ENCOUNTER → 2024-11-12 08:45 | Outpatient (REF) | payer OTHER, SELFPAY ==
--- NOTE | 2024-11-12 08:48 | CA_ITS ---
Transthoracic Echocardiogram Patient (Last, First, Middle): Rehan Gramajo E Gender: Male Date of : 1965 Age: 59 Procedure Date: 11/12/2024 Procedure Type: Transthoracic Echocardiogram Location: OP Height: 160. cm Weight: 89.81 kg BSA: 1.93 m2 Heart Rate: 76 bpm BP: 155 / 80 mmHg Email Marketing Coordinator: SAL Referring MD: Maddie Mendiola MD Symptoms: P96.89 - Other specified conditions originating in the period Study Quality: Adequate ECG Rhythm: Sinus Conclusions: - The left ventricular systolic function is normal. The calculated ejection fraction is 59% by biplane method. - No obvious valvular pathology seen on this study. Findings Left Ventricle Normal left ventricular cavity size. There is normal left ventricular wall thickness. The left ventricular systolic function is normal. The calculated ejection fraction is 59% by biplane method. There is no evidence of regional wall motion abnormalities. Diastolic function is normal for age. Right Ventricle Mildly increased right ventricular cavity size. There is normal right ventricular systolic function. Atria Both atria are normal in size. Aortic Valve There is a normal trileaflet aortic valve. There is mild calcification of the aortic valve. There is no aortic valve stenosis. There is no aortic valve regurgitation. Mitral Valve The mitral valve appears normal. There is trace mitral valve regurgitation. There is no mitral valve stenosis. Pulmonic Valve The pulmonic valve is likely normal. Tricuspid Valve There is trace tricuspid valve regurgitation. There is no evidence of pulmonary hypertension. Great Vessels The asc aorta and aortic arch are normal in size. Venous The inferior vena cava is normal in size and collapses greater than 50% with inspiration. Pericardium/Pleural There is no evidence of pericardial effusion. Prior Study Comparison No significant change compared to prior study dated: 04/09/2022. Recommendations, Care & Conclusions No obvious valvular pathology seen on this study. Measurements 2D Linear Measurements IVSd: 1.28 0.6-0.9/0.6-1.0 cm LVIDd: 4.82 3.9-5.3/4.2-5.9 cm LVIDd Index: 2.50 2.4-3.2/2.2-3.1 cm/m2 LVIDs: 3.19 2.0-3.6 cm LVPWd: 1.27 0.7-1.1 cm LA Diam: 4.20 2.7-3.8/3.0-4.0 cm LAIDs Index: 2.18 1.5-2.3 cm/m2 LV Mass: 299.87 67-162/88-224 g LV Mass Index: 155.37 43-95/49-115 g/m2 LVOT Diam: 2.10 3.0+(-)1.3 cm 2D Systolic Function EF 4C: 62.00 >55% EF 2C: 58.00 >55% EF BiP: 58.90 >55% Mitral Valve MV Pk E: 0.71 MV PK A: 1.12 MV Decel Time: 224.00 E/A: 0.60 E'Lateral: 7.40 E'Medial: 6.53 E/E' Med: 10.80 E/E' Lat: 9.50 PHT: 65.00 MVA PHT: 3.38 Decel Mes[place]: 3.16 Aortic Valve AoV Pk Gunner: 1.53 AoV Mn Gunner: 1.00 AoV VTI: 0.30 AoV Pk Grad: 9.00 Aov Mn Grad: 5.00 RUBEN Cont.VTI: 2.68 LVOT LVOT Pk Gunner: 1.16 LVOT Mn Gunner: 0.76 LVOT VTI: 0.23 LVOT Pk Grad: 5.00 LVOT Mn Grad: 3.00 LVOT Diam: 2.10 LVOT Area: 3.46 Diastolic Function MV Pk E: 0.71 MV Pk A: 1.12 E/A: 0.60 E'Medial: 6.53 E/E' Med: 10.80 E' Laterial: 7.40 E/E' Lat: 9.50 Right Ventricle TAPSE (mm): 23.40 TVS' Gunner: 17.20 Tricuspid Valve RA Press: 3.00 Great Vessels Aorta Sinus of Valsalva: 3.60 2.0-3.5 cm Ao Asc: 3.70 2.1-3.4 cm Ao Arch: 3.20 Pulmonary Valve PV Pk Gunner: 1.51 Peak PV Grad: 9.00 Updated in Other Vendor System with Status of Final Augustine Saenz MD electronically signed on 11/14/2024 11:05:44 AM with status of Final
--- OUTSIDE RECORDS SUMMARY | 2024-11-12 09:04 | XMS_ITS | Patient Health Record ---
Author [facility] Address [address] [place] [address] Care Team Providers Care Security Operations Manager Name Role Phone Zurdo Mccormick Primary Care Provider Branden Nails Unavailable [phone] Allergies Allergen (clinical drug ingredient) Drug/Non Drug [...] Not-Ta megan Walking Boot/Pneumatic As directed Wear Daily; Duration: Until further notice 08/28/2021 Not-Taking Work Note . . . patient has complex fracture/dislocati on right foot and is totally disabled from work until further notice Not-Taking Trulicity 1.5 MG/0.5ML as directed Subcutaneous Active AFO-fixed . 1 . Wear daily; Duration: . Active Work Note . . . patient is totally disabled from work for one month 08/31/2022 Not-Taking Walking Boot/Pneumatic As directed Wear Daily; Duration: Until further notice 08/31/2022 Active Omeprazole 40 MG 1 capsule 30 minutes before morning meal Orally twice a day Active metFORMIN HCl 500 MG 1 tablet with a meal Orally Active Metoprolol Succinate 200 MG 1 capsule Orally Active Fenofibrate 160 MG 1 tablet Orally Once a day Active hydroCHLOROthiazide Active Jardiance 25 MG 1 tablet Orally Once a day; Duration: 30 day(s) Active Losartan Potassium 50 MG 1 tablet Orally Once a day Active Francesca Abdi Not -Taking Work Note . . [...] 100 MG 1 capsule Orally Once a day; Duration: 10 days 03/19/2023 Active Work Note . . . patient may return to work on 02/06/2022 wearing his custom brace and starting at 4 hours per day for two weeks progressing to 6hrs/day for 2 weeks and then 8hrs/day as tolerated 01/22/2022 Not-Taking oxyCODONE-Acetaminophen 5-325 MG 1 tablet as needed Orally every 4-6 hrs Not-Taking Immunizations Vaccine Route Administration Date Status Comme nts Influenza Unknown 12/07/2021 Administered COVID-19 Pfizer BioNTech Vaccine Unknown 03/13/2021 Administered 1st 08/29/20 2nd 09/19/20 Social History Tobacco Use: Social History Observation [...] Polyneuropathy due to type 2 diabetes mellitus (424099558) Type 2 diabetes mellitus with diabetic polyneuropathy (E11.42) Active confirmed Problem Polyneuropathy due to diabetes mellitus type I (513867508) Type 1 diabetes mellitus with diabetic polyneuropathy (E10.42) Active confirmed Problem Charcot's joint arthropathy in type 2 diabetes mellitus (E11.610) Active confirmed Encounters Encounter Location Date Provider Diagnosis [facility] [place] [address] [place] [address] 04/28/2024 Branden Salgado [facility] [place] [address] [place] [address] 07/08/2024 Branden Salgado Plan Of Treatment Pending Test Test Name Order Date X ray : Foot, left 3V 08/28/2021 X ray : Foot, left 3V 08/31/2022 X ray : Foot, right 3V 05/23/2022 X ray : Foot, right 3V 09/28/2021 X ray : Foot, right 3V 11/09/2021 X ray : Foot, right 3V 01/22/2022 X ray : Foot, right 3V 08/28/2021 [id number] SKIN/TISSUE 05/23/2022 [id number] SKIN/TISSUE 07/04/2022 [id number] SKIN LESIONS, 2 TO 4 11/03/19 Insurance Providers Payer Name Payer Address Payer Phone Subscriber Number Group Number Insured Name Patient Relationship to Insured Coverage Start Date Coverage End Date [facility] [address] [place] [address] [id number] Rehan Gramajo Self - patient is the insured Medical (General) History Medical History History ICD Code Barretts esophagus covid-19 Crohns disease Hypertension type II diabetes Vitamin D deficiency Cholesterol Neuropathy Chicken pox Surgical History Surgery Date(Month/Year) colonoscopy umbilical hernia repair EGD R amputation, toe 04/2022 Hospitalization History Reason Date(Month/Year) [facility]- Right toe amputation 04/09/2022
--- OUTSIDE RECORDS SUMMARY | 2024-11-12 09:04 | XMS_ITS | Encounter Summary ---
Author Organization [facility], Address [address] [place] [address] Phone Care Team Providers Care Manufacturing Teacher Name Role Phone Zurdo Mccormick MD Primary Care Provider [phone] Reason for Visit * Reason Comments Med Refill Encounter Details Date Type Department Care Team (Late st Contact Info) Description 04/11/2019 Refill [facility] [address] [place] [address] Miguel Angel Mensah MD Social [...] on filedocumented in this encounter Care Teams Manufacturing Teacher Relationship Specialty Start Date End Date Zurdo Mccormick MD [facility] [address] [place], [place] PCP - General 02/10/19 documented as of this encounter
--- OUTSIDE RECORDS SUMMARY | 2024-11-12 09:04 | XMS_ITS | Clinical Summary ---
Author Organization [facility] Address [address] [place] [address] Phone Care Team Providers Care Chemistry Research Assistant Name Role Phone Zurdo Mccormick MD Primary Care Provider [phone] Allergies Active Allergy Reactions Criticality Noted Date Comments Lisinopril 08/08/2023 Penicillins 08/08/2023 Medications amLODIPine (NORVASC) 10 mg tablet Take 1 tablet (10 mg total) by mouth 1 (one) time each day. Active Trulicity 3 mg/0.5 mL pen injector injection INJECT 3 MG SUBCUTANEOUSLY ONCE A WEEK Active Jardiance 25 mg tablet Take 1 tablet (25 mg total) by mouth 1 (one) time each day in the morning. Active fenofibrate (LOFIBRA) 160 mg tablet Take 1 tablet (160 mg total) by mouth 1 (one) time each day. Active hydrALAZINE (APRESOLINE) 50 mg tablet Take 1 tablet (50 mg total) by mouth. 5 Active losartan (COZAAR) 100 mg tablet Take 1 tablet (100 mg total) by mouth 1 (one) time each day. Active metFORMIN XR (GLUCOPHAGE-XR ) 500 mg 24 hr tablet Take 2 tablets (1,000 mg total) by mouth 2 (two) times a day. 5 Active metoprolol succinate (TOPROL-XL) 200 mg 24 hr tablet Take 1 tablet (200 mg total) by mouth 1 (one) time each day. 5 Active pioglitazone (ACTOS) 30 mg tablet Take 1 tablet (30 mg total) by mouth 1 (one) time each day. 5 Active Encounters Date Type Department Care Team Description 08/12/2024 Telephone Orthopedic Surgery [facility] [address] [phone] Mikal Salgado DPM from Last 3 Months [...] Care Team (Late st Contact Info) Description 11/16/2024 2:00 PM EDT Office Visit Orthopedic Surgery - [place] [address] [phone] Mikal Salgado DPM [address] [place] [address] Health Maintenance Due Date Last Done Comments Diabetes: Annual GFR (Glomerular Filtration Rate) 1965 Diabetes: Annual Foot Exam 1977 Diabetes: Annual Retina Eye Exam 1977 Hepatitis B Vaccines (1 of 3 - 19+ 3-dose series) 1986 Zoster Vaccines (1 of 2) 2017 COVID-19 Vaccine ( season) 2023 01/25/2022, 03/13/2021, 09/19/2020, Additional history exists Cholesterol Screening (Lipid Panel) 01/15/2024 Colorectal Cancer Screening: Colonoscopy 01/15/2024 HIV Screening 01/15/2024 Hepatitis C Screening 01/15/2024 Social Influencers of Health Screening 01/15/2024 Diabetes: Annual Urine Albumin-Creatinine Ratio (uACR) 03/25/2024 Diabetes: Blood Sugar Control Test (HGBA1C) 03/25/2024 Hypertension/CHF/CAD Annual BMP Blood Test 03/25/2024 Depression Screening 04/08/2024 Influenza Vaccine (#1) 2024 02/21/2023 DTaP,Tdap,and Td Vaccines (2 - Td or Tdap) 01/19/2034 01/20/2024 Pneumococcal Vaccine: 50+ Years Completed 08/23/2023 HIB Vaccines Aged Out No [...] on patient's age to complete this topic Insurance [employer] Care Teams Chemistry Research Assistant Relationship Specialty Start Date End Date Zurdo Mccormick MD [address] [place] [address] [address] [facility] [place] [address] PCP - General 05/01/23
== END ==
LOC: HO.CARD 08:45
PROVIDERS: PCP Internal Medicine; Visit Provider Internal Medicine
DX: R01.1 Cardiac murmur, unspecified (principal)
CPT/HCPCS: 93306

== ENCOUNTER → 2024-11-12 08:48 | Outpatient (BNV) | payer OTHER, SELFPAY | PROVIDERS: PCP Internal Medicine; Visit Provider Internal Medicine | DX: R01.1 Cardiac murmur, unspecified (principal); I35.8 Other nonrheumatic aortic valve disorders | CPT/HCPCS: 93306 ==

== ENCOUNTER 2024-12-22 14:32 | Outpatient (AMB) | payer OTHER, SELFPAY ==
[2024-12-22 14:58] VITALS: BP 140/66; PULSE 83; TEMP 36.3; O2SAT 96; BMI 34.3
--- NOTE | 2024-12-22 14:58 | A.OFFPC_ITS ---
Vital Signs 12/22/24 14:58 12/22/24 15:31 Height 5 ft 4 in Weight 200 lb BMI 34.3 BP 140/66 H 136/60 Blood Pressure Location Lt brachial Lt brachial Position Sitting Sitting Pulse 83 Pulse Source Pulse Oximeter Temp 97.3 F Temp Source Temporal Artery Scan Pulse Oximetry (%) 96 Oxygen Delivery Method Room Air Intake Visit Reasons: Annual Exam Allergies lisinopril (LISINOPRIL) Allergy (Intermediate, Verified 12/22/24 15:15) COUGH Penicillins (PENICILLINS) Allergy (Intermediate, Verified 12/22/24 15:15) HIVES Medication List - Last Reconciled 12/22/24 by Zurdo Mccormick MD amlodipine 10 mg PO DAILY 90 days bisacodyl (Dulcolax (bisacodyl)) 10 mg (2 x 5 mg) PO BEDTIME 2 days empagliflozin 25 mg PO QAM 90 days fenofibrate 160 mg PO DAILY 90 days hydralazine 50 mg See Protocol PO TID 30 days losartan 100 mg PO DAILY 90 days metformin ER 1,000 mg (2 x 500 mg) PO BID metoprolol succinate ER 200 mg PO DAILY 90 days omeprazole 40 mg PO DAILY PRN OneTouch Delica Plus Lancet (lancets) once daily NS OneTouch Verio Flex meter (blood-glucose meter) once daily NS OneTouch Verio test strips (blood sugar diagnostic) once daily NS pioglitazone 30 mg PO DAILY Trulicity (dulaglutide) 3 mg (0.5 mL) subcut QWEEK NS Tobacco use date assessed: 12/22/24 Dental Screening Dental Screen Date: 12/22/24 Did you have a dental visit in the last 12 months?: No Did you have a dental problem in the last 6 months where you did not have access to dental care?: No Was dental information given to patient?: Patient has dentist [facility] Medical History Heart murmur of Amputation of toe (12/19/23) History of malignant carcinoid tumor of rectum Peripheral neuropathy Diabetes Charcot's joint of right foot COVID-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 Rectal carcinoid tumor Crohn's colitis Vitamin D deficiency Obesity (BMI 30-39.9) Mendez's esophagus Hypercholesterolemia Type 2 diabetes mellitus with hyperglycemia HTN (hypertension) Surgical History History of complete ray amputation of second toe of right foot Amputation of right great toe (04/10/22) History of esophagogastroduodenoscopy (EGD) H/O colonoscopy History of umbilical hernia repair Family History Father Diabetes CVD (cardiovascular disease) Myocardial infarction Hypertension Mother CVD (cardiovascular disease) Myocardial infarction Hypertension Throat cancer Maternal Grandmother Gastric cancer Paternal Grandmother Myocardial infarction CVD (cardiovascular disease) Maternal Aunt Gastric cancer Breast cancer Sister In good health Maternal Grandfather CVD (cardiovascular disease) Paternal Grandfather CVD (cardiovascular disease) Other Substance abuse Social History Household Members: Family Household Members Other:: with mother and sister Housing: House Are you a primary occasional caregiver to a significant other at home: No Do you presently have visiting nurse or other home services: No 75 years or older and lives alone: No Alcohol intake: never Comment: pt refuse bed alarm Patient Tobacco Use Status: Never used Tobacco e-Cigarette/Vaping Use: Never Used Second Hand Smoke Exposure: Yes service: No Current occupational status: employed Current occupation: cook Cognitive needs: No Hearing needs: No Vision needs: Yes Questionnaire PHQ-9 Over the last 2 weeks, how often have you been bothered by any of the following problems? 1. Little interest or pleasure in doing things: not at all 2. Feeling down, depressed, or hopeless: not at all 3. Trouble falling or staying asleep, or sleeping too much: not at all 4. Feeling tired or having little energy: not at all 5. Poor appetite or overeating: not at all 6. Feeling bad about yourself - or that you are a failure or have let yourself or your family down: not at all 7. Trouble concentrating on things, such as reading the newspaper or watching television: not at all 8. Moving or speaking so slowly that other people could have noticed. Or the opposite - being so fidgety or restless that you have been moving around a lot more than usual: not at all 9. Thoughts that you would be better off or of hurting yourself in some way: not at all Total score: 0 Source: Developed by Drs. Alexis Butt, Terrence Zuleta and colleagues, with an educational thor from [employer]. Thrive Questionnaire Date Thrive assessed: 07/21/24 I am a: Patient What is your living situation today?: I have a steady place to live Within the past 12 months, did the food you bought not last and you didn't have the money to get more?: Never true Within the past 12 months, did you worry whether your food would run out before you got money to buy more?: Never true Do you have trouble paying for medicines?: No Do you have trouble getting transportation to medical appointments?: No Do you have trouble paying your heating and electricity bill?: No Do you have trouble taking care of your child, family member or friend?: No Do you have trouble with day-to-day activities such as bathing, preparing meals, shopping, managing finances, etc.?: No Are you currently unemployed and looking for a job?: No Are you interested in more education?: No Please select the resources that you would like help with: None Currently or been in a relationship where the following occur: No concerns reported THRIVE Score: 0 AUDIT C Alcohol Use Questionnaire (AUDIT-C) 1. How often do you have a drink containing alcohol?: Never 3. How often do you have six or more drinks on one occasion?: Never Total Score: 0 ANNALISA-7 AMB Questionnaire ANNALISA-7 Date ANNALISA - 7 assessed: 07/21/24 Feeling nervous, anxious, or on edge: 0 = Not at all Not being able to stop or control worryin = Not at all Worrying too much about different things: 0 = Not at all Trouble relaxin = Not at all Being so restless that it is hard to sit still: 0 = Not at all Becoming easily annoyed or irritable: 0 = Not at all Feeling afraid as if something awful might happen: 0 = Not at all Total ANNALISA-7 score (0-4 normal; 5-9 mild; 10-14 moderate; 15-21 severe): 0 Source: Developed by Drs. Alexis Butt, Terrence Zuleta and colleagues, with an educational thor from [employer]. Review of Systems Const Denies poor appetite and Denies weakness Eyes Denies no additional complaints ENT Reports Normal hearing present, Denies dizziness, Denies nasal congestion, Denies tinnitus and Denies sore throat Card Denies chest pain, Denies syncope, Denies rapid heart rate and Denies dyspnea Resp Denies cough and Denies dyspnea GI Denies change in stool character, Reports constipation, Denies diarrhea, Denies nausea and Denies vomiting Denies dysuria and Denies urinary frequency Neuro Reports Normal hearing present, Denies confusion, Denies dizziness, Denies syncope and Denies weakness Psych Denies confusion Physical exam (Primary Care) Vital Signs: Last Vital Signs Temp 97.3 F 12/22/24 14:58 Pulse 83 12/22/24 14:58 BP 140/66 H 12/22/24 14:58 Pulse Ox 96 12/22/24 14:58 Oxygen Delivery Method Room Air 12/22/24 14:58 BMI result Body Mass Index 34.3 Tobacco/Smoking Status: Tobacco use Status Tobacco use date assessed 12/22/24 12/22/24 14:59 Patient Tobacco Use Status Never used Tobacco 12/22/24 14:59 e-Cigarette/Vaping Use Never Used 12/22/24 14:59 PHQ-9: PHQ-9 Score PHQ-9: Total score 0 12/22/24 14:59 Thrive Assessment: Date of Thrive Assessment Date Thrive assessed 07/21/24 12/22/24 14:59 Currently or been in a relationship where the following occur: No concerns reported Const General: No confusion Orientation/consciousness: No confusion HENMT Head: Yes normocephalic Ears: external ears normal and TM's normal bilaterally Face and sinus: Yes normal facial exam Mouth: moist mucous membranes Throat: Yes tonsils normal Eyes Conjunctivae: conjunctivae normal Pupils: Equal, round and reactive pupils present and Pupil accommodation reflex normal Direct Ophthalmoscopy: normal light reflex Neck Neck: No lymphadenopathy Thyroid: Thyroid normal Chest Chest palpation & inspection: normal inspection of the chest Resp Effort & Inspection: normal respiratory effort and no audible wheezes Auscultation: clear to auscultation bilaterally, no crackles, no wheezes and lung sounds not diminished Cardio Rate: regular rate Rhythm: regular rhythm Peripheral pulses: radial pulses present and dorsalis pedis present GI Palpation (GI): no masses Auscultation: normal bowel sounds and normoactive bowel sounds Rectal Exam - Male: Yes deferred Skin General skin exam: no rashes or lesions noted Rashes: no rashes Neuro General: No confusion Cranial nerves: Yes Equal, round and reactive pupils present and Yes Normal hearing present Cognition (Neuro): normal cognition Gait exam (Neuro): Normal gait present Motor exam (neuro): 5/5 motor strength present throughout Deep tendon reflexes (DTR's): Right brachioradialis reflex intensity grade: 2+, Left brachioradialis reflex intensity grade: 2+, Right patellar reflex intensity grade: 2+ and Left patellar reflex intensity grade: 2+ Extrem General: No edema Results AMB Hemoglobin A1c AMB Hemoglobin A1c 7.6 % Last Edit by Varsha Sweet CMA on 12/22/24 15:28 Coding Level of Care Code Est Pt Prev Care 40-64y(73565) Diagnoses Annual physical exam Z00.00 Type 2 diabetes mellitus with hyperglycemia, with long-term current use of insulin E11.65; Z79.4 Diabetes mellitus assisted insulin use: with assisted use Hypercholesterolemia E78.00 Primary hypertension I10 Hypertension type: primary hypertension PAD (peripheral artery disease) I73.9 Obesity (BMI 30-39.9) E66.9 Mendez's esophagus with low grade dysplasia K22.710 Mendez's esophagus type: with low grade dysplasia Rectal carcinoid tumor D3A.026 Amputation of right great toe S98.111A Assessment & Plan Assessment & Plan (1) Annual physical exam: Code(s): Z00.00 - Encounter for general adult medical examination without abnormal findings Category: Medical Plan: Patient is advised to eat healthy, keep well hydrated, keep active and have adequate sleep. (2) Type 2 diabetes mellitus with hyperglycemia: Comment: [facility] Code(s): E11.65 - Type 2 diabetes mellitus with hyperglycemia Category: Medical Qualifiers: Diabetes mellitus assisted insulin use: with long distance billing operator use Qualified Code(s): E11.65 - Type 2 diabetes mellitus with hyperglycemia; Z79.4 - correction (current) use of insulin Plan: Decrease the amount of carbohydrate intake, pasta, bread, rice and potatoes are all sugar and that is aside from all the sweet stuff, remember that fruits are good but they are Sweet also. Hemoglobin A1c goal of less than 6.5 patient is being followed up by Endocrinology on Jardiance, metformin a 1000 mg twice a day pioglitazone 30 mg once a day and Trulicity 3 mg once a week up-to-date with Podiatry (3) Hypercholesterolemia: Code(s): E78.00 - Pure hypercholesterolemia, unspecified Category: Medical Plan: Avoid fried foods, chicken skin, eggs, butter margarine, pastries and meat. Be it pork or beef they have a lot of cholesterol LDL goal of less than 70 0 and triglyceride of less than 150 patient is taking fenofibrate only (4) HTN (hypertension): Code(s): I10 - Essential (primary) hypertension Category: Medical Qualifiers: Hypertension type: primary hypertension Qualified Code(s): I10 - Essential (primary) hypertension Plan: Continue with blood pressure medication. Decrease salt intake and exercise metoprolol 200 mg once a day losartan 100 mg once a day 50 mg t.i.d. of hydralazine and amlodipine 10 mg once a (5) PAD (peripheral artery disease): Comment: 04/10/2022- right great toe amputation 12/19/2023 - right 2nd toe amputation Code(s): I73.9 - Peripheral vascular disease, unspecified Category: Medical Plan: Control the cholesterol, weight, blood pressure, diabetes (6) Obesity (BMI 30-39.9): Code(s): E66.9 - Obesity, unspecified Category: Medical Plan: Diet and exercise (7) Mendez's esophagus: Comment: Dr. Barraza January 2012, last EGD 2020 scope biopsy shows uncontrolled inflammation in the distal esophagus repeat in 1 year Code(s): K22.70 - Mendez's esophagus without dysplasia Category: Medical Qualifiers: Mendez's esophagus type: with low grade dysplasia Qualified Code(s): K22.710 - Mendez's esophagus with low grade dysplasia Plan: Avoid the foods that causes that usually spicy foods, tomato products, juices, coffee, soda and foods that your sensitive to. After eating do not lie down, allow 3-4 hours before in lie down. And keep the head of bed above 30 degrees to avoid the acid from going up. (8) Rectal carcinoid tumor: Code(s): D3A.026 - Benign carcinoid tumor of the rectum Category: Medical Plan: Continue to follow-up with Gastroenterology (9) Amputation of right great toe: Onset Date: 04/10/22 Code(s): S98.111A - Complete traumatic amputation of right great toe, initial encounter Category: Surgical Plan: Decrease the amount of carbohydrate intake, pasta, bread, rice and potatoes are all sugar and that is aside from all the sweet stuff, remember that fruits are good but they are Sweet also. Plan History of Present Illness The patient is a 59-year-old male presenting for a physical examination and follow-up on chronic conditions. The patient has a history of diabetes mellitus, with a hemoglobin A1c of 7.1 in September, indicating suboptimal control. He ran out of Actos for two months, which led to elevated blood sugar levels, but a refill has been done. The patient also has hypercholesterolemia and is currently taking fenofibrate for management. His LDL cholesterol goal is less than 100 mg/dL, and triglycerides goal is less than 150 mg/dL. Mendez's esophagus is being monitored with regular EGD, the last of which was in February 2024. The patient has hypertension, managed with metoprolol, losartan, hydralazine, and amlodipine. He has a history of peripheral arterial disease and follows up with podiatry regularly. The patient has a significant family history of cardiovascular diseases and various cancers, including throat, stomach, and breast cancer. He denies alcohol consumption, smoking, and recreational drug use. Health Maintenance - Colonoscopy up to date, next due in 3-4 years - EGD up to date - Flu shot recommended in January - Discussed shingles vaccination, not required but recommended Social History - Denies alcohol consumption, smoking, and recreational drug use - Family history of cardiovascular diseases and various cancers Review of Systems - General: Denies fever, dizziness, nausea, or vomiting - Cardiovascular: Denies chest pain, heaviness, or shortness of breath - Respiratory: Denies cough or dyspnea - Gastrointestinal: Denies heartburn, swallowing difficulties, or bowel movement issues - Genitourinary: Reports waking up once or twice at night to urinate - Neurological: Denies passing out or dizziness Physical Exam General: Cooperative, healthy appearing, comfortable, no acute distress and well developed Orientation: Patient oriented x3 Limitations: No limitations Head: Normal to inspection Ears: Hearing grossly normal bilaterally, some earwax present but not obstructive Nose: Normal external nose present Face and sinus: Normal facial exam Eyes: Appearance normal, both eyes and all related structures Neck: Normal visual inspection and Yes full ROM Respiratory: Normal respiratory effort and able to speak in complete sentences. Clear to auscultation bilaterally Cardiovascular: Regular rate and rhythm. Normal S1 and S2 GI: Normal to inspection. Soft to palpation and nontender Skin: No rashes or lesions noted Neuro: Patient oriented x3, unable to feel light touch on foot, good pulses in extremities Extremities: Normal to inspection, history of amputation of the right great toe, unable to feel light touch on foot Results - Echocardiogram: EF 59%, no valvular problems - Hemoglobin A1c: 7.1 in September Plan Patient was informed and verbally consented to the use of an ambient scribe for clinic note documentation during this visit. 1. Diabetes Mellitus The patient's diabetes mellitus is currently managed with Jardiance, metformin, pioglitazone, and Trulicity. The goal is to achieve a hemoglobin A1c of less than 6.5%. The patient ran out of Actos for two months, leading to elevated blood sugar levels, but a refill has been done. 2. Hypercholesterolemia The patient is on fenofibrate for hypercholesterolemia management. The LDL cholesterol goal is less than 100 mg/dL, and triglycerides goal is less than 150 mg/dL. 3. Mendez's Esophagus Mendez's esophagus is being monitored with regular EGD, the last of which was in February 2024. 4. Hypertension Hypertension is managed with metoprolol, losartan, hydralazine, and amlodipine. 5. Peripheral Arterial Disease The patient has peripheral arterial disease and follows up with podiatry regularly. Discussion Notes During the visit, we discussed the management of diabetes mellitus, emphasizing the importance of medication adherence to achieve a hemoglobin A1c goal of less than 6.5%. We also reviewed the patient's hypercholesterolemia management with fenofibrate and set goals for LDL and triglycerides. The patient was advised to continue regular follow-ups for Mendez's esophagus and peripheral arterial disease. Preventative care measures, including the flu shot and shingles vaccination, were discussed. Patient Instructions - Continue taking diabetes medications as prescribed and monitor blood sugar levels regularly. - Follow the cholesterol management plan and aim for LDL less than 100 mg/dL. - Schedule regular follow-ups for Mendez's esophagus and peripheral arterial disease. - Get a flu shot in January and consider the shingles vaccination. Orders: Orders AMB Hemoglobin A1c Today Z13.9 - Encounter for screening, unspecified
[2024-12-22 15:31] VITALS: BP 136/60
--- OUTSIDE RECORDS SUMMARY | 2024-12-22 18:15 | XMS_ITS | Clinical Summary ---
Author Organization [address] [facility] Address [address] [place] [address] Phone Care Team Providers Care Maternity Nurse Name Role Phone Zurdo Mccormick MD Primary Care Provider [phone] Allergies Active Allergy Reactions Criticality Noted Date [...] 1 tablet (50 mg total) by mouth. 07/23/19 25 Active losartan (COZAAR) 100 mg tablet Take 1 tablet (100 mg total) by mouth 1 (one) time each day. Active metFORMIN XR (GLUCOPHAGE-XR ) 500 mg 24 hr tablet Take 2 tablets (1,000 mg total) by mouth 2 (two) times a day. 07/09/19 25 Active metoprolol succinate (TOPROL-XL) 200 mg 24 hr tablet Take 1 tablet (200 mg total) by mouth 1 (one) time each day. 06/25/19 25 Active pioglitazone (ACTOS) 30 mg tablet Take 1 tablet (30 mg total) by mouth 1 (one) time each day. 08/05/19 25 Active doxycycline (Vibramycin) 100 mg capsule Take 1 capsule (100 mg total) by mouth 2 (two) times a day for 10 days. Take with at least 8 ounces (large glass) of water, do not lie down for 30 minutes after. Administer 2 hours before or after multivitamins, antacids, or other products containing polyvalent cations (i.e., calcium, iron, magnesium, selenium, zinc). 20 capsule 11/17/19 25 025 Encounters Date Type Department Care Team Description 12/15/2024 Telephone Orthopedic Surgery [place] [address] [phone] Mikal Salgado DPM 12/02/2024 3:45 PM EDT Office Visit Orthopedic [place] [address] [phone] Mikal Salgado DPM Cellulitis of right leg (Primary Dx); Diabetic mononeuropathy simplex ([facility] V24, [facility] V28) 11/30/2024 Telephone Orthopedic Surgery [place] [address] [phone] [place] 11/16/2024 2:00 PM EDT Office Visit Orthopedic [place] [address] [phone] Mikal Salgado DPM Cellulitis of right leg (Primary Dx); Charcot's joint of ankle, left; Diabetic mononeuropathy simplex ([facility] V24, [facility] V28); Dermatophytosis of nail; Pain in toe of left foot; Corns and callosities; Pain in toe of right foot; Blister of right lower extremity, initial encounter; Metatarsalgia of right foot [M77.41]; Type II diabetes mellitus with peripheral circulatory disorder ([facility] V24, [facility] V28) [E11.51] from Last 3 Months Immunizations Name Administration [...] Care Team (Late st Contact Info) Description 01/12/2025 3:15 PM EDT Office Visit Orthopedic Surgery - [place] [address] [phone] Mikal Salgado, DPHenrietta [address] [phone] Health Maintenance Due Date Last Done Comments Diabetes: Annual GFR (Glomerular Filtration Rate) 1967 Diabetes: Annual Foot Exam 1977 Diabetes: Annual Retina Eye Exam 1977 Hepatitis B Vaccines (1 of 3 - 19+ 3-dose series) 1986 Zoster Vaccines (1 of 2) 2017 Cholesterol Screening (Lipid Panel) 01/15/2024 Colorectal Cancer Screening: Colonoscopy 01/15/2024 HIV Screening 01/15/2024 Hepatitis C Screening 01/15/2024 Social Influencers of Health Screening 01/15/2024 Diabetes: Annual Urine Albumin-Creatinine Ratio (uACR) 03/25/2024 Diabetes: Blood Sugar Control Test (HGBA1C) 03/25/2024 Hypertension/CHF/CAD Annual BMP Blood Test 03/25/2024 Depression Screening 04/08/2024 COVID-19 Vaccine ( season) 2024 01/25/2022, 03/13/2021, 09/19/2020, Additional history exists Influenza Vaccine (#1) 2024 02/21/2023 DTaP,Tdap,and Td [...] patient's age to complete this topic Insurance [facility] [address] Care Teams Maternity Nurse Relationship Specialty Start Date End Date Zurdo Mccormick MD [address] [place] [address] [address] [facility] [place] [address] PCP - General 05/01/23
--- OUTSIDE RECORDS SUMMARY | 2024-12-22 18:15 | XMS_ITS | Encounter Summary ---
Author Organization [facility], Address [address] [place] [address] Phone Care Team Providers Care Bar Examiner Name Role Phone Zurdo Mccormick MD Primary Care Provider [phone] Reason for Visit * Reason Comments Med Refill Encounter Details Date Type Department Care Team (Late st Contact Info) Description 07/24/2019 Refill [facility] [address] [place] [address] Miguel Angel Mensah MD Social [...] on filedocumented in this encounter Care Teams Bar Examiner Relationship Specialty Start Date End Date Zurdo Mccormick MD [facility] [address] [place], [place] PCP - General 02/10/19 documented as of this encounter
--- OUTSIDE RECORDS SUMMARY | 2024-12-22 18:15 | XMS_ITS | Encounter Summary ---
Author Organization [facility] Address [address] [place] [phone] Care Team Providers Care Parish Nurse Name Role Phone Zurdo Mccormick MD Primary Care Provider [phone] Encounter Details Date Type Department Care Team (Late Contact Info) Description 11/30/[address] [facility] [address] [phone] [place], [place] Social History Tobacco Use Types Packs/Day Years Used Date Smoking Tobacco: Never Assessed Sex and Gender Information Value Date Recorded Sex Assigned at Not on file Legal Sex Male 3:11 PM EST Gender Identity Not on file Sexual Orientation Not on file documented as of this encounter Plan of Treatment Upcoming Encounters Date Type Department Care Team (Late st Contact Info) Description 01/12/2025 3:15 PM EDT Office Visit [facility] [address] [phone] Mikal Salgado, DPM [address] [phone] documented as of this encounter Visit Diagnoses Not on filedocumented in this encounter Care Teams Parish Nurse Relationship Specialty Start Date End Date Zurdo Mccormick MD [address] [place] [address] [address] [facility] [place] [address] PCP - General 05/01/23 documented as of this encounter
--- OUTSIDE RECORDS SUMMARY | 2024-12-22 18:15 | XMS_ITS | Encounter Summary ---
Author Organization [facility] Address [id number] [place] [id number] Care Team Providers Care Supervisor Ticket Sales Name Role Phone Zurdo Mccormick MD Primary Care Provider [phone] Reason for Visit * Reason Onset Date Comments FMLA 12/15/2024 Encounter Details Date Type Department Care Team ([facility] st Contact Info) Description 12/15/2024 Telephone Orthopedic Surgery - [place] [address] [address] Mikal Salgado, DPM [address] [address] Social History Tobacco Use Types Packs/Day Years Used Date Smoking Tobacco: Never Assessed Sex and Gender Information Value Date Recorded Sex Assigned at Not on file Legal Sex Male 3:11 PM EST Gender Identity Not on file Sexual Orientation Not on file documented as of this encounter Progress Notes * Faiza Irving - 12/21/2024 9:53 AM EDT Pt has been waiting since November for FMLA to be completed. Please sign and contact pt when completed * Roxanne Martinez - 12/15/2024 11:[address] Salgado Type of Form: FMLA Date when filled out: 12/15/24 Date placed on providers desk for Signature: 12/15/24 PENDING SIGNATURE FROM PROVIDER * Christine Denson - 12/15/2024 10:39 AM EDT Patient is calling inquiring on the status of his FMLA paperwork, which was given to Dr Salgado @ his last OV on 11/16. Please advise. He can be reached @ [phone] . Thanks. documented in this encounter Plan of Treatment Upcoming Encounters Date Type Department Care Team (Late st Contact Info) Description 01/12/2025 3:15 PM EDT Office Visit Orthopedic Surgery - [place] [address] [phone] Mikal Salgado, DPM [address] [phone] documented as of this encounter Visit Diagnoses Not on filedocumented in this encounter Care Teams Supervisor Ticket Sales Relationship Specialty Start Date End Date Zurdo Mccormick MD [address] [place] [address] [address] [facility] [place] [address] PCP - General 05/01/23 documented as of this encounter
--- OUTSIDE RECORDS SUMMARY | 2024-12-22 18:15 | XMS_ITS | Patient Health Record ---
Author Organization [facility] Address [address] [place] [address] Care Team Providers Care Firepot Operator And Tender Name Role Phone Zurdo Mccormick Primary Care Provider Branden Nails Unavailable [phone] Allergies Allergen (clinical drug ingredient) Drug/Non Drug [...] Polyneuropathy due to type 2 diabetes mellitus (786435441) Type 2 diabetes mellitus with diabetic polyneuropathy (E11.42) Active confirmed Problem Polyneuropathy due to diabetes mellitus type I (384797086) Type 1 diabetes mellitus with diabetic polyneuropathy (E10.42) Active confirmed Problem Diabetic neuropathic arthropathy (881071671) Charcot's joint arthropathy in type 2 diabetes mellitus (E11.610) Active confirmed Encounters Encounter Location Date Provider Diagnosis [facility] [address] [facility] [address] [place] [address] 04/28/2024 Branden Salgado [facility] [place] [address] [place] [address] 07/08/2024 Branden Salgado Plan Of Treatment Pending Test Test Name Order Date X ray : Foot, left 3V 08/28/2021 X ray : Foot, left 3V 08/31/2022 X ray : Foot, right 3V 05/23/2022 X ray : Foot, right 3V 09/28/2021 X ray : Foot, right 3V 11/09/2021 X ray : Foot, right 3V 01/22/2022 X ray : Foot, right 3V 08/28/2021 [id number] SKIN/TISSUE 05/23/2022 [id number] SKIN/TISSUE 07/04/2022 [id number] SKIN LESIONS, 2 TO 4 11/03/19 Insurance Providers Payer Name Payer Address Payer Phone Subscriber Number Group Number Insured Name Patient Relationship to Insured Coverage Start Date Coverage End Date [facility] [address] [place] [address] [id number] Rehan Gramajo Self - patient is the insured Medical (General) History Medical History History ICD Code Barretts esophagus covid-19 Crohns disease Hypertension type II diabetes Vitamin D deficiency Cholesterol Neuropathy Chicken pox Surgical History Surgery Date(Month/Year) colonoscopy umbilical hernia repair EGD R amputation, 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
--- OUTSIDE RECORDS SUMMARY | 2024-12-22 18:15 | XMS_ITS | Clinical Summary ---
Author Organization [facility] Facility Address [address] [address] Care Team Providers Care Caseworker Name Role Phone Zurdo Mccormick MD Primary Care Provider [phone] Allergies Active Allergy Reactions Criticality Noted Date [...] Visual Foot Exam 04/13/2019 Influenza Vaccine (#1) 2024 Care Teams Caseworker Relationship Specialty Start Date End Date Zurdo Mccormick MD [facility] [place] [address] [facility] [address] [address] [address] [place] PCP - General 02/10/19
--- OUTSIDE RECORDS SUMMARY | 2024-12-22 18:15 | XMS_ITS | Encounter Summary ---
Author Organization [facility], Address [address] [place] [address] Phone Care Team Providers Care Harvester Operator Name Role Phone Zurdo Mccormick MD Primary Care Provider [phone] Reason for Visit * Reason Comments Med Refill Encounter Details Date Type Department Care Team (Late st Contact Info) Description 04/11/2019 Refill [facility] [address] [place] [address] Miguel Angel Mensah MD Social [...] on filedocumented in this encounter Care Teams Harvester Operator Relationship Specialty Start Date End Date Zurdo Mccormick MD [facility] [address] [place], [place] PCP - General 02/10/19 documented as of this encounter
== END 2024-12-22 15:45 | disposition home or self-care (01) ==
LOC: HO.HMCH 14:33
PROVIDERS: PCP Internal Medicine; Visit Provider Internal Medicine
DX: Z00.00 Encounter for general adult medical examination without abnormal findings (principal); E11.65 Type 2 diabetes mellitus with hyperglycemia; Z79.4 Long term (current) use of insulin; D3A.026 Benign carcinoid tumor of the rectum; Z68.34 Body mass index [BMI] 34.0-34.9, adult; E66.9 Obesity, unspecified; E78.00 Pure hypercholesterolemia, unspecified; I10 Essential (primary) hypertension; I73.9 Peripheral vascular disease, unspecified; K22.710 Barrett's esophagus with low grade dysplasia; S98.111A Complete traumatic amputation of right great toe, initial encounter

== ENCOUNTER → 2024-12-22 14:32 | Outpatient (BNVA) | payer OTHER, SELFPAY | PROVIDERS: PCP Internal Medicine; Visit Provider Internal Medicine | DX: Z00.00 Encounter for general adult medical examination without abnormal findings (principal); E11.65 Type 2 diabetes mellitus with hyperglycemia; E11.51 Type 2 diabetes mellitus with diabetic peripheral angiopathy without gangrene; E78.00 Pure hypercholesterolemia, unspecified; I10 Essential (primary) hypertension; E66.9 Obesity, unspecified; K22.710 Barrett's esophagus with low grade dysplasia; D3A.026 Benign carcinoid tumor of the rectum; Z79.4 Long term (current) use of insulin; Z68.34 Body mass index [BMI] 34.0-34.9, adult; Z89.411 Acquired absence of right great toe; Z79.899 Other long term (current) drug therapy | CPT/HCPCS: 83036; 99396 ==